=== PATIENT | female | born 1940 | race Caucasian/White ===

== ENCOUNTER 2020-04-10 10:01 | Outpatient (REF) | payer MEDICARE, SELFPAY ==
--- NOTE | 2020-04-10 | US_ITS ---
EXAMINATION: US EXTRACRANIAL CAROTID DUPLEX, BILATERAL CLINICAL INFORMATION: Bilateral carotid artery stenosis. COMPARISON: None TECHNIQUE: Real-time ultrasound and Doppler techniques (integrating B-mode 2-D vascular images, Doppler spectral analysis and color-flow Doppler imaging) were utilized to interrogate the extracranial carotid arteries, the vertebral arteries and proximal subclavian arteries bilaterally. The degree of stenosis is determined by criteria similar to NASCET. FINDINGS: Right Side: 1. There is hard atherosclerotic plaque seen in the bifurcation/proximal ICA region. 2. The common carotid artery PSV proximally is 66 cm/s and distally 69 cm/s. 3. The proximal internal carotid artery velocities are 130 cm/s systolic and 21 cm/s diastolic. 4. The proximal external carotid artery PSV is 161 cm/s. 5. The vertebral artery shows 73 flow. 6. The subclavian artery waveforms are normal. Left Side: 1. There is hard atherosclerotic plaque seen in the bifurcation/proximal ICA region. 2. The common carotid artery PSV proximally is 57 cm/s and distally 63 cm/s. 3. The proximal internal carotid artery velocities are 182 cm/s systolic and 25 cm/s diastolic. 4. The proximal external carotid artery PSV is 770 cm/s. 5. The vertebral artery shows reversed flow. 6. The subclavian artery waveforms are normal. US/US carotid duplex BI IMPRESSION: 1. RIGHT: Approximately 50-79% range stenosis, right carotid artery. There is hard plaque seen at the bulb. 2. LEFT: Approximately 50-79% range stenosis, left carotid artery. There is hard plaque seen in the left bulb 3. There is new hemodynamically significant stenosis in the right carotid artery. Hemodynamic significant left carotid artery measuring 50-79% diameter reduction is stable. 4. There is a high-grade stenosis involving the left axilla carotid artery. 5. There is reversed flow in the left vertebral artery. Previously patient had a biphasic flow on the left side.
== END 2020-04-10 10:02 | disposition home or self-care (01) ==
LOC: HO.US 10:01
PROVIDERS: Visit Provider Surgery Vascular Surgery
DX: I65.23 Occlusion and stenosis of bilateral carotid arteries (principal)
CPT/HCPCS: 93880

== ENCOUNTER 2020-04-16 09:24 | Outpatient (REF) | payer MEDICARE, SELFPAY ==
--- NOTE | 2020-04-16 09:48 | CT_ITS ---
EXAMINATION: CTA ABDOMEN AND PELVIS Andra Conte M.D./Ph.D. CLINICAL INFORMATION: History of abdominal aortic aneurysm rupture and repair. TECHNIQUE: Multiple axial images were obtained through the abdomen and pelvis before and after administration of 80 mL of Omnipaque 300 intravenously. Images were evaluated on independent dedicated 3-D workstation and 3-D images were reconstructed with concurrent radiologist supervision and subsequently interpreted. Specific vascular measurements are placed directly on the 3-D rendered images and are documented and stored in PACS. This CT examination was performed using dose optimization techniques as appropriate, variously including the following: *Automated exposure control *Adjustment of mA and/or kV according to patient size (this includes techniques or standardized protocols for targeted exams where dose is matched to indication/reason for exam; i.e. extremities or head) *Use of iterative reconstruction technique COMPARISON: 03/02/2019, 08/05/2018 DLP: 196.10 mGy-cm FINDINGS: VASCULAR: 1. 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 Atherosclerotic disease extends along its branches which maintain patency. The superior mesenteric artery is diffusely atherosclerotic with mild ostial stenosis that is not flow-limiting. 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 2. Renal Arteries: Renal artery stenoses bilaterally with diffuse atherosclerotic disease. Patency is maintained. 3. Abdominal Aorta: Diffuse atherosclerotic disease of the visualized descending thoracic aorta with ulcerations. Atherosclerotic disease is also seen involving the entirety of the abdominal aorta. There is an infrarenal abdominal aortic aneurysm seen that measures 4.7 x 4.8 cm, previously 4.7 x 4.7 cm when similarly measured on the axial images. The aneurysm is fusiform and begins immediately below the renal arteries and continues to the aortic bifurcation. The aneurysm sac contains mural thrombus, particularly at its inferior aspect. 4. Iliac Arteries: The iliofemoral systems are patent bilaterally as far as they are visualized. There are bilateral common iliac artery stenoses at the origins. Poststenotic dilatation of the right common iliac artery is again seen measuring 1.5 cm. Calcified atherosclerotic disease is seen diffusely throughout the iliofemoral systems. 5. Veins: The IVC is singular and right-sided. The left renal vein is stretched across the aneurysm and contrast does not appear to reach the renal vein as it attaches to the IVC. Instead, the outflow from the left kidney appears to be retrograde down the refluxing left-sided ovarian veins into pelvic varices with drainage across the midline to the right gonadal vein as well as ipsilaterally into the internal iliac vein. NONVASCULAR: Locker Room Manager: No additional findings. Lung Bases: Centrilobular emphysematous changes. Liver, Gallbladder, Biliary Tree: Scattered areas of arterial enhancement within the liver at segment 2 and segment 5 adjacent to the gallbladder, segment 6 as well as segment 7 at the dome. The lesions are all ill-defined and small. The largest at the dome measures approximately 1 cm. The liver is enlarged measuring 21 cm in craniocaudal extent. The gallbladder is unremarkable with no evidence of radiopaque gallstones, gallbladder wall thickening or pericholecystic inflammatory changes. Pancreas: Unremarkable. Spleen: Stable subcapsular hypoechoic focus measures 0.8 cm. Adrenal Glands: Unremarkable. Kidneys and Ureters: Renal cortical thinning and lobulation. Scattered areas of cortical hypoattenuation likely related to chronic scars or infarcts. No solid enhancing suspicious renal lesions are identified. No hydronephrosis or perinephric stranding. Bladder: Unremarkable. Gastrointestinal Tract: Diverticulosis without CT evidence of acute diverticulitis. No evidence of bowel obstruction. The appendix is unremarkable. Abdominal Wall: Similar-appearing fat and fluid containing epigastric midline hernia. Shallow periumbilical hernia contains nonobstructed small bowel, similar to the prior study. Lymph Nodes: No lymphadenopathy within the abdomen or pelvis by CT criteria. Pelvic Viscera: Unremarkable. Osseous Structures: No acute or suspicious osseous abnormality. CT/CT angio abdomen pelvis IMPRESSION: 1. No significant interval change to the size or appearance of the fusiform infrarenal abdominal aortic aneurysm demonstrating mural thrombus. 2. Bilateral common iliac artery stenoses, right greater than left, similar to the prior study. 3. Similar-appearing stenoses of the celiac axis, superior mesenteric artery and renal arteries. 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 The kidneys demonstrate evidence of renal artery stenosis with bilateral symmetric cortical thinning and cortical scars or infarcts. 4. Scattered arterially enhancing lesions within the liver may represent flash filling hemangiomas although the appearance is nonspecific. If appropriate based upon the patient's clinical assessment, followup with liver protocol MRI is recommended. The patient does have hepatomegaly and suggestion of underlying hepatic steatosis. 5. Stable ventral abdominal hernias containing fat and nonobstructed small bowel loops. 6. The left renal vein may be occluded as it stretches across the aneurysm. The majority of the left renal outflow appears to be down the refluxing left gonadal vein into pelvic varices. 7. Other chronic and nonacute findings, as above.
[2020-04-16 11:01] LABS: Blood Urea Nitrogen 19 mg/dL (9-16); Estimated Glomerular Filt Rate 50
[2020-04-16] MEDS: iohexoL 350 MG/ML 100 ML INFUS..BTL 80 ML IV (12:07)
== END 2020-04-16 09:25 | disposition home or self-care (01) ==
LOC: HO.CT 09:24
PROVIDERS: Visit Provider Surgery Vascular Surgery
DX: I71.3 Abdominal aortic aneurysm, ruptured (principal)
CPT/HCPCS: 74174; 82565; 84520; Q9967

== ENCOUNTER → 2020-04-17 10:02 | Outpatient (BNVA) | payer MEDICARE, SELFPAY | PROVIDERS: PCP Internal Medicine; Referring Provider Internal Medicine; Visit Provider Surgery Vascular Surgery | DX: I71.4 Abdominal aortic aneurysm, without rupture (principal); I65.23 Occlusion and stenosis of bilateral carotid arteries | CPT/HCPCS: 99212 ==

== ENCOUNTER 2022-12-31 15:09 | Emergency (ER) | payer MEDICARE, SELFPAY ==
--- NOTE | ~2022-12-31 | XR_ITS ---
EXAMINATION: XR FINGER, RIGHT CLINICAL INFORMATION: Finger swelling, pain and redness. COMPARISON: None available. TECHNIQUE: 4 of the right hand second digit. FINDINGS: Mild to moderate interphalangeal, first carpal metacarpal and triscaphe degenerative joint changes are seen. Degenerative joint changes are most pronounced in the second digit in the distal interphalangeal joint with joint space narrowing, periarticular sclerosis and hypertrophic marginal osteophyte formation. An oblique linear lucency is seen in the distal/radial aspect of the middle phalanx. Moderate soft tissue swelling is seen in the second digit. XR/XR finger RT min 2V IMPRESSION: Moderate soft tissue swelling in the second digit with degenerative joint changes most consistent with osteoporosis radius. There is an oblique linear lucency in the distal aspect of the middle phalanx that may be projectional. An acute nondisplaced fracture cannot be completely excluded. Correlate with physical exam and trauma history.
[2022-12-31 15:36] VITALS: BP 90/51; PULSE 69; RESP 16; TEMP 36.1; O2SAT 96; BMI 21.0
--- NOTE | 2022-12-31 15:39 | ED.EXTPRO ---
HPI - Extremity Problem General Chief complaint: Extremity Problem Stated complaint: Right index finger injury Time Seen by Provider: 12/31/22 17:53 Source: patient and RN notes reviewed Mode of arrival: ambulatory Limitations: no limitations History of Present Illness HPI Narrative: This is a 82-year-old female, with a past medical history of gout currently on allopurinol, hypertension, hyperlipidemia, and diet-controlled diabetes, presenting to the emergency department with complaints of right second finger pain, swelling, and warmth x4 days. Patient denies any trauma or injury to her right second finger. Denies history of similar symptoms in the past. She states that she has a history of gout but typically this affects her toes. She has never had any injuries or gouty flare ups in her hands or fingers. No fevers or chills. She was seen by her primary care physician this afternoon, and was placed on Augmentin reports that she took 1 dose of this today. She was told to come to the emergency department for further evaluation. No other complaints or concerns at this time. MD Complaint: extremity pain Onset (ago): day(s) Pain Consistency: constant Location: right and upper extremity Quality: aching Radiation: none Relieving factors: nothing Exacerbating factors: nothing Associated symptoms: denies other symptoms Related Data Home Medications Medication Instructions Recorded Confirmed allopurinol 100 mg tablet 100 mg PO DAILY 10/31/22 amlodipine 5 mg tablet 5 mg PO DAILY 10/31/22 aspirin 81 mg tablet,delayed 81 mg PO DAILY 10/31/22 release calcium citrate-vitamin D3 125 1 tab PO .QD 10/31/22 mg-62.5 unit tablet lisinopril 5 mg tablet 5 mg PO DAILY 10/31/22 metformin 500 mg tablet 500 mg PO BID 10/31/22 metoprolol tartrate 50 mg tablet 50 mg PO TID 10/31/22 niacin 500 mg tablet 500 mg PO DAILY 10/31/22 simvastatin 40 mg tablet 40 mg PO DAILY 10/31/22 Previous Rx's Medication Instructions Recorded meloxicam 15 mg tablet 15 mg PO DAILY #14 tabs 10/31/22 sulfamethoxazole 800 1 tab PO BID 7 days #14 tabs 10/31/22 mg-trimethoprim 160 mg tablet (Bactrim DS) Allergies Allergy/AdvReac Type Severity Reaction Status Date / Time No Known Allergies Allergy Unverified 12/31/22 15:36 Review of Systems Review of Systems: Yes all other systems are reviewed and are negative Constitutional: Constitutional: Reports as per [facility] Past Medical History Surgical History H/O section History of AAA (abdominal aortic aneurysm) repair Hx of cataract Social History Social History Alcohol intake: never Patient Tobacco Use Status: Former Tobacco user Smoked in Last 30 Days: No Use of substances other than those prescribed or required for medical reasons: No Advance Directives: No Advance Directives Information Provided: No Physical Exam Vital Signs: Vital Signs: Last Vital Signs Temp 98.2 F 12/31/22 19:04 Pulse 71 12/31/22 19:04 Resp 16 12/31/22 19:04 BP 91/65 12/31/22 19:04 Pulse Ox 98 12/31/22 19:04 O2 Del Method Room Air 12/31/22 19:04 BMI result Body Mass Index 21.0 Const: General: cooperative, comfortable and no acute distress Orientation/consciousness: patient oriented x3 Limitations: no limitations HEENT: Head: Yes normal to inspection, Yes normocephalic and Yes atraumatic Ears: hearing grossly normal bilaterally General nose exam: Normal external nose present Face and sinus: Yes normal facial exam Mouth: Normal oral and palatal mucosa present, oropharynx normal and moist mucous membranes Throat: Yes posterior oropharynx normal Eyes: General: appearance normal, both eyes and all related structures Eyelids: Yes eyelids normal Conjunctivae: conjunctivae normal Sclerae: sclerae normal Pupils: Equal, round and reactive pupils present EOM: EOMs intact bilaterally Neck: Neck: Yes normal visual inspection, Yes full ROM and Yes no lymphadenopathy Lymphatic: no lymphadenopathy noted Chest: Chest palpation & inspection: normal inspection of the chest Resp: Effort & Inspection: normal respiratory effort and able to speak in complete sentences Auscultation: clear to auscultation bilaterally, no crackles, no rales, no rhonchi and no wheezes Cardio: Rate: regular rate Rhythm: regular rhythm Heart sounds: S1 normal heart sound present and S2 normal heart sound present GI: Inspection: Yes normal to inspection Skin: General skin exam: no rashes or lesions noted Trauma: no lacerations or abrasions Wounds: no wounds Neuro: General: patient oriented x3 and moves all extremities Cranial nerves: Yes Equal, round and reactive pupils present Extrem: Other: Right 2nd digit with warmth, edema and ecchymosis noted throughout finger. TTP at the DIP and PIP. Along the DIP there is erythema, redness, and warmth. Patient able to flex and extend at the PIP limited range of motion at the the DIP. Capillary refill less than 2 seconds. General: Yes normal to inspection Left upper extremity: normal to inspection Right lower extremity: normal to inspection Left lower extremity: normal to inspection Course Course Course Narrative: RME - 82 yo female with history of gout, AAA, HTN, DM, HLD who presents to the ER for evaluation of nontraumatic right index finger pain, swelling, redness that has been worsening for the last 4 days. Plan: x-ray finger Reevaluation(s) Reevaluation #1: X-ray returned showing moderate soft tissue swelling the 2nd digit with degenerative changes most consistent with osteoporosis. There is in oblique linear lucency in the distal/radial aspect of the middle phalanx which may be projectional. Lab work pending. Time: 18:25 Reevaluation #2: consult out to orthopedic PAEleni, sign-out given to colleague Anitha Borja PA-C pending orthopedic recommendations. Time: 19:30 Reevaluation #3: Orthopedics recommended treating as gout, low suspicion for infection/cellulitis or tenosynovitis. Labs reviewed, patient given Lokelma prior to discharge. Results discussed with patient including worrisome signs and symptoms and strict return precautions, and when to return to the emergency department. They verbalized understanding and feel safe for discharge at this time. Time: 20:15 Medical Decision Making Medical Decision Making [facility] Narrative: This is a 82-year-old female, with a past medical history of hypertension, hyperlipidemia, gout on allopurinol, and diet-controlled diabetes, presenting to the emergency department for evaluation of atraumatic right 2nd finger swelling, pain, and warmth x4 days. On arrival, patient mildly hypotensive at 90/51, patient is asymptomatic, no headaches, no dizziness or lightheadedness. Clinical suspicion for gout versus cellulitis versus fracture versus osteoarthritis, septic arthritis. Given limited range of motion at the PIP as well as warmth overlying this area gout is suspected however will obtain basic labs to rule out infection. Plan: finger x-ray, basic labs, inflammatory markers, uric acid Differential Diagnosis Differential Diagnoses: The differential diagnosis associated with the presentation includes gout, pseudogout, tenosynovitis, septic arthritis, cellulitis Admission/Observation Consideration of admission/observation: Escalation of care including admission/observation considered Patient would have been admitted to the hospital had her work up had any findings where hospital admission was appropriate and her clinical presentation warranted hospital admission. Lab Data MDM Lab Attestation statement: I reviewed the patient's lab results. 12/31/22 18:20 12/31/22 18:20 Labs: Lab Results 12/31/22 12/31/22 12/31/22 Range/Units 18:20 18:20 18:20 WBC 10.8 (4.8-10.8) X10*3/uL RBC 4.11 L (4.20-5.50) X10*6/uL Hgb 11.5 L (12.0-16.0) g/dl Hct 36.3 L (37.0-47.0) % MCV 88.3 (80.0-98.0) fL MCH 28.0 (27.0-33.0) pg MCHC 31.7 (31.0-35.0) g/dl RDW 17.2 H (11.0-16.0) % Plt Count 303 (160-400) X10*3/uL MPV 8.9 L (9.4-12.3) fL Immature Gran % (Auto) 1.4 H (0.0-0.4) % Neut % (Auto) 76.7 H (45-73) % Lymph % (Auto) 15.8 L (20-40) % [place] % (Auto) 4.4 (2-11) % Eos % (Auto) 1.2 (0-4) % Baso % (Auto) 0.5 (0-2) % Lymph # (Auto) 1.7 (1.2-4.9) X10*3/uL [place] # (Auto) 0.5 (0.1-1.2) X10*3/uL Eos # (Auto) 0.1 (0.0-0.4) X10*3/uL Baso # (Auto) 0.1 (0.0-0.2) X10*3/uL Abs Immat Gran (auto) 0.15 H (0.00-0.03) X10*3/uL Absolute Neuts (auto) 8.3 (2.0-8.3) x10*3/uL Absolute Nucleated RBC 0.000 (0.0-0.012) X10*3/uL Nucleated RBC % (auto) 0.0 (0.0-0.2) /100WBC ESR 49 H (0-20) MM/HR Sodium 139 (135-145) mmol/L Potassium 5.4 H (3.3-5.1) mmol/L Chloride 111 H (96-108) mmol/L Carbon Dioxide 18 L (22-29) mmol/L Anion Gap 15 (12-20) BUN 17 H (9-16) mg/dL Creatinine 0.91 (0.5-1.4) mg/dL Estim Creat Clear Calc 36.6 Estimated GFR 59 Random Glucose 98 (60-115) mg/dL Uric Acid 5.6 (2.4-5.7) mg/dL Calcium 9.1 (8.4-10.2) mg/dL C-Reactive Protein 2.68 H (< or = 0.50) mg/dL Radiology Impression Discussion of test interpretation with radiology: I have reviewed the radiologist's reading. External Record Review External record reviewed: Inpatient record, Office record, Outpatient record, Prior outpatient labs, Prior outpatient radiology, Primary care record and Outside ED record Discharge Plan Discharge Clinical Impression: Gout Patient Disposition: Home, Self-Care Prescriptions: No Action metoprolol tartrate 50 mg tablet 50 mg PO TID lisinopril 5 mg tablet 5 mg PO DAILY amlodipine 5 mg tablet 5 mg PO DAILY simvastatin 40 mg tablet 40 mg PO DAILY metformin 500 mg tablet 500 mg PO BID allopurinol 100 mg tablet 100 mg PO DAILY aspirin 81 mg tablet,delayed release (DR/EC) 81 mg PO DAILY niacin 500 mg tablet 500 mg PO DAILY calcium citrate-vitamin D3 125-62.5 mg-unit tablet 1 tab PO .QD meloxicam 15 mg tablet 15 mg PO DAILY Qty: 14 0RF sulfamethoxazole-trimethoprim [Bactrim DS] 800-160 mg tablet 1 tab PO BID 7 Days Qty: 14 0RF
[2022-12-31 18:24] LABS: MANUAL DIFF FLAG NO
[2022-12-31 18:28] LABS: Basophils Absolute Auto 0.1 X10*3/uL (0.0-0.2); Basophils Percent Auto 0.5 % (0-2); Eosinophils Absolute Auto 0.1 X10*3/uL (0.0-0.4); Eosinophils Percent Auto 1.2 % (0-4); Hematocrit 36.3 % (37.0-47.0); Hemoglobin 11.5 g/dl (12.0-16.0); Imm Gran Abs Auto 0.15 X10*3/uL (0.00-0.03); Imm Gran Pct Auto 1.4 % (0.0-0.4); Lymphocytes Absolute Auto 1.7 X10*3/uL (1.2-4.9); Lymphocytes Percent Auto 15.8 % (20-40); Mean Corpuscular HGB Conc 31.7 g/dl (31.0-35.0); Mean Corpuscular Volume 88.3 fL (80.0-98.0); Mean Platelet Volume 8.9 fL (9.4-12.3); Monocytes Absolute Auto 0.5 X10*3/uL (0.1-1.2); Monocytes Percent Auto 4.4 % (2-11); Neutrophils Absolute Auto 8.3 x10*3/uL (2.0-8.3); Neutrophils Percent Auto 76.7 % (45-73); Platelet Count 303 X10*3/uL (160-400); Red Blood Count 4.11 X10*6/uL (4.20-5.50); Red Cell Distribution Width 17.2 % (11.0-16.0); White Blood Count 10.8 X10*3/uL (4.8-10.8)
[2022-12-31 18:43] LABS: Anion Gap 15 (12-20); Blood Urea Nitrogen 17 mg/dL (9-16); C Reactive Protein 2.68 mg/dL (< or = 0.50); Calcium 9.1 mg/dL (8.4-10.2); Carbon Dioxide 18 mmol/L (22-29); Chloride 111 mmol/L (96-108); Creatinine Clr Calc Pharmacy 36.6; Estimated Glomerular Filt Rate 59; Glucose Random 98 mg/dL (60-115); Potassium 5.4 mmol/L (3.3-5.1); Sodium 139 mmol/L (135-145); Uric Acid 5.6 mg/dL (2.4-5.7)
[2022-12-31 19:04] VITALS: BP 91/65; PULSE 71; RESP 16; TEMP 36.8; O2SAT 98
--- NOTE | 2022-12-31 19:09 | PC.NURSE ---
Pt A&Ox4, pt denies injury/trauma to right hand pointing finger, denies any pain. Redness and swelling noted to bottom joint. Pt reports hx of gout, on allopurinol.
[2022-12-31 19:20] LABS: Erythrocyte Sedimentation Rate 49 MM/HR (0-20)
[2022-12-31] MEDS: Sodium Zirconium Cyclosilicate 5 GM POWD.PACK PO (20:29)
[2022-12-31] MEDS: predniSONE 20 MG TABLET 40 MG PO (20:29)
[2022-12-31 20:34] VITALS: BP 92/60; PULSE 67; RESP 16; O2SAT 100
== END 2022-12-31 20:39 | disposition home or self-care (01) ==
PROVIDERS: Physician Assistant Medical; Emergency Provider Internal Medicine
DX: M10.041 Idiopathic gout, right hand (principal); M79.644 Pain in right finger(s); E11.9 Type 2 diabetes mellitus without complications; I10 Essential (primary) hypertension; E78.5 Hyperlipidemia, unspecified; Z79.82 Long term (current) use of aspirin; Z79.84 Long term (current) use of oral hypoglycemic drugs; Z79.899 Other long term (current) drug therapy; Z87.891 Personal history of nicotine dependence
CPT/HCPCS: 36415; 73140; 80048; 84550; 85025; 85652; 86140; 99283; 99284

== ENCOUNTER 2023-05-11 09:27 | Inpatient (IN) | payer MEDICARE, SELFPAY ==
[2023-05-11] VITALS (10 sets, daily range): BP systolic 82–180; BP diastolic 57–100; PULSE 93–112; RESP 18–24; TEMP 36.6–37; O2SAT 96–99; BMI 22.0
--- NOTE | ~2023-05-11 | XR_ITS ---
EXAMINATION: XR CHEST CLINICAL INFORMATION: SOB. COMPARISON: Chest x-ray 03/23/2010 TECHNIQUE: 2 views of the chest were obtained. FINDINGS: The lungs are well-expanded with right parahilar opacity question consolidation. Heart size is normal. There is increased bilateral parahilar markings, question mild congestion versus interstitial pneumonitis. There is no pleural effusion. No gross bony abnormality. XR/XR chest 2V IMPRESSION: 1. Right parahilar opacity question consolidation. 2. Increased bilateral parahilar markings, question mild vascular congestion versus interstitial pneumonitis.
--- NOTE | ~2023-05-11 | XR_ITS ---
EXAMINATION: XR CHEST CLINICAL INFORMATION: Celiac COMPARISON: Previous chest x-ray most recent May 12, 2023 and chest CTA May 11, 2023 TECHNIQUE: Frontal view of the chest was obtained. FINDINGS: The cardiac silhouette is enlarged. There is pulmonary venous redistribution. There are increased interstitial markings. There is blunting at the bilateral costophrenic angles questionable for small bilateral pleural effusions. Findings are most suggestive of CHF. This is increased from recent exam. No pneumothorax. No acute bone abnormality. XR/XR chest 1V IMPRESSION: CHF. This is increased from recent exam.
--- NOTE | ~2023-05-11 | XR_ITS ---
EXAMINATION: XR CHEST CLINICAL INFORMATION: Shortness of breath. COMPARISON: 05/11/2023. TECHNIQUE: Frontal view of the chest was obtained. FINDINGS: The cardiomediastinal silhouette is stable. There is pulmonary vascular congestion and diffuse increased markings and patchy faint lung opacities. The costophrenic angles appear blunted. The bony structures are osteopenic. The soft tissues are unremarkable. XR/XR chest 1V IMPRESSION: Vascular congestion with diffuse increased markings and patchy lung opacities. Suspect fluid overload and/or congestive heart failure with interstitial and early pulmonary edema. Blunted costophrenic angles possibly trace pleural fluid. Similar findings were seen previously.
--- NOTE | ~2023-05-11 | CT_ITS ---
EXAMINATION: CT ANGIOGRAM OF THE CHEST WITH AND WITHOUT CONTRAST (CT PULMONARY ANGIOGRAM FOR PE) CLINICAL INFORMATION: Hypoxia; elevated d-dimer and troponin. COMPARISON: Chest radiographs dated 05/11/2023. TECHNIQUE: Prior to contrast administration, noncontrast localization images were obtained. Subsequently, multidetector volumetric imaging was performed from the thoracic inlet to below the diaphragms following the administration of 80 mL Omnipaque 350 intravenous contrast. No contrast reaction reported Sagittal, coronal, and MIP oblique sagittal reformatted images were obtained on the CT workstation, uploaded to PACS, and reviewed. This CT examination was performed using dose optimization techniques as appropriate, variously including the following: *Automated exposure control *Adjustment of mA and/or kV according to patient size (this includes techniques or standardized protocols for targeted exams where dose is matched to indication/reason for exam; i.e. extremities or head) *Use of iterative reconstruction technique Total exam dose-length product 167 mGy-cm FINDINGS: QUALITY OF STUDY/CONTRAST BOLUS: Satisfactory. PULMONARY ARTERIES: No pulmonary emboli. THORACIC AORTA: No aneurysm. There is moderate atherosclerotic calcification. LUNG: There are centrilobular emphysematous change. There is biapical pleural scarring. Within the superior segment of the right lower lobe (6:29), a 3.6 x 2.6 cm infiltrate is noted, with air bronchograms. PLEURA: There are small bilateral pleural effusions. No pneumothorax is seen. MEDIASTINUM: Normal heart size. No pericardial effusion. No hilar or mediastinal lymphadenopathy. No evidence of septal bowing or right heart strain. CORONARY ARTERY CALCIFICATION: Mild to moderate. CHEST WALL/AXILLA: No axillary or internal mammary lymphadenopathy. OSSEOUS STRUCTURES: There is multi-level lower cervical and thoracic spondylosis and Schmorl's node formation. No acute or aggressive osseous abnormality is seen. UPPER ABDOMEN: Unremarkable. No reflux of contrast into the hepatic veins to suggest elevated right heart pressures. CT/CT angio chest PE protocol IMPRESSION: 1. No pulmonary embolus or thoracic aortic aneurysm is noted. 2. A 3.6 cm right base infiltrate is noted, likely infectious. Recommend follow-up imaging to ensure clearance and exclude the possibility of underlying obstructive process. 3. There are centrilobular emphysematous changes. 4. There are mild to moderate coronary artery atherosclerotic calcifications. 5. No thoracic lymphadenopathy or pleural effusion is seen. 6. No acute or aggressive osseous lesion is seen. VTE: negative
--- NOTE | 2023-05-11 07:00 | CA_ITS ---
Transthoracic Echocardiogram Patient (Last, First, Middle): Noemi Jose, Gender: Female Date of : 1940 Age: 82 Procedure Date: 05/11/2023 Procedure Type: Transthoracic Echocardiogram Location: ER Height: 152.4 cm Weight: 50.8 kg BSA: 1.46 m2 Heart Rate: bpm BP: 151 / 65 mmHg [address] Technologist: Referring MD: Lisa SAAVEDRA Symptoms: new onset chf, cardiac mumurs Study Quality: Fair ECG Rhythm: Sinus Conclusions: - The left ventricular systolic function is severely decreased. The calculated ejection fraction is 29% by biplane method. - The inferoseptal wall, the basal inferior, mid inferior, apical septum, mid anteroseptal, and basal inferolateral segments are akinetic. - There is mild to moderate aortic valve stenosis. Findings Procedure Information Contrast agent, definity, is being given per protocol without apparent complications. Left Ventricle Normal left ventricular cavity size. The left ventricular systolic function is severely decreased. The calculated ejection fraction is 29% by biplane method. There is no evidence of regional wall motion abnormalities. Evidence suggests grade I (mild) diastolic dysfunction. Moderate focal septal hypertrophy. Wall Motion Rest Echo Findings The inferoseptal wall, the basal inferior, mid inferior, apical septum, mid anteroseptal, and basal inferolateral segments are akinetic. Right Ventricle Normal right ventricular cavity size and systolic function. Atria The left atrium is mildly dilated. The right atrium is normal in size. Aortic Valve There is moderate calcification of the aortic valve. There is mild to moderate aortic valve stenosis. There is trace (trivial) aortic valve regurgitation. Dimensionless index 0.35. Stroke volume index 35 mL/m2. Mitral Valve There is mild mitral annular calcification. There is trace mitral valve regurgitation. There is no mitral valve stenosis. Pulmonic Valve The pulmonic valve is likely normal. Tricuspid Valve There is trace tricuspid valve regurgitation. There is no evidence of pulmonary hypertension. Great Vessels The asc aorta is normal in size. Venous The inferior vena cava is normal in size and collapses greater than 50% with inspiration. Pericardium/Pleural There is no evidence of pericardial effusion. Prior Study Comparison Changes noted compared to prior study dated: 04/19/2010. Diminished LVEF; new wall motion abnormalities. Measurements 2D Linear Measurements IVSd: 1.31 0.6-0.9/0.6-1.0 cm LVIDd: 4.06 3.9-5.3/4.2-5.9 cm LVIDd Index: 2.78 2.4-3.2/2.2-3.1 cm/m2 LVIDs: 3.06 2.0-3.6 cm LVPWd: 1.35 0.7-1.1 cm Ao Root: 3.00 2.1-3.5 cm LA Diam: 4.00 2.7-3.8/3.0-4.0 cm LAIDs Index: 2.74 1.5-2.3 cm/m2 LV Mass: 246.00 67-162/88-224 g LV Mass Index: 168.49 43-95/49-115 g/m2 LVOT Diam: 2.00 3.0+(-)1.3 cm 2D Systolic Function EF 4C: 23.60 >55% EF 2C: 28.90 >55% EF BiP: 29.00 >55% Mitral Valve MV Pk E: 0.72 MV PK A: 0.84 MV Decel Time: 108.00 E/A: 0.90 E'Lateral: 6.96 E'Medial: 4.24 E/E' Med: 17.10 E/E' Lat: 10.40 PHT: 32.00 MVA PHT: 6.88 Decel [place]: 6.69 Aortic Valve AoV Pk [place]: 2.33 AoV Mn [place]: 1.60 AoV VTI: 0.44 AoV Pk Grad: 22.00 Aov Mn Grad: 12.00 TAYO Cont.VTI: 1.16 LVOT LVOT Pk [place]: 0.81 LVOT Mn [place]: 0.51 LVOT VTI: 0.16 LVOT Pk Grad: 3.00 LVOT Mn Grad: 1.00 LVOT Diam: 2.00 LVOT Area: 3.14 Diastolic Function MV Pk E: 0.72 MV Pk A: 0.84 E/A: 0.90 E'Medial: 4.24 E/E' Med: 17.10 E' Laterial: 6.96 E/E' Lat: 10.40 Right Ventricle TAPSE (mm): 20.00 TVS' [place]: 14.00 Tricuspid Valve TR Pk [place]: 2.56 TR Pk Grad: 26.00 RA Press: 3.00 RVSP: 29.00 Great Vessels Aorta Ao Root-2D: 3.00 2.0-3.7 cm Ao Asc: 2.90 2.1-3.4 cm Pulmonary Valve PV Pk [place]: 1.27 Peak PV Grad: 6.00 Updated in Other Vendor System with Status of Final Tk Duran MD electronically signed on 05/12/2023 10:56:22 AM with status of Final
--- NOTE | 2023-05-11 09:38 | ED_ITS ---
HPI - SOB/Dyspnea General Chief Complaint: Dyspnea Stated Complaint: SOB X2 DAYS,WORSE W/EXER/AMB PER EMS Time Seen by Provider: 05/11/23 09:32 Source: patient, EMS, RN notes reviewed and old records reviewed Mode of arrival: EMS History of Present Illness HPI Narrative: 82-year-old female with a past medical history of carotid stenosis, AAA, HTN, diabetes presenting to the ED via EMS complaining of lightheadedness and exertional dyspnea x few days. Denies fever/chills, cough, chest pain, abdominal pain, nausea/vomiting, pedal edema MD elicited complaint: shortness of breath Related Data Home Medications Medication Instructions Recorded Confirmed allopurinol 100 mg tablet 100 mg PO DAILY 10/31/22 amlodipine 5 mg tablet 5 mg PO DAILY 10/31/22 aspirin 81 mg tablet,delayed 81 mg PO DAILY 10/31/22 release calcium citrate-vitamin D3 125 1 tab PO .QD 10/31/22 mg-62.5 unit tablet lisinopril 5 mg tablet 5 mg PO DAILY 10/31/22 metformin 500 mg tablet 500 mg PO BID 10/31/22 metoprolol tartrate 50 mg tablet 50 mg PO TID 10/31/22 niacin 500 mg tablet 500 mg PO DAILY 10/31/22 simvastatin 40 mg tablet 40 mg PO DAILY 10/31/22 Previous Rx's Medication Instructions Recorded meloxicam 15 mg tablet 15 mg PO DAILY #14 tabs 10/31/22 sulfamethoxazole 800 1 tab PO BID 7 days #14 tabs 10/31/22 mg-trimethoprim 160 mg tablet (Bactrim DS) naproxen 500 mg tablet 500 mg PO BID PRN pain 10 days #20 12/31/22 tabs prednisone 20 mg tablet 40 mg (2 x 20 mg) PO DAILY 5 days 12/31/22 #10 tabs Allergies Allergy/AdvReac Type Severity Reaction Status Date / Time No Known Allergies Allergy Unverified 12/31/22 15:36 Review of Systems 2 Review of Systems: Constitutional: No Fever, No Chills, No Fatigue, No Malaise ENT/Mouth: No Ear Pain, No Nasal Congestion, No sore throat, No Rhinorrhea, No Swallowing Difficulty Eyes: No Eye Pain, No Swelling, No Redness, No Vision Changes Cardiovascular: No Chest Pain, + SOB, + Dyspnea on Exertion, No Orthopnea, No Edema, No Palpitations Respiratory: No Cough, No Sputum, No Wheezing, No Smoke Exposure, No Dyspnea Gastrointestinal: No Nausea, No Vomiting, No Diarrhea, No Constipation, No Abdominal pain Genitourinary: No Dysuria, No Urinary Frequency, No Hematuria, No Flank Pain Musculoskeletal: No joint pain, No Myalgias, No Joint Swelling Skin: No Skin Lesions, No rash Neuro: No Weakness, No Numbness, No Loss of Consciousness, + lightheaded, No Headache Yes all other systems are reviewed and are negative Constitutional: Constitutional: Reports as per [facility] Past Medical History Attestation statement: The following information was validated with the patient. Source: old records reviewed Surgical History H/O section Hx of cataract History of AAA (abdominal aortic aneurysm) repair Social History Social History Alcohol intake: never Patient Tobacco Use Status: Former Tobacco user Advance Directives: No Advance Directives Information Provided: Yes Physical Exam 2 Vital Signs: Vital Signs: Last Vital Signs Temp 98.6 F 05/11/23 09:41 Pulse 100 05/11/23 09:56 Resp 18 05/11/23 09:41 BP 151/65 H 05/11/23 09:56 Pulse Ox 96 05/11/23 09:41 O2 Del Method Room Air 05/11/23 09:41 BMI result Body Mass Index 22.0 Const: General: cooperative, healthy appearing and no acute distress O rientation/consciousness: patient oriented x3 Limitations: no limitations HEENT: Head: Yes normal to inspection and Yes atraumatic Ears: hearing grossly normal bilaterally General nose exam: Normal external nose present Face and sinus: Yes normal facial exam Eyes: General: appearance normal, both eyes and all related structures EOM: EOMs intact bilaterally Neck: Neck: Yes normal visual inspection and Yes no meningeal signs Resp: Effort & Inspection: normal respiratory effort and no respiratory distress Auscultation: clear to auscultation bilaterally and crackles bilateral at the base Cardio: Rate: regular rate Heart sounds: S1 normal heart sound present and S2 normal heart sound present GI: Inspection: Yes normal to inspection Palpation (GI): Soft to palpation, nontender, no guarding and not rigid : General: Yes no CVA tenderness Back/Spine/Pelvis: Back: no CVA tenderness Skin: Rashes: no rashes Wounds: no wounds Neuro: General: patient oriented x3, tone normal, moves all extremities, no meningeal signs, no focal motor deficits and CN's II-XI intact bilaterally C ranial nerves: Yes CN's II-XII intact bilaterally Gait exam (Neuro): Normal gait present Extrem: General: Yes normal to inspection, Yes no pedal edema and Yes no calf tenderness Course Course Course Narrative: -1109--no leukocytosis. H&H low at 8.0/28.8 >> denies brbpr/melena > will obtain occult stool -troponin 26.4 > will obtain 3 hour repeat. BNP elevated to 2348 XR chest 2V IMPRESSION: 1. Right parahilar opacity question consolidation. 2. Increased bilateral parahilar markings, question mild vascular congestion versus interstitial pneumonitis. > will obtain lactic/blood cultures and give empiric IV Rocephin. Plan will be for admission -1217- occult stool negative Medications Administered Discontinued Medications Generic Name Dose Route Start Last Admin Trade Name Freq PRN Reason Stop Dose Admin Furosemide 40 mg 05/11/23 11:08 05/11/23 11:43 Furosemide 40 Mg/4 Ml Vial IVPUSH 05/11/23 11:09 40 mg STAT STA Administration Protocol Ceftriaxone Sodium 1 gm/ 50 mls @ 100 mls/hr 05/11/23 11:08 05/11/23 11:43 Sodium Chloride IV 05/11/23 11:37 100 mls/hr ONCE ONE Administration Medical Decision Making Medical Decision Making [facility] Narrative: 82-year-old female with a past medical history of carotid stenosis, AAA, HTN, diabetes presenting to the ED via EMS complaining of lightheadedness and exertional dyspnea x few days. On exam initially tachycardic, NAD, nontoxic appearing, lungs with mild bibasilar crackles, no pedal edema or calf tenderness. Abdomen soft/nontender. Concern for viral illness vs pneumonia vs ? CHF. Rule out metabolic/infectious etiology. Lower suspicion for DVT/PE or dissection Plan: EKG, labs, CXR, viral testing, re-evaluate Please refer to course for remaining clinical decision making, interpretation of labs/imaging results, and discussions with consultants and/or family members. Differential Diagnosis Differential Diagnoses: The differential diagnosis associated with the presentation includes As above Admission/Observation Consideration of admission/observation: Escalation of care including admission/observation considered Lab Data MDM Lab Attestation statement: I reviewed the patient's lab results. 05/11/23 09:48 05/11/23 09:48 Labs: Lab Results 05/11/23 05/11/23 05/11/23 Range/Units 09:48 11:27 11:47 WBC 7.9 (4.8-10.8) X10*3/uL RBC 4.00 L (4.20-5.50) X10*6/uL Hgb 8.0 L D (12.0-16.0) g/dl Hct 28.8 L D (37.0-47.0) % MCV 72.0 L (80.0-98.0) fL MCH 20.0 L (27.0-33.0) pg MCHC 27.8 L (31.0-35.0) g/dl RDW 17.5 H (11.0-16.0) % Plt Count 272 (160-400) X10*3/uL MPV 8.9 L (9.4-12.3) fL Immature Gran % (Auto) 0.3 (0.0-0.4) % Neut % (Auto) 81.5 H (45-73) % Lymph % (Auto) 10.7 L (20-40) % [place] % (Auto) 6.1 (2-11) % Eos % (Auto) 0.5 (0-4) % Baso % (Auto) 0.9 (0-2) % Lymph # (Auto) 0.8 L (1.2-4.9) X10*3/uL [place] # (Auto) 0.5 (0.1-1.2) X10*3/uL Eos # (Auto) 0.0 (0.0-0.4) X10*3/uL Baso # (Auto) 0.1 (0.0-0.2) X10*3/uL Abs Immat Gran (auto) 0.02 (0.00-0.03) X10*3/uL Absolute Neuts (auto) 6.4 (2.0-8.3) x10*3/uL Absolute Nucleated RBC 0.000 (0.0-0.012) X10*3/uL Nucleated RBC % (auto) 0.0 (0.0-0.2) /100WBC PT 12.2 (11.1-13.3) SEC INR 1.0 (0.9-1.1) Sodium 143 (135-145) mmol/L Potassium 3.9 D (3.3-5.1) mmol/L Chloride 111 H (96-108) mmol/L Carbon Dioxide 19 L (22-29) mmol/L Anion Gap 17 (12-20) BUN 19 H (9-16) mg/dL Creatinine 1.01 (0.5-1.4) mg/dL Estim Creat Clear Calc 31.4 Estimated GFR 53 Random Glucose 126 H (60-115) mg/dL Lactic Acid 1.9 (0.5-2.0) mmol/L Calcium 9.2 (8.4-10.2) mg/dL Magnesium 2.2 (1.6-2.6) mg/dL Total Bilirubin 0.8 (0.0-1.0) mg/dL Direct Bilirubin 0.3 (0.0-0.5) mg/dL AST 23 (5-31) U/L ALT 7 (0-31) U/L Alkaline Phosphatase 99 (39-117) U/L Troponin I High Sens 26.4 H (<3.5-17.0) ng/L B-Natriuretic Peptide 2348 H (<100) pg/mL Total Protein 7.6 (6.5-8.0) g/dL Albumin 4.1 (3.5-5.0) g/dL Stool Occult Blood NEGATIVE (NEGATIVE) Influenza Type A (PCR) NEGATIVE (Negative) Influenza Type B (PCR) NEGATIVE (Negative) RSV RNA Qual (PCR) NEGATIVE (Negative) SARS-CoV-2 RNA (RT-PCR) NEGATIVE (Negative) Independent Interpretation I performed an independent interpretation of an: EKG (My interpretation EKG normal sinus rhythm with occasional PVC rate of 96. Inverted T-wave in lateral leads. no available priors to compare ) Radiology Impression Discussion of test interpretation with radiology: I have reviewed the radiologist's reading. Independent Historian Clinical information obtained from an independent historian. History obtained from or confirmed by: EMS External Record Review External record reviewed: Inpatient record, Office record, Outpatient record, Prior outpatient labs, Prior outpatient radiology, Primary care record and Outside ED record Tests considered The following testing was considered but not selected: As above Chronic Conditions Patient?s care impacted by: Diabetes and Hypertension Critical Care Time Critical Care Time Critical Care Time: Yes Total Critical Care Time: 40 Attestation: I have personally provided critical care time exclusive of time spent on separately billable procedures. Time includes review of lab data, radiology results, discussion with consultants, and monitoring for potential decompensation. Intervention performed as documented. Discharge Plan Discharge Clinical Impression: Congestive heart failure, Pneumonia, Anemia Patient Disposition: Admitted As Inpatient
--- NOTE | 2023-05-11 09:43 | ECG_ITS ---
Test Reason : SOB Blood Pressure : / mmHG Vent. Rate : 096 BPM Atrial Rate : 096 BPM P-R Int : 156 ms QRS Dur : 110 ms QT Int : 340 ms P-R-T Axes : 077 065 263 degrees QTc Int : 429 ms Sinus rhythm with occasional Premature ventricular complexes Left ventricular hypertrophy with repolarization abnormality ( Luis Alfredo product ) Abnormal ECG When compared with ECG of 25-NOV-2010 10:48, Premature ventricular complexes are now Present Vent. rate has increased BY [address] now depressed in Lateral leads T wave inversion now evident in Anterolateral leads Referred By: Anitha Borja Electronically Signed By:MALLIKA CADENA
[2023-05-11 10:24] LABS: MANUAL DIFF FLAG NO
[2023-05-11 10:30] LABS: Basophils Absolute Auto 0.1 X10*3/uL (0.0-0.2); Basophils Percent Auto 0.9 % (0-2); Eosinophils Percent Auto 0.5 % (0-4); Hematocrit 28.8 % (37.0-47.0); Imm Gran Abs Auto 0.02 X10*3/uL (0.00-0.03); Imm Gran Pct Auto 0.3 % (0.0-0.4); Lymphocytes Absolute Auto 0.8 X10*3/uL (1.2-4.9); Lymphocytes Percent Auto 10.7 % (20-40); Mean Corpuscular HGB Conc 27.8 g/dl (31.0-35.0); Mean Platelet Volume 8.9 fL (9.4-12.3); Monocytes Absolute Auto 0.5 X10*3/uL (0.1-1.2); Monocytes Percent Auto 6.1 % (2-11); Neutrophils Absolute Auto 6.4 x10*3/uL (2.0-8.3); Neutrophils Percent Auto 81.5 % (45-73); Platelet Count 272 X10*3/uL (160-400); Red Cell Distribution Width 17.5 % (11.0-16.0); White Blood Count 7.9 X10*3/uL (4.8-10.8)
[2023-05-11 10:33] LABS: Prothrombin Time 12.2 SEC (11.1-13.3)
--- NOTE | 2023-05-11 10:37 | PC.NURSE ---
alert and oriented, respirations even and unlabored. patient resting quietly in room at this time, offering no complaints. patient states she does not feel short of breath at rest however when she is up and walking she begins to. states this has been ongoing for the past few days. patient does not appear to be in any distress at this time. labs obtained, orthostatics done. awaiting xray at this time, call kim within reach.
[2023-05-11 10:50] LABS: Alanine Aminotransferase 7 U/L (0-31); Albumin Level 4.1 g/dL (3.5-5.0); Alkaline Phosphatase 99 U/L (39-117); Anion Gap 17 (12-20); Aspartate Amino Transferase 23 U/L (5-31); Bilirubin Direct 0.3 mg/dL (0.0-0.5); Bilirubin Total 0.8 mg/dL (0.0-1.0); Blood Urea Nitrogen 19 mg/dL (9-16); Calcium 9.2 mg/dL (8.4-10.2); Carbon Dioxide 19 mmol/L (22-29); Chloride 111 mmol/L (96-108); Creatinine Clr Calc Pharmacy 31.4; Estimated Glomerular Filt Rate 53; Glucose Random 126 mg/dL (60-115); Magnesium 2.2 mg/dL (1.6-2.6); Potassium 3.9 mmol/L (3.3-5.1); Sodium 143 mmol/L (135-145); Total Protein 7.6 g/dL (6.5-8.0)
[2023-05-11 10:56] LABS: B Type Natriuretic Peptide 2348 pg/mL (<100)
[2023-05-11 10:58] LABS: Troponin-I High Sensitivity 26.4 ng/L (<3.5-17.0)
[2023-05-11 11:29] LABS: Influenza A PCR NEGATIVE (Negative); Influenza B PCR NEGATIVE (Negative); Resp Syncy Virus RNA Qual PCR NEGATIVE (Negative); SARS COV2 PCR INHOUSE NEGATIVE (Negative)
[2023-05-11] MEDS: cefTRIAXone sodium 1 GM in 0.9 % Sodium Chloride 50 ML IV (11:43)
[2023-05-11] MEDS: Furosemide 40 MG/4 ML VIAL IVPUSH (11:43)
[2023-05-11 11:51] LABS: Lactic Acid 1.9 mmol/L (0.5-2.0)
[2023-05-11 11:55] LABS: OBS Int Ctl Valid YES; OBS1 NEGATIVE (NEGATIVE)
--- NOTE | 2023-05-11 12:00 | PC.NURSE ---
antibiotics infusing at this time, call kim within reach. patient states that she does not utilize walker or cane at home and ambulates independently.
--- NOTE | 2023-05-11 13:28 | PM.IMHP ---
History of Present Illness Date of Service: 05/11/23 Attending physician on admission: Alejo Vidal Chief Complaint: Lightheadedness, dyspnea on exertion 82-year-old female with history of well-controlled type 2 diabetes, hypertension, h/o AAA, history TIA in 2010, CKD stage 3 (follows with Dr. Reyes), hyperlipidemia, gout was a former smoker with a 20 pack year history (quit around 2002) presented to the ED earlier today for evaluation of exertional lightheadedness and dyspnea on exertion ongoing for several days. Denies any fevers, chills, weight gain, edema, abd pain, nausea, vomiting, diarrhea, melena, hematochezia, orthopnea, PND, shortness of breath at rest, cough, palpitations, chest pain. She says she has had a nonproductive cough but this has been chronic ongoing for several months without any acute change. She has no known history of congestive heart failure. Denies any alcohol use or illicit drug use. On arrival, patient hypertensive to 171/86 151/65 on admission. There is no leukocytosis. She has microcytic anemia with H/H 8.0/28.8%, MCV 72.0. ([facility] / H/H 8.6/30.1%, MCV 75.4 with heme positive stool x2). IN the ED, stool heme negative. Renal function baseline, electrolyte levels normal except for chloride 111, CO2 19. Initial troponin 26.4, repeat pending BNP 2348. Negative for influenza, COVID-19, RSV. CXR shows right perihilar opacity question consolidation as well as increased bilateral perihilar markings with question of mild vascular congestion versus interstitial pneumonitis. EKG shows NSR with occasional PVCs and LVH, rate 96. There is an ST depression in V4-V5 and t wave inversions in anterolateral leads. In the ED, was given 1 g IV ceftriaxone and 40 mg IV Lasix. Review of Systems Review of Systems: General: No fevers, malaise, unintentional weight loss HEENT: No blurred vision, diplopia. No sore throat, nasal congestion, rhinorrhea, sinus pain, ear pain Cardiovascular: No chest pain, palpitations, or leg edema Respiratory: No shortness of breath, wheezing, cough GI: No abdominal pain, nausea, vomiting, diarrhea, constipation, melena, hematochezia : No dysuria, hematuria, increased urinary frequency, decreased urinary output MSK: No myalgia, back pain Neuro: No headaches, weakness, paresthesias Skin: No rashes or lesions [facility] Medical History Former smoker Chronic gout AAA (abdominal aortic aneurysm) Hypertension Type 2 diabetes mellitus Surgical History H/O section Hx of cataract History of AAA (abdominal aortic aneurysm) repair Social History Alcohol intake: never Patient Tobacco Use Status: Former Tobacco user Advance Directives: No Advance Directives Information Provided: Yes Meds Allergies Allergy/AdvReac Type Severity Reaction Status Date / Time No Known Allergies Allergy Unverified 12/31/22 15:36 Active Medications: Current Medications Acetaminophen (Acetaminophen 325 Mg Tablet) 650 mg PO Q6H PRN PRN Reason: Pain, Mild (Pain Scale 1-3) Dextrose (Dextrose 50 % 25 Gm/50 Ml Syringe) 25 gm IVPUSH Q15M PRN; Protocol PRN Reason: per Hypoglycemia Standing Ord. Enoxaparin Sodium (Enoxaparin Sodium 40 Mg/0.4 Ml Syringe) 40 mg SUBCUT Q24H NAYA Furosemide (Furosemide 20 Mg/2 Ml Vial) 20 mg IVPUSH DAILY [facility]; Protocol Glucose (Glucose Gel 15 Gm Gel..Gram.) 15 gm PO Q15M PRN; Protocol PRN Reason: per Hypoglycemia Standing Ord. Insulin Human Lispro (Insulin Lispro 100 Unit/Ml 3 Ml Vial) 0 unit SUBCUT QIDACHS [facility]; Protocol Melatonin (Melatonin 3 Mg Tablet) 3 mg PO BEDTIME PRN PRN Reason: Insomnia Ondansetron HCl (Ondansetron Hcl 4 Mg/2 Ml Vial) 4 mg IVPUSH Q8H PRN PRN Reason: Nausea and Vomiting Senna (Sennosides 8.6 Mg Tablet) 17.2 mg PO BEDTIME PRN PRN Reason: Constipation Sodium Chloride (0.9 % Sodium Chloride Flush 3 Ml Syringe) 3 ml IVFLUSH [facility] Home Medications Medication Instructions Recorded Confirmed Last Taken Type allopurinol 100 mg tablet 100 mg PO DAILY 10/31/22 Unknown History amlodipine 5 mg tablet 5 mg PO DAILY 10/31/22 Unknown History aspirin 81 mg tablet,delayed 81 mg PO DAILY 10/31/22 Unknown History release calcium citrate-vitamin D3 125 1 tab PO .QD 10/31/22 Unknown History mg-62.5 unit tablet lisinopril 5 mg tablet 5 mg PO DAILY 10/31/22 Unknown History metformin 500 mg tablet 500 mg PO BID 10/31/22 Unknown History metoprolol tartrate 50 mg tablet 50 mg PO TID 10/31/22 Unknown History niacin 500 mg tablet 500 mg PO DAILY 10/31/22 Unknown History simvastatin 40 mg tablet 40 mg PO DAILY 10/31/22 Unknown History dapagliflozin propanediol 10 mg 10 mg PO DAILY 05/11/23 Unknown History tablet (ga) quetiapine 25 mg tablet 25 mg PO BEDTIME 05/11/23 Unknown History Physical Exam Vital Signs and Narrative: Vital Signs: Last Vital Signs Temp 98.6 F 05/11/23 09:41 Pulse 100 05/11/23 09:56 Resp 18 05/11/23 09:41 BP 151/65 H 05/11/23 09:56 Pulse Ox 96 05/11/23 09:41 O2 Del Method Room Air 05/11/23 09:41 BMI result Body Mass Index 22.0 Constitutional - Awake and Alert, No apparent distress Eyes - PERRLA, EOMI Cardiovascular - S1S2, IV systolic murmur best auscultated in pulmonic and tricuspid area, No edema Respiratory - Normal lung expansion, Normal respiratory effort, No respiratory distress, faint bibasilar crackles Gastrointestinal - NT / ND; +BS; No rebound or guarding Extremities - no calf tenderness bilaterally, no swelling Skin - Warm/Dry Neurological - Alert & oriented x3 Psychological - Appropriate affect Results Labs 05/11/23 09:48 05/11/23 09:48 Labs: Laboratory Results - last 24 hr 05/11/23 05/11/23 05/11/23 09:48 11:27 11:47 MCV 72.0 L MCH 20.0 L MCHC 27.8 L RDW 17.5 H Plt Count 272 MPV 8.9 L Immature Gran % (Auto) 0.3 Neut % (Auto) 81.5 H Lymph % (Auto) 10.7 L [place] % (Auto) 6.1 Eos % (Auto) 0.5 Baso % (Auto) 0.9 Lymph # (Auto) 0.8 L [place] # (Auto) 0.5 Eos # (Auto) 0.0 Baso # (Auto) 0.1 Abs Immat Gran (auto) 0.02 Absolute Neuts (auto) 6.4 Absolute Nucleated RBC 0.000 Nucleated RBC % (auto) 0.0 PT 12.2 INR 1.0 Anion Gap 17 Estim Creat Clear Calc 31.4 Estimated GFR 53 Random Glucose 126 H Lactic Acid 1.9 Calcium 9.2 Magnesium 2.2 Total Bilirubin 0.8 Direct Bilirubin 0.3 AST 23 ALT 7 Alkaline Phosphatase 99 B-Natriuretic Peptide 2348 H Total Protein 7.6 Albumin 4.1 Stool Occult Blood NEGATIVE Influenza Type A (PCR) NEGATIVE Influenza Type B (PCR) NEGATIVE RSV RNA Qual (PCR) NEGATIVE SARS-CoV-2 RNA (RT-PCR) NEGATIVE Imaging Radiologist's Impressions: Impressions Chest X-Ray 05/11/23 10:47 IMPRESSION: 1. Right parahilar opacity question consolidation. 2. Increased bilateral parahilar markings, question mild vascular congestion versus interstitial pneumonitis. Assessment and Plan (1) Acute blood loss anemia: Status: Acute (2) Congestive heart failure: Status: Acute (3) Elevated troponin: Status: Acute Plan 82-year-old female with history of well-controlled type 2 diabetes, hypertension, h/o AAA, history TIA in 2010, CKD stage 3 (follows with Dr. Reyes), hyperlipidemia, gout was a former smoker with a 20 pack year history (quit around 2002) admitted for acute blood loss anemia with new onset CHF. #Acute blood loss anemia- suspect GI bleed -Has anemia of chronic disease at baseline -H/H 8.0/28.8% (H/H 8.6/30.1% at [facility] /; H/H 11.2/37.0% at [facility] 11/19) -Stool occult positive x 2 at [facility] 04/23. Stool occult blood negative in ED. Repeat test -Symptomatic with MESSER, lightheadedness. CHF likely due to demand from anemia -T&S. Transfuse 1 unit packed RBC -Iron 22, TIBC 351, 6% saturation, ferritin 31. Add ferrous sulfate -IV PPI -Clear liquids -GI consult -Monitor on telemetry -Follow CBC #New onset CHF- suspect demand from above -echocardiogram 02/04/2023 at [facility] showed normal LV size with mildly increased wall thickness. LV systolic function noted to be normal with EF 65-70%, LV filling pressures indeterminate. Basilar inferior wall is aneurysm wall. Left atrium is severely dilated. Possible bicuspid aortic valve which is noted to be moderately to severely calcified. The aortic valve leaflet opening is moderately decreased with mild aortic stenosis and trace aortic regurg. -BNP >2300. CXR with possible mild pulmonary edema. No BLE edema -Given 40mg IV lasix in ED. Continue 20mg IV lasix daily -Echo ordered -Strict I&O -Transition to cardiac diet -Cardiology consult -Follow BMP, BNP #Elevated trops- likely demand 2/2 above -No chest pain. No JARET. Slight depression noted in V4-V5. T wave inversions anterolateral leads -Initial trop 26.4 --> 45.9. Repeat in 3 hours -Cardiology consult -Echo ordered -Monitor on telemetry #Systolic murmur -?r/t anemia -echo ordered #?R perihilar consolidation on CXR -no symptoms consistent with pneumonia -Defer further abx tx # [id number] type 2 diabetes-controlled -last hemoglobin A1c 5.9% -POC glucose -advance to diabetic/cardiac diet -Humalog on sliding scale. Hold metformin and Farxiga # hypertension -continue lisinopril, metoprolol # chronic gout -continue allopurinol # unspecified mood disorder -continue home meds # CKD stage 3 -renal function baseline DVT prophylaxis- heparin Full code Patient requires inpatient stay at least 2 midnights for management of acute symptomatic blood loss anemia resulting in exacerbation of congestive heart failure requiring blood transfusion, IV diuresis, an expert consultation Quality Stroke Does the patient have a stroke diagnosis?: No VTE Prior VTE?: No VTE Risk Level:: Medical - moderate - high VTE Device Contraindication: Treatment Not Indicated VTE Drug Contraindication: N/A - Med Ordered
[2023-05-11 14:03] LABS: Iron 22 mcg/dL (30-160); Percent Iron Saturation 6 % (15-50); Total Iron Binding Capacity 351 mcg/dL (228-428); Unsaturated Iron Binding 329 ug/dL
[2023-05-11 14:10] LABS: Troponin-I High Sensitivity 45.9 ng/L (<3.5-17.0)
[2023-05-11 14:17] LABS: Ferritin 31 ng/mL (10-250)
--- NOTE | 2023-05-11 14:38 | PC.NURSE ---
second IV established, type and screen obtained
--- NOTE | 2023-05-11 15:46 | PHA.MEDREC ---
Pharmacy Consult ? Medication Reconciliation Pharmacy has completed the medication reconciliation with patient and son at bedside. She states she is no longer on amlodipine but has claims hx for a 90 ds a little over 90 days ago.
[2023-05-11] MEDS: Ferrous Sulfate 324 MG TABLET.DR 325 MG PO (16:30)
[2023-05-11] MEDS: 0.9 % Sodium Chloride Flush 3 ML SYRINGE IVFLUSH ×2 (16:30→21:28)
[2023-05-11] MEDS: Pantoprazole Sodium 40 MG/10 ML VIAL IVPUSH (16:30)
[2023-05-11] MEDS: ondansetron HCL 4 MG/2 ML VIAL IVPUSH (16:58)
--- NOTE | 2023-05-11 18:05 | PC.NURSE ---
Addendum entered by Steven Fitzpatrick RN 05/11/23 18:23: informed DINING ROOM COORDINATOR of low BP and pt's O2 sat. starting pt on 2L n/c and giving bolus of fluids. md and outpatient physical therapist at bedside assessing pt. Original Note: DINING ROOM COORDINATOR informed of critical lab
[2023-05-11 18:06] LABS: Troponin-I High Sensitivity 63.7 ng/L (<3.5-17.0)
[2023-05-11 18:24] LABS: Glucose, Whole Blood 120 mg/dL (60-115)
[2023-05-11] MEDS: 0.9 % Sodium Chloride 1,000 ML 999 ML IV (18:28)
--- NOTE | 2023-05-11 18:44 | ECG_ITS ---
Test Reason : awadom Blood Pressure : / mmHG Vent. Rate : 101 BPM Atrial Rate : 101 BPM P-R Int : 144 ms QRS Dur : 096 ms QT Int : 322 ms P-R-T Axes : 087 051 061 degrees QTc Int : 417 ms Sinus tachycardia with Premature atrial complexes Nonspecific ST and T wave abnormality Abnormal ECG When compared with ECG of 11-MAY-2023 09:53, Premature ventricular complexes are no longer Present Premature atrial complexes are now Present Nonspecific T wave abnormality has replaced inverted T waves in Inferior leads T wave inversion no longer evident in Anterior leads Referred By: Lisa Huang Electronically Signed By:
--- NOTE | 2023-05-11 18:46 | PM.EVENT ---
Event Note Date of Service: 05/11/23 Event Note: Pt hypotensive to 82/57, manual recheck 84/60. Pt did received 40mg IV lasix in the ED. Pt sitting up comfortably in bed, a&o x 3, conversive. No complaints at this time. Does not seem to be significantly volume overloaded. Suspect pt has hypovolemia 2/2 to IV lasix although can not rule out acute GI bleed. Getting 1 unit packed RBC transfused now. Also noted to be hypoxic to 88-90% on RA, placed on 2L O2. Trops 26.4 --> 45.9 (delta) --> 63.7. No sob, palps, lightheadedness, chest pain. No abd pain, n/v. Continues to deny hematochezia or melena. On exam, lungs CTA b/l, systolic murmur noted in aortic, mitral, tricuspid areas. No edema. No respriratory distress. A&O x 3. Abd soft, ntt, nd, no guarding or rebound Ax: At this time, pt does not appear to be in volume overload/acute CHF exacerbation. Suspect there is a degree of hypovolemia secondary to the IV Lasix she received in the ED and limited p.o. intake. Patient is in no distress, is conversive, and is alert and oriented x3. Does not appear to warrant transfer to ICU at this time. There has been increase in troponin levels with new onset hypoxia. Must rule out PE versus NSTEMI as cause of patient's hypotension, hypoxia, tachycardia. Plan: -Continue transfusing with 1 unit packed red blood cells -add 1 L IV NS bolus -continue supplemental O2 to maintain oximetry >92%, continuous O2 monitoring -Repeat Trop now -Check d-dimer -Repeat EKG -Await echo results prior to administering any additional lasix -Hold antihypertensives at this time -Monitor BP closely Time Spent With Patient Time: Total time managing care of this patient today ____ minutes.
[2023-05-11 19:35] LABS: D Dimer High Sensitivity 3518 NG/ML
[2023-05-11 19:55] LABS: Troponin-I High Sensitivity 77.2 ng/L (<3.5-17.0)
[2023-05-11 20:03] LABS: Glucose, Whole Blood 115 mg/dL (60-115)
[2023-05-11] MEDS: iohexoL 350 MG/ML 100 ML INFUS..BTL IV (20:26)
[2023-05-11 21:20] LABS: Basophils Percent Auto 0.3 % (0-2); Eosinophils Percent Auto 0.1 % (0-4); Hematocrit 30.9 % (37.0-47.0); Hemoglobin 9.2 g/dl (12.0-16.0); Imm Gran Abs Auto 0.04 X10*3/uL (0.00-0.03); Imm Gran Pct Auto 0.3 % (0.0-0.4); Lymphocytes Absolute Auto 0.5 X10*3/uL (1.2-4.9); Lymphocytes Percent Auto 4.4 % (20-40); MANUAL DIFF FLAG SCAN; Mean Corpuscular HGB Conc 29.8 g/dl (31.0-35.0); Mean Corpuscular Hemoglobin 22.5 pg (27.0-33.0); Mean Corpuscular Volume 75.7 fL (80.0-98.0); Mean Platelet Volume 8.8 fL (9.4-12.3); Monocytes Absolute Auto 0.4 X10*3/uL (0.1-1.2); Monocytes Percent Auto 3.4 % (2-11); NRBC Pct Auto 0.2 /100WBC (0.0-0.2); Neutrophils Absolute Auto 10.9 x10*3/uL (2.0-8.3); Neutrophils Percent Auto 91.5 % (45-73); Platelet Count 195 X10*3/uL (160-400); Red Blood Count 4.08 X10*6/uL (4.20-5.50); Red Cell Distribution Width 21.6 % (11.0-16.0); SCAN SMEAR FLAG 1; White Blood Count 11.9 X10*3/uL (4.8-10.8)
[2023-05-11] MEDS: Atorvastatin Calcium 20 MG TABLET PO (21:28)
[2023-05-11] MEDS: Albumin Human 25 % 100 ML IV ×2 (21:28→22:15)
[2023-05-11 21:40] LABS: SLIDE REVIEW VERIFIED
--- NOTE | 2023-05-11 22:21 | PM.IMHP ---
[facility] Medical History Former smoker Chronic gout AAA (abdominal aortic aneurysm) Hypertension Type 2 diabetes mellitus Surgical History H/O section Hx of cataract History of AAA (abdominal aortic aneurysm) repair Social History Alcohol intake: never Patient Tobacco Use Status: Former Tobacco user Meds Allergies Allergy/AdvReac Type Severity Reaction Status Date / Time No Known Allergies Allergy Unverified 12/31/22 15:36 Active Medications: Current Medications Acetaminophen (Acetaminophen 325 Mg Tablet) 650 mg PO Q6H PRN PRN Reason: Pain, Mild (Pain Scale 1-3) Allopurinol (Allopurinol 100 Mg Tablet) 100 mg PO DAILY [facility] Atorvastatin Calcium (Atorvastatin Calcium 20 Mg Tablet) 20 mg PO BEDTIME NAYA Last Admin: 05/11/23 21:28 Dose: 20 mg Calcium Carbonate/Cholecalciferol (Calcium + Vitamin D 250 Mg Tablet) 250 mg PO DAILY [facility] Dextrose (Dextrose 50 % 25 Gm/50 Ml Syringe) 25 gm IVPUSH Q15M PRN; Protocol PRN Reason: per Hypoglycemia Standing Ord. Ferrous Sulfate (Ferrous Sulfate 324 Mg Tablet.Dr) 325 mg PO DAILY [facility] Last Admin: 05/11/23 16:30 Dose: 325 mg Glucose (Glucose Gel 15 Gm Gel..Gram.) 15 gm PO Q15M PRN; Protocol PRN Reason: per Hypoglycemia Standing Ord. Albumin Human (Kedbumin 25 %) 100 mls @ 100 mls/hr IV Q1H [facility] Stop: 05/11/23 22:59 Last Admin: 05/11/23 22:15 Dose: 100 mls/hr Ceftriaxone Sodium 1 gm/ (Sodium Chloride) 50 mls @ 100 mls/hr IV Q24H [facility] Azithromycin 500 mg/ Sodium (Chloride) 250 mls @ 125 mls/hr IV Q24H [facility] Insulin Human Lispro (Insulin Lispro 100 Unit/Ml 3 Ml Vial) 0 unit SUBCUT QIDACHS [facility]; Protocol Last Admin: 05/11/23 21:36 Dose: Not Given Melatonin (Melatonin 3 Mg Tablet) 3 mg PO BEDTIME PRN PRN Reason: Insomnia Niacin (Niacin Er 250 Mg Tablet.Er) 500 mg PO DAILY [facility] Ondansetron HCl (Ondansetron Hcl 4 Mg/2 Ml Vial) 4 mg IVPUSH Q8H PRN PRN Reason: Nausea and Vomiting Last Admin: 05/11/23 16:58 Dose: 4 mg Pantoprazole Sodium (Pantoprazole Sodium 40 Mg/10 Ml Vial) 40 mg IVPUSH BID@0630,1630 [facility] Last Admin: 05/11/23 16:30 Dose: 40 mg Senna (Sennosides 8.6 Mg Tablet) 17.2 mg PO BEDTIME PRN PRN Reason: Constipation Sodium Chloride (0.9 % Sodium Chloride Flush 3 Ml Syringe) 3 ml IVFLUSH QSHIFT [facility] Last Admin: 05/11/23 21:28 Dose: 3 ml Home Medications Medication Instructions Recorded Confirmed Last Taken Type allopurinol 100 mg tablet 100 mg PO DAILY 10/31/22 05/11/23 Unknown History aspirin 81 mg tablet,delayed 81 mg PO DAILY 10/31/22 05/11/23 Unknown History release calcium citrate-vitamin D3 125 1 tab PO DAILY 10/31/22 05/11/23 Unknown History mg-62.5 unit tablet lisinopril 5 mg tablet 5 mg PO DAILY 10/31/22 05/11/23 Unknown History metformin 500 mg tablet 500 mg PO BID 10/31/22 05/11/23 Unknown History metoprolol tartrate 50 mg tablet 100 mg PO QAM 10/31/22 05/11/23 Unknown History niacin 500 mg tablet 500 mg PO DAILY 10/31/22 05/11/23 Unknown History simvastatin 40 mg tablet 40 mg PO BEDTIME 10/31/22 05/11/23 Unknown History dapagliflozin propanediol 10 mg 10 mg PO DAILY 05/11/23 05/11/23 Unknown History tablet () metoprolol tartrate 50 mg tablet 50 mg PO QPM 05/11/23 05/11/23 Unknown History Physical Exam Vital Signs and Narrative: Vital Signs: Last Vital Signs Temp 97.8 F 05/11/23 20:11 Pulse 98 05/11/23 20:11 Resp 18 05/11/23 20:11 BP 95/76 05/11/23 20:11 Pulse Ox 99 05/11/23 19:19 O2 Del Method Room Air 05/11/23 19:19 BMI result Body Mass Index 22.0 Results Labs 05/11/23 21:13 05/11/23 09:48 Labs: Laboratory Results - last 24 hr 05/11/23 05/11/23 05/11/23 09:48 11:27 11:47 MCV 72.0 L MCH 20.0 L MCHC 27.8 L RDW 17.5 H Plt Count 272 MPV 8.9 L Immature Gran % (Auto) 0.3 Neut % (Auto) 81.5 H Lymph % (Auto) 10.7 L [place] % (Auto) 6.1 Eos % (Auto) 0.5 Baso % (Auto) 0.9 Lymph # (Auto) 0.8 L [place] # (Auto) 0.5 Eos # (Auto) 0.0 Baso # (Auto) 0.1 Abs Immat Gran (auto) 0.02 Absolute Neuts (auto) 6.4 Absolute Nucleated RBC 0.000 Nucleated RBC % (auto) 0.0 Smear Tech's Comments PT 12.2 INR 1.0 D-Dimer High Sensitivty Anion Gap 17 Estim Creat Clear Calc 31.4 Estimated GFR 53 POC Glucose Random Glucose 126 H Lactic Acid 1.9 Calcium 9.2 Magnesium 2.2 Iron 22 L TIBC 351 % Saturation 6 L Unsat Iron Binding 329 Ferritin 31 Total Bilirubin 0.8 Direct Bilirubin 0.3 AST 23 ALT 7 Alkaline Phosphatase 99 B-Natriuretic Peptide 2348 H Total Protein 7.6 Albumin 4.1 Stool Occult Blood NEGATIVE Influenza Type A (PCR) NEGATIVE Influenza Type B (PCR) NEGATIVE RSV RNA Qual (PCR) NEGATIVE SARS-CoV-2 RNA (RT-PCR) NEGATIVE Blood Type Antibody Screen Crossmatch 05/11/23 05/11/23 05/11/23 14:35 18:21 19:15 MCV MCH MCHC RDW Plt Count MPV Immature Gran % (Auto) Neut % (Auto) Lymph % (Auto) [place] % (Auto) Eos % (Auto) Baso % (Auto) Lymph # (Auto) [place] # (Auto) Eos # (Auto) Baso # (Auto) Abs Immat Gran (auto) Absolute Neuts (auto) Absolute Nucleated RBC Nucleated RBC % (auto) Smear Tech's Comments PT INR D-Dimer High Sensitivty 3518 Anion Gap Estim Creat Clear Calc Estimated GFR POC Glucose 120 H Random Glucose Lactic Acid Calcium Magnesium Iron TIBC % Saturation Unsat Iron Binding Ferritin Total Bilirubin Direct Bilirubin AST ALT Alkaline Phosphatase B-Natriuretic Peptide Total Protein Albumin Stool Occult Blood Influenza Type A (PCR) Influenza Type B (PCR) RSV RNA Qual (PCR) SARS-CoV-2 RNA (RT-PCR) Blood Type B Positive Antibody Screen NEGATIVE Crossmatch See Detail 05/11/23 05/11/23 19:55 21:13 MCV 75.7 L MCH 22.5 L MCHC 29.8 L RDW 21.6 H Plt Count 195 D MPV 8.8 L Immature Gran % (Auto) 0.3 Neut % (Auto) 91.5 H Lymph % (Auto) 4.4 L [place] % (Auto) 3.4 Eos % (Auto) 0.1 Baso % (Auto) 0.3 Lymph # (Auto) 0.5 L [place] # (Auto) 0.4 Eos # (Auto) 0.0 Baso # (Auto) 0.0 Abs Immat Gran (auto) 0.04 H Absolute Neuts (auto) 10.9 H Absolute Nucleated RBC 0.020 H Nucleated RBC % (auto) 0.2 Smear Tech's Comments VERIFIED PT INR D-Dimer High Sensitivty Anion Gap Estim Creat Clear Calc Estimated GFR POC Glucose 115 Random Glucose Lactic Acid Calcium Magnesium Iron TIBC % Saturation Unsat Iron Binding Ferritin Total Bilirubin Direct Bilirubin AST ALT Alkaline Phosphatase B-Natriuretic Peptide Total Protein Albumin Stool Occult Blood Influenza Type A (PCR) Influenza Type B (PCR) RSV RNA Qual (PCR) SARS-CoV-2 RNA (RT-PCR) Blood Type Antibody Screen Crossmatch Imaging Radiologist's Impressions: Impressions Chest X-Ray 05/11/23 10:47 IMPRESSION: 1. Right parahilar opacity question consolidation. 2. Increased bilateral parahilar markings, question mild vascular congestion versus interstitial pneumonitis. Chest CTA 05/11/23 20:31 IMPRESSION: 1. No pulmonary embolus or thoracic aortic aneurysm is noted. 2. A 3.6 cm right base infiltrate is noted, likely infectious. Recommend follow-up imaging to ensure clearance and exclude the possibility of underlying obstructive process. 3. There are centrilobular emphysematous changes. 4. There are mild to moderate coronary artery atherosclerotic calcifications. 5. No thoracic lymphadenopathy or pleural effusion is seen. 6. No acute or aggressive osseous lesion is seen. VTE: negative Quality Stroke Does the patient have a stroke diagnosis?: No VTE Prior VTE?: No VTE Risk Level:: Medical - moderate - high VTE Device Contraindication: Treatment Not Indicated VTE Drug Contraindication: N/A - Med Ordered
[2023-05-11] MEDS: Midodrine HCl 5 MG TABLET PO (23:36)
[2023-05-11] MEDS: Azithromycin 500 MG in 0.9 % Sodium Chloride 250 ML 125 MG IV (23:36)
[2023-05-11] MEDS: Enoxaparin Sodium 60 MG/0.6 ML SYRINGE 50 MG SUBCUT (23:36)
--- NOTE | 2023-05-12 | ECG_ITS ---
Test Reason : awadom Blood Pressure : / mmHG Vent. Rate : 100 BPM Atrial Rate : 100 BPM P-R Int : 148 ms QRS Dur : 098 ms QT Int : 340 ms P-R-T Axes : 075 049 039 degrees QTc Int : 438 ms Normal sinus rhythm Nonspecific ST and T wave abnormality Abnormal ECG No significant changes when compared with the previous EKG of same day Referred By: Alejo Vidal Electronically Signed By:MALLIKA CADENA
[2023-05-12] MEDS: Lactated Ringers 1,000 ML 999 ML IV (01:27)
[2023-05-12] MEDS: Midodrine HCl 5 MG TABLET PO (01:31)
--- NOTE | 2023-05-12 03:55 | ECG_ITS ---
Test Reason : SOB Blood Pressure : / mmHG Vent. Rate : 112 BPM Atrial Rate : 112 BPM P-R Int : 146 ms QRS Dur : 108 ms QT Int : 328 ms P-R-T Axes : 069 067 -34 degrees QTc Int : 447 ms Sinus tachycardia with occasional Premature ventricular complexes Nonspecific ST and T wave abnormality Abnormal ECG When compared with ECG of 11-MAY-2023 18:45, Premature ventricular complexes are now Present Referred By: Alejo Vidal Electronically Signed By:MALLIKA CADENA
[2023-05-12 04:00] VITALS: BP 164/83; PULSE 10; TEMP 36.4; O2SAT 98
[2023-05-12] MEDS: Furosemide 20 MG/2 ML VIAL IVPUSH (04:11)
[2023-05-12 06:57] LABS: MANUAL DIFF FLAG NO
--- NOTE | 2023-05-12 07:07 | PC.NURSE ---
When this RN obtained pt at 1900 pt had blood running. Pt was hypertensive despite having received blood and normal saline. Pt B/P was 95/76. Pts B/P then dropped to 82/68. ws notified and ordered midodrine and instructed to recheck in one hour. At this time pt B/P was 81/67. More midodrine and LR was ordered. B/P was checked and found to be 77/62. This RN decided to try other arm which was 130/70. Soon after patient became short of breath, tachypneic, and tachycardic in the 120s, pt was also hypertensive. MD was notified and came to check on pt. MD confirmed suspected fluid overload and order IV Lasix 20mg. Pt was put up to 5L NC. Pt returned to normal breathing with clear breath sounds and is resting comfortably.
[2023-05-12 07:09] LABS: Basophils Percent Auto 0.4 % (0-2); Eosinophils Absolute Auto 0.1 X10*3/uL (0.0-0.4); Eosinophils Percent Auto 0.7 % (0-4); Hematocrit 30.5 % (37.0-47.0); Hemoglobin 8.9 g/dl (12.0-16.0); Imm Gran Abs Auto 0.03 X10*3/uL (0.00-0.03); Imm Gran Pct Auto 0.3 % (0.0-0.4); Lymphocytes Absolute Auto 0.9 X10*3/uL (1.2-4.9); Lymphocytes Percent Auto 9.7 % (20-40); Mean Corpuscular HGB Conc 29.2 g/dl (31.0-35.0); Mean Corpuscular Hemoglobin 22.2 pg (27.0-33.0); Mean Corpuscular Volume 76.1 fL (80.0-98.0); Mean Platelet Volume 9.2 fL (9.4-12.3); Monocytes Absolute Auto 0.4 X10*3/uL (0.1-1.2); Monocytes Percent Auto 4.4 % (2-11); Neutrophils Absolute Auto 7.6 x10*3/uL (2.0-8.3); Neutrophils Percent Auto 84.5 % (45-73); Platelet Count 225 X10*3/uL (160-400); Red Blood Count 4.01 X10*6/uL (4.20-5.50); Red Cell Distribution Width 21.7 % (11.0-16.0)
[2023-05-12 07:21] LABS: Anion Gap 15 (12-20); Blood Urea Nitrogen 18 mg/dL (9-16); Calcium 8.4 mg/dL (8.4-10.2); Carbon Dioxide 21 mmol/L (22-29); Chloride 108 mmol/L (96-108); Creatinine Clr Calc Pharmacy 30.7; Estimated Glomerular Filt Rate 51; Glucose Random 125 mg/dL (60-115); Potassium 3.9 mmol/L (3.3-5.1); Sodium 140 mmol/L (135-145)
[2023-05-12 07:23] VITALS: BP 119/62; PULSE 104; RESP 20; TEMP 36.3; O2SAT 95
[2023-05-12 07:28] LABS: B Type Natriuretic Peptide 1901 pg/mL (<100)
[2023-05-12 07:51] LABS: Glucose, Whole Blood 120 mg/dL (60-115)
[2023-05-12 07:53] LABS: Troponin-I High Sensitivity 55.9 ng/L (<3.5-17.0)
[2023-05-12] MEDS: Pantoprazole Sodium 40 MG/10 ML VIAL IVPUSH ×2 (09:10→16:53)
[2023-05-12] MEDS: 0.9 % Sodium Chloride Flush 3 ML SYRINGE IVFLUSH ×3 (09:10→21:05)
[2023-05-12] MEDS: Ferrous Sulfate 324 MG TABLET.DR 325 MG PO (09:11)
[2023-05-12] MEDS: allopurinoL 100 MG TABLET PO (09:11)
[2023-05-12] MEDS: Calcium + Vitamin D 250 MG TABLET PO (09:12)
--- NOTE | 2023-05-12 09:50 | PM.CNCAR ---
History of Present Illness History of Present Illness Date of Service: 05/12/23 Chief complaint: New Onset CHF Narrative: The cardiology consultation regarding elevated troponins. Multiple comorbidities including diabetes, hypertension, history of AAA, TIA, CKD, remote smoking history presenting for lightheadedness and dyspnea. Apparently for the last few days, she noticed some shortness of breath. No clear-cut chest pains. She denies any history of coronary artery disease, myocardial infarction. There were concerns on the EKG as well as troponins and hence she was subsequently admitted. Currently, she states she feels fine and does not have any symptoms and no other issues. Review of Systems Review of Systems: Yes all other systems are reviewed and are negative Constitutional: Constitutional: Reports as per HPI and Reports no additional constitutional complaints Eyes: Eyes: Reports as per HPI and Denies no additional eye complaints ENT: Denies system reviewed and no additional complaints, except as documented and Reports as per HPI Cardiovascular: Cardiovascular: Reports as per HPI, Reports no additional cardiovascular complaints, Denies acrocyanosis, Denies cool extremities, Denies chest pain, Denies leg edema, Denies lightheadedness, Denies palpitations and Reports dyspnea Respiratory: Respiratory: Reports as per HPI, Denies no additional respiratory complaints and Reports dyspnea Gastrointestinal: Gastrointestinal: Reports as per HPI and Denies no additional gastrointestinal complaints Genitourinary: Genitourinary: Reports as per HPI Musculoskeletal: Musculoskeletal: Reports no additional musculoskeletal complaints and Reports as per HPI Integumentary/Breasts: Skin/Breast: Reports system reviewed and no additional complaints, except as docu Neurologic: Reports system reviewed and no additional complaints, except as documented and Reports as per HPI Psychiatric: Psychiatric: Reports no additional psychiatric complaints and Reports as per HPI Endocrine: Endocrine: Reports no additional endocrine complaints, Reports as per HPI and Denies palpitations Hematologic/Lymphatic: Hematologic/Lymphatic: Reports no additional hematologic/lymphatic complaints and Reports as per HPI Allergic/Immunologic: Allergic/Immunologic: Reports no additional allergic/immunologic complaints and Reports as per HPI [facility] Past Medical History Medical History Former smoker Chronic gout AAA (abdominal aortic aneurysm) Hypertension Type 2 diabetes mellitus Family History Family History (Updated 05/12/23 @ 09:53 by Tk Duran MD) Father Myocardial infarction Surgical History Surgical History H/O section Hx of cataract History of AAA (abdominal aortic aneurysm) repair Social History Social History Alcohol intake: never Patient Tobacco Use Status: Former Tobacco user Meds Allergies Allergy/AdvReac Type Severity Reaction Status Date / Time No Known Allergies Allergy Unverified 12/31/22 15:36 Active Medications: Current Medications Acetaminophen (Acetaminophen 325 Mg Tablet) 650 mg PO Q6H PRN PRN Reason: Pain, Mild (Pain Scale 1-3) Allopurinol (Allopurinol 100 Mg Tablet) 100 mg PO DAILY [facility] Last Admin: 05/12/23 09:11 Dose: 100 mg Atorvastatin Calcium (Atorvastatin Calcium 20 Mg Tablet) 20 mg PO BEDTIME [facility] Last Admin: 05/11/23 21:28 Dose: 20 mg Calcium Carbonate/Cholecalciferol (Calcium + Vitamin D 250 Mg Tablet) 250 mg PO DAILY [facility] Last Admin: 05/12/23 09:12 Dose: 250 mg Dextrose (Dextrose 50 % 25 Gm/50 Ml Syringe) 25 gm IVPUSH Q15M PRN; Protocol PRN Reason: per Hypoglycemia Standing Ord. Ferrous Sulfate (Ferrous Sulfate 324 Mg Tablet.Dr) 325 mg PO DAILY [facility] Last Admin: 05/12/23 09:11 Dose: 325 mg Glucose (Glucose Gel 15 Gm Gel..Gram.) 15 gm PO Q15M PRN; Protocol PRN Reason: per Hypoglycemia Standing Ord. Ceftriaxone Sodium 1 gm/ (Sodium Chloride) 50 mls @ 100 mls/hr IV Q24H [facility] Azithromycin 500 mg/ Sodium (Chloride) 250 mls @ 125 mls/hr IV Q24H [facility] Last Infusion: 05/12/23 02:19 Dose: Infused Insulin Human Lispro (Insulin Lispro 100 Unit/Ml 3 Ml Vial) 0 unit SUBCUT QIDACHS [facility]; Protocol Last Admin: 05/12/23 07:42 Dose: Not Given Melatonin (Melatonin 3 Mg Tablet) 3 mg PO BEDTIME PRN PRN Reason: Insomnia Niacin (Niacin Er 250 Mg Tablet.Er) 500 mg PO DAILY [facility] Last Admin: 05/12/23 09:11 Dose: 500 mg Ondansetron HCl (Ondansetron Hcl 4 Mg/2 Ml Vial) 4 mg IVPUSH Q8H PRN PRN Reason: Nausea and Vomiting Last Admin: 05/11/23 16:58 Dose: 4 mg Pantoprazole Sodium (Pantoprazole Sodium 40 Mg/10 Ml Vial) 40 mg IVPUSH BID@0630,1630 [facility] Last Admin: 05/12/23 09:10 Dose: 40 mg Senna (Sennosides 8.6 Mg Tablet) 17.2 mg PO BEDTIME PRN PRN Reason: Constipation Sodium Chloride (0.9 % Sodium Chloride Flush 3 Ml Syringe) 3 ml IVFLUSH QSHIFT [facility] Last Admin: 05/12/23 09:10 Dose: 3 ml Home Medications Medication Instructions Recorded Confirmed Last Taken Type allopurinol 100 mg tablet 100 mg PO DAILY 10/31/22 05/11/23 Unknown History aspirin 81 mg tablet,delayed 81 mg PO DAILY 10/31/22 05/11/23 Unknown History release calcium citrate-vitamin D3 125 1 tab PO DAILY 10/31/22 05/11/23 Unknown History mg-62.5 unit tablet lisinopril 5 mg tablet 5 mg PO DAILY 10/31/22 05/11/23 Unknown History metformin 500 mg tablet 500 mg PO BID 10/31/22 05/11/23 Unknown History metoprolol tartrate 50 mg tablet 100 mg PO QAM 10/31/22 05/11/23 Unknown History niacin 500 mg tablet 500 mg PO DAILY 10/31/22 05/11/23 Unknown History simvastatin 40 mg tablet 40 mg PO BEDTIME 10/31/22 05/11/23 Unknown History dapagliflozin propanediol 10 mg 10 mg PO DAILY 05/11/23 05/11/23 Unknown History tablet () metoprolol tartrate 50 mg tablet 50 mg PO QPM 05/11/23 05/11/23 Unknown History Physical Exam Vital Signs: Vital Signs: Last Vital Signs Temp 97.3 F 05/12/23 07:23 Pulse 104 H 05/12/23 07:23 Resp 20 05/12/23 07:23 BP 119/62 05/12/23 07:23 Pulse Ox 95 05/12/23 07:23 O2 Del Method Nasal Cannula 05/12/23 07:23 O2 Flow Rate 4.5 05/12/23 07:23 BMI result Body Mass Index 22.0 Const: General: comfortable and no acute distress Orientation/consciousness: patient oriented x3 HEENT: Other: Unremarkable Head: Yes normal to inspection Neck: Neck: Yes normal visual inspection Chest: Chest palpation & inspection: normal inspection of the chest Resp: Auscultation: crackles Cardio: Palpation: normal PMI Heart sounds: S1 normal heart sound present, S2 normal heart sound present, no gallops, Murmur heart sound present systolic II/, at the left sternal border and at the right sternal border and no rubs GI: Palpation (GI): Soft to palpation Back/Spine/Pelvis: Other: unremarkable Skin: General skin exam: no rashes or lesions noted Neuro: General: patient oriented x3 Extrem: General: Yes normal to inspection Psych: Mental Status: mental status grossly normal Objective Labs and Meds 05/12/23 05:47 05/12/23 05:47 Lab results: Laboratory Results - last 24 hr 05/11/23 05/11/23 05/11/23 09:48 11:27 11:47 WBC 7.9 RBC 4.00 L Hgb 8.0 L D Hct 28.8 L D MCV 72.0 L MCH 20.0 L MCHC 27.8 L RDW 17.5 H Plt Count 272 MPV 8.9 L Immature Gran % (Auto) 0.3 Neut % (Auto) 81.5 H Lymph % (Auto) 10.7 L [place] % (Auto) 6.1 Eos % (Auto) 0.5 Baso % (Auto) 0.9 Lymph # (Auto) 0.8 L [place] # (Auto) 0.5 Eos # (Auto) 0.0 Baso # (Auto) 0.1 Abs Immat Gran (auto) 0.02 Absolute Neuts (auto) 6.4 Absolute Nucleated RBC 0.000 Nucleated RBC % (auto) 0.0 Smear Tech's Comments PT 12.2 INR 1.0 D-Dimer High Sensitivty Sodium 143 Potassium 3.9 D Chloride 111 H Carbon Dioxide 19 L Anion Gap 17 BUN 19 H Creatinine 1.01 Estim Creat Clear Calc 31.4 Estimated GFR 53 POC Glucose Random Glucose 126 H Lactic Acid 1.9 Calcium 9.2 Magnesium 2.2 Iron 22 L TIBC 351 % Saturation 6 L Unsat Iron Binding 329 Ferritin 31 Total Bilirubin 0.8 Direct Bilirubin 0.3 AST 23 ALT 7 Alkaline Phosphatase 99 Troponin I High Sens 26.4 H B-Natriuretic Peptide 2348 H Total Protein 7.6 Albumin 4.1 Stool Occult Blood NEGATIVE Influenza Type A (PCR) NEGATIVE Influenza Type B (PCR) NEGATIVE RSV RNA Qual (PCR) NEGATIVE SARS-CoV-2 RNA (RT-PCR) NEGATIVE Blood Type Antibody Screen Crossmatch 05/11/23 05/11/23 05/11/23 13:29 14:35 17:10 WBC RBC Hgb Hct MCV MCH MCHC RDW Plt Count MPV Immature Gran % (Auto) Neut % (Auto) Lymph % (Auto) [place] % (Auto) Eos % (Auto) Baso % (Auto) Lymph # (Auto) [place] # (Auto) Eos # (Auto) Baso # (Auto) Abs Immat Gran (auto) Absolute Neuts (auto) Absolute Nucleated RBC Nucleated RBC % (auto) Smear Tech's Comments PT INR D-Dimer High Sensitivty Sodium Potassium Chloride Carbon Dioxide Anion Gap BUN Creatinine Estim Creat Clear Calc Estimated GFR POC Glucose Random Glucose Lactic Acid Calcium Magnesium Iron TIBC % Saturation Unsat Iron Binding Ferritin Total Bilirubin Direct Bilirubin AST ALT Alkaline Phosphatase Troponin I High Sens 45.9 H D 63.7 H* B-Natriuretic Peptide Total Protein Albumin Stool Occult Blood Influenza Type A (PCR) Influenza Type B (PCR) RSV RNA Qual (PCR) SARS-CoV-2 RNA (RT-PCR) Blood Type B Positive Antibody Screen NEGATIVE Crossmatch See Detail 05/11/23 05/11/23 05/11/23 18:21 19:15 19:55 WBC RBC Hgb Hct MCV MCH MCHC RDW Plt Count MPV Immature Gran % (Auto) Neut % (Auto) Lymph % (Auto) [place] % (Auto) Eos % (Auto) Baso % (Auto) Lymph # (Auto) [place] # (Auto) Eos # (Auto) Baso # (Auto) Abs Immat Gran (auto) Absolute Neuts (auto) Absolute Nucleated RBC Nucleated RBC % (auto) Smear Tech's Comments PT INR D-Dimer High Sensitivty 3518 Sodium Potassium Chloride Carbon Dioxide Anion Gap BUN Creatinine Estim Creat Clear Calc Estimated GFR POC Glucose 120 H 115 Random Glucose Lactic Acid Calcium Magnesium Iron TIBC % Saturation Unsat Iron Binding Ferritin Total Bilirubin Direct Bilirubin AST ALT Alkaline Phosphatase Troponin I High Sens 77.2 H* B-Natriuretic Peptide Total Protein Albumin Stool Occult Blood Influenza Type A (PCR) Influenza Type B (PCR) RSV RNA Qual (PCR) SARS-CoV-2 RNA (RT-PCR) Blood Type Antibody Screen Crossmatch 05/11/23 05/12/23 05/12/23 21:13 05:47 07:24 WBC 11.9 H 9.0 RBC 4.08 L 4.01 L Hgb 9.2 L 8.9 L Hct 30.9 L 30.5 L MCV 75.7 L 76.1 L MCH 22.5 L 22.2 L MCHC 29.8 L 29.2 L RDW 21.6 H 21.7 H Plt Count 195 D 225 MPV 8.8 L 9.2 L Immature Gran % (Auto) 0.3 0.3 Neut % (Auto) 91.5 H 84.5 H Lymph % (Auto) 4.4 L 9.7 L [place] % (Auto) 3.4 4.4 Eos % (Auto) 0.1 0.7 Baso % (Auto) 0.3 0.4 Lymph # (Auto) 0.5 L 0.9 L [place] # (Auto) 0.4 0.4 Eos # (Auto) 0.0 0.1 Baso # (Auto) 0.0 0.0 Abs Immat Gran (auto) 0.04 H 0.03 Absolute Neuts (auto) 10.9 H 7.6 Absolute Nucleated RBC 0.020 H 0.000 Nucleated RBC % (auto) 0.2 0.0 Smear Tech's Comments VERIFIED PT INR D-Dimer High Sensitivty Sodium 140 Potassium 3.9 Chloride 108 Carbon Dioxide 21 L Anion Gap 15 BUN 18 H Creatinine 1.03 Estim Creat Clear Calc 30.7 Estimated GFR 51 POC Glucose 120 H Random Glucose 125 H Lactic Acid Calcium 8.4 D Magnesium Iron TIBC % Saturation Unsat Iron Binding Ferritin Total Bilirubin Direct Bilirubin AST ALT Alkaline Phosphatase Troponin I High Sens 55.9 H* B-Natriuretic Peptide 1901 H Total Protein Albumin Stool Occult Blood Influenza Type A (PCR) Influenza Type B (PCR) RSV RNA Qual (PCR) SARS-CoV-2 RNA (RT-PCR) Blood Type Antibody Screen Crossmatch ECG Interpretation: Initial EKG with sinus rhythm at 96/Min; mild ST depression in the lateral leads. Left ventricle hypertrophy. This could be repolarization changes but could also be from ischemia. PVC noted. In the most recent EKG, the ST depression looks better. Imaging Radiologist's impression: Impressions Chest X-Ray 05/11/23 10:47 IMPRESSION: 1. Right parahilar opacity question consolidation. 2. Increased bilateral parahilar markings, question mild vascular congestion versus interstitial pneumonitis. Chest CTA 05/11/23 20:31 IMPRESSION: 1. No pulmonary embolus or thoracic aortic aneurysm is noted. 2. A 3.6 cm right base infiltrate is noted, likely infectious. Recommend follow-up imaging to ensure clearance and exclude the possibility of underlying obstructive process. 3. There are centrilobular emphysematous changes. 4. There are mild to moderate coronary artery atherosclerotic calcifications. 5. No thoracic lymphadenopathy or pleural effusion is seen. 6. No acute or aggressive osseous lesion is seen. VTE: negative Chest X-Ray 05/12/23 05:05 IMPRESSION: Vascular congestion with diffuse increased markings and patchy lung opacities. Suspect fluid overload and/or congestive heart failure with interstitial and early pulmonary edema. Blunted costophrenic angles possibly trace pleural fluid. Similar findings were seen previously. Assessment and Plan (1) Elevated troponin: Status: Acute (2) Anemia: Status: Acute (3) Congestive heart failure: Status: Acute Plan For history, new onset shortness of breath. Cardiac BNP is 2348. Repeat is 1901. Low-grade troponins, 26, 46, 63, 77, 55. Creatinine 1.03. Hemoglobin 8.9. In December it was 11.5. Echocardiogram with LVEF of 65-70%. Basal inferior aneurysm. Left atrium severely dilated. Mild aortic stenosis. Cannot exclude bicuspid valve. Moderate mitral annular calcification. Overall, anemia, likely coronary disease based on echocardiogram findings, elevated cardiac BNP but no overt clinical volume overload. Will repeat echocardiogram to ensure there is no new LV dysfunction. Otherwise, no need for any aggressive diuretics. Will follow with you. Procedures Date of Service Date of Service: 05/12/23
[2023-05-12 11:10] LABS: Glucose, Whole Blood 101 mg/dL (60-115)
[2023-05-12 11:18] VITALS: BP 133/72; PULSE 87; RESP 20; TEMP 36.3; O2SAT 94
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
[2023-05-12] MEDS: cefTRIAXone sodium 1 GM in 0.9 % Sodium Chloride 50 ML IV (12:08)
--- NOTE | 2023-05-12 14:28 | CONS_ITS ---
DATE OF SERVICE: 05/12/2023 REFERRING PHYSICIAN: QUENTIN Fortune REASON FOR CONSULTATION: Anemia. HISTORY OF PRESENT ILLNESS: The patient is a pleasant 82-year-old woman, who was admitted to the hospital yesterday after presenting to the emergency room with complaints of lightheadedness and dyspnea on exertion. Evaluation included lab work showing anemia with iron studies consistent with iron deficiency. Stool occult blood testing was negative. In the emergency room, she did receive 1 unit of packed red blood cells. She has been started on iron. The patient denies any rectal bleeding. She has no complaints of abdominal pain or upper GI symptoms. She states bowel movements at home have been normal. Stools in the hospital have been dark since she started taking iron. 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 Followup barium enema showed no stricture. The patient denies any rectal bleeding or change in her bowel habits. She has no complaints of abdominal pain and denies upper GI symptoms. PAST MEDICAL HISTORY: 1. Diabetes mellitus type 2. 2. Hypertension. 3. Abdominal aortic aneurysm, status post repair. 4. Gout. CURRENT MEDICATIONS: Her current medication list is reviewed in the chart. ALLERGIES: THERE ARE NONE REPORTED. FAMILY HISTORY: This is reviewed with the patient and is negative for GI malignancy. SOCIAL HISTORY: There is no current tobacco, alcohol, or substance abuse review. REVIEW OF SYSTEMS: SKIN: No pruritus. HEENT: Negative. CARDIOPULMONARY: No shortness of breath or chest pain. GASTROINTESTINAL: As above. GENITOURINARY: Negative. NEUROPSYCHIATRIC: Negative. PHYSICAL EXAMINATION: GENERAL: Shows a pleasant female, lying comfortably in bed. VITAL SIGNS: Reviewed in electronic medical record and are stable. SKIN: Anicteric. HEENT: Shows no scleral icterus. NECK: Without lymphadenopathy or thyromegaly. LUNGS: Clear. HEART: Shows regular rate and rhythm. S1, S2. No murmur. ABDOMEN: Soft without focal masses or tenderness. Bowel sounds are present. No organomegaly is noted. EXTREMITIES: Without edema. LABORATORY DATA: Reviewed. IMPRESSION: Iron deficiency anemia. I discussed colonoscopy and endoscopy with the patient. She declines further evaluation with invasive endoscopy at this time. I would recommend continuing iron supplementation. If she does elect to eventually undergo colonoscopy, this can be arranged as an outpatient. She does not show signs of active bleeding at this time. Stools have reportedly been Hemoccult positive in the past. Thanks for asking me to see her. I will follow her in the hospital with you. MD ZAY Balbuena/[email or web address] / [id number]
--- NOTE | 2023-05-12 14:52 | P.PNIM_ITS ---
Subjective Subjective Date of Service: 05/12/23 Interval History: Remains hemodynamically stable overnight. Respiratory status improved Review of Systems Denies chest pain Denies shortness of breath Denies nausea vomiting diarrhea Denies fever chills Physical Exam 2 Vital Signs: Vital Signs: Last Vital Signs Temp 97.4 F 05/12/23 11:18 Pulse 87 05/12/23 11:18 Resp 20 05/12/23 11:18 BP 133/72 05/12/23 11:18 Pulse Ox 94 05/12/23 11:18 O2 Del Method Nasal Cannula 05/12/23 11:18 O2 Flow Rate 1 05/12/23 11:18 BMI result Body Mass Index 22.0 Const: Other: Resting quietly no acute distress Resp: Other: Clear to auscultation bilaterally no rales rhonchi or wheezes. Diminished at bases Cardio: Other: No S4; positive S1-S2; no S3 2/6 systolic murmur best heard right sternal border 2nd intercostal space GI: Other: Soft positive bowel sounds Neuro: Other: Cranial nerves 2-12 grossly intact as tested. Motor 5/5 all extremities sensation is intact cognition appropriate Extrem: Other: No edema bilaterally Objective Data Active Medications Acetaminophen (Acetaminophen 325 Mg Tablet) 650 mg PO Q6H PRN PRN Reason: Pain, Mild (Pain Scale 1-3) Allopurinol (Allopurinol 100 Mg Tablet) 100 mg PO DAILY [facility] Last Admin: 05/12/23 09:11 Dose: 100 mg Documented By: KEYA Atorvastatin Calcium (Atorvastatin Calcium 20 Mg Tablet) 20 mg PO BEDTIME [facility] Last Admin: 05/11/23 21:28 Dose: 20 mg Documented By: JOURDAN Calcium Carbonate/Cholecalciferol (Calcium + Vitamin D 250 Mg Tablet) 250 mg PO DAILY [facility] Last Admin: 05/12/23 09:12 Dose: 250 mg Documented By: KEYA Dextrose (Dextrose 50 % 25 Gm/50 Ml Syringe) 25 gm IVPUSH Q15M PRN; Protocol PRN Reason: per Hypoglycemia Standing Ord. Ferrous Sulfate (Ferrous Sulfate 324 Mg Tablet.) 325 mg PO DAILY [facility] Last Admin: 05/12/23 09:11 Dose: 325 mg Documented By: KEYA Glucose (Glucose Gel 15 Gm Gel..Gram.) 15 gm PO Q15M PRN; Protocol PRN Reason: per Hypoglycemia Standing Ord. Ceftriaxone Sodium 1 gm/ (Sodium Chloride) 50 mls @ 100 mls/hr IV Q24H [facility] Last Infusion: 05/12/23 12:46 Dose: Infused Documented By: KEYA Azithromycin 500 mg/ Sodium (Chloride) 250 mls @ 125 mls/hr IV Q24H [facility] Last Infusion: 05/12/23 02:19 Dose: Infused Documented By: JOURDAN Insulin Human Lispro (Insulin Lispro 100 Unit/Ml 3 Ml Vial) 0 unit SUBCUT QIDACHS [facility]; Protocol Last Admin: 05/12/23 11:43 Dose: Not Given Documented By: KEYA Non-Admin Reason: No Insulin Coverage Melatonin (Melatonin 3 Mg Tablet) 3 mg PO BEDTIME PRN PRN Reason: Insomnia Niacin (Niacin Er 250 Mg Tablet.Er) 500 mg PO DAILY [facility] Last Admin: 05/12/23 09:11 Dose: 500 mg Documented By: KEYA Ondansetron HCl (Ondansetron Hcl 4 Mg/2 Ml Vial) 4 mg IVPUSH Q8H PRN PRN Reason: Nausea and Vomiting Last Admin: 05/11/23 16:58 Dose: 4 mg Documented By: CARLITO Pantoprazole Sodium (Pantoprazole Sodium 40 Mg/10 Ml Vial) 40 mg IVPUSH BID@0630,1630 [facility] Last Admin: 05/12/23 09:10 Dose: 40 mg Documented By: KEYA Senna (Sennosides 8.6 Mg Tablet) 17.2 mg PO BEDTIME PRN PRN Reason: Constipation Sodium Chloride (0.9 % Sodium Chloride Flush 3 Ml Syringe) 3 ml IVFLUSH QSHIFT [facility] Last Admin: 05/12/23 09:10 Dose: 3 ml Documented By: KEYA Labs 05/12/23 05:47 05/12/23 05:47 Labs: Laboratory Results - last 24 hr 05/11/23 05/11/23 05/11/23 14:35 18:21 19:15 MCV MCH MCHC RDW Plt Count MPV Immature Gran % (Auto) Neut % (Auto) Lymph % (Auto) [place] % (Auto) Eos % (Auto) Baso % (Auto) Lymph # (Auto) [place] # (Auto) Eos # (Auto) Baso # (Auto) Abs Immat Gran (auto) Absolute Neuts (auto) Absolute Nucleated RBC Nucleated RBC % (auto) Smear Tech's Comments D-Dimer High Sensitivty 3518 Anion Gap Estim Creat Clear Calc Estimated GFR POC Glucose 120 H Random Glucose Calcium B-Natriuretic Peptide Blood Type B Positive Antibody Screen NEGATIVE Crossmatch See Detail 05/11/23 05/11/23 05/12/23 19:55 21:13 05:47 MCV 75.7 L 76.1 L MCH 22.5 L 22.2 L MCHC 29.8 L 29.2 L RDW 21.6 H 21.7 H Plt Count 195 D 225 MPV 8.8 L 9.2 L Immature Gran % (Auto) 0.3 0.3 Neut % (Auto) 91.5 H 84.5 H Lymph % (Auto) 4.4 L 9.7 L [place] % (Auto) 3.4 4.4 Eos % (Auto) 0.1 0.7 Baso % (Auto) 0.3 0.4 Lymph # (Auto) 0.5 L 0.9 L [place] # (Auto) 0.4 0.4 Eos # (Auto) 0.0 0.1 Baso # (Auto) 0.0 0.0 Abs Immat Gran (auto) 0.04 H 0.03 Absolute Neuts (auto) 10.9 H 7.6 Absolute Nucleated RBC 0.020 H 0.000 Nucleated RBC % (auto) 0.2 0.0 Smear Tech's Comments VERIFIED D-Dimer High Sensitivty Anion Gap 15 Estim Creat Clear Calc 30.7 Estimated GFR 51 POC Glucose 115 Random Glucose 125 H Calcium 8.4 D B-Natriuretic Peptide 1901 H Blood Type Antibody Screen Crossmatch 05/12/23 05/12/23 07:24 11:02 MCV MCH MCHC RDW Plt Count MPV Immature Gran % (Auto) Neut % (Auto) Lymph % (Auto) [place] % (Auto) Eos % (Auto) Baso % (Auto) Lymph # (Auto) [place] # (Auto) Eos # (Auto) Baso # (Auto) Abs Immat Gran (auto) Absolute Neuts (auto) Absolute Nucleated RBC Nucleated RBC % (auto) Smear Tech's Comments D-Dimer High Sensitivty Anion Gap Estim Creat Clear Calc Estimated GFR POC Glucose 120 H 101 Random Glucose Calcium B-Natriuretic Peptide Blood Type Antibody Screen Crossmatch Microbiology Microbiology Results: Microbiology 05/11/23 11:29 Blood Culture - Preliminary Blood - Venous No growth after 24 hours. 05/11/23 11:27 Blood Culture - Preliminary Blood - Venous No growth after 24 hours. Assessment and Plan (1) Acute blood loss anemia: Status: Acute (2) Acute systolic (congestive) heart failure: Status: Acute Plan 82-year-old female with history of well-controlled type 2 diabetes, hypertension, h/o AAA, history TIA in 2010, CKD stage 3 (follows with Dr. Reyes), hyperlipidemia, gout was a former smoker with a 20 pack year history (quit around 2002) admitted for acute blood loss anemia with new onset CHF. 1.Acute blood loss anemia- suspect GI bleed -hemoglobin stable after 1 unit of blood -IV PPI -Clear liquids -GI consult -serial CBCs 3.New onset systolic CHF- -echo noted. Severe LV function as compared to past -appreciate cardiology input -Strict I&O -follow renals/divalents 4.?R perihilar consolidation on CXR -no symptoms consistent with pneumonia -Defer further abx tx 5.Ila-hcmhckz-cktkbeldk type 2 diabetes-controlled -acceptable control off oral agents -add back when appropriate -lispro correctional scale -adjust as indicated 6.Hypertension -acceptable control on current therapies -adjust as clinically indicated Heparin Full code Patient requires ongoing hospitalization for workup of new onset congestive heart failure and symptomatic anemia Quality Stroke Does the patient have a stroke diagnosis?: No VTE Prior VTE?: No VTE Risk Level:: Medical - moderate - high VTE Device Contraindication: Treatment Not Indicated VTE Drug Contraindication: N/A - Med Ordered
[2023-05-12 15:13] VITALS: BP 85/54; PULSE 90; RESP 16; TEMP 37; O2SAT 96
[2023-05-12 17:22] LABS: Glucose, Whole Blood 98 mg/dL (60-115)
[2023-05-12 19:30] VITALS: BP 143/72; PULSE 90; RESP 17; TEMP 36.2; O2SAT 96
[2023-05-12 20:35] LABS: Glucose, Whole Blood 90 mg/dL (60-115)
[2023-05-12] MEDS: Atorvastatin Calcium 20 MG TABLET PO (21:02)
[2023-05-12] MEDS: Azithromycin 500 MG in 0.9 % Sodium Chloride 250 ML 125 MG IV (21:02)
[2023-05-12 23:21] VITALS: BP 160/77; PULSE 95; RESP 18; TEMP 36.1; O2SAT 95
[2023-05-13 03:53] VITALS: BP 145/67; PULSE 93; RESP 19; TEMP 37.1; O2SAT 94
[2023-05-13] MEDS: Pantoprazole Sodium 40 MG/10 ML VIAL IVPUSH ×2 (05:58→16:48)
[2023-05-13 07:19] VITALS: BP 96/57; PULSE 93; RESP 20; TEMP 36.4; O2SAT 94
[2023-05-13 07:25] LABS: Glucose, Whole Blood 101 mg/dL (60-115)
[2023-05-13 07:39] LABS: MANUAL DIFF FLAG NO
[2023-05-13 07:44] LABS: Basophils Absolute Auto 0.1 X10*3/uL (0.0-0.2); Basophils Percent Auto 0.9 % (0-2); Eosinophils Absolute Auto 0.3 X10*3/uL (0.0-0.4); Hematocrit 30.1 % (37.0-47.0); Hemoglobin 8.7 g/dl (12.0-16.0); Imm Gran Abs Auto 0.01 X10*3/uL (0.00-0.03); Imm Gran Pct Auto 0.2 % (0.0-0.4); Lymphocytes Absolute Auto 1.1 X10*3/uL (1.2-4.9); Lymphocytes Percent Auto 20.9 % (20-40); Mean Corpuscular HGB Conc 28.9 g/dl (31.0-35.0); Mean Corpuscular Hemoglobin 21.9 pg (27.0-33.0); Mean Corpuscular Volume 75.6 fL (80.0-98.0); Mean Platelet Volume 8.6 fL (9.4-12.3); Monocytes Absolute Auto 0.4 X10*3/uL (0.1-1.2); Monocytes Percent Auto 7.1 % (2-11); Neutrophils Absolute Auto 3.5 x10*3/uL (2.0-8.3); Neutrophils Percent Auto 65.9 % (45-73); Platelet Count 185 X10*3/uL (160-400); Red Blood Count 3.98 X10*6/uL (4.20-5.50); Red Cell Distribution Width 21.5 % (11.0-16.0); White Blood Count 5.4 X10*3/uL (4.8-10.8)
[2023-05-13 08:03] LABS: Alanine Aminotransferase 5 U/L (0-31); Albumin Level 3.8 g/dL (3.5-5.0); Alkaline Phosphatase 75 U/L (39-117); Anion Gap 11 (12-20); Aspartate Amino Transferase 18 U/L (5-31); Bilirubin Total 0.7 mg/dL (0.0-1.0); Blood Urea Nitrogen 13 mg/dL (9-16); Calcium 8.4 mg/dL (8.4-10.2); Carbon Dioxide 25 mmol/L (22-29); Chloride 108 mmol/L (96-108); Creatinine Clr Calc Pharmacy 31.6; Estimated Glomerular Filt Rate 53; Glucose Fasting 101 mg/dL (60-99); Potassium 3.3 mmol/L (3.3-5.1); Sodium 141 mmol/L (135-145); Total Protein 6.6 g/dL (6.5-8.0)
[2023-05-13] MEDS: allopurinoL 100 MG TABLET PO (08:25)
[2023-05-13] MEDS: Calcium + Vitamin D 250 MG TABLET PO (08:25)
[2023-05-13] MEDS: Ferrous Sulfate 324 MG TABLET.DR 325 MG PO (08:25)
[2023-05-13] MEDS: 0.9 % Sodium Chloride Flush 3 ML SYRINGE IVFLUSH ×3 (08:26→21:21)
[2023-05-13 09:22] LABS: Procalcitonin 0.15 ng/mL
--- NOTE | 2023-05-13 10:18 | PM.PNCARD ---
Subjective Subjective Date of Service: 05/13/23 Interval history: Patient states she is feeling okay. Patient denies any symptoms like angina. She had some shortness of breath prior to arrival but that seems better now. However, she is not moving at all. Review of Systems Review of Systems Yes all other systems are reviewed and are negative Constitutional: Reports as per HPI and Reports no additional constitutional complaints Eyes: Reports as per HPI and Denies no additional eye complaints Denies system reviewed and no additional complaints, except as documented and Reports as per HPI Cardiovascular: Reports as per HPI, Reports no additional cardiovascular complaints, Denies acrocyanosis, Denies cool extremities, Denies chest pain, Denies leg edema, Denies lightheadedness, Denies palpitations and Denies dyspnea Respiratory: Reports as per HPI, Denies no additional respiratory complaints and Denies dyspnea Gastrointestinal: Reports as per HPI and Denies no additional gastrointestinal complaints Genitourinary: Reports as per HPI Musculoskeletal: Reports no additional musculoskeletal complaints and Reports as per HPI Skin/Breast: Reports system reviewed and no additional complaints, except as docu Reports system reviewed and no additional complaints, except as documented and Reports as per HPI Psychiatric: Reports no additional psychiatric complaints and Reports as per HPI Endocrine: Reports no additional endocrine complaints, Reports as per HPI and Denies palpitations Hematologic/Lymphatic: Reports no additional hematologic/lymphatic complaints and Reports as per HPI Allergic/Immunologic: Reports no additional allergic/immunologic complaints and Reports as per HPI Physical Exam Vital Signs: Last Vital Signs Temp 97.6 F 05/13/23 07:19 Pulse 93 05/13/23 07:19 Resp 20 05/13/23 07:19 BP 96/57 L 05/13/23 07:19 Pulse Ox 94 05/13/23 07:19 O2 Del Method Nasal Cannula 05/13/23 07:19 O2 Flow Rate 1 05/13/23 07:19 BMI result Body Mass Index 22.0 Const General: comfortable and no acute distress Orientation/consciousness: patient oriented x3 HEENT Other: Unremarkable Head: Yes normal to inspection Neck Neck: Yes normal visual inspection Chest Chest palpation & inspection: normal inspection of the chest Resp Auscultation: crackles Cardio Palpation: normal PMI Heart sounds: S1 normal heart sound present, S2 normal heart sound present, no gallops, Murmur heart sound present systolic II/, at the left sternal border and at the right sternal border and no rubs GI Palpation (GI): Soft to palpation Back/Spine/Pelvis Other: unremarkable Skin General skin exam: no rashes or lesions noted Neuro General: patient oriented x3 Extrem General: Yes normal to inspection Psych Mental Status: mental status grossly normal Objective Labs and Meds 05/13/23 07:19 05/13/23 07:19 Lab results: Laboratory Results - last 24 hr 05/12/23 05/12/23 05/12/23 11:02 15:17 20:19 WBC RBC Hgb Hct MCV MCH MCHC RDW Plt Count MPV Immature Gran % (Auto) Neut % (Auto) Lymph % (Auto) [place] % (Auto) Eos % (Auto) Baso % (Auto) Lymph # (Auto) [place] # (Auto) Eos # (Auto) Baso # (Auto) Abs Immat Gran (auto) Absolute Neuts (auto) Absolute Nucleated RBC Nucleated RBC % (auto) Sodium Potassium Chloride Carbon Dioxide Anion Gap BUN Creatinine Estim Creat Clear Calc Estimated GFR POC Glucose 101 98 90 Fasting Glucose Calcium Total Bilirubin AST ALT Alkaline Phosphatase Total Protein Albumin Procalcitonin 05/13/23 05/13/23 07:01 07:19 WBC 5.4 RBC 3.98 L Hgb 8.7 L Hct 30.1 L MCV 75.6 L MCH 21.9 L MCHC 28.9 L RDW 21.5 H Plt Count 185 MPV 8.6 L Immature Gran % (Auto) 0.2 Neut % (Auto) 65.9 Lymph % (Auto) 20.9 [place] % (Auto) 7.1 Eos % (Auto) 5.0 H Baso % (Auto) 0.9 Lymph # (Auto) 1.1 L [place] # (Auto) 0.4 Eos # (Auto) 0.3 Baso # (Auto) 0.1 Abs Immat Gran (auto) 0.01 Absolute Neuts (auto) 3.5 Absolute Nucleated RBC 0.000 Nucleated RBC % (auto) 0.0 Sodium 141 Potassium 3.3 Chloride 108 Carbon Dioxide 25 Anion Gap 11 L BUN 13 Creatinine 1.00 Estim Creat Clear Calc 31.6 Estimated GFR 53 POC Glucose 101 Fasting Glucose 101 H Calcium 8.4 Total Bilirubin 0.7 AST 18 ALT 5 Alkaline Phosphatase 75 Total Protein 6.6 Albumin 3.8 Procalcitonin 0.15 Progress Note: A&P Assessment and plan (1) Elevated troponin: Status: Acute (2) Anemia: Status: Acute (3) Congestive heart failure: Status: Acute Plan For history, new onset shortness of breath. Cardiac BNP is 2348. Repeat is 1901. Low-grade troponins, 26, 46, 63, 77, 55. Creatinine 1.03. Hemoglobin 8.9. In December it was 11.5. Recent echocardiogram be [facility] with LVEF of 65-70%. Basal inferior aneurysm. Left atrium severely dilated. Mild aortic stenosis. Cannot exclude bicuspid valve. Moderate mitral annular calcification. Repeat echocardiogram yesterday here shows LVEF of 29%. Extensive wall motion abnormalities. [id number] aortic stenosis. Overall, likely has underlying CAD; could be multivessel. Ideally cardiac catheterization but she also looks frail, low body weight and has anemia. Anyway discussed with her about further options including with her son-in-law who is at the bedside. They state that they want everything done. Discussed the concurrent issues of cardiac as well as GI/anemia and however to be difficult to treat in the context of each other. Will discuss with Interventional Cardiology about proceeding with catheterization. Otherwise, GI note reviewed and states patient did not want any endoscopy workup but patient now would like everything done. We could potentially planned that after catheterization. Time Spent With Patient Time: Total time managing care of this patient today ____ minutes. Progress Note: Quality Stroke Does the patient have a stroke diagnosis?: No Procedures Date of Service Date of Service: 05/13/23
[2023-05-13 11:01] LABS: Glucose, Whole Blood 111 mg/dL (60-115)
[2023-05-13 11:06] VITALS: BP 101/68; PULSE 93; RESP 18; TEMP 36.8; O2SAT 95
[2023-05-13] MEDS: cefTRIAXone sodium 1 GM in 0.9 % Sodium Chloride 50 ML IV (12:16)
--- NOTE | 2023-05-13 13:41 | MHC.CM.PN ---
EMR REVIEWED, PER CARDIO NOTE PT NOT A GOOD CANDIDATE FOR CARDIAC CATH AND PLAN FOR PT TO BE TREATED CONSERVATIVELY, CM WILL CONT TO FOLLOW DC NEEDS.
--- NOTE | 2023-05-13 14:17 | P.PNIM_ITS ---
Subjective Subjective Date of Service: 05/13/23 Interval History: denies chest pain or dyspnea minimal cough Review of Systems Review of Systems: Yes all other systems are reviewed and are negative Physical Exam 2 Vital Signs: Vital Signs: Last Vital Signs Temp 98.2 F 05/13/23 11:06 Pulse 93 05/13/23 11:06 Resp 18 05/13/23 11:06 BP 101/68 05/13/23 11:06 Pulse Ox 95 05/13/23 11:06 O2 Del Method Nasal Cannula 05/13/23 11:06 O2 Flow Rate 1 05/13/23 11:06 BMI result Body Mass Index 22.0 Gen: in no acute distress HEENT: sclera anicteric, moist but pale mucus membranes Neck: supple Lungs: clear to auscultation bilaterally Heart: regular rate and rhythm, 2/6 systolic murmur at base Abd: soft, non-tender, non-distended Ext: no edema Skin: warm/well-perfused Neuro: alert and oriented x3, no focal findings Psych: appropriate affect Objective Data Active Medications Acetaminophen (Acetaminophen 325 Mg Tablet) 650 mg PO Q6H PRN PRN Reason: Pain, Mild (Pain Scale 1-3) Allopurinol (Allopurinol 100 Mg Tablet) 100 mg PO DAILY [facility] Last Admin: 05/13/23 08:25 Dose: 100 mg Documented By: KELSY Atorvastatin Calcium (Atorvastatin Calcium 20 Mg Tablet) 20 mg PO BEDTIME [facility] Last Admin: 05/12/23 21:02 Dose: 20 mg Documented By: SILVA Calcium Carbonate/Cholecalciferol (Calcium + Vitamin D 250 Mg Tablet) 250 mg PO DAILY [facility] Last Admin: 05/13/23 08:25 Dose: 250 mg Documented By: KELSY Dextrose (Dextrose 50 % 25 Gm/50 Ml Syringe) 25 gm IVPUSH Q15M PRN; Protocol PRN Reason: per Hypoglycemia Standing Ord. Ferrous Sulfate (Ferrous Sulfate 324 Mg Tablet.) 325 mg PO DAILY [facility] Last Admin: 05/13/23 08:25 Dose: 325 mg Documented By: KELSY Comments: Glucose (Glucose Gel 15 Gm Gel..Gram.) 15 gm PO Q15M PRN; Protocol PRN Reason: per Hypoglycemia Standing Ord. Ceftriaxone Sodium 1 gm/ (Sodium Chloride) 50 mls @ 100 mls/hr IV Q24H [facility] Last Infusion: 05/13/23 12:56 Dose: Infused Documented By: KELSY Azithromycin 500 mg/ Sodium (Chloride) 250 mls @ 125 mls/hr IV Q24H [facility] Last Infusion: 05/12/23 23:03 Dose: Infused Documented By: SILVA Insulin Human Lispro (Insulin Lispro 100 Unit/Ml 3 Ml Vial) 0 unit SUBCUT QIDACHS [facility]; Protocol Last Admin: 05/13/23 11:03 Dose: Not Given Documented By: KELSY Non-Admin Reason: No Insulin Coverage Melatonin (Melatonin 3 Mg Tablet) 3 mg PO BEDTIME PRN PRN Reason: Insomnia Niacin (Niacin Er 250 Mg Tablet.Er) 500 mg PO DAILY [facility] Last Admin: 05/13/23 08:25 Dose: 500 mg Documented By: KELSY Ondansetron HCl (Ondansetron Hcl 4 Mg/2 Ml Vial) 4 mg IVPUSH Q8H PRN PRN Reason: Nausea and Vomiting Last Admin: 05/11/23 16:58 Dose: 4 mg Documented By: CARLITO Pantoprazole Sodium (Pantoprazole Sodium 40 Mg/10 Ml Vial) 40 mg IVPUSH BID@0630,1630 [facility] Last Admin: 05/13/23 05:58 Dose: 40 mg Documented By: SILVA Senna (Sennosides 8.6 Mg Tablet) 17.2 mg PO BEDTIME PRN PRN Reason: Constipation Sodium Chloride (0.9 % Sodium Chloride Flush 3 Ml Syringe) 3 ml IVFLUSH QSHIFT [facility] Last Admin: 05/13/23 08:26 Dose: 3 ml Documented By: KELSY Labs 05/13/23 07:19 05/13/23 07:19 Labs: Laboratory Results - last 24 hr 05/12/23 05/12/23 05/13/23 15:17 20:19 07:01 MCV MCH MCHC RDW Plt Count MPV Immature Gran % (Auto) Neut % (Auto) Lymph % (Auto) [place] % (Auto) Eos % (Auto) Baso % (Auto) Lymph # (Auto) [place] # (Auto) Eos # (Auto) Baso # (Auto) Abs Immat Gran (auto) Absolute Neuts (auto) Absolute Nucleated RBC Nucleated RBC % (auto) Anion Gap Estim Creat Clear Calc Estimated GFR POC Glucose 98 90 101 Fasting Glucose Calcium Total Bilirubin AST ALT Alkaline Phosphatase Total Protein Albumin Procalcitonin 05/13/23 05/13/23 07:19 10:51 MCV 75.6 L MCH 21.9 L MCHC 28.9 L RDW 21.5 H Plt Count 185 MPV 8.6 L Immature Gran % (Auto) 0.2 Neut % (Auto) 65.9 Lymph % (Auto) 20.9 [place] % (Auto) 7.1 Eos % (Auto) 5.0 H Baso % (Auto) 0.9 Lymph # (Auto) 1.1 L [place] # (Auto) 0.4 Eos # (Auto) 0.3 Baso # (Auto) 0.1 Abs Immat Gran (auto) 0.01 Absolute Neuts (auto) 3.5 Absolute Nucleated RBC 0.000 Nucleated RBC % (auto) 0.0 Anion Gap 11 L Estim Creat Clear Calc 31.6 Estimated GFR 53 POC Glucose 111 Fasting Glucose 101 H Calcium 8.4 Total Bilirubin 0.7 AST 18 ALT 5 Alkaline Phosphatase 75 Total Protein 6.6 Albumin 3.8 Procalcitonin 0.15 Microbiology Microbiology Results: Microbiology 05/11/23 11:29 Blood Culture - Preliminary Blood - Venous No growth after 48 hours. 05/11/23 11:27 Blood Culture - Preliminary Blood - Venous No growth after 48 hours. Assessment and Plan (1) Acute blood loss anemia: Status: Acute (2) Acute systolic (congestive) heart failure: Status: Acute Plan d3 82yo F with DM2, HTN, hx AAA s/p repair, hx TIA, CKD3, HLD, gout, ex-smoker admitted for anemia, new-onset CHF acute blood loss anemia - Hb stable after 1u pRBCs transfused 05/11/23 - FOBT negative though reportedly positive in past - seen by GI, pt declined inpt evaluation but now seems amenable; however, she would be high risk given cardiac issues - continue PPI, monitor H+H ischemic CM acute HFrEF - TTE showing LVEF 29% with extensive wall-motion abnormalities and mild-mod aortic stenosis - Cardiology consulted, 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 Resume B-nichole when BP room allows. Does not appear overloaded at this point. possible PNA - on d3 of ceftriaxone + azithromycin, follow BCx + trend PCT DM2 - corre-dose lispro gout - allopurinol CKD3 - SCr at baseline, stable VTE ppx - SCDs In my clinical judgment, the patient requires continued inpatient hospitalization for the following reasons: possible GIB, IV ABX Total time managing care of this patient today: 40 minutes. Quality Stroke Does the patient have a stroke diagnosis?: No VTE Prior VTE?: No VTE Risk Level:: Medical - moderate - high VTE Device Contraindication: Treatment Not Indicated VTE Drug Contraindication: N/A - Med Ordered
[2023-05-13 15:34] VITALS: BP 148/73; PULSE 105; RESP 20; TEMP 36.7; O2SAT 97
[2023-05-13 16:40] LABS: Glucose, Whole Blood 99 mg/dL (60-115)
[2023-05-13 18:37] LABS: Appearance Urine Clear; Color Urine Yellow; Glucose Urine UA 250 mg/dL (Negative); Leukocyte Esterase Urine Trace (Negative); Nitrite Urine Negative (Negative); PH 5.5 (5.0-9.0); Specific Gravity - Urine 1.015 (1.005-1.025); UMIC TRIGGER UACC YES; Urine Blood Negative (Negative); Urine Ketones Negative (Negative); Urine Protein Trace mg/dL (Neg-Trace)
[2023-05-13 18:47] LABS: Bacteria Urine None Seen (None Seen); Hyaline Casts Urine 0-2 /LPF (0-2); RBC Urine 0-2 /HPF (0-2); Squamous Epithelial Cell Urine 0-2 /HPF (0-2); WBC Urine 0-5 /HPF (0-5)
[2023-05-13 19:18] VITALS: BP 105/71; PULSE 77; RESP 14; TEMP 36.6; O2SAT 97
[2023-05-13 20:45] LABS: Glucose, Whole Blood 149 mg/dL (60-115)
[2023-05-13] MEDS: Azithromycin 500 MG in 0.9 % Sodium Chloride 250 ML 125 MG IV (21:20)
[2023-05-13] MEDS: Atorvastatin Calcium 40 MG TABLET PO (21:21)
[2023-05-13 23:34] VITALS: BP 108/82; PULSE 101; RESP 18; TEMP 36.3; O2SAT 95
[2023-05-14] VITALS (12 sets, daily range): BP systolic 109–168; BP diastolic 80–98; PULSE 89–130; RESP 18–33; TEMP 36.1–36.7; O2SAT 94–100
[2023-05-14] MEDS: Pantoprazole Sodium 40 MG/10 ML VIAL IVPUSH (06:20)
[2023-05-14 06:34] LABS: MANUAL DIFF FLAG NO
[2023-05-14 06:59] LABS: Alanine Aminotransferase 5 U/L (0-31); Albumin Level 3.8 g/dL (3.5-5.0); Alkaline Phosphatase 80 U/L (39-117); Anion Gap 15 (12-20); Aspartate Amino Transferase 16 U/L (5-31); B Type Natriuretic Peptide 2435 pg/mL (<100); Bilirubin Total 0.8 mg/dL (0.0-1.0); Blood Urea Nitrogen 12 mg/dL (9-16); Calcium 8.7 mg/dL (8.4-10.2); Carbon Dioxide 22 mmol/L (22-29); Chloride 105 mmol/L (96-108); Creatinine Clr Calc Pharmacy 39.6; Estimated Glomerular Filt Rate > 60; Glucose Fasting 137 mg/dL (60-99); Glucose Random 137 mg/dL (60-115); Sodium 139 mmol/L (135-145); Total Protein 6.7 g/dL (6.5-8.0)
[2023-05-14 07:01] LABS: Basophils Percent Auto 0.5 % (0-2); Eosinophils Absolute Auto 0.1 X10*3/uL (0.0-0.4); Eosinophils Percent Auto 1.1 % (0-4); Hemoglobin 9.1 g/dl (12.0-16.0); Imm Gran Abs Auto 0.06 X10*3/uL (0.00-0.03); Imm Gran Pct Auto 0.7 % (0.0-0.4); Lymphocytes Absolute Auto 0.6 X10*3/uL (1.2-4.9); Lymphocytes Percent Auto 7.2 % (20-40); Mean Corpuscular HGB Conc 29.4 g/dl (31.0-35.0); Mean Corpuscular Volume 75.1 fL (80.0-98.0); Mean Platelet Volume 8.6 fL (9.4-12.3); Monocytes Absolute Auto 0.4 X10*3/uL (0.1-1.2); Monocytes Percent Auto 4.9 % (2-11); Neutrophils Absolute Auto 7.1 x10*3/uL (2.0-8.3); Neutrophils Percent Auto 85.6 % (45-73); Platelet Count 185 X10*3/uL (160-400); Red Blood Count 4.13 X10*6/uL (4.20-5.50); Red Cell Distribution Width 21.9 % (11.0-16.0); White Blood Count 8.3 X10*3/uL (4.8-10.8)
[2023-05-14 07:28] LABS: Glucose, Whole Blood 128 mg/dL (60-115)
[2023-05-14 07:39] LABS: Magnesium 1.8 mg/dL (1.6-2.6)
[2023-05-14] MEDS: Ferrous Sulfate 324 MG TABLET.DR 325 MG PO (08:05)
[2023-05-14] MEDS: Potassium Chloride ER 20 MEQ TAB.ER.PRT 40 MEQ PO ×2 (08:07→17:42)
[2023-05-14] MEDS: Calcium + Vitamin D 250 MG TABLET PO (08:08)
[2023-05-14] MEDS: allopurinoL 100 MG TABLET PO (08:08)
[2023-05-14] MEDS: Metoprolol Succinate ER 25 MG TAB.ER.24H PO (08:08)
[2023-05-14] MEDS: 0.9 % Sodium Chloride Flush 3 ML SYRINGE IVFLUSH ×2 (08:08→11:23)
[2023-05-14] MEDS: Aspirin Enteric Coated 81 MG TABLET.DR PO (08:08)
--- NOTE | 2023-05-14 09:10 | MHC.CM.PN ---
P.T. RECOMMENDING HOME W/SERVICES, REFERRAL PLACED TO [facility] FOR SN FOR NEW [facility] CHF AND HOME PT, CM WILL CONT TO FOLLOW FOR DC NEEDS.
--- NOTE | 2023-05-14 10:13 | P.PNCA_ITS ---
Subjective Subjective Date of Service: 05/14/23 Interval history: Patient states she feels fine. No new complaints. Son-in-law is also at the bedside. Review of Systems Review of Systems Yes all other systems are reviewed and are negative Constitutional: Reports as per HPI and Reports no additional constitutional complaints Eyes: Reports as per HPI and Denies no additional eye complaints Denies system reviewed and no additional complaints, except as documented and Reports as per HPI Cardiovascular: Reports as per HPI, Reports no additional cardiovascular complaints, Denies acrocyanosis, Denies cool extremities, Denies chest pain, Denies leg edema, Denies lightheadedness, Denies palpitations and Denies dyspnea Respiratory: Reports as per HPI, Denies no additional respiratory complaints and Denies dyspnea Gastrointestinal: Reports as per HPI and Denies no additional gastrointestinal complaints Genitourinary: Reports as per HPI Musculoskeletal: Reports no additional musculoskeletal complaints and Reports as per HPI Skin/Breast: Reports system reviewed and no additional complaints, except as docu Reports system reviewed and no additional complaints, except as documented and Reports as per HPI Psychiatric: Reports no additional psychiatric complaints and Reports as per HPI Endocrine: Reports no additional endocrine complaints, Reports as per HPI and Denies palpitations Hematologic/Lymphatic: Reports no additional hematologic/lymphatic complaints and Reports as per HPI Allergic/Immunologic: Reports no additional allergic/immunologic complaints and Reports as per HPI Physical Exam Vital Signs: Last Vital Signs Temp 97.3 F 05/14/23 06:55 Pulse 101 H 05/14/23 08:55 Resp 18 05/14/23 06:55 BP 117/80 05/14/23 08:55 Pulse Ox 95 05/14/23 08:55 O2 Del Method Nasal Cannula 05/14/23 06:55 O2 Flow Rate 2 05/14/23 03:43 BMI result Body Mass Index 22.0 Const General: comfortable and no acute distress Orientation/consciousness: patient oriented x3 HEENT Other: Unremarkable Head: Yes normal to inspection Neck Neck: Yes normal visual inspection Chest Chest palpation & inspection: normal inspection of the chest Resp Auscultation: clear to auscultation bilaterally Cardio Palpation: normal PMI Heart sounds: S1 normal heart sound present, S2 normal heart sound present, no gallops, no murmurs and no rubs GI Palpation (GI): Soft to palpation Back/Spine/Pelvis Other: unremarkable Skin General skin exam: no rashes or lesions noted Neuro General: patient oriented x3 Extrem General: Yes normal to inspection Psych Mental Status: mental status grossly normal Objective Labs and Meds 05/14/23 06:30 05/14/23 06:30 Lab results: Laboratory Results - last 24 hr 05/13/23 05/13/23 05/13/23 10:51 16:20 16:40 WBC RBC Hgb Hct MCV MCH MCHC RDW Plt Count MPV Immature Gran % (Auto) Neut % (Auto) Lymph % (Auto) [place] % (Auto) Eos % (Auto) Baso % (Auto) Lymph # (Auto) [place] # (Auto) Eos # (Auto) Baso # (Auto) Abs Immat Gran (auto) Absolute Neuts (auto) Absolute Nucleated RBC Nucleated RBC % (auto) Sodium Potassium Chloride Carbon Dioxide Anion Gap BUN Creatinine Estim Creat Clear Calc Estimated GFR POC Glucose 111 99 Random Glucose Fasting Glucose Calcium Magnesium Total Bilirubin AST ALT Alkaline Phosphatase B-Natriuretic Peptide Total Protein Albumin Urine Color Yellow Urine Appearance Clear Urine pH 5.5 Ur Specific [place] 1.015 Urine Protein Trace Urine Glucose (UA) 250 H Urine Ketones Negative Urine Blood Negative Urine Nitrite Negative Ur Leukocyte Esterase Trace H Urine RBC 0-2 Urine WBC 0-5 Ur Squamous Epith Cells 0-2 Urine Bacteria None Seen Hyaline Casts 0-2 05/13/23 05/14/23 05/14/23 20:31 06:30 07:09 WBC 8.3 RBC 4.13 L Hgb 9.1 L Hct 31.0 L MCV 75.1 L MCH 22.0 L MCHC 29.4 L RDW 21.9 H Plt Count 185 MPV 8.6 L Immature Gran % (Auto) 0.7 H Neut % (Auto) 85.6 H Lymph % (Auto) 7.2 L [place] % (Auto) 4.9 Eos % (Auto) 1.1 Baso % (Auto) 0.5 Lymph # (Auto) 0.6 L [place] # (Auto) 0.4 Eos # (Auto) 0.1 Baso # (Auto) 0.0 Abs Immat Gran (auto) 0.06 H Absolute Neuts (auto) 7.1 Absolute Nucleated RBC 0.000 Nucleated RBC % (auto) 0.0 Sodium 139 Potassium 3.0 L Chloride 105 Carbon Dioxide 22 Anion Gap 15 BUN 12 Creatinine 0.80 Estim Creat Clear Calc 39.6 Estimated GFR > 60 POC Glucose 149 H 128 H Random Glucose 137 H Fasting Glucose 137 H Calcium 8.7 Magnesium 1.8 Total Bilirubin 0.8 AST 16 ALT 5 Alkaline Phosphatase 80 B-Natriuretic Peptide 2435 H Total Protein 6.7 Albumin 3.8 Urine Color Urine Appearance Urine pH Ur Specific [place] Urine Protein Urine Glucose (UA) Urine Ketones Urine Blood Urine Nitrite Ur Leukocyte Esterase Urine RBC Urine WBC Ur Squamous Epith Cells Urine Bacteria Hyaline Casts Progress Note: A&P Assessment and plan (1) Elevated troponin: Status: Acute (2) Anemia: Status: Acute (3) Congestive heart failure: Status: Acute Plan Echocardiogram with severe LV dysfunction as well as wall motion abnormalities. Could have underlying multivessel CAD. Has concurrent anemia as well. Discussed with son-in-law at the bedside and also discussed with from Interventional Cardiology. He does not feel that patient is suitable candidate for cardiac catheterization. He is recommending only conservative care. Explained this to patient as well as son-in-law and they are in agreement. Also discussed with Dr. Covarrubias. If able to take aspirin, continue. Otherwise, beta-blockers and statins. Can arrange follow-up if willing to come to clinic. Time Spent With Patient Time: Total time managing care of this patient today ____ minutes. Progress Note: Quality Stroke Does the patient have a stroke diagnosis?: No Procedures Date of Service Date of Service: 05/14/23
[2023-05-14] MEDS: Furosemide 20 MG/2 ML VIAL IVPUSH (11:23)
--- NOTE | 2023-05-14 11:31 | PC.NURSE ---
provider asks that pt be removed from o2 this am. pt tolerates this for a short time. before becoming profoundly short of breath, tachycardia, diaphoretic, tachypenia. coarse wet lung sounds worse on R with little air movement heard. provider and resp asked to be at bedside. resp places pt on bipap 12/6 30 % fio2. chest x ray. good improvement.
--- NOTE | 2023-05-14 11:50 | PC.RT ---
pt was placed on Bipap due to increased wob with rr mid 30's. 12/6-35% . Pt then was changed to Cpap by Dr. Leonard with 12 peep. RT not aware of changes.
--- NOTE | 2023-05-14 11:53 | PM.CCN ---
Critical Care Event Note Summary Date of Service: 05/14/23 Code activated: No Narrative: 82-year-old lady admitted with acute systolic heart failure, now with flash pulmonary edema on CPAP. Echo with LVEF of 30% and [id number] allergic stenosis. Rising BNP. On my exam, alert and oriented, systolic blood pressure 140s, respiratory rate 22 on CPAP 12 FiO2 30%, comfortable, bilateral crackles, trace lower extremity edema. Patient has been started on IV diuretic. Agree with further IV diuresis. Replace potassium. Consider placement of Cummings catheter. Consider titrating from CPAP to high-flow nasal cannula. At this time patient does not require intensive care unit level of monitoring. Please notify for re-evaluation, if patient's condition changes. Discussed with Dr. Covarrubias Critical Care Time (minutes): 0
[2023-05-14] MEDS: cefTRIAXone sodium 1 GM in 0.9 % Sodium Chloride 50 ML IV (12:03)
[2023-05-14 12:10] LABS: ABG Base Excess -4.2 mmol/L; ABG HCO3 19 mmol/L (22-26); ABG pCO2 30 mmHg (32-45); ABG pO2 92 mmHg (83-108)
[2023-05-14 12:36] LABS: Glucose, Whole Blood 179 mg/dL (60-115)
[2023-05-14] MEDS: Furosemide 40 MG/4 ML VIAL IVPUSH (12:38)
[2023-05-14] MEDS: Furosemide 20 MG/2 ML VIAL 40 MG IVPUSH (12:56)
--- NOTE | 2023-05-14 14:10 | P.PNIM_ITS ---
Subjective Subjective Date of Service: 05/14/23 Interval History: was doing well this AM but then quite suddenly became short of breath, tachypneic noted to have crackles no chest pain Review of Systems Review of Systems: Yes all other systems are reviewed and are negative Physical Exam 2 Vital Signs: Vital Signs: Last Vital Signs Temp 97.9 F 05/14/23 11:08 Pulse 125 H 05/14/23 11:40 Resp 25 H 05/14/23 11:45 BP 168/98 H 05/14/23 11:40 Pulse Ox 98 05/14/23 11:40 O2 Del Method CPAP 05/14/23 11:40 O2 Flow Rate 2 05/14/23 03:43 FiO2 30 05/14/23 11:40 BMI result Body Mass Index 22.0 Gen: in respiratory distress HEENT: sclera anicteric, moist mucus membranes Neck: supple Lungs: in respiratory distress, coarse/wet inspiratory crackles at bases bilaterally Heart: tachycardic, 2/6 murmur at base Abd: soft, non-tender, non-distended Ext: no edema Skin: warm/well-perfused Neuro: alert and oriented x3, no focal findings Psych: appropriate affect Objective Data Active Medications Acetaminophen (Acetaminophen 325 Mg Tablet) 650 mg PO Q6H PRN PRN Reason: Pain, Mild (Pain Scale 1-3) Allopurinol (Allopurinol 100 Mg Tablet) 100 mg PO DAILY [facility] Last Admin: 05/14/23 08:08 Dose: 100 mg Documented By: CHERI Aspirin (Aspirin Enteric Coated 81 Mg Tablet.) 81 mg PO DAILY [facility] Last Admin: 05/14/23 08:08 Dose: 81 mg Documented By: CHERI Atorvastatin Calcium (Atorvastatin Calcium 40 Mg Tablet) 40 mg PO BEDTIME [facility] Last Admin: 05/13/23 21:21 Dose: 40 mg Documented By: HEAVENLY Calcium Carbonate/Cholecalciferol (Calcium + Vitamin D 250 Mg Tablet) 250 mg PO DAILY [facility] Last Admin: 05/14/23 08:08 Dose: 250 mg Documented By: CHERI Dextrose (Dextrose 50 % 25 Gm/50 Ml Syringe) 25 gm IVPUSH Q15M PRN; Protocol PRN Reason: per Hypoglycemia Standing Ord. Ferrous Sulfate (Ferrous Sulfate 324 Mg Tablet.) 325 mg PO DAILY [facility] Last Admin: 05/14/23 08:05 Dose: 325 mg Documented By: CHERI Furosemide (Furosemide 20 Mg/2 Ml Vial) 40 mg IVPUSH BID@0900,1800 [facility]; Protocol Last Admin: 05/14/23 12:56 Dose: 40 mg Documented By: CHERI Glucose (Glucose Gel 15 Gm Gel..Gram.) 15 gm PO Q15M PRN; Protocol PRN Reason: per Hypoglycemia Standing Ord. Ceftriaxone Sodium 1 gm/ (Sodium Chloride) 50 mls @ 100 mls/hr IV Q24H [facility] Last Infusion: 05/14/23 12:35 Dose: Infused Documented By: CHERI Azithromycin 500 mg/ Sodium (Chloride) 250 mls @ 125 mls/hr IV Q24H [facility] Last Infusion: 05/13/23 23:36 Dose: Infused Documented By: HEAVENLY Insulin Human Lispro (Insulin Lispro 100 Unit/Ml 3 Ml Vial) 0 unit SUBCUT QIDACHS [facility]; Protocol Last Admin: 05/14/23 11:56 Dose: Not Given Documented By: CHERI Non-Admin Reason: No Insulin Coverage Melatonin (Melatonin 3 Mg Tablet) 3 mg PO BEDTIME PRN PRN Reason: Insomnia Metoprolol Succinate (Metoprolol Succinate Er 25 Mg Tab.Er.24h) 25 mg PO DAILY [facility]; Protocol Last Admin: 05/14/23 08:08 Dose: 25 mg Documented By: CHERI Niacin (Niacin Er 250 Mg Tablet.Er) 500 mg PO DAILY [facility] Last Admin: 05/14/23 08:06 Dose: 500 mg Documented By: CHERI Omeprazole (Omeprazole 20 Mg Capsule.Dr) 20 mg PO BID@0630,1630 [facility] Ondansetron HCl (Ondansetron Hcl 4 Mg/2 Ml Vial) 4 mg IVPUSH Q8H PRN PRN Reason: Nausea and Vomiting Last Admin: 05/11/23 16:58 Dose: 4 mg Documented By: CARLITO Senna (Sennosides 8.6 Mg Tablet) 17.2 mg PO BEDTIME PRN PRN Reason: Constipation Sodium Chloride (0.9 % Sodium Chloride Flush 3 Ml Syringe) 3 ml IVFLUSH QSHIFT [facility] Last Admin: 05/14/23 11:23 Dose: 3 ml Documented By: CHERI Labs 05/14/23 06:30 05/14/23 06:30 Labs: Laboratory Results - last 24 hr 05/13/23 05/13/23 05/13/23 16:20 16:40 20:31 MCV MCH MCHC RDW Plt Count MPV Immature Gran % (Auto) Neut % (Auto) Lymph % (Auto) [place] % (Auto) Eos % (Auto) Baso % (Auto) Lymph # (Auto) [place] # (Auto) Eos # (Auto) Baso # (Auto) Abs Immat Gran (auto) Absolute Neuts (auto) Absolute Nucleated RBC Nucleated RBC % (auto) O2 Saturation ABG pH at Pt Temp ABG pCO2 at Pt Temp ABG pO2 at Pt Temp ABG HCO3 ABG Base Excess (Actual) Anion Gap Estim Creat Clear Calc Estimated GFR POC Glucose 99 149 H Random Glucose Fasting Glucose Calcium Magnesium Total Bilirubin AST ALT Alkaline Phosphatase B-Natriuretic Peptide Total Protein Albumin Urine Color Yellow Urine Appearance Clear Urine pH 5.5 Ur Specific [place] 1.015 Urine Protein Trace Urine Glucose (UA) 250 H Urine Ketones Negative Urine Blood Negative Urine Nitrite Negative Ur Leukocyte Esterase Trace H Urine RBC 0-2 Urine WBC 0-5 Ur Squamous Epith Cells 0-2 Urine Bacteria None Seen Hyaline Casts 0-2 05/14/23 05/14/23 05/14/23 06:30 07:09 11:04 MCV 75.1 L MCH 22.0 L MCHC 29.4 L RDW 21.9 H Plt Count 185 MPV 8.6 L Immature Gran % (Auto) 0.7 H Neut % (Auto) 85.6 H Lymph % (Auto) 7.2 L [place] % (Auto) 4.9 Eos % (Auto) 1.1 Baso % (Auto) 0.5 Lymph # (Auto) 0.6 L [place] # (Auto) 0.4 Eos # (Auto) 0.1 Baso # (Auto) 0.0 Abs Immat Gran (auto) 0.06 H Absolute Neuts (auto) 7.1 Absolute Nucleated RBC 0.000 Nucleated RBC % (auto) 0.0 O2 Saturation ABG pH at Pt Temp ABG pCO2 at Pt Temp ABG pO2 at Pt Temp ABG HCO3 ABG Base Excess (Actual) Anion Gap 15 Estim Creat Clear Calc 39.6 Estimated GFR > 60 POC Glucose 128 H 179 H Random Glucose 137 H Fasting Glucose 137 H Calcium 8.7 Magnesium 1.8 Total Bilirubin 0.8 AST 16 ALT 5 Alkaline Phosphatase 80 B-Natriuretic Peptide 2435 H Total Protein 6.7 Albumin 3.8 Urine Color Urine Appearance Urine pH Ur Specific [place] Urine Protein Urine Glucose (UA) Urine Ketones Urine Blood Urine Nitrite Ur Leukocyte Esterase Urine RBC Urine WBC Ur Squamous Epith Cells Urine Bacteria Hyaline Casts 05/14/23 12:04 MCV MCH MCHC RDW Plt Count MPV Immature Gran % (Auto) Neut % (Auto) Lymph % (Auto) [place] % (Auto) Eos % (Auto) Baso % (Auto) Lymph # (Auto) [place] # (Auto) Eos # (Auto) Baso # (Auto) Abs Immat Gran (auto) Absolute Neuts (auto) Absolute Nucleated RBC Nucleated RBC % (auto) O2 Saturation 97.0 ABG pH at Pt Temp 7.40 ABG pCO2 at Pt Temp 30 L ABG pO2 at Pt Temp 92 ABG HCO3 19 L ABG Base Excess (Actual) -4.2 Anion Gap Estim Creat Clear Calc Estimated GFR POC Glucose Random Glucose Fasting Glucose Calcium Magnesium Total Bilirubin AST ALT Alkaline Phosphatase B-Natriuretic Peptide Total Protein Albumin Urine Color Urine Appearance Urine pH Ur Specific [place] Urine Protein Urine Glucose (UA) Urine Ketones Urine Blood Urine Nitrite Ur Leukocyte Esterase Urine RBC Urine WBC Ur Squamous Epith Cells Urine Bacteria Hyaline Casts Microbiology Microbiology Results: Microbiology 05/11/23 11:29 Blood Culture - Preliminary Blood - Venous No growth after 48 hours. 05/11/23 11:27 Blood Culture - Preliminary Blood - Venous No growth after 48 hours. 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 medical management: ASA, atorvastatin, metoprolol hypoK - replete, recheck level in AM acute blood loss anemia - Hb stable after 1u pRBCs transfused 05/11/23 - FOBT negative though reportedly positive in past [per [facility], positive in 2 of 3 samples 04/21/23; Hb 04/16/23 was 8.9] - seen by GI, pt declined inpt evaluation but now seems amenable; however, she would be high risk given cardiac issues, so for now a non-invasive approach will be pursued - continue PPI IV -> PO, monitor H+H PNA - on d4 of ceftriaxone + azithromycin, follow BCx + trend PCT DM2 - corre-dose lispro gout - allopurinol CKD3 - SCr at baseline, stable; monitor with diuresis VTE ppx - SCDs In my clinical judgment, the patient requires continued inpatient hospitalization for the following reasons: hypoxia, IV diuresis, IV ABX Total time managing care of this patient today: 60 minutes. Quality Stroke Does the patient have a stroke diagnosis?: No VTE Prior VTE?: No VTE Risk Level:: Medical - moderate - high VTE Device Contraindication: Treatment Not Indicated VTE Drug Contraindication: N/A - Med Ordered
[2023-05-14 15:12] LABS: ABG Refer to POC result
[2023-05-14 15:15] LABS: Glucose, Whole Blood 100 mg/dL (60-115)
[2023-05-14] MEDS: Potassium Chloride/H20 10 MEQ/100 ML PIGGYBACK 100 MEQ IV (15:16)
[2023-05-14] MEDS: Omeprazole 20 MG CAPSULE.DR PO (15:40)
--- NOTE | 2023-05-14 17:56 | PC.NURSE ---
several atemts to get pt to tolerate iv potassium, unable to dilute further due to sever chf, new ivs not helpful. pt states burning pain is unbearable and does not want iv potassium. pt also increasingly anxious and worried about having to sleep with high flow nc on. provider aware. po potassium ordered. pt takes with no difficutly.
[2023-05-14] MEDS: LORazepam 2 MG/ML VIAL 0.5 MG IVPUSH (18:47)
[2023-05-14 20:56] LABS: Glucose, Whole Blood 111 mg/dL (60-115)
[2023-05-15] VITALS (8 sets, daily range): BP systolic 94–141; BP diastolic 61–87; PULSE 80–98; RESP 16–20; TEMP 36.2–37.6; O2SAT 96–100
[2023-05-15] MEDS: 0.9 % Sodium Chloride Flush 3 ML SYRINGE IVFLUSH ×3 (00:14→17:54)
[2023-05-15] MEDS: Azithromycin 500 MG in 0.9 % Sodium Chloride 250 ML 125 MG IV ×2 (00:14→23:00)
[2023-05-15 07:00] LABS: MANUAL DIFF FLAG NO
[2023-05-15 07:07] LABS: Basophils Percent Auto 0.5 % (0-2); Eosinophils Absolute Auto 0.2 X10*3/uL (0.0-0.4); Eosinophils Percent Auto 1.9 % (0-4); Hematocrit 31.7 % (37.0-47.0); Hemoglobin 9.4 g/dl (12.0-16.0); Imm Gran Abs Auto 0.02 X10*3/uL (0.00-0.03); Imm Gran Pct Auto 0.2 % (0.0-0.4); Lymphocytes Absolute Auto 1.3 X10*3/uL (1.2-4.9); Lymphocytes Percent Auto 15.2 % (20-40); Mean Corpuscular HGB Conc 29.7 g/dl (31.0-35.0); Mean Corpuscular Hemoglobin 22.2 pg (27.0-33.0); Mean Corpuscular Volume 74.9 fL (80.0-98.0); Monocytes Absolute Auto 0.5 X10*3/uL (0.1-1.2); Monocytes Percent Auto 6.4 % (2-11); Neutrophils Absolute Auto 6.3 x10*3/uL (2.0-8.3); Neutrophils Percent Auto 75.8 % (45-73); Platelet Count 219 X10*3/uL (160-400); Red Blood Count 4.23 X10*6/uL (4.20-5.50); Red Cell Distribution Width 22.7 % (11.0-16.0); White Blood Count 8.3 X10*3/uL (4.8-10.8)
[2023-05-15 07:11] LABS: Glucose, Whole Blood 116 mg/dL (60-115)
[2023-05-15 07:27] LABS: B Type Natriuretic Peptide 2981 pg/mL (<100)
[2023-05-15 07:30] LABS: Alanine Aminotransferase 7 U/L (0-31); Albumin Level 3.9 g/dL (3.5-5.0); Alkaline Phosphatase 81 U/L (39-117); Anion Gap 13 (12-20); Aspartate Amino Transferase 17 U/L (5-31); Bilirubin Total 0.7 mg/dL (0.0-1.0); Blood Urea Nitrogen 13 mg/dL (9-16); Carbon Dioxide 25 mmol/L (22-29); Chloride 106 mmol/L (96-108); Creatinine Clr Calc Pharmacy 33.7; Estimated Glomerular Filt Rate 57; Glucose Fasting 111 mg/dL (60-99); Glucose Random 111 mg/dL (60-115); Magnesium 1.8 mg/dL (1.6-2.6); Sodium 140 mmol/L (135-145); Total Protein 6.9 g/dL (6.5-8.0)
[2023-05-15] MEDS: Aspirin Enteric Coated 81 MG TABLET.DR PO (09:40)
[2023-05-15] MEDS: allopurinoL 100 MG TABLET PO (09:40)
[2023-05-15] MEDS: Metoprolol Succinate ER 25 MG TAB.ER.24H PO (09:40)
[2023-05-15] MEDS: Calcium + Vitamin D 250 MG TABLET PO (09:40)
[2023-05-15] MEDS: Ferrous Sulfate 324 MG TABLET.DR PO (09:40)
[2023-05-15] MEDS: Furosemide 20 MG/2 ML VIAL 40 MG IVPUSH (09:41)
[2023-05-15 11:17] LABS: Glucose, Whole Blood 101 mg/dL (60-115)
--- NOTE | 2023-05-15 11:21 | MHC.CM.PN ---
EMR REVIEWED, PT WEANING OFF HIGH FLOW O2, PER HOSPITALIST ANTIC DC ON THURSDAY W/NEW [facility] FOR SN/PT AND PLAN FOR SOC THU/, PT WILL HAVE FAMILY FOR TRANSPORT, CM WILL CONT TO FOLLOW DC NEEDS.
--- NOTE | 2023-05-15 13:02 | P.PNIM_ITS ---
Subjective Subjective Date of Service: 05/15/23 Interval History: breathing much better, on minimal HFNC 35% fiO2 35 Lpm, no chest pain Review of Systems Review of Systems: Yes all other systems are reviewed and are negative Physical Exam 2 Vital Signs: Vital Signs: Last Vital Signs Temp 97.8 F 05/15/23 11:15 Pulse 93 05/15/23 11:15 Resp 20 05/15/23 11:15 BP 97/66 05/15/23 11:15 Pulse Ox 100 05/15/23 11:15 O2 Del Method Nasal Cannula 05/15/23 11:15 O2 Flow Rate 2 05/15/23 11:15 FiO2 40 05/15/23 07:22 BMI result Body Mass Index 22.0 Gen: in no acute distress HEENT: sclera anicteric, moist mucus membranes Neck: supple Lungs: diminished Heart: regular rate and rhythm, no murmurs Abd: soft, non-tender, non-distended Ext: no edema Skin: warm/well-perfused Neuro: alert and oriented x3, no focal findings Psych: appropriate affect Objective Data Active Medications Acetaminophen (Acetaminophen 325 Mg Tablet) 650 mg PO Q6H PRN PRN Reason: Pain, Mild (Pain Scale 1-3) Allopurinol (Allopurinol 100 Mg Tablet) 100 mg PO DAILY [facility] Last Admin: 05/15/23 09:40 Dose: 100 mg Documented By: MARIBEL Aspirin (Aspirin Enteric Coated 81 Mg Tablet.) 81 mg PO DAILY [facility] Last Admin: 05/15/23 09:40 Dose: 81 mg Documented By: MARIBEL Atorvastatin Calcium (Atorvastatin Calcium 40 Mg Tablet) 40 mg PO BEDTIME [facility] Last Admin: 05/14/23 21:51 Dose: Not Given Documented By: NAREN Non-Admin Reason: Patient Condition Contraindication Calcium Carbonate/Cholecalciferol (Calcium + Vitamin D 250 Mg Tablet) 250 mg PO DAILY [facility] Last Admin: 05/15/23 09:40 Dose: 250 mg Documented By: MARIBEL Dextrose (Dextrose 50 % 25 Gm/50 Ml Syringe) 25 gm IVPUSH Q15M PRN; Protocol PRN Reason: per Hypoglycemia Standing Ord. Ferrous Sulfate (Ferrous Sulfate 324 Mg Tablet.) 324 mg PO DAILY [facility] Last Admin: 05/15/23 09:40 Dose: 324 mg Documented By: MARIBEL Furosemide (Furosemide 20 Mg/2 Ml Vial) 40 mg IVPUSH BID@0900,1800 [facility]; Protocol Last Admin: 05/15/23 09:41 Dose: 40 mg Documented By: MARIBEL Glucose (Glucose Gel 15 Gm Gel..Gram.) 15 gm PO Q15M PRN; Protocol PRN Reason: per Hypoglycemia Standing Ord. Ceftriaxone Sodium 1 gm/ (Sodium Chloride) 50 mls @ 100 mls/hr IV Q24H [facility] Last Infusion: 05/14/23 12:35 Dose: Infused Documented By: CHERI Azithromycin 500 mg/ Sodium (Chloride) 250 mls @ 125 mls/hr IV Q24H [facility] Last Infusion: 05/15/23 02:46 Dose: Infused Documented By: NAREN Insulin Human Lispro (Insulin Lispro 100 Unit/Ml 3 Ml Vial) 0 unit SUBCUT QIDACHS [facility]; Protocol Last Admin: 05/15/23 12:35 Dose: Not Given Documented By: MARIBEL Non-Admin Reason: No Insulin Coverage Melatonin (Melatonin 3 Mg Tablet) 3 mg PO BEDTIME PRN PRN Reason: Insomnia Metoprolol Succinate (Metoprolol Succinate Er 25 Mg Tab.Er.24h) 25 mg PO DAILY [facility]; Protocol Last Admin: 05/15/23 09:40 Dose: 25 mg Documented By: MARIBEL Niacin (Niacin Er 250 Mg Tablet.Er) 500 mg PO DAILY [facility] Last Admin: 05/15/23 09:40 Dose: 500 mg Documented By: MARIBEL Omeprazole (Omeprazole 20 Mg Capsule.Dr) 20 mg PO BID@0630,1630 [facility] Last Admin: 05/15/23 06:11 Dose: Not Given Documented By: NAREN Non-Admin Reason: Patient Condition Contraindication Ondansetron HCl (Ondansetron Hcl 4 Mg/2 Ml Vial) 4 mg IVPUSH Q8H PRN PRN Reason: Nausea and Vomiting Last Admin: 05/11/23 16:58 Dose: 4 mg Documented By: CARLITO Senna (Sennosides 8.6 Mg Tablet) 17.2 mg PO BEDTIME PRN PRN Reason: Constipation Sodium Chloride (0.9 % Sodium Chloride Flush 3 Ml Syringe) 3 ml IVFLUSH QSHIFT [facility] Last Admin: 05/15/23 09:42 Dose: 3 ml Documented By: MARIBEL Labs 05/15/23 06:44 05/15/23 06:44 Labs: Laboratory Results - last 24 hr 05/14/23 05/14/23 05/15/23 14:59 20:32 06:44 MCV 74.9 L MCH 22.2 L MCHC 29.7 L RDW 22.7 H Plt Count 219 MPV 9.0 L Immature Gran % (Auto) 0.2 Neut % (Auto) 75.8 H Lymph % (Auto) 15.2 L [place] % (Auto) 6.4 Eos % (Auto) 1.9 Baso % (Auto) 0.5 Lymph # (Auto) 1.3 [place] # (Auto) 0.5 Eos # (Auto) 0.2 Baso # (Auto) 0.0 Abs Immat Gran (auto) 0.02 Absolute Neuts (auto) 6.3 Absolute Nucleated RBC 0.000 Nucleated RBC % (auto) 0.0 Anion Gap 13 Estim Creat Clear Calc 33.7 Estimated GFR 57 POC Glucose 100 111 Random Glucose 111 Fasting Glucose 111 H Calcium 9.0 Magnesium 1.8 Total Bilirubin 0.7 AST 17 ALT 7 Alkaline Phosphatase 81 B-Natriuretic Peptide 2981 H Total Protein 6.9 Albumin 3.9 Procalcitonin 0.30 05/15/23 05/15/23 06:59 11:13 MCV MCH MCHC RDW Plt Count MPV Immature Gran % (Auto) Neut % (Auto) Lymph % (Auto) [place] % (Auto) Eos % (Auto) Baso % (Auto) Lymph # (Auto) [place] # (Auto) Eos # (Auto) Baso # (Auto) Abs Immat Gran (auto) Absolute Neuts (auto) Absolute Nucleated RBC Nucleated RBC % (auto) Anion Gap Estim Creat Clear Calc Estimated GFR POC Glucose 116 H 101 Random Glucose Fasting Glucose Calcium Magnesium Total Bilirubin AST ALT Alkaline Phosphatase B-Natriuretic Peptide Total Protein Albumin Procalcitonin Impressions Chest X-Ray 05/14/23 11:29 IMPRESSION: CHF. This is increased from recent exam. Assessment and Plan (1) Acute blood loss anemia: Status: Acute (2) Acute systolic (congestive) heart failure: Status: Acute Plan d5 82yo F with DM2, HTN, hx AAA s/p repair, hx TIA, CKD3, HLD, gout, ex-smoker admitted for anemia, new-onset CHF went back into pulmonary edema 05/14/23 acute hypoxemic respiratory failure due to acute HFrEF - weaned from CPAP -> HFNC yesterday and can wean to NC today, continue to diurese with IV furosemide and will need maintenance diuretics ischemic CM - TTE showing LVEF 29% with extensive wall-motion abnormalities and mild-mod aortic stenosis - Cardiology consulted, cardiac catheterization 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 medical management: ASA, atorvastatin, metoprolol hypoK - repleted acute blood loss anemia with iron deficiency - Hb stable after 1u pRBCs transfused 05/11/23 - FOBT negative though reportedly positive in past [per [facility], positive in 2 of 3 samples 04/21/23; Hb 04/16/23 was 8.9] - seen by GI, pt declined inpt evaluation but now seems amenable; however, she would be high risk given cardiac issues, so for now a non-invasive approach will be pursued - continue PPI IV -> PO, continue to monitor H+H - replete Fe PO after bacterial infection resolves PNA - on d5 of ceftriaxone + azithromycin, follow BCx + trend PCT DM2 - correction-dose lispro gout - allopurinol CKD3 - SCr at baseline, stable; monitor with diuresis VTE ppx - SCDs dispo - anticipate eventual home with [facility] In my clinical judgment, the patient requires continued inpatient hospitalization for the following reasons: hypoxia, IV diuresis, IV ABX Total time managing care of this patient today: 45 minutes. Quality Stroke Does the patient have a stroke diagnosis?: No VTE Prior VTE?: No VTE Risk Level:: Medical - moderate - high VTE Device Contraindication: Treatment Not Indicated VTE Drug Contraindication: N/A - Med Ordered
[2023-05-15] MEDS: cefTRIAXone sodium 1 GM in 0.9 % Sodium Chloride 50 ML IV (13:16)
[2023-05-15 17:10] LABS: Glucose, Whole Blood 113 mg/dL (60-115)
[2023-05-15] MEDS: Omeprazole 20 MG CAPSULE.DR PO (17:51)
[2023-05-15 21:18] LABS: Glucose, Whole Blood 112 mg/dL (60-115)
[2023-05-15] MEDS: Atorvastatin Calcium 40 MG TABLET PO (23:14)
[2023-05-15 23:23] LABS: Strep Pneumo Ag urine Not Detected (Not Detected)
[2023-05-16] VITALS (8 sets, daily range): BP systolic 91–145; BP diastolic 59–78; PULSE 75–98; RESP 16–20; TEMP 36.2–37; O2SAT 94–98
[2023-05-16] MEDS: Omeprazole 20 MG CAPSULE.DR PO ×2 (06:44→17:44)
[2023-05-16 07:14] LABS: Glucose, Whole Blood 121 mg/dL (60-115)
[2023-05-16 07:43] LABS: Anion Gap 14 (12-20); B Type Natriuretic Peptide 2269 pg/mL (<100); Blood Urea Nitrogen 14 mg/dL (9-16); Calcium 9.3 mg/dL (8.4-10.2); Carbon Dioxide 25 mmol/L (22-29); Chloride 104 mmol/L (96-108); Creatinine Clr Calc Pharmacy 37.2; Estimated Glomerular Filt Rate > 60; Glucose Random 114 mg/dL (60-115); Magnesium 1.7 mg/dL (1.6-2.6); Potassium 3.4 mmol/L (3.3-5.1); Sodium 140 mmol/L (135-145)
[2023-05-16] MEDS: allopurinoL 100 MG TABLET PO (08:40)
[2023-05-16] MEDS: 0.9 % Sodium Chloride Flush 3 ML SYRINGE IVFLUSH (08:40)
[2023-05-16] MEDS: Metoprolol Succinate ER 25 MG TAB.ER.24H PO (08:40)
[2023-05-16] MEDS: Calcium + Vitamin D 250 MG TABLET PO (08:41)
[2023-05-16] MEDS: Ferrous Sulfate 324 MG TABLET.DR PO (08:41)
[2023-05-16] MEDS: Aspirin Enteric Coated 81 MG TABLET.DR PO (08:41)
[2023-05-16] MEDS: Furosemide 40 MG TABLET PO ×2 (08:46→17:44)
--- NOTE | 2023-05-16 09:41 | ECG_ITS ---
Test Reason : CHF Blood Pressure : / mmHG Vent. Rate : 086 BPM Atrial Rate : 086 BPM P-R Int : 150 ms QRS Dur : 108 ms QT Int : 448 ms P-R-T Axes : 085 026 121 degrees QTc Int : 536 ms Normal sinus rhythm ST elevation in anterior leads with T inversion Prolonged QT Abnormal ECG When compared with ECG of 12-MAY-2023 03:55, significant changes Referred By: Mallika Cadena Electronically Signed By:MALLIKA CADENA
[2023-05-16 11:05] LABS: Troponin-I High Sensitivity 59.7 ng/L (<3.5-17.0)
[2023-05-16 11:18] LABS: Glucose, Whole Blood 112 mg/dL (60-115)
--- NOTE | 2023-05-16 11:24 | PM.PNCARD ---
Subjective Subjective Date of Service: 05/16/23 Interval history: Patient states that she is okay. Events of the last day reviewed when she went into pulmonary edema. Seems to have gotten better from that. Review of Systems Review of Systems Yes all other systems are reviewed and are negative Constitutional: Reports as per HPI and Reports no additional constitutional complaints Eyes: Reports as per HPI and Denies no additional eye complaints Denies system reviewed and no additional complaints, except as documented and Reports as per HPI Cardiovascular: Reports as per HPI, Reports no additional cardiovascular complaints, Denies acrocyanosis, Denies cool extremities, Denies chest pain, Denies leg edema, Denies lightheadedness, Denies palpitations and Reports dyspnea Respiratory: Reports as per HPI, Denies no additional respiratory complaints and Reports dyspnea Gastrointestinal: Reports as per HPI and Denies no additional gastrointestinal complaints Genitourinary: Reports as per HPI Musculoskeletal: Reports no additional musculoskeletal complaints and Reports as per HPI Skin/Breast: Reports system reviewed and no additional complaints, except as docu Reports system reviewed and no additional complaints, except as documented and Reports as per HPI Psychiatric: Reports no additional psychiatric complaints and Reports as per HPI Endocrine: Reports no additional endocrine complaints, Reports as per HPI and Denies palpitations Hematologic/Lymphatic: Reports no additional hematologic/lymphatic complaints and Reports as per HPI Allergic/Immunologic: Reports no additional allergic/immunologic complaints and Reports as per HPI Physical Exam Vital Signs: Last Vital Signs Temp 97.3 F 05/16/23 07:28 Pulse 75 05/16/23 07:28 Resp 17 05/16/23 07:28 BP 136/74 05/16/23 07:28 Pulse Ox 96 05/16/23 07:28 O2 Del Method Nasal Cannula 05/16/23 07:28 O2 Flow Rate 2 05/16/23 07:28 FiO2 40 05/15/23 07:22 BMI result Body Mass Index 22.0 Const General: comfortable and no acute distress Orientation/consciousness: patient oriented x3 HEENT Other: Unremarkable Head: Yes normal to inspection Neck Neck: Yes normal visual inspection Chest Chest palpation & inspection: normal inspection of the chest Resp Auscultation: clear to auscultation bilaterally Cardio Palpation: normal PMI Heart sounds: S1 normal heart sound present, S2 normal heart sound present, no gallops, no murmurs and no rubs GI Palpation (GI): Soft to palpation Back/Spine/Pelvis Other: unremarkable Skin General skin exam: no rashes or lesions noted Neuro General: patient oriented x3 Extrem General: Yes normal to inspection Psych Mental Status: mental status grossly normal Objective Labs and Meds 05/15/23 06:44 05/16/23 06:24 Lab results: Laboratory Results - last 24 hr 05/11/23 05/15/23 05/15/23 21:29 15:40 20:48 Hold Purple Top Sodium Potassium Chloride Carbon Dioxide Anion Gap BUN Creatinine Estim Creat Clear Calc Estimated GFR POC Glucose 113 112 Random Glucose Calcium Magnesium Troponin I High Sens B-Natriuretic Peptide Ur Strep pneumoniae Ag Not Detected 05/16/23 05/16/23 05/16/23 06:24 07:06 10:19 Hold Purple Top SEE NOTE Sodium 140 Potassium 3.4 Chloride 104 Carbon Dioxide 25 Anion Gap 14 BUN 14 Creatinine 0.85 Estim Creat Clear Calc 37.2 Estimated GFR > 60 POC Glucose 121 H Random Glucose 114 Calcium 9.3 Magnesium 1.7 Troponin I High Sens 59.7 H* B-Natriuretic Peptide 2269 H Ur Strep pneumoniae Ag 05/16/23 11:12 Hold Purple Top Sodium Potassium Chloride Carbon Dioxide Anion Gap BUN Creatinine Estim Creat Clear Calc Estimated GFR POC Glucose 112 Random Glucose Calcium Magnesium Troponin I High Sens B-Natriuretic Peptide Ur Strep pneumoniae Ag Progress Note: A&P Assessment and plan (1) NSTEMI (non-ST elevated myocardial infarction): Status: Acute (2) Acute systolic (congestive) heart failure: Status: Acute (3) Anemia: Status: Acute Plan Echocardiogram with severe LV dysfunction as well as wall motion abnormalities. EKG with new changes in anterior leads and could reflect significant LAD disease or left main or multivessel disease. Her hemoglobin seems to have been generally stable over the last 3 or 4 days. But lower than December. Hemoccult was -ve. May keep her on heparin drip over the weekend and see how she does. Continue aspirin. Continue high-dose statins beta-blockers and diuretics. Will revisit planned with Interventional Cardiology you to these new developments. Previously, she was thought to be high risk for any invasive procedures. Discussed with Dr. Covarrubias. Time Spent With Patient Time: Total time managing care of this patient today ____ minutes. Progress Note: Quality Stroke Does the patient have a stroke diagnosis?: No Procedures Date of Service Date of Service: 05/16/23
--- NOTE | 2023-05-16 11:56 | HO.PM.IMPN ---
Subjective Subjective Date of Service: 05/16/23 Interval History: no chest pain dyspnea resolved on 2L via PA Review of Systems Review of Systems: Yes all other systems are reviewed and are negative Physical Exam Vital Signs: Vital Signs: Last Vital Signs Temp 97.2 F 05/16/23 11:34 Pulse 88 05/16/23 11:34 Resp 18 05/16/23 11:34 BP 145/73 H 05/16/23 11:34 Pulse Ox 98 05/16/23 11:34 O2 Del Method Nasal Cannula 05/16/23 11:34 O2 Flow Rate 2 05/16/23 11:34 FiO2 40 05/15/23 07:22 BMI result Body Mass Index 22.0 Gen: in no acute distress HEENT: sclera anicteric, moist mucus membranes Neck: supple Lungs: clear to auscultation bilaterally Heart: regular rate and rhythm, no murmurs Abd: soft, non-tender, non-distended Ext: no edema Skin: warm/well-perfused Neuro: alert and oriented x3, no focal findings Psych: appropriate affect Objective Data Active Medications Acetaminophen (Acetaminophen 325 Mg Tablet) 650 mg PO Q6H PRN PRN Reason: Pain, Mild (Pain Scale 1-3) Allopurinol (Allopurinol 100 Mg Tablet) 100 mg PO DAILY ON LICENSE OF [facility] Last Admin: 05/16/23 08:40 Dose: 100 mg Documented By: MARIBEL Aspirin (Aspirin Enteric Coated 81 Mg Tablet.) 81 mg PO DAILY ON LICENSE OF [facility] Last Admin: 05/16/23 08:41 Dose: 81 mg Documented By: MARIBEL Atorvastatin Calcium (Atorvastatin Calcium 40 Mg Tablet) 40 mg PO BEDTIME ON LICENSE OF [facility] Last Admin: 05/15/23 23:14 Dose: 40 mg Documented By: EUGENE Calcium Carbonate/Cholecalciferol (Calcium + Vitamin D 250 Mg Tablet) 250 mg PO DAILY ON LICENSE OF [facility] Last Admin: 05/16/23 08:41 Dose: 250 mg Documented By: MARIBEL Dextrose (Dextrose 50 % 25 Gm/50 Ml Syringe) 25 gm IVPUSH Q15M PRN; Protocol PRN Reason: per Hypoglycemia Standing Ord. Ferrous Sulfate (Ferrous Sulfate 324 Mg Tablet.) 324 mg PO DAILY ON LICENSE OF [facility] Last Admin: 05/16/23 08:41 Dose: 324 mg Documented By: MARIBEL Furosemide (Furosemide 40 Mg Tablet) 40 mg PO BID@0900,1800 ON LICENSE OF [facility]; Protocol Last Admin: 05/16/23 08:46 Dose: 40 mg Documented By: MARIBEL Glucose (Glucose Gel 15 Gm Gel..Gram.) 15 gm PO Q15M PRN; Protocol PRN Reason: per Hypoglycemia Standing Ord. Heparin Sodium (Porcine) (Heparin Sodium,Porcine 5,000 Unit/Ml Vial) 2,000 unit 40 unit/kg (2000 unit) IVPUSH PROTOCOL BOLUS PRN; Protocol PRN Reason: 40 unit/kg - Heparin Protocol Heparin Sodium (Porcine) (Heparin Sodium,Porcine 5,000 Unit/Ml Vial) 4,100 unit 80 unit/kg (4100 unit) IVPUSH PROTOCOL BOLUS PRN; Protocol PRN Reason: 80 unit/kg - Heparin Protocol Ceftriaxone Sodium 1 gm/ (Sodium Chloride) 50 mls @ 100 mls/hr IV Q24H ON LICENSE OF [facility] Last Infusion: 05/15/23 15:01 Dose: Infused Documented By: MARIBEL Azithromycin 500 mg/ Sodium (Chloride) 250 mls @ 125 mls/hr IV Q24H ON LICENSE OF [facility] Last Infusion: 05/16/23 01:50 Dose: Infused Documented By: EUGENE Heparin Sodium/Sodium Chloride (Heparin Sodium,Porcine/1/2ns) 25,000 unit in 250 mls @ 0 mls/hr IVCONT .Q0M ON LICENSE OF [facility]; Protocol Insulin Human Lispro (Insulin Lispro 100 Unit/Ml 3 Ml Vial) 0 unit SUBCUT QIDACHS ON LICENSE OF [facility]; Protocol Last Admin: 05/16/23 11:16 Dose: Not Given Documented By: MARIBEL Non-Admin Reason: No Insulin Coverage Melatonin (Melatonin 3 Mg Tablet) 3 mg PO BEDTIME PRN PRN Reason: Insomnia Metoprolol Succinate (Metoprolol Succinate Er 25 Mg Tab.Er.24h) 25 mg PO DAILY ON LICENSE OF [facility]; Protocol Last Admin: 05/16/23 08:40 Dose: 25 mg Documented By: MARIBEL Niacin (Niacin Er 250 Mg Tablet.Er) 500 mg PO DAILY ON LICENSE OF [facility] Last Admin: 05/16/23 08:41 Dose: 500 mg Documented By: MARIBEL Omeprazole (Omeprazole 20 Mg Capsule.Dr) 20 mg PO BID@0630,1630 ON LICENSE OF [facility] Last Admin: 05/16/23 06:44 Dose: 20 mg Documented By: HO.ARMSTRH Ondansetron HCl (Ondansetron Hcl 4 Mg/2 Ml Vial) 4 mg IVPUSH Q8H PRN PRN Reason: Nausea and Vomiting Last Admin: 05/11/23 16:58 Dose: 4 mg Documented By: CARLITO Senna (Sennosides 8.6 Mg Tablet) 17.2 mg PO BEDTIME PRN PRN Reason: Constipation Sodium Chloride (0.9 % Sodium Chloride Flush 3 Ml Syringe) 3 ml IVFLUSH QSHIFT NAYA Last Admin: 05/16/23 08:40 Dose: 3 ml Documented By: DOBROB Labs 05/15/23 06:44 05/16/23 06:24 Labs: Laboratory Results - last 24 hr 05/11/23 05/15/23 05/15/23 21:29 15:40 20:48 Hold Purple Top Anion Gap Estim Creat Clear Calc Estimated GFR POC Glucose 113 112 Random Glucose Calcium Magnesium B-Natriuretic Peptide Ur Strep pneumoniae Ag Not Detected 05/16/23 05/16/23 05/16/23 06:24 07:06 11:12 Hold Purple Top SEE NOTE Anion Gap 14 Estim Creat Clear Calc 37.2 Estimated GFR > 60 POC Glucose 121 H 112 Random Glucose 114 Calcium 9.3 Magnesium 1.7 B-Natriuretic Peptide 2269 H Ur Strep pneumoniae Ag Assessment and Plan (1) Acute blood loss anemia: Status: Acute (2) Acute systolic (congestive) heart failure: Status: Acute Plan d6 82yo F with DM2, HTN, hx AAA s/p repair, hx TIA, CKD3, HLD, gout, ex-smoker admitted for anemia, new-onset CHF went back into pulmonary edema 05/14/23 acute hypoxemic respiratory failure due to acute HFrEF - weaned from CPAP -> HFNC 05/14/23 then to NC 05/15/23 - change to PO furosemide and monitor volume status ischemic CM - TTE showing LVEF 29% with extensive wall-motion abnormalities and mild-mod aortic stenosis - Cardiology consulted, cardiac catheterization declined by time lock expert manager retention but will revisit. in the meanwhile, start heparin drip with close monitoring of H+H + FOBT. continue ASA, atorvastatin, metoprolol hypoK - repleted acute blood loss anemia with iron deficiency - Hb stable after 1u pRBCs transfused 05/11/23 - FOBT negative though reportedly positive in past [per [facility], positive in 2 of 3 samples 04/21/23; Hb 04/16/23 was 8.9] - seen by GI, pt declined inpt evaluation but now amenable; however, she would be high risk given cardiac issues, so for now a non-invasive approach will be pursued - continue PPI IV -> PO, continue to monitor H+H - replete Fe PO after bacterial infection resolves PNA - on d6/7 of ceftriaxone + azithromycin, follow BCx + trend PCT DM2 - correction-dose lispro gout - allopurinol CKD3 - SCr at baseline, stable; monitor with diuresis VTE ppx - SCDs dispo - anticipate eventual home with VNA In my clinical judgment, the patient requires continued inpatient hospitalization for the following reasons: hypoxia, IV IV ABX, possible ischemic workup Total time managing care of this patient today: 50 minutes. Quality Stroke Does the patient have a stroke diagnosis?: No VTE Prior VTE?: No VTE Risk Level:: Medical - moderate - high VTE Device Contraindication: Treatment Not Indicated VTE Drug Contraindication: N/A - Med Ordered
[2023-05-16 12:01] LABS: INTERNATIONAL NORM RATIO 1.1 (0.9-1.1); Prothrombin Time 13.3 SEC (11.1-13.3)
[2023-05-16 12:03] LABS: PTT Heparin Drip 27.1 SEC (53-77.9)
[2023-05-16] MEDS: Heparin Sodium,Porcine/1/2NS 25,000 UNIT/250 ML IV.SOLN 6.14 UNIT IVCONT (12:28)
[2023-05-16] MEDS: cefTRIAXone sodium 1 GM in 0.9 % Sodium Chloride 50 ML IV (13:18)
[2023-05-16 16:13] LABS: Glucose, Whole Blood 123 mg/dL (60-115)
[2023-05-16 19:39] LABS: PTT Heparin Drip 42.8 SEC (53-77.9)
[2023-05-16] MEDS: Heparin Sodium,Porcine 5,000 UNIT/ML VIAL 2000 UNIT IVPUSH (20:20)
[2023-05-16] MEDS: Atorvastatin Calcium 40 MG TABLET PO (20:23)
[2023-05-16 21:12] LABS: Glucose, Whole Blood 139 mg/dL (60-115)
[2023-05-16] MEDS: Azithromycin 500 MG in 0.9 % Sodium Chloride 250 ML 125 MG IV (23:00)
[2023-05-16] MEDS: Melatonin 3 MG TABLET PO (23:01)
[2023-05-17] VITALS (7 sets, daily range): BP systolic 95–129; BP diastolic 56–71; PULSE 72–95; RESP 18; TEMP 36.2–37.1; O2SAT 96–98
[2023-05-17 02:47] LABS: PTT Heparin Drip 55.7 SEC (53-77.9)
[2023-05-17] MEDS: Omeprazole 20 MG CAPSULE.DR PO ×2 (06:26→18:01)
[2023-05-17 07:29] LABS: Legionella Ag Urine Not Detected (Not Detected)
[2023-05-17 07:40] LABS: Glucose, Whole Blood 134 mg/dL (60-115)
[2023-05-17 09:27] LABS: Hematocrit 32.7 % (37.0-47.0); Hemoglobin 9.7 g/dl (12.0-16.0); Mean Corpuscular HGB Conc 29.7 g/dl (31.0-35.0); Mean Corpuscular Hemoglobin 22.1 pg (27.0-33.0); Mean Corpuscular Volume 74.7 fL (80.0-98.0); Mean Platelet Volume 9.4 fL (9.4-12.3); Platelet Count 258 X10*3/uL (160-400); Red Blood Count 4.38 X10*6/uL (4.20-5.50); Red Cell Distribution Width 23.9 % (11.0-16.0); White Blood Count 12.1 X10*3/uL (4.8-10.8)
[2023-05-17] MEDS: Ferrous Sulfate 324 MG TABLET.DR PO (09:29)
[2023-05-17] MEDS: Furosemide 40 MG TABLET PO ×2 (09:29→17:59)
[2023-05-17] MEDS: Aspirin Enteric Coated 81 MG TABLET.DR PO (09:29)
[2023-05-17] MEDS: Metoprolol Succinate ER 25 MG TAB.ER.24H PO (09:29)
[2023-05-17] MEDS: Calcium + Vitamin D 250 MG TABLET PO (09:29)
[2023-05-17] MEDS: allopurinoL 100 MG TABLET PO (09:30)
[2023-05-17] MEDS: 0.9 % Sodium Chloride Flush 3 ML SYRINGE IVFLUSH ×2 (09:30→21:32)
[2023-05-17 09:39] LABS: INTERNATIONAL NORM RATIO 1.2 (0.9-1.1); Prothrombin Time 14.9 SEC (11.1-13.3)
[2023-05-17 09:41] LABS: PTT Heparin Drip 46.3 SEC (53-77.9)
[2023-05-17 09:44] LABS: Anion Gap 17 (12-20); Blood Urea Nitrogen 18 mg/dL (9-16); Calcium 9.1 mg/dL (8.4-10.2); Carbon Dioxide 23 mmol/L (22-29); Chloride 99 mmol/L (96-108); Creatinine Clr Calc Pharmacy 34.4; Estimated Glomerular Filt Rate 59; Glucose Random 147 mg/dL (60-115); Magnesium 1.6 mg/dL (1.6-2.6); Potassium 3.2 mmol/L (3.3-5.1); Sodium 136 mmol/L (135-145)
[2023-05-17 09:49] LABS: B Type Natriuretic Peptide 1557 pg/mL (<100)
[2023-05-17 09:59] LABS: Procalcitonin 0.48 ng/mL
[2023-05-17] MEDS: Heparin Sodium,Porcine 5,000 UNIT/ML VIAL 2000 UNIT IVPUSH ×2 (10:02→18:00)
--- NOTE | 2023-05-17 10:42 | P.PNIM_ITS ---
Subjective Subjective Date of Service: 05/17/23 Interval History: no chest pain no dyspnea no edema No hematemesis, hematochezia, or melena. Review of Systems Review of Systems: Yes all other systems are reviewed and are negative Physical Exam 2 Vital Signs: Vital Signs: Last Vital Signs Temp 97.2 F 05/17/23 07:29 Pulse 95 05/17/23 07:29 Resp 18 05/17/23 07:29 BP 129/71 05/17/23 07:29 Pulse Ox 96 05/17/23 07:29 O2 Del Method Nasal Cannula 05/17/23 07:29 O2 Flow Rate 2 05/17/23 07:29 FiO2 40 05/15/23 07:22 BMI result Body Mass Index 22.0 Gen: in no acute distress HEENT: sclera anicteric, moist mucus membranes Neck: supple Lungs: clear to auscultation bilaterally Heart: regular rate and rhythm, no murmurs Abd: soft, non-tender, non-distended Ext: no edema Skin: warm/well-perfused Neuro: alert and oriented x3, no focal findings Psych: appropriate affect Objective Data Active Medications Acetaminophen (Acetaminophen 325 Mg Tablet) 650 mg PO Q6H PRN PRN Reason: Pain, Mild (Pain Scale 1-3) Allopurinol (Allopurinol 100 Mg Tablet) 100 mg PO DAILY [facility] Last Admin: 05/17/23 09:30 Dose: 100 mg Documented By: ZOIE Aspirin (Aspirin Enteric Coated 81 Mg Tablet.) 81 mg PO DAILY [facility] Last Admin: 05/17/23 09:29 Dose: 81 mg Documented By: ZOIE Atorvastatin Calcium (Atorvastatin Calcium 40 Mg Tablet) 40 mg PO BEDTIME [facility] Last Admin: 05/16/23 20:23 Dose: 40 mg Documented By: EUGENE Calcium Carbonate/Cholecalciferol (Calcium + Vitamin D 250 Mg Tablet) 250 mg PO DAILY [facility] Last Admin: 05/17/23 09:29 Dose: 250 mg Documented By: ZOIE Dextrose (Dextrose 50 % 25 Gm/50 Ml Syringe) 25 gm IVPUSH Q15M PRN; Protocol PRN Reason: per Hypoglycemia Standing Ord. Ferrous Sulfate (Ferrous Sulfate 324 Mg Tablet.) 324 mg PO DAILY [facility] Last Admin: 05/17/23 09:29 Dose: 324 mg Documented By: ZOIE Furosemide (Furosemide 40 Mg Tablet) 40 mg PO BID@0900,1800 [facility]; Protocol Last Admin: 05/17/23 09:29 Dose: 40 mg Documented By: ZOIE Glucose (Glucose Gel 15 Gm Gel..Gram.) 15 gm PO Q15M PRN; Protocol PRN Reason: per Hypoglycemia Standing Ord. Heparin Sodium (Porcine) (Heparin Sodium,Porcine 5,000 Unit/Ml Vial) 2,000 unit 40 unit/kg (2000 unit) IVPUSH PROTOCOL BOLUS PRN; Protocol PRN Reason: 40 unit/kg - Heparin Protocol Last Admin: 05/17/23 10:02 Dose: 2,000 unit Documented By: ZOIE Heparin Sodium (Porcine) (Heparin Sodium,Porcine 5,000 Unit/Ml Vial) 4,100 unit 80 unit/kg (4100 unit) IVPUSH PROTOCOL BOLUS PRN; Protocol PRN Reason: 80 unit/kg - Heparin Protocol Ceftriaxone Sodium 1 gm/ (Sodium Chloride) 50 mls @ 100 mls/hr IV Q24H [facility] Last Infusion: 05/16/23 14:19 Dose: Infused Documented By: MARIBEL Azithromycin 500 mg/ Sodium (Chloride) 250 mls @ 125 mls/hr IV Q24H [facility] Last Infusion: 05/17/23 01:00 Dose: Infused Documented By: EUGENE Heparin Sodium/Sodium Chloride (Heparin Sodium,Porcine/1/2ns) 25,000 unit in 250 mls @ 0 mls/hr IVCONT .Q0M [facility]; Protocol Last Titration: 05/17/23 09:58 Dose: 16 units/kg/hr, 8.19 mls/hr Documented By: ZOIE Co-signed By: AZRA Insulin Human Lispro (Insulin Lispro 100 Unit/Ml 3 Ml Vial) 0 unit SUBCUT QIDACHS [facility]; Protocol Last Admin: 05/17/23 07:42 Dose: Not Given Documented By: ZOIE Non-Admin Reason: No Insulin Coverage Melatonin (Melatonin 3 Mg Tablet) 3 mg PO BEDTIME PRN PRN Reason: Insomnia Last Admin: 05/16/23 23:01 Dose: 3 mg Documented By: EUGENE Metoprolol Succinate (Metoprolol Succinate Er 25 Mg Tab.Er.24h) 25 mg PO DAILY [facility]; Protocol Last Admin: 05/17/23 09:29 Dose: 25 mg Documented By: ZOIE Niacin (Niacin Er 250 Mg Tablet.Er) 500 mg PO DAILY [facility] Last Admin: 05/17/23 09:29 Dose: 500 mg Documented By: ZOIE Omeprazole (Omeprazole 20 Mg Capsule.Dr) 20 mg PO BID@0630,1630 [facility] Last Admin: 05/17/23 06:26 Dose: 20 mg Documented By: EUGENE Ondansetron HCl (Ondansetron Hcl 4 Mg/2 Ml Vial) 4 mg IVPUSH Q8H PRN PRN Reason: Nausea and Vomiting Last Admin: 05/11/23 16:58 Dose: 4 mg Documented By: CARLITO Senna (Sennosides 8.6 Mg Tablet) 17.2 mg PO BEDTIME PRN PRN Reason: Constipation Sodium Chloride (0.9 % Sodium Chloride Flush 3 Ml Syringe) 3 ml IVFLUSH QSHIFT [facility] Last Admin: 05/17/23 09:30 Dose: 3 ml Documented By: ZOIE Labs 05/17/23 09:09 05/17/23 09:09 Labs: Laboratory Results - last 24 hr 05/11/23 05/16/23 05/16/23 21:44 11:12 11:44 MCV MCH MCHC RDW Plt Count MPV Absolute Nucleated RBC Nucleated RBC % (auto) PT 13.3 INR 1.1 aPTT Heparin Protocol 27.1 L Anion Gap Estim Creat Clear Calc Estimated GFR POC Glucose 112 Random Glucose Calcium Magnesium B-Natriuretic Peptide Procalcitonin Ur L.pneumophila Ag Not Detected 05/16/23 05/16/23 05/16/23 15:58 18:47 20:58 MCV MCH MCHC RDW Plt Count MPV Absolute Nucleated RBC Nucleated RBC % (auto) PT INR aPTT Heparin Protocol 42.8 L D Anion Gap Estim Creat Clear Calc Estimated GFR POC Glucose 123 H 139 H Random Glucose Calcium Magnesium B-Natriuretic Peptide Procalcitonin Ur L.pneumophila Ag 05/17/23 05/17/23 05/17/23 02:28 07:36 09:09 MCV 74.7 L MCH 22.1 L MCHC 29.7 L RDW 23.9 H Plt Count 258 MPV 9.4 Absolute Nucleated RBC 0.000 Nucleated RBC % (auto) 0.0 PT 14.9 H INR 1.2 H aPTT Heparin Protocol 55.7 D 46.3 L Anion Gap 17 Estim Creat Clear Calc 34.4 Estimated GFR 59 POC Glucose 134 H Random Glucose 147 H Calcium 9.1 Magnesium 1.6 B-Natriuretic Peptide 1557 H Procalcitonin 0.48 Ur L.pneumophila Ag Microbiology Microbiology Results: Microbiology 05/11/23 11:29 Blood Culture - Final Blood - Venous No growth after 5 days. 05/11/23 11:27 Blood Culture - Final Blood - Venous No growth after 5 days. Assessment and Plan (1) Acute blood loss anemia: Status: Acute (2) Acute systolic (congestive) heart failure: Status: Acute Plan d7 82yo F with DM2, HTN, hx AAA s/p repair, hx TIA, CKD3, HLD, gout, ex-smoker admitted for anemia, new-onset CHF went back into pulmonary edema 05/14/23 acute hypoxemic respiratory failure due to acute HFrEF - weaned from CPAP -> HFNC 05/14/23 then to NC 05/15/23 - change to PO furosemide and monitor volume status- appears euvolemic/compensated now ischemic CM - TTE showing LVEF 29% with extensive wall-motion abnormalities and mild-mod aortic stenosis - Cardiology consulted, cardiac catheterization declined by die holder irrigation flume layer but will revisit tomorrow. in the meanwhile, started heparin drip with close monitoring of H+H + FOBT. continue ASA, atorvastatin, metoprolol hypoK - start PO maintenance now that on furosemide maintenance acute blood loss anemia with iron deficiency - Hb stable after 1u pRBCs transfused 05/11/23 - FOBT negative though reportedly positive in past [per [facility], positive in 2 of 3 samples 04/21/23; Hb 04/16/23 was 8.9]; recheck FOBT - seen by GI, pt declined inpt evaluation but now amenable; however, she would be high risk given cardiac issues, so for now a non-invasive approach will be pursued - continue PPI IV -> PO, continue to monitor H+H - replete Fe PO after bacterial infection resolves PNA - on d7 of ceftriaxone + azithromycin, BCx negative, Legionella/pneumococcal UAgs negative, trend PCT DM2 - correction-dose lispro gout - allopurinol CKD3 - SCr at baseline, stable; monitor with diuresis VTE ppx - SCDs dispo - anticipate eventual home with VNA In my clinical judgment, the patient requires continued inpatient hospitalization for the following reasons: hypoxia, IV IV ABX, possible ischemic workup Total time managing care of this patient today: 35 minutes. Quality Stroke Does the patient have a stroke diagnosis?: No VTE Prior VTE?: No VTE Risk Level:: Medical - moderate - high VTE Device Contraindication: Treatment Not Indicated VTE Drug Contraindication: N/A - Med Ordered
[2023-05-17 11:17] LABS: Glucose, Whole Blood 147 mg/dL (60-115)
[2023-05-17] MEDS: cefTRIAXone sodium 1 GM in 0.9 % Sodium Chloride 50 ML IV (11:55)
[2023-05-17] MEDS: Potassium Chloride ER 20 MEQ TAB.ER.PRT PO (11:55)
[2023-05-17] MEDS: Heparin Sodium,Porcine/1/2NS 25,000 UNIT/250 ML IV.SOLN 8.19 UNIT IVCONT (12:05)
[2023-05-17 16:30] LABS: Glucose, Whole Blood 108 mg/dL (60-115)
[2023-05-17 16:35] LABS: PTT Heparin Drip 133.5 SEC (53-77.9)
[2023-05-17 17:21] LABS: PTT Heparin Drip 40.6 SEC (53-77.9)
[2023-05-17 20:31] LABS: Glucose, Whole Blood 112 mg/dL (60-115)
[2023-05-17] MEDS: Atorvastatin Calcium 40 MG TABLET PO (21:32)
[2023-05-17] MEDS: Azithromycin 500 MG in 0.9 % Sodium Chloride 250 ML 125 MG IV (21:32)
[2023-05-18] VITALS (7 sets, daily range): BP systolic 83–143; BP diastolic 57–71; PULSE 81–87; RESP 17–20; TEMP 36.1–36.7; O2SAT 97–98
[2023-05-18 00:22] LABS: PTT Heparin Drip 59.3 SEC (53-77.9)
--- NOTE | 2023-05-18 01:10 | PC.NURSE ---
pt aware of needed stool sample, she did bm earlier but not enough to collected it. pt lab aptt result 59.3 therapeutic limit so, stay 18 units/kg same as before, pt refused to put sequential boots. O2 2L via NC 97% shows, HR 90s SR. will continue to monitor.
[2023-05-18] MEDS: Omeprazole 20 MG CAPSULE.DR PO ×2 (06:15→16:19)
[2023-05-18 07:38] LABS: Glucose, Whole Blood 126 mg/dL (60-115)
[2023-05-18] MEDS: Aspirin Enteric Coated 81 MG TABLET.DR PO (08:22)
[2023-05-18] MEDS: Furosemide 40 MG TABLET PO ×2 (08:22→16:19)
[2023-05-18] MEDS: Ferrous Sulfate 324 MG TABLET.DR PO (08:22)
[2023-05-18] MEDS: Metoprolol Succinate ER 25 MG TAB.ER.24H PO (08:22)
[2023-05-18] MEDS: allopurinoL 100 MG TABLET PO (08:22)
[2023-05-18] MEDS: Calcium + Vitamin D 250 MG TABLET PO (08:22)
[2023-05-18] MEDS: 0.9 % Sodium Chloride Flush 3 ML SYRINGE IVFLUSH ×3 (08:22→23:12)
[2023-05-18] MEDS: Potassium Chloride ER 20 MEQ TAB.ER.PRT PO (08:22)
[2023-05-18 10:05] LABS: Hematocrit 31.1 % (37.0-47.0); Hemoglobin 9.2 g/dl (12.0-16.0); Mean Corpuscular HGB Conc 29.6 g/dl (31.0-35.0); Mean Corpuscular Hemoglobin 21.9 pg (27.0-33.0); Mean Platelet Volume 9.2 fL (9.4-12.3); Platelet Count 282 X10*3/uL (160-400); Red Cell Distribution Width 24.3 % (11.0-16.0); White Blood Count 12.1 X10*3/uL (4.8-10.8)
--- NOTE | 2023-05-18 10:14 | MHC.CM.PN ---
EMR REVIEWED, PER HOSPITALIST PLAN TO CONT HEPARIN, PLAVIX CHALLANGE AND POSSIBLE CARDIAC CATH, [facility] FOLLOWING AND CM WILL CONT TO FOLLOW DC NEEDS.
[2023-05-18 10:23] LABS: Anion Gap 16 (12-20); Blood Urea Nitrogen 21 mg/dL (9-16); Carbon Dioxide 25 mmol/L (22-29); Chloride 99 mmol/L (96-108); Creatinine Clr Calc Pharmacy 29.6; Estimated Glomerular Filt Rate 49; Glucose Random 130 mg/dL (60-115); Magnesium 1.9 mg/dL (1.6-2.6); Potassium 3.5 mmol/L (3.3-5.1); Sodium 136 mmol/L (135-145)
[2023-05-18 10:25] LABS: B Type Natriuretic Peptide 1047 pg/mL (<100)
[2023-05-18 10:44] LABS: PTT Heparin Drip > 200.0 SEC (53-77.9)
--- NOTE | 2023-05-18 11:01 | HO.PM.IMPN ---
Subjective Subjective Date of Service: 05/18/23 Interval History: no chest pain no dyspnea no edema Review of Systems Review of Systems: Yes all other systems are reviewed and are negative Physical Exam Vital Signs: Vital Signs: Last Vital Signs Temp 97.2 F 05/18/23 07:26 Pulse 86 05/18/23 07:26 Resp 17 05/18/23 07:26 BP 138/67 05/18/23 08:16 Pulse Ox 98 05/18/23 07:26 O2 Del Method Room Air 05/18/23 07:26 O2 Flow Rate 2 05/18/23 03:09 FiO2 40 05/15/23 07:22 BMI result Body Mass Index 22.0 Gen: in no acute distress HEENT: sclera anicteric, moist mucus membranes Neck: supple Lungs: clear to auscultation bilaterally Heart: regular rate and rhythm, no murmurs Abd: soft, non-tender, non-distended Ext: no edema Skin: warm/well-perfused Neuro: alert and oriented x3, no focal findings Psych: appropriate affect Objective Data Active Medications Acetaminophen (Acetaminophen 325 Mg Tablet) 650 mg PO Q6H PRN PRN Reason: Pain, Mild (Pain Scale 1-3) Allopurinol (Allopurinol 100 Mg Tablet) 100 mg PO DAILY [facility] Last Admin: 05/18/23 08:22 Dose: 100 mg Documented By: TIO Aspirin (Aspirin Enteric Coated 81 Mg Tablet.) 81 mg PO DAILY [facility] Last Admin: 05/18/23 08:22 Dose: 81 mg Documented By: TIO Atorvastatin Calcium (Atorvastatin Calcium 40 Mg Tablet) 40 mg PO BEDTIME [facility] Last Admin: 05/17/23 21:32 Dose: 40 mg Documented By: ADRIENNE Calcium Carbonate/Cholecalciferol (Calcium + Vitamin D 250 Mg Tablet) 250 mg PO DAILY [facility] Last Admin: 05/18/23 08:22 Dose: 250 mg Documented By: TIO Dextrose (Dextrose 50 % 25 Gm/50 Ml Syringe) 25 gm IVPUSH Q15M PRN; Protocol PRN Reason: per Hypoglycemia Standing Ord. Ferrous Sulfate (Ferrous Sulfate 324 Mg Tablet.) 324 mg PO DAILY [facility] Last Admin: 05/18/23 08:22 Dose: 324 mg Documented By: TIO Furosemide (Furosemide 40 Mg Tablet) 40 mg PO BID@0900,1800 [facility]; Protocol Last Admin: 05/18/23 08:22 Dose: 40 mg Documented By: TIO Glucose (Glucose Gel 15 Gm Gel..Gram.) 15 gm PO Q15M PRN; Protocol PRN Reason: per Hypoglycemia Standing Ord. Heparin Sodium (Porcine) (Heparin Sodium,Porcine 5,000 Unit/Ml Vial) 2,000 unit 40 unit/kg (2000 unit) IVPUSH PROTOCOL BOLUS PRN; Protocol PRN Reason: 40 unit/kg - Heparin Protocol Last Admin: 05/17/23 18:00 Dose: 2,000 unit Documented By: ZOIE Heparin Sodium (Porcine) (Heparin Sodium,Porcine 5,000 Unit/Ml Vial) 4,100 unit 80 unit/kg (4100 unit) IVPUSH PROTOCOL BOLUS PRN; Protocol PRN Reason: 80 unit/kg - Heparin Protocol Ceftriaxone Sodium 1 gm/ (Sodium Chloride) 50 mls @ 100 mls/hr IV Q24H [facility] Last Infusion: 05/17/23 13:32 Dose: Infused Documented By: ZOIE Azithromycin 500 mg/ Sodium (Chloride) 250 mls @ 125 mls/hr IV Q24H [facility] Last Infusion: 05/17/23 23:37 Dose: Infused Documented By: MORA Heparin Sodium/Sodium Chloride (Heparin Sodium,Porcine/1/2ns) 25,000 unit in 250 mls @ 0 mls/hr IVCONT .Q0M [facility]; Protocol Last Titration: 05/18/23 10:43 Dose: 0 units/kg/hr, 0 mls/hr Documented By: TIO Co-signed By: ZULEMA Insulin Human Lispro (Insulin Lispro 100 Unit/Ml 3 Ml Vial) 0 unit SUBCUT QIDACHS [facility]; Protocol Last Admin: 05/18/23 08:22 Dose: Not Given Documented By: TIO Non-Admin Reason: No Insulin Coverage Melatonin (Melatonin 3 Mg Tablet) 3 mg PO BEDTIME PRN PRN Reason: Insomnia Last Admin: 05/16/23 23:01 Dose: 3 mg Documented By: EUGENE Metoprolol Succinate (Metoprolol Succinate Er 25 Mg Tab.Er.24h) 25 mg PO DAILY [facility]; Protocol Last Admin: 05/18/23 08:22 Dose: 25 mg Documented By: TIO Niacin (Niacin Er 250 Mg Tablet.Er) 500 mg PO DAILY [facility] Last Admin: 05/18/23 08:22 Dose: 500 mg Documented By: TIO Omeprazole (Omeprazole 20 Mg Capsule.Dr) 20 mg PO BID@0630,1630 [facility] Last Admin: 05/18/23 06:15 Dose: 20 mg Documented By: MORA Ondansetron HCl (Ondansetron Hcl 4 Mg/2 Ml Vial) 4 mg IVPUSH Q8H PRN PRN Reason: Nausea and Vomiting Last Admin: 05/11/23 16:58 Dose: 4 mg Documented By: CARLITO Potassium Chloride (Potassium Chloride Er 20 Meq Tab.Er.Prt) 20 meq PO DAILY [facility] Last Admin: 05/18/23 08:22 Dose: 20 meq Documented By: TIO Senna (Sennosides 8.6 Mg Tablet) 17.2 mg PO BEDTIME PRN PRN Reason: Constipation Sodium Chloride (0.9 % Sodium Chloride Flush 3 Ml Syringe) 3 ml IVFLUSH QSHIFT [facility] Last Admin: 05/18/23 08:22 Dose: 3 ml Documented By: TIO Labs 05/18/23 09:37 05/18/23 09:37 Labs: Laboratory Results - last 24 hr 05/17/23 05/17/23 05/17/23 11:13 16:05 16:19 MCV MCH MCHC RDW Plt Count MPV Absolute Nucleated RBC Nucleated RBC % (auto) aPTT Heparin Protocol 133.5 H* D Anion Gap Estim Creat Clear Calc Estimated GFR POC Glucose 147 H 108 Random Glucose Calcium Magnesium B-Natriuretic Peptide 05/17/23 05/17/23 05/18/23 17:01 20:25 00:09 MCV MCH MCHC RDW Plt Count MPV Absolute Nucleated RBC Nucleated RBC % (auto) aPTT Heparin Protocol 40.6 L D 59.3 D Anion Gap Estim Creat Clear Calc Estimated GFR POC Glucose 112 Random Glucose Calcium Magnesium B-Natriuretic Peptide 05/18/23 05/18/23 07:30 09:37 MCV 74.0 L MCH 21.9 L MCHC 29.6 L RDW 24.3 H Plt Count 282 MPV 9.2 L Absolute Nucleated RBC 0.000 Nucleated RBC % (auto) 0.0 aPTT Heparin Protocol > 200.0 H* D Anion Gap 16 Estim Creat Clear Calc 29.6 Estimated GFR 49 POC Glucose 126 H Random Glucose 130 H Calcium 9.0 Magnesium 1.9 B-Natriuretic Peptide 1047 H Assessment and Plan (1) Acute blood loss anemia: Status: Acute (2) Acute systolic (congestive) heart failure: Status: Acute Plan d8 82yo F with DM2, HTN, hx AAA s/p repair, hx TIA, CKD3, HLD, gout, ex-smoker admitted for anemia developed new-onset CHF, ischemic cardiomyopathy went back into pulmonary edema 05/14/23 requiring brief CPAP/HFNC support acute hypoxemic respiratory failure due to acute HFrEF - weaned from CPAP -> HFNC 05/14/23 then to NC 05/15/23 - now on PO furosemide; continue to monitor volume status carefully ischemic CM ACS - TTE showing LVEF 29% with extensive wall-motion abnormalities and mild-mod aortic stenosis; EKG 05/16/23 concerning for LAD occlusion - Cardiology consulted, cardiac catheterization initially declined but now re-considering. Started heparin gtt 05/16/23 with close monitoring of H+H and FOBT. If no GI bleeding, give 300 mg clopidogrel 05/19 then 75 mg daily. If then no GI bleeding, transfer to [facility] for cardiac cath. hypoK - repleted, started PO maintenance acute blood loss anemia with iron deficiency - Hb stable after 1u pRBCs transfused 05/11/23 - FOBT negative here though reportedly positive in past [per [facility], positive in 2 of 3 samples 04/21/23; Hb 04/16/23 was 8.9]; recheck FOBT pending - seen by GI, pt declined inpt evaluation but now amenable; however, she would be high risk given cardiac issues, so for now a non-invasive approach will be pursued - continue PPI IV -> PO, continue to monitor H+H - replete Fe PO after bacterial infection resolves PNA - ceftriaxone + azithromycin 05/11-, BCx negative, Legionella/pneumococcal UAgs negative, trend PCT DM2 - correction-dose lispro gout - allopurinol CKD3 - SCr at baseline, stable; monitor with diuresis VTE ppx - SCDs dispo - possible transfer to [facility] for cardiac cath In my clinical judgment, the patient requires continued inpatient hospitalization for the following reasons: ACS, ischemic workup Total time managing care of this patient today: 50 minutes. Quality Stroke Does the patient have a stroke diagnosis?: No VTE Prior VTE?: No VTE Risk Level:: Medical - moderate - high VTE Device Contraindication: Treatment Not Indicated VTE Drug Contraindication: N/A - Med Ordered
[2023-05-18 11:48] LABS: Glucose, Whole Blood 124 mg/dL (60-115)
[2023-05-18 11:52] LABS: PTT Heparin Drip 44.6 SEC (53-77.9)
--- NOTE | 2023-05-18 11:56 | PM.PNCARD ---
Subjective Subjective Date of Service: 05/18/23 Interval history: Seen examined at bedside. On supplemental oxygen. Saying that she is feeling much better. No chest discomfort. On heparin drip with stable hemoglobin so far. EKG and supplemental data reviewed and detailed discussion done with the patient and her son and son-in-law. Physical Exam Vital Signs: Last Vital Signs Temp 97.0 F 05/18/23 11:52 Pulse 85 05/18/23 11:52 Resp 17 05/18/23 11:52 BP 100/63 05/18/23 11:52 Pulse Ox 97 05/18/23 11:52 O2 Del Method Room Air 05/18/23 11:52 O2 Flow Rate 2 05/18/23 03:09 FiO2 40 05/15/23 07:22 BMI result Body Mass Index 22.0 GENERAL APPEARANCE: in no acute distress, pleasant. On supplemental oxygen. NECK: no carotid bruit, + jugular venous distention. SKIN: no suspicious lesions, warm and dry. HEART: no murmurs, regular rate and rhythm. LUNGS: Crackles at bases. ABDOMEN: soft, nontender. EXTREMITIES: no edema. PERIPHERAL PULSES: equal. NEUROLOGIC: No gross deficits, AAO X 3 Objective Labs and Meds 05/18/23 09:37 05/18/23 09:37 Lab results: Laboratory Results - last 24 hr 05/17/23 05/17/23 05/17/23 16:05 16:19 17:01 WBC RBC Hgb Hct MCV MCH MCHC RDW Plt Count MPV Absolute Nucleated RBC Nucleated RBC % (auto) aPTT Heparin Protocol 133.5 H* D 40.6 L D Sodium Potassium Chloride Carbon Dioxide Anion Gap BUN Creatinine Estim Creat Clear Calc Estimated GFR POC Glucose 108 Random Glucose Calcium Magnesium B-Natriuretic Peptide 05/17/23 05/18/23 05/18/23 20:25 00:09 07:30 WBC RBC Hgb Hct MCV MCH MCHC RDW Plt Count MPV Absolute Nucleated RBC Nucleated RBC % (auto) aPTT Heparin Protocol 59.3 D Sodium Potassium Chloride Carbon Dioxide Anion Gap BUN Creatinine Estim Creat Clear Calc Estimated GFR POC Glucose 112 126 H Random Glucose Calcium Magnesium B-Natriuretic Peptide 05/18/23 05/18/23 05/18/23 09:37 11:31 11:44 WBC 12.1 H RBC 4.20 Hgb 9.2 L Hct 31.1 L MCV 74.0 L MCH 21.9 L MCHC 29.6 L RDW 24.3 H Plt Count 282 MPV 9.2 L Absolute Nucleated RBC 0.000 Nucleated RBC % (auto) 0.0 aPTT Heparin Protocol > 200.0 H* D 44.6 L D Sodium 136 Potassium 3.5 Chloride 99 Carbon Dioxide 25 Anion Gap 16 BUN 21 H Creatinine 1.07 Estim Creat Clear Calc 29.6 Estimated GFR 49 POC Glucose 124 H Random Glucose 130 H Calcium 9.0 Magnesium 1.9 B-Natriuretic Peptide 1047 H Progress Note: A&P Assessment and plan (1) NSTEMI (non-ST elevated myocardial infarction): Status: Acute (2) Acute systolic (congestive) heart failure: Status: Acute (3) Acute blood loss anemia: Status: Acute Plan Very pleasant 82-year-old female who presented with anemia due to GI blood loss. She initially refused EGD and subsequently also had episode of acute pulmonary edema with dynamic EKG changes with precordial T-wave inversion concerning for LAD territory ischemia. She was stabilized with heparin and was also diuresed. She still appears to be slightly volume overloaded. Continue with oral Lasix but if she has any change in respiratory status she should be given IV diuretics. Echocardiography has shown ejection fraction of 29% with regional wall motion abnormalities in the inferior, septal and inferolateral segments. EKG showing precordial T-wave inversions. The wall motion abnormalities are more concerning for left main disease. The challenge is that she came with anemia which is felt to be GI blood loss. She has a low MCV and is currently getting iron supplements. I had a detailed discussion with the patient and her son and son-in-law. I explained to them that this is a challenging situation because management of acute coronary syndrome and GI bleed together can be quite problematic. For the acute coronary syndrome she needs anticoagulation antiplatelet therapy which may aggravate the bleeding. We do not know which she has lost blood from. Due to these events she has been deemed high risk for any procedures and currently EGD/colonoscopy will be challenging to do. She is currently on heparin drip which should be continued till discharge. If tomorrow hemoglobin is stable then will have a discussion with the family about a diagnostic angiogram. Alternatively if conservative therapy is planned then would consider loading her with Plavix and watching for a day or 2 to make sure that she stays stable. Given the fact that she has wall motion abnormalities which could be due to left main disease I would be careful loading her with Plavix right away because it may become a discussion for CABG once angiography was done. Currently plan is not concrete and will depend on her clinical stability. We will have further discussion tomorrow. Thank you for allowing me to participate in the care of your patient. Please feel free to contact me if you have any questions. Time Spent With Patient Time: Total time managing care of this patient today ____ minutes. Progress Note: Quality Stroke Does the patient have a stroke diagnosis?: No Procedures Date of Service Date of Service: 05/18/23
[2023-05-18] MEDS: Heparin Sodium,Porcine/1/2NS 25,000 UNIT/250 ML IV.SOLN 7.17 UNIT IVCONT (12:41)
[2023-05-18] MEDS: cefTRIAXone sodium 1 GM in 0.9 % Sodium Chloride 50 ML IV (12:44)
[2023-05-18 13:47] LABS: PTT Heparin Drip 27.9 SEC (53-77.9)
[2023-05-18 16:08] LABS: Glucose, Whole Blood 127 mg/dL (60-115)
[2023-05-18] MEDS: Acetaminophen 325 MG TABLET 650 MG PO (16:19)
[2023-05-18 18:46] LABS: PTT Heparin Drip 45.2 SEC (53-77.9)
[2023-05-18] MEDS: Heparin Sodium,Porcine 5,000 UNIT/ML VIAL 2000 UNIT IVPUSH (19:06)
[2023-05-18 20:28] LABS: Glucose, Whole Blood 142 mg/dL (60-115)
[2023-05-18] MEDS: Atorvastatin Calcium 40 MG TABLET PO (20:35)
[2023-05-18] MEDS: Azithromycin 500 MG in 0.9 % Sodium Chloride 250 ML 125 MG IV (23:11)
[2023-05-18] MEDS: ondansetron HCL 4 MG/2 ML VIAL IVPUSH (23:11)
[2023-05-18] MEDS: Melatonin 3 MG TABLET PO (23:11)
[2023-05-19 04:00] VITALS: BP 148/72; PULSE 87; RESP 18; TEMP 36.1; O2SAT 96
[2023-05-19 05:03] LABS: PTT Heparin Drip 81.7 SEC (53-77.9)
[2023-05-19] MEDS: Omeprazole 20 MG CAPSULE.DR PO ×2 (06:02→15:30)
[2023-05-19 07:15] LABS: Glucose, Whole Blood 147 mg/dL (60-115)
[2023-05-19 07:23] VITALS: BP 126/70; PULSE 91; RESP 20; TEMP 36.2; O2SAT 96
[2023-05-19] MEDS: Ferrous Sulfate 324 MG TABLET.DR PO (09:01)
[2023-05-19] MEDS: Potassium Chloride ER 20 MEQ TAB.ER.PRT PO (09:01)
[2023-05-19] MEDS: Calcium + Vitamin D 250 MG TABLET PO (09:01)
[2023-05-19] MEDS: Furosemide 40 MG TABLET PO (09:01)
[2023-05-19] MEDS: 0.9 % Sodium Chloride Flush 3 ML SYRINGE IVFLUSH ×2 (09:01→15:30)
[2023-05-19] MEDS: Aspirin Enteric Coated 81 MG TABLET.DR PO (09:01)
[2023-05-19] MEDS: allopurinoL 100 MG TABLET PO (09:01)
[2023-05-19] MEDS: Metoprolol Succinate ER 25 MG TAB.ER.24H PO (09:01)
[2023-05-19 09:03] LABS: Hematocrit 31.6 % (37.0-47.0); Hemoglobin 9.3 g/dl (12.0-16.0); Mean Corpuscular HGB Conc 29.4 g/dl (31.0-35.0); Mean Corpuscular Volume 74.9 fL (80.0-98.0); Mean Platelet Volume 9.7 fL (9.4-12.3); Platelet Count 387 X10*3/uL (160-400); Red Blood Count 4.22 X10*6/uL (4.20-5.50); Red Cell Distribution Width 24.3 % (11.0-16.0)
[2023-05-19 09:13] LABS: PTT Heparin Drip 36.7 SEC (53-77.9)
[2023-05-19 09:25] LABS: B Type Natriuretic Peptide 1453 pg/mL (<100)
[2023-05-19 09:29] LABS: Anion Gap 20 (12-20); Blood Urea Nitrogen 23 mg/dL (9-16); Calcium 9.6 mg/dL (8.4-10.2); Carbon Dioxide 22 mmol/L (22-29); Chloride 101 mmol/L (96-108); Creatinine Clr Calc Pharmacy 29.6; Estimated Glomerular Filt Rate 49; Glucose Random 144 mg/dL (60-115); Magnesium 1.9 mg/dL (1.6-2.6); Potassium 3.4 mmol/L (3.3-5.1); Sodium 140 mmol/L (135-145)
[2023-05-19 09:44] LABS: Procalcitonin 0.39 ng/mL
[2023-05-19] MEDS: Heparin Sodium,Porcine 5,000 UNIT/ML VIAL 4100 UNIT IVPUSH (09:47)
[2023-05-19 10:59] VITALS: BP 126/70; PULSE 91; O2SAT 96
--- NOTE | 2023-05-19 11:01 | P.PNCA_ITS ---
Subjective Subjective Date of Service: 05/19/23 Interval history: Seen and examined at bedside. She has been on heparin drip. Repeat EKG today does not show the precordial T- wave inversions of the changes were dynamic. She had very mild troponin elevation with significant BNP elevation which sometime is a feature of takotsubo but obviously with her age and risk factors underlying coronary disease cannot be ruled out. I had a detailed discussion with the patient and her son about diagnostic angiography. Physical Exam Vital Signs: Last Vital Signs Temp 97.1 F 05/19/23 07:23 Pulse 91 05/19/23 10:59 Resp 20 05/19/23 07:23 BP 126/70 05/19/23 10:59 Pulse Ox 96 05/19/23 10:59 O2 Del Method Nasal Cannula 05/19/23 07:23 O2 Flow Rate 2 05/19/23 07:23 FiO2 40 05/15/23 07:22 BMI result Body Mass Index 22.0 GENERAL APPEARANCE: in no acute distress, pleasant. On supplemental oxygen. NECK: no carotid bruit, no significant JVD. SKIN: no suspicious lesions, warm and dry. HEART: no murmurs, regular rate and rhythm. LUNGS: Clear to auscultation. ABDOMEN: soft, nontender. EXTREMITIES: no edema. PERIPHERAL PULSES: equal. NEUROLOGIC: No gross deficits, AAO X 3 Objective Labs and Meds 05/19/23 08:02 05/19/23 08:02 Lab results: Laboratory Results - last 24 hr 05/18/23 05/18/23 05/18/23 11:31 11:44 12:31 WBC RBC Hgb Hct MCV MCH MCHC RDW Plt Count MPV Absolute Nucleated RBC Nucleated RBC % (auto) aPTT Heparin Protocol 44.6 L D 27.9 L D Sodium Potassium Chloride Carbon Dioxide Anion Gap BUN Creatinine Estim Creat Clear Calc Estimated GFR POC Glucose 124 H Random Glucose Calcium Magnesium B-Natriuretic Peptide Procalcitonin 05/18/23 05/18/23 05/18/23 16:04 18:28 20:24 WBC RBC Hgb Hct MCV MCH MCHC RDW Plt Count MPV Absolute Nucleated RBC Nucleated RBC % (auto) aPTT Heparin Protocol 45.2 L D Sodium Potassium Chloride Carbon Dioxide Anion Gap BUN Creatinine Estim Creat Clear Calc Estimated GFR POC Glucose 127 H 142 H Random Glucose Calcium Magnesium B-Natriuretic Peptide Procalcitonin 05/19/23 05/19/23 05/19/23 01:32 07:12 08:02 WBC 13.0 H RBC 4.22 Hgb 9.3 L Hct 31.6 L MCV 74.9 L MCH 22.0 L MCHC 29.4 L RDW 24.3 H Plt Count 387 D MPV 9.7 Absolute Nucleated RBC 0.000 Nucleated RBC % (auto) 0.0 aPTT Heparin Protocol 81.7 H D Sodium 140 Potassium 3.4 Chloride 101 Carbon Dioxide 22 Anion Gap 20 BUN 23 H Creatinine 1.07 Estim Creat Clear Calc 29.6 Estimated GFR 49 POC Glucose 147 H Random Glucose 144 H Calcium 9.6 D Magnesium 1.9 B-Natriuretic Peptide 1453 H Procalcitonin 0.39 05/19/23 08:06 WBC RBC Hgb Hct MCV MCH MCHC RDW Plt Count MPV Absolute Nucleated RBC Nucleated RBC % (auto) aPTT Heparin Protocol 36.7 L D Sodium Potassium Chloride Carbon Dioxide Anion Gap BUN Creatinine Estim Creat Clear Calc Estimated GFR POC Glucose Random Glucose Calcium Magnesium B-Natriuretic Peptide Procalcitonin Progress Note: A&P Assessment and plan (1) Acute blood loss anemia: Status: Acute (2) Acute systolic (congestive) heart failure: Status: Acute (3) NSTEMI (non-ST elevated myocardial infarction): Status: Acute Plan 82-year-old female who is presenting with congestive heart failure and new onset anemia. Echocardiography has shown ejection fraction of 29% with wall motion abnormalities. She had precordial T-wave inversions which on repeat EKG today have improved. She has been in the hospital for approximately 8 days now. She has been on heparin drip and has not have drop in hemoglobin. She is currently taking baby aspirin. Due to high risk situation she is not a good candidate to do endoscopy currently. She is on iron supplements. I have reviewed her echocardiogram and I do see LAD territory wall motion abnormality. With very mild troponin elevation and significant BNP elevation sometimes these changes are due to takotsubo cardiomyopathy but it is hard to make that determination without a diagnostic angiogram. My previous inclination was to give her Plavix but I will hold off on that currently. Continue heparin drip and aspirin. Decrease Lasix to 40 mg p.o. once a day. She has been accepted at [facility]. We will add her for cardiac catheterization for tomorrow. If she has significant LAD stenosis then we will consider loading her with Brilinta and later change her to Plavix. Thank you for allowing me to participate in the care of your patient. Please feel free to contact me if you have any questions. Time Spent With Patient Time: Total time managing care of this patient today ____ minutes. Progress Note: Quality Stroke Does the patient have a stroke diagnosis?: No Procedures Date of Service Date of Service: 05/19/23
[2023-05-19 11:37] LABS: Glucose, Whole Blood 136 mg/dL (60-115)
[2023-05-19] MEDS: cefTRIAXone sodium 1 GM in 0.9 % Sodium Chloride 50 ML IV (11:39)
[2023-05-19] MEDS: Heparin Sodium,Porcine/1/2NS 25,000 UNIT/250 ML IV.SOLN 9.22 UNIT IVCONT (11:39)
[2023-05-19 12:00] VITALS: BP 125/60; PULSE 87; RESP 20; TEMP 36.2; O2SAT 99
--- NOTE | 2023-05-19 12:37 | PM.DS ---
DS: Providers Provider Date of Service: 05/19/23 Date of admission: 05/11/23 13:22 Date of discharge: 05/19/23 Primary care physician: Jewell Ng NP Consults: 05/11/23 13:22 Consult to Cardiology Routine Consulting Provider: [facility] Reason for consultation: new onset chf 05/11/23 14:09 Consult to Gastroenterology Routine Consulting Provider: Ramy Geiger Reason for consultation: acute blood loss anemia 05/12/23 08:01 Consult to Cardiology Routine Consulting Provider: [facility] Reason for consultation: CHF/Elevated troponin Has provider been notified: Yes Attending physician on discharge: Julieta Beltrán Discharging clinician: Julieta Beltrán DS: Diagnosis Discharge Diagnosis (1) Acute blood loss anemia: Status: Acute (2) Acute systolic (congestive) heart failure: Status: Acute (3) NSTEMI (non-ST elevated myocardial infarction): Status: Acute DS: Summary Hospital Course Hospital Course: 82-year-old female with history of well-controlled type 2 diabetes, hypertension, h/o AAA, history TIA in 2010, CKD stage 3 (follows with Dr. Reyes), hyperlipidemia, gout was a former smoker with a 20 pack year history (quit around 2002) presented to the ED earlier today for evaluation of exertional lightheadedness and dyspnea on exertion ongoing for several days. Denies any fevers, chills, weight gain, edema, abd pain, nausea, vomiting, diarrhea, melena, hematochezia, orthopnea, PND, shortness of breath at rest, cough, palpitations, chest pain. She says she has had a nonproductive cough but this has been chronic ongoing for several months without any acute change. She has no known history of congestive heart failure. Denies any alcohol use or illicit drug use. On arrival, patient hypertensive to 171/86 151/65 on admission. There is no leukocytosis. She has microcytic anemia with H/H 8.0/28.8%, MCV 72.0. ([place] 11/ H/H 8.6/30.1%, MCV 75.4 with heme positive stool x2). IN the ED, stool heme negative. Renal function baseline, electrolyte levels normal except for chloride 111, CO2 19. Initial troponin 26.4, repeat pending BNP 2348. Negative for influenza, COVID-19, RSV. CXR shows right perihilar opacity question consolidation as well as increased bilateral perihilar markings with question of mild vascular congestion versus interstitial pneumonitis. EKG shows NSR with occasional PVCs and LVH, rate 96. There is an ST depression in V4-V5 and t wave inversions in anterolateral leads. In the ED, was given 1 g IV ceftriaxone and 40 mg IV Lasix.CTA chest negative for PE but does show well-defined infiltrate in the right lung base.started on empirically with IV ceftriaxone and azithromycin (initiated 05/11). Hospital course: Patient was admitted for for anemia, also patient was found to have pneumonia on chest CT and started on IV antibiotics, further hospitalization course complicated with CHF(HFpEF) -treated with IV Lasix and NSTEMI:TTE showing LVEF 29% with extensive wall-motion abnormalities and mild-mod aortic stenosis; EKG 05/16/23 concerning for LAD occlusion: Patient was started on aspirin, heparin drip(05/16/23), H&H is so far stable, plan is to transfer to [facility] for cardiac catheterization. (HFpEF) : seems to be improving ,lasix switched to 40 mg po daily. pneumonia : Seems to be improved significantly, already received antibiotics for 8-9 days, continue continue antibiotic for 1 more day. Repeat chest imaging 3-4 week outpatient.Blood culture negative, strep and Legionella antigen negative, procalcitonin also trending down, still has mild leukocytosis but no fever or cough. moniter cbc . Acute hypoxemic respiratory failure multifactorial-CHF, pneumonia : Seems to be improved significantly, already received antibiotics for 8-9 days, continue continue antibiotic for 1 more day. Repeat chest imaging 3-4 week outpatient. Also switched to p.o. Lasix as above. Taper oxygen. acute blood loss anemia with iron deficiency:Hb stable after 1u pRBCs transfused 05/11/23 FOBT negative here though reportedly positive in past [per [facility], positive in 2 of 3 samples 04/21/23; Hb 04/16/23 was 8.9]; recheck FOBT pending- seen by GI, pt declined inpt evaluation but now amenable; however, she would be high risk given cardiac issues -intailly was continue PPI IV and switched to PO, continue to monitor cbc ,consider Gi eval . h/h today 9.3/31.6 . any romie blood in stool currently. Consider GI evaluation. hypoKalemia - repleted and resloved, started PO maintenance. Above management discussed the patient in detail length she understand and in agreement with above plan, time spent 50 minute. Time Attestation Discharge coordination time: Greater than 30 minutes Quality: Safe Use of Opioids Does Pt have an Active Cancer Diagnosis on the Problem List?: No Quality: Stroke Does the patient have a stroke diagnosis?: No Physical Exam Vital Signs: Vital Signs: Last Vital Signs Temp 97.1 F 05/19/23 12:00 Pulse 87 05/19/23 12:00 Resp 20 05/19/23 12:00 BP 125/60 05/19/23 12:00 Pulse Ox 99 05/19/23 12:00 O2 Del Method Nasal Cannula 05/19/23 12:00 O2 Flow Rate 2 05/19/23 12:00 FiO2 40 05/15/23 07:22 BMI result Body Mass Index 22.0 Gen: in no acute distress HEENT: sclera anicteric, moist mucus membranes Neck: supple Lungs: clear to auscultation bilaterally Heart: regular rate and rhythm, no murmurs Abd: soft, non-tender, non-distended Ext: no edema Skin: warm/well-perfused Neuro: alert and oriented x3, no focal findings Psych: appropriate affect DS: Data Data Completed and Pending Labs on day of discharge: Laboratory Results - last 24 hr 05/18/23 05/18/23 05/18/23 12:31 16:04 18:28 WBC RBC Hgb Hct MCV MCH MCHC RDW Plt Count MPV Absolute Nucleated RBC Nucleated RBC % (auto) aPTT Heparin Protocol 27.9 L D 45.2 L D Sodium Potassium Chloride Carbon Dioxide Anion Gap BUN Creatinine Estim Creat Clear Calc Estimated GFR POC Glucose 127 H Random Glucose Calcium Magnesium B-Natriuretic Peptide Procalcitonin 05/18/23 05/19/23 05/19/23 20:24 01:32 07:12 WBC RBC Hgb Hct MCV MCH MCHC RDW Plt Count MPV Absolute Nucleated RBC Nucleated RBC % (auto) aPTT Heparin Protocol 81.7 H D Sodium Potassium Chloride Carbon Dioxide Anion Gap BUN Creatinine Estim Creat Clear Calc Estimated GFR POC Glucose 142 H 147 H Random Glucose Calcium Magnesium B-Natriuretic Peptide Procalcitonin 1205/19/23 05/19/23 08:02 08:06 11:12 WBC 13.0 H RBC 4.22 Hgb 9.3 L Hct 31.6 L MCV 74.9 L MCH 22.0 L MCHC 29.4 L RDW 24.3 H Plt Count 387 D MPV 9.7 Absolute Nucleated RBC 0.000 Nucleated RBC % (auto) 0.0 aPTT Heparin Protocol 36.7 L D Sodium 140 Potassium 3.4 Chloride 101 Carbon Dioxide 22 Anion Gap 20 BUN 23 H Creatinine 1.07 Estim Creat Clear Calc 29.6 Estimated GFR 49 POC Glucose 136 H Random Glucose 144 H Calcium 9.6 D Magnesium 1.9 B-Natriuretic Peptide 1453 H Procalcitonin 0.39 Imaging Chest x-ray: Radiologist's impression: ITS Impressions Chest X-Ray 05/11/23 10:47 IMPRESSION: 1. Right parahilar opacity question consolidation. 2. Increased bilateral parahilar markings, question mild vascular congestion versus interstitial pneumonitis. Chest CTA 05/11/23 20:31 IMPRESSION: 1. No pulmonary embolus or thoracic aortic aneurysm is noted. 2. A 3.6 cm right base infiltrate is noted, likely infectious. Recommend follow-up imaging to ensure clearance and exclude the possibility of underlying obstructive process. 3. There are centrilobular emphysematous changes. 4. There are mild to moderate coronary artery atherosclerotic calcifications. 5. No thoracic lymphadenopathy or pleural effusion is seen. 6. No acute or aggressive osseous lesion is seen. VTE: negative Chest X-Ray 05/12/23 05:05 IMPRESSION: Vascular congestion with diffuse increased markings and patchy lung opacities. Suspect fluid overload and/or congestive heart failure with interstitial and early pulmonary edema. Blunted costophrenic angles possibly trace pleural fluid. Similar findings were seen previously. Chest X-Ray 05/14/23 11:29 IMPRESSION: CHF. This is increased from recent exam. Discharge Plan Discharge Anticipated Discharge Date/Time: 05/19/23 12:10 Patient Disposition: Xfer Acute Care Hospital Discharge Diagnosis: nsetmi(ischemic cardiomyopathy), acute hypoxemic respiratory failure secondary toHFPef,acute blood loss anemia with iron deficiency Referrals: [facility] [Outside] - 1 Day ([facility] Jewell Ng [facility] [Primary Care Provider] - 1 Week Discharge Medications: New cefuroxime axetil 500 mg tablet 500 mg PO BID Qty: 2 0RF azithromycin 500 mg tablet 500 mg PO DAILY 2 Days Qty: 1 0RF Rx Instructions: start on day 2 of therapy atorvastatin 40 mg Tablet 40 mg PO BEDTIME Qty: 30 0RF heparin(porcine) in 0.45% NaCl 25,000 unit/250 mL Parenteral Solution 25,000 unit continuous IV infusion .Q0M Qty: 1 0RF ferrous sulfate 324 mg (65 mg iron) Tablet,Delayed Release (Dr/Ec) 324 mg PO DAILY Qty: 30 0RF furosemide 40 mg Tablet 40 mg PO DAILY Qty: 1 0RF Protocol: Hold for SBP< HOLD for SBP < : 90 potassium chloride 20 mEq Tablet,Er Particles/Crystals 20 meq PO DAILY Qty: 1 0RF omeprazole 20 mg Capsule,Delayed Release(Dr/Ec) 20 mg PO BID@0630,1630 Qty: 1 0RF insulin lispro [Humalog U-100 Insulin] 100 unit/mL Solution See Protocol subcut QIDACHS Qty: 1 0RF Protocol: Insulin Correction Scale Less than or equal to 110 ---- Give (units): 0 111 to 150 Give (units): 0 151 to 200 Give (units): 2 201 to 250 Give (units): 4 251 to 300 Give (units): 6 301 to 350 Give (units): 8 Greater than 350 Give (units): 10 Call MD if Blood Glucose > : 350 metoprolol succinate 25 mg Tablet Extended Release 24 Hr 25 mg PO DAILY Qty: 1 0RF Protocol: Hold for SBP/HR < HOLD for SBP < : 90 HOLD for HR < : 60 Continued lisinopril 5 mg tablet 5 mg PO DAILY allopurinol 100 mg tablet 100 mg PO DAILY aspirin 81 mg tablet,delayed release (DR/EC) 81 mg PO DAILY niacin 500 mg tablet 500 mg PO DAILY calcium citrate-vitamin D3 125-62.5 mg-unit tablet 1 tab PO DAILY Held Farxiga 10 mg tablet 10 mg PO DAILY Hold Instructions: Resume on 06/07/23. metoprolol tartrate 50 mg Tablet 50 mg PO QPM Hold Instructions: Resume on 06/07/23. metoprolol tartrate 50 mg tablet 100 mg PO QAM Hold Instructions: Resume on 06/07/23. metformin 500 mg tablet 500 mg PO BID Hold Instructions: Resume on 06/08/23. Discontinued simvastatin 40 mg tablet 40 mg PO BEDTIME Discharge Orders: Discharge Order (Routine); Ordered 05/19/23 Ordered By: Julieta Beltrán Diet: Advance to usual diet Activity on Discharge: As tolerated Stand Alone Forms: Patient Portal Discharge page Care Plan Goals: Patient was admitted for for anemia-received PRBC 1 unit: H&H is stable in 9.3/31.6 range , also patient was found to have pneumonia on chest CT and started on IV antibiotics, further hospitalization course complicated with CHF(HFpEF) -treated with IV Lasix and NSTEMI:TTE showing LVEF 29% with extensive wall-motion abnormalities and mild-mod aortic stenosis; EKG 05/16/23 concerning for LAD occlusion: Patient was started on aspirin, heparin drip, H&H is so far stable, plan is to transfer to [facility] for cardiac catheterization. (HFpEF) : seems to be improving ,lasix switched to 40 mg po daily. Acute hypoxemic respiratory failure multifactorial-CHF, pneumonia : Seems to be improved significantly, already received antibiotics for 8-9 days, continue continue antibiotic for 1 more day. Repeat chest imaging 3-4 week outpatient. Also switched to p.o. Lasix as above. Taper oxygen. acute blood loss anemia with iron deficiency:Hb stable after 1u pRBCs transfused 05/11/23 FOBT negative here though reportedly positive in past [per [facility], positive in 2 of 3 samples 04/21/23; Hb 04/16/23 was 8.9]; recheck FOBT pending- seen by GI, pt declined inpt evaluation but now amenable; however, she would be high risk given cardiac issues -intailly was continue PPI IV and switched to PO, continue to monitor H+H,consider Gi eval . Health Concerns: as above. Plan of Treatment: as above. Assessment: as above.
--- NOTE | 2023-05-19 12:59 | MHC.CM.PN ---
PER HOSPITALIST PT TRANSFERRING TO [facility] FOR CARDIAC CATH.
[2023-05-19 13:47] LABS: OBS Int Ctl Valid YES; OBS1 NEGATIVE (NEGATIVE)
[2023-05-19 15:21] VITALS: BP 110/62; PULSE 87; RESP 16; TEMP 36; O2SAT 99
[2023-05-19 16:10] LABS: Glucose, Whole Blood 140 mg/dL (60-115)
== END 2023-05-19 18:21 | disposition short-term general hospital (02) | DRG 280 ==
LOC: HO.ED 12:19 → HO.EDOVER 13:33 → HO.IMC 16:30
PROVIDERS: Family Medicine; Hospitalist; Internal Medicine; Physician Assistant; Admitting Provider Physician Assistant; Emergency Provider Emergency Medicine; PCP Nurse Practitioner Family; Visit Provider Internal Medicine
DX: I13.0 Hypertensive heart and chronic kidney disease with heart failure and stage 1 through stage 4 chronic kidney disease, or unspecified chronic kidney disease (principal); I50.21 Acute systolic (congestive) heart failure; I21.4 Non-ST elevation (NSTEMI) myocardial infarction; J18.9 Pneumonia, unspecified organism; J96.01 Acute respiratory failure with hypoxia; D62 Acute posthemorrhagic anemia; K92.2 Gastrointestinal hemorrhage, unspecified; N18.30 Chronic kidney disease, stage 3 unspecified; E78.5 Hyperlipidemia, unspecified; E11.22 Type 2 diabetes mellitus with diabetic chronic kidney disease; I95.9 Hypotension, unspecified; E86.1 Hypovolemia; I35.0 Nonrheumatic aortic (valve) stenosis; I25.5 Ischemic cardiomyopathy; F39 Unspecified mood [affective] disorder; I25.10 Atherosclerotic heart disease of native coronary artery without angina pectoris; M10.9 Gout, unspecified; D63.1 Anemia in chronic kidney disease; Z20.822 Contact with and (suspected) exposure to COVID-19; Z87.891 Personal history of nicotine dependence; Z79.4 Long term (current) use of insulin; Z79.82 Long term (current) use of aspirin; Z79.84 Long term (current) use of oral hypoglycemic drugs; Z79.899 Other long term (current) drug therapy
CPT/HCPCS: 0241U; 36415; 36600; 71045; 71046; 71275; 80048; 80053; 80076; 81001; 82272; 82728; 82803; 82947; 83540; 83605; 83735; 83880; 84145; 84484; 85025; 85027; 85379; 85610; 85730; 86850; 86900; 86901; 86923; 87040; 87449; 87899; 93005; 93306; 94660; 97116; 97162; 99285; C9113; J0456; J0696; J1644; J1650; J1940; J2060; J2405; J3480; J7120; P9016; P9047; Q9957; Q9967

== ENCOUNTER → 2023-05-11 09:43 | Outpatient (BNV) | payer MEDICARE, SELFPAY | PROVIDERS: Admitting Provider Physician Assistant; Emergency Provider Emergency Medicine; PCP Nurse Practitioner Family; Visit Provider Internal Medicine | DX: I35.0 Nonrheumatic aortic (valve) stenosis (principal) | CPT/HCPCS: 93010; 93306 ==

== ENCOUNTER 2023-05-11 13:22 | Outpatient (BNV) | payer MEDICARE, SELFPAY | END 2023-05-16 09:41 | PROVIDERS: Admitting Provider Physician Assistant; Emergency Provider Emergency Medicine; PCP Nurse Practitioner Family; Visit Provider Internal Medicine | DX: I45.81 Long QT syndrome (principal) | CPT/HCPCS: 93010 ==

== ENCOUNTER 2023-05-11 13:22 | Outpatient (BNV) | payer MEDICARE, SELFPAY | END 2023-05-12 | PROVIDERS: Admitting Provider Physician Assistant; Emergency Provider Emergency Medicine; PCP Nurse Practitioner Family; Visit Provider Internal Medicine | DX: R94.31 Abnormal electrocardiogram [ECG] [EKG] (principal); R00.0 Tachycardia, unspecified | CPT/HCPCS: 93010 ==

== ENCOUNTER → 2023-05-11 13:22 | Outpatient (BNV) | payer MEDICARE, SELFPAY | PROVIDERS: Admitting Provider Physician Assistant; Emergency Provider Emergency Medicine; PCP Nurse Practitioner Family; Visit Provider Physician Assistant | DX: D62 Acute posthemorrhagic anemia (principal); I50.21 Acute systolic (congestive) heart failure; I21.4 Non-ST elevation (NSTEMI) myocardial infarction | CPT/HCPCS: 99223; 99232; 99233; 99239; 99499 ==

== ENCOUNTER → 2023-05-11 13:22 | Outpatient (BNV) | payer MEDICARE, SELFPAY | PROVIDERS: Admitting Provider Physician Assistant; Emergency Provider Emergency Medicine; PCP Nurse Practitioner Family; Visit Provider Internal Medicine | DX: D62 Acute posthemorrhagic anemia (principal); I50.21 Acute systolic (congestive) heart failure; I21.4 Non-ST elevation (NSTEMI) myocardial infarction | CPT/HCPCS: 99223; 99233 ==

== ENCOUNTER → 2023-05-11 13:22 | Outpatient (BNV) | payer MEDICARE, SELFPAY | PROVIDERS: Admitting Provider Physician Assistant; Emergency Provider Emergency Medicine; PCP Nurse Practitioner Family; Visit Provider Internal Medicine Pulmonary Disease | DX: I50.21 Acute systolic (congestive) heart failure (principal); D62 Acute posthemorrhagic anemia | CPT/HCPCS: 99232 ==

== ENCOUNTER 2023-06-19 19:19 | Emergency (ER) | payer MEDICARE, SELFPAY ==
--- NOTE | ~2023-06-19 | CT_ITS ---
EXAMINATION: CT head/brain wo IV con CLINICAL INFORMATION: Reason for Exam Inability to move left leg COMPARISON: None available. TECHNIQUE: Contiguous axial imaging was performed from the skull base to vertex without intravenous contrast. Sagittal and coronal reformatted images were obtained. This CT examination was performed using dose optimization techniques as appropriate, variously including the following: * Automated exposure control * Adjustment of mA and/or kV according to patient size (this includes techniques or standardized protocols for targeted exams where dose is matched to indication/reason for exam; i.e. extremities or head) Use of iterative reconstruction technique DLP: 566 mGy-cm FINDINGS: There is no evidence of acute intracranial hemorrhage. No mass-effect or ventricular shift is noted. No acute, territorial loss of sifuentes-white differentiation. Extra-axial calcification along the parasagittal right cerebral convexity is indeterminate and may represent a calcified meningioma. Generalized cerebral volume loss with associated ventricular and sulcal prominence.Periventricular and subcortical white matter hypodensity is nonspecific but likely represents chronic microvascular ischemic change. Intracranial atherosclerotic calcification is noted. No depressed calvarial fracture. Degenerative changes of the temporomandibular joints.Scattered polypoid mucosal thickening in the paranasal sinuses. Bilateral intraocular lens replacements. The mastoid air cells are clear. CT/CT head/brain wo IV con IMPRESSION: No acute intracranial hemorrhage or territorial loss of sifuentes-white differentiation.
--- NOTE | ~2023-06-19 | US_ITS ---
EXAMINATION: US VENOUS ULTRASOUND WITH DOPPLER LOWER EXTREMITY, LEFT CLINICAL INFORMATION: Leg swelling and pain. Elevated d-dimer. COMPARISON: None available. TECHNIQUE: Ultrasound of the deep veins is performed from the hip to the calf with compression sonography and color and pulse Doppler assessment. Spectral analysis with color-flow imaging is performed. FINDINGS: Respiratory variation, normal compression and augmented flow are noted throughout the left lower extremity. The visualized common femoral vein, superficial femoral vein, profunda femoral vein, popliteal vein and midcalf peroneal and posterior tibial venous segments show no evidence of deep venous thrombosis. There is no Charles's cyst. US/US venous duplex LE LT IMPRESSION: No evidence of deep venous thrombosis involving the left lower extremity.
--- NOTE | ~2023-06-19 | CT_ITS ---
EXAMINATION: CT ABDOMEN AND PELVIS WITH CONTRAST CLINICAL INFORMATION: Left lower quadrant mass. COMPARISON: 04/16/2020 TECHNIQUE: Multidetector volumetric images were obtained from the superior aspect of the liver through the pubic symphysis following administration 85 mL of Omnipaque 350 intravenous contrast. Sagittal and coronal reformatted images were obtained on the technologist's workstation. Oral contrast: No This CT examination was performed using dose optimization techniques as appropriate, variously including the following: *Automated exposure control *Adjustment of mA and/or kV according to patient size (this includes techniques or standardized protocols for targeted exams where dose is matched to indication/reason for exam; i.e. extremities or head) *Use of iterative reconstruction technique DLP: 459 mGy-cm FINDINGS: LUNG BASES: Calcifications are present at the mitral valve. Lung bases appear clear. LIVER, GALLBLADDER, AND BILIARY TREE: There is a nodular contour to the liver with slight parenchymal heterogeneity, consistent with cirrhosis. No ductal dilatation. No focal lesions are identified on these images. The gallbladder is unremarkable with no evidence of radiopaque gallstones, gallbladder wall thickening, or obvious pericholecystic inflammatory changes. PANCREAS: Normal in appearance. No ductal dilatation. Multiple surgical clips are present in the pancreatic head at the yulissa hepatis. SPLEEN: Normal in size. Small foci of splenic hypoattenuation are unchanged as compared to prior and of doubtful clinical significance. ADRENAL GLANDS: Unremarkable. KIDNEYS AND URETERS: Mild bilateral renal cortical thinning and lobulation. Small subcentimeter foci of cortical hypoattenuation kidneys are too small to characterize, though statistically favored to correspond to simple cysts. No recommended imaging follow-up. No hydronephrosis or nephrolithiasis. Ureters are unremarkable. BLADDER: Unremarkable. GASTROINTESTINAL TRACT: Stomach, small bowel, and colon are normal in caliber. Although thickening of the sigmoid colon is likely related to the diverticulosis with resultant muscular hypertrophy. No acute diverticulitis identified in this region. Appendix is normal. No intraperitoneal free fluid or free air. ABDOMINAL WALL: Multiple small fat-containing incisional hernias are present in the ventral abdominal wall. There is a left periumbilical hernia containing a knuckle of small bowel without evidence of strangulation or obstruction, unchanged as compared to prior. There is a extraperitoneal, intermediate density fluid collection in the left hemipelvis measuring 11.2 x 6 x 7 cm which is of uncertain origin. This produces mild mass effect upon the adjacent bladder. Anteriorly, this collection is contiguous with the deep margin of the left rectus abdominis muscle inferiorly with a smaller tail component extending cephalad along the rectus abdominous by 7 cm. LYMPH NODES: Normal. VASCULAR: There is marked calcific and fibrofatty atherosclerotic disease within the abdominal aorta and its visceral branches. The infrarenal abdominal aorta, there is a prominent aneurysm measuring 5.5 x 5.2 cm in area, increased in size from the prior study (4.7 x 4.8 cm) from 2020. The celiac axis is patent. There is marked calcific atherosclerosis at the ostium of the SMA. Significant calcific atherosclerosis is also present at the ostia of the bilateral renal arteries. High-grade stenoses are also suspected at the aortic bifurcation near the proximal segments of the bilateral common iliac arteries. Significant atherosclerosis extends into the iliac and femoral arteries. PELVIC VISCERA: Prominent periuterine veins, left side greater than right. No adnexal lesions are identified. OSSEOUS STRUCTURES: Mild osteoarthritis in the hips. There is mild degenerative disc disease in the lumbar spine with more pronounced facet arthropathy. No acute fractures. CT/CT abdomen pelvis w IV con IMPRESSION: 1. A 11.2 x 6 x 7 cm intermediate density extraperitoneal fluid collection in the left hemipelvis. This is of uncertain origin, potentially a subacute hematoma extending from the left rectus sheath. 2. A 5.5 cm infrarenal abdominal aortic aneurysm, increased in size from prior (4.7 x 4.8 cm). Vascular surgery consultation recommended due to increased risk of rupture for AAA >5.5 cm. 3. Hepatic cirrhosis. 4. Colonic diverticulosis without evidence of acute diverticulitis. 5. Multiple small fat-containing incisional hernias in the ventral abdominal wall. A left periumbilical hernia contains a knuckle of small bowel without evidence of strangulation or obstruction. Fleischner guidelines were followed.
--- NOTE | ~2023-06-19 | XR_ITS ---
EXAMINATION: X-RAY LEFT ANKLE AND LEFT FOOT CLINICAL INFORMATION: Swelling/pain. COMPARISON: No similar priors. TECHNIQUE: 2 views of the left ankle and 3 views of the left foot. FINDINGS: Left ankle: Soft tissue swelling predominantly adjacent to the lateral malleolus. No acute fracture or malalignment. No unexpected radiopaque foreign bodies. Left foot: Diffuse nonspecific soft tissue swelling. No acute fracture or malalignment. Hallux valgus deformity with moderate degenerative changes of the first MTP. Scattered vascular calcifications. Nonspecific calcific/ossific densities overlying the soft tissues of the distal third toe. XR/XR foot LT min 3V IMPRESSION: 1. No acute fracture or malalignment. 2. 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 3. Nonspecific calcific/ossific densities overlying the soft tissues of the distal third toe. 4. Diffuse nonspecific soft tissue swelling.
--- NOTE | ~2023-06-19 | XR_ITS ---
EXAMINATION: XR HIP, LEFT CLINICAL INFORMATION: inability to move left leg COMPARISON: None available. TECHNIQUE: AP pelvis, AP left hip, and frog-leg lateral views of the left hip. FINDINGS: Mild osteoarthritis in the hips and SI joints. No acute fractures. Bones are osteopenic. Degenerative spondylosis in the lower lumbar spine. Calcific atherosclerosis in the abdominal aorta and iliac arteries. XR/XR hip LT w PEL1V IMPRESSION: Mild osteoarthritis in the hips and SI joints. No acute osseous findings.
--- NOTE | ~2023-06-19 | XR_ITS ---
EXAMINATION: X-RAY LEFT ANKLE AND LEFT FOOT CLINICAL INFORMATION: Swelling/pain. COMPARISON: No similar priors. TECHNIQUE: 2 views of the left ankle and 3 views of the left foot. FINDINGS: Left ankle: Soft tissue swelling predominantly adjacent to the lateral malleolus. No acute fracture or malalignment. No unexpected radiopaque foreign bodies. Left foot: Diffuse nonspecific soft tissue swelling. No acute fracture or malalignment. Hallux valgus deformity with moderate degenerative changes of the first MTP. Scattered vascular calcifications. Nonspecific calcific/ossific densities overlying the soft tissues of the distal third toe. XR/XR ankle LT min 3V IMPRESSION: 1. No acute fracture or malalignment. 2. 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 3. Nonspecific calcific/ossific densities overlying the soft tissues of the distal third toe. 4. Diffuse nonspecific soft tissue swelling.
[2023-06-19 19:38] VITALS: BP 133/64; PULSE 89; RESP 16; TEMP 36.5; O2SAT 96
[2023-06-19 19:41] VITALS: BP 110/60; PULSE 88; O2SAT 98
[2023-06-19 19:44] VITALS: BP 133/64; PULSE 88; RESP 16; TEMP 36.5; O2SAT 96; BMI 20.2
--- NOTE | 2023-06-19 19:52 | PC.NURSE ---
Pt ca&ox4, no signs of distress. Pt denies pain, sob, and chest pain. Pt reports she came in today d/t neighbor who is a nurse stating she believes she may have a blood clot. Vitals stable. Pt placed on bedside monitor. Pt changed into hospital attire and positioned in bed for comfort. Plan of care ongoing.
--- NOTE | 2023-06-19 20:28 | PC.NURSE ---
Provider with pt. Plan of care ongoing.
[2023-06-19 21:42] LABS: MANUAL DIFF FLAG NO
[2023-06-19 21:44] LABS: Basophils Percent Auto 0.3 % (0-2); Eosinophils Absolute Auto 0.1 X10*3/uL (0.0-0.4); Eosinophils Percent Auto 0.7 % (0-4); Hematocrit 30.6 % (37.0-47.0); Hemoglobin 9.5 g/dl (12.0-16.0); Imm Gran Abs Auto 0.05 X10*3/uL (0.00-0.03); Imm Gran Pct Auto 0.5 % (0.0-0.4); Lymphocytes Absolute Auto 0.9 X10*3/uL (1.2-4.9); Lymphocytes Percent Auto 8.7 % (20-40); Mean Corpuscular Hemoglobin 25.5 pg (27.0-33.0); Mean Corpuscular Volume 82.3 fL (80.0-98.0); Mean Platelet Volume 8.8 fL (9.4-12.3); Monocytes Absolute Auto 0.4 X10*3/uL (0.1-1.2); Neutrophils Percent Auto 85.8 % (45-73); Platelet Count 414 X10*3/uL (160-400); Red Blood Count 3.72 X10*6/uL (4.20-5.50); White Blood Count 10.5 X10*3/uL (4.8-10.8)
[2023-06-19 21:54] LABS: INTERNATIONAL NORM RATIO 1.2 (0.9-1.1)
[2023-06-19 21:55] LABS: D Dimer High Sensitivity 2184 NG/ML
[2023-06-19 22:00] LABS: Alanine Aminotransferase < 5 U/L (0-31); Albumin Level 2.8 g/dL (3.5-5.0); Alkaline Phosphatase 154 U/L (39-117); Anion Gap 14 (12-20); Aspartate Amino Transferase 18 U/L (5-31); Bilirubin Total 0.6 mg/dL (0.0-1.0); Blood Urea Nitrogen 37 mg/dL (9-16); Carbon Dioxide 29 mmol/L (22-29); Chloride 100 mmol/L (96-108); Creatinine Clr Calc Pharmacy 37.2; Estimated Glomerular Filt Rate > 60; Glucose Random 99 mg/dL (60-115); Sodium 140 mmol/L (135-145); Total Protein 6.9 g/dL (6.5-8.0)
[2023-06-19 22:22] VITALS: BP 127/70; PULSE 82; RESP 18; TEMP 36.6; O2SAT 96
--- NOTE | 2023-06-19 23:01 | ED_ITS ---
HPI - Extremity Problem General Chief complaint: Extremity Problem Stated complaint: L LEG SWELLING SINCE Jun,PAIN TO LEG Time Seen by Provider: 06/19/23 19:50 Source: patient Mode of arrival: ambulatory History of Present Illness HPI Narrative: 82-year-old female who states that she just got home from a rehab facility on Thursday where she was undergoing physical therapy and states that since coming home she has been unable to walk using her left lower extremity. Patient states that today both her son and the visiting nurse said that she may have a clot in her left lower leg. She denies any palpitations or shortness of breath. Patient is not the best historian. Related Data Home Medications Medication Instructions Recorded Confirmed allopurinol 100 mg tablet 100 mg PO DAILY 10/31/22 05/11/23 aspirin 81 mg tablet,delayed 81 mg PO DAILY 10/31/22 05/11/23 release calcium citrate-vitamin D3 125 1 tab PO DAILY 10/31/22 05/11/23 mg-62.5 unit tablet lisinopril 5 mg tablet 5 mg PO DAILY 10/31/22 05/11/23 metformin 500 mg tablet 500 mg PO BID 10/31/22 05/11/23 niacin 500 mg tablet 500 mg PO DAILY 10/31/22 05/11/23 dapagliflozin propanediol 10 mg 10 mg PO DAILY 05/11/23 05/11/23 tablet (Farxiga) Previous Rx's Medication Instructions Recorded atorvastatin 40 mg tablet 40 mg PO BEDTIME #30 tabs 05/19/23 azithromycin 500 mg tablet 500 mg PO DAILY 2 days #1 tab 05/19/23 cefuroxime axetil 500 mg tablet 500 mg PO BID #2 tabs 05/19/23 ferrous sulfate 324 mg (65 mg 324 mg PO DAILY #30 tabs 05/19/23 iron) tablet,delayed release furosemide 40 mg tablet 40 mg PO DAILY #1 tab 05/19/23 heparin (porcine) 25,000 unit/250 25,000 unit (250 mL) continuous IV 05/19/23 mL in 0.45 % sodium chloride IV infusion .Q0M #1 mL soln insulin lispro 100 unit/mL See Protocol subcut QIDACHS #1 mL 05/19/23 subcutaneous solution (Humalog U-100 Insulin) metoprolol succinate 25 mg 25 mg PO DAILY #1 tab 05/19/23 tablet,extended release 24 hr omeprazole 20 mg capsule,delayed 20 mg PO BID@0630,8790 #1 cap 05/19/23 release potassium chloride 20 mEq 20 meq PO DAILY #1 tab 05/19/23 tablet,extended release(part/cryst) Allergies Allergy/AdvReac Type Severity Reaction Status Date / Time No Known Allergies Allergy Unverified 12/31/22 15:36 Review of Systems 2 Review of Systems: Positives and negatives as stated in [facility] Past Medical History Source: nursing notes reviewed Onset Date is defined in the Problem List Problems that require an onset date and time if occurred within 24 hrs of arrival to the ED Aortic Dissection and Rupture; Neurologic impairment; Cardiopulmonary Arrest; Endotracheal Intubation; Insertion or Replacement of Mechanical Circulatory Assist Device Medical History Former smoker Chronic gout AAA (abdominal aortic aneurysm) Hypertension Type 2 diabetes mellitus Surgical History H/O section Hx of cataract History of AAA (abdominal aortic aneurysm) repair Family History Family History Father Myocardial infarction Social History Social History Alcohol intake: never Comment: 1:1 sitter Patient Tobacco Use Status: Former Tobacco user Smoked in Last 30 Days: No Use of substances other than those prescribed or required for medical reasons: No Advance Directives: No Advance Directives Information Provided: No service: No Physical Exam 2 Vital Signs: Vital Signs: Last Vital Signs Temp 97.7 F 06/20/23 00:25 Pulse 82 06/20/23 00:25 Resp 12 06/20/23 00:25 BP 118/62 06/20/23 00:25 Pulse Ox 96 06/20/23 00:25 O2 Del Method Room Air 06/20/23 00:25 BMI result Body Mass Index 20.2 VITAL SIGNS: Reviewed. GENERAL: Elderly, fragile, in no acute distress. HEAD: Normocephalic/atraumatic EYES: PERRLA, EOMI EARS: Ext canals without abnormality NOSE: Nares patent bilateral OROPHARYNX: no oral lesions noted, posterior pharynx clear NECK: Supple, no adenopathy LUNGS: Normal breath sounds. No adventitious sounds or accessory muscle use. SpO2<96> CARDIOVASCULAR: Regular rate and rhythm without noted murmurs ABDOMEN: Soft, non-tender, non-distended with bowel sounds. PELVIS: Stable, nontender MUSCULOSKELETAL: No tenderness, deformities, or effusions noted on gross inspection. EXTREMITIES: No cyanosis, clubbing or edema. LLE: No obvious erythema/induration/deformity, there are no palpable cords but there is noted swelling over the ankle area and proximal dorsum of the foot and patient describes pain SKIN: Inspection of the skin reveals no rashes NEUROLOGIC: Alert and oriented x 3. Strength and sensation to light touch were grossly intact x 3, patient is unable to lift left lower extremity. Medications Administered Discontinued Medications Generic Name Dose Route Start Last Admin Trade Name Freq PRN Reason Stop Dose Admin Magnesium Sulfate 2 gm in 50 mls @ 150 mls/hr 06/19/23 23:30 06/20/23 00:20 Magnesium Sulfate/H2o IV 06/19/23 23:49 150 mls/hr ONCE ONE Administration Medical Decision Making Medical Decision Making [facility] Narrative: 82-year-old female with history and clinical presentation, DDX: Fracture, dislocation, no clinical suspicion for thrombophlebitis, will evaluate for possible DVT, concerning finding of inability to lift left lower leg, will attempt to obtain collateral information. I reviewed all investigations and there is no leukocytosis, but there is a noted stable normocytic anemia and a slight bump in platelets. Coagulation studies are somewhat elevated which may be reflective of patient's use of anticoagulation, D-dimer was noted to be significantly elevated and so proceeded with venous duplex to rule out DVT. On review of venous duplex there is no evidence to suggest acute DVT. Chemistry indices do not demonstrate an ROSELINE there is a low potassium noted and on obtaining subsequent magnesium it was noted to be low as well and was repleted with 2 g of magnesium sulfate. Patient will receive 60 mEq potassium chloride orally. Upon speaking to the son he states that his mother was transferred from [facility] over to [facility] rehab and he endorses that she had to leave the facility in a wheelchair because she was unable to walk. The son states that she did not go into [facility] without difficulty but does confirm that she has a history of gout. Although patient has a history of gout this does not explain her inability to lift her left lower extremity, there are no other focal deficits appreciated and although no pain was elicited on assessment of the pelvis will proceed with left hip and pelvis x-ray as well as CT of the head. I received the documentation from [facility] and on review of discharge it appears that patient was pretty ill at [facility] and required 5 units of PRBCs and in the discharge summary they speculate that this may have been secondary to a fall that she had sustained in [facility] prior to presenting to [facility]. CT of the abdomen and pelvis as well as subsequent MRI readily identify a large hematoma within the left lower quadrant that communicated with a smaller hematoma within the left anterior abdominal wall. They also describes the fact that patient has known AAA (5.2 cm) within identified small hemorrhagic tract through a mural thrombus raising concerns for instability. During patient's stay she was evaluated by both General surgery as well as vascular and she was deemed to not require any acute/emergent intervention. My interpretation is patient may be experiencing left lower extremity weakness secondary to external compression of neurovascular structures. Although, the foot was warm there is no evidence of acute ischemia. Will proceed with abdomen pelvis CT scan with IV contrast. Signed out to Dr Arroyo - f/u Hip/Pelvis, CT head, and Ad/pelvis CT Differential Diagnosis Differential Diagnoses: The differential diagnosis associated with the presentation includes Please see the discussion above Admission/Observation Consideration of admission/observation: Escalation of care including admission/observation considered Please see the discussion above Lab Data MDM Lab Attestation statement: I reviewed the patient's lab results. Please see the discussion above 06/19/23 21:38 06/19/23 21:38 Labs: Lab Results 06/19/23 Range/Units 21:38 WBC 10.5 (4.8-10.8) X10*3/uL RBC 3.72 L (4.20-5.50) X10*6/uL Hgb 9.5 L (12.0-16.0) g/dl Hct 30.6 L (37.0-47.0) % MCV 82.3 (80.0-98.0) fL MCH 25.5 L (27.0-33.0) pg MCHC 31.0 (31.0-35.0) g/dl RDW 25.0 H (11.0-16.0) % Plt Count 414 H (160-400) X10*3/uL MPV 8.8 L (9.4-12.3) fL Immature Gran % (Auto) 0.5 H (0.0-0.4) % Neut % (Auto) 85.8 H (45-73) % Lymph % (Auto) 8.7 L (20-40) % Edgar % (Auto) 4.0 (2-11) % Eos % (Auto) 0.7 (0-4) % Baso % (Auto) 0.3 (0-2) % Lymph # (Auto) 0.9 L (1.2-4.9) X10*3/uL Edgar # (Auto) 0.4 (0.1-1.2) X10*3/uL Eos # (Auto) 0.1 (0.0-0.4) X10*3/uL Baso # (Auto) 0.0 (0.0-0.2) X10*3/uL Abs Immat Gran (auto) 0.05 H (0.00-0.03) X10*3/uL Absolute Neuts (auto) 9.0 H (2.0-8.3) x10*3/uL Absolute Nucleated RBC 0.000 (0.0-0.012) X10*3/uL Nucleated RBC % (auto) 0.0 (0.0-0.2) /100WBC PT 15.0 H (11.1-13.3) SEC INR 1.2 H (0.9-1.1) D-Dimer High Sensitivty 2184 NG/ML Sodium 140 (135-145) mmol/L Potassium 3.0 L (3.3-5.1) mmol/L Chloride 100 (96-108) mmol/L Carbon Dioxide 29 (22-29) mmol/L Anion Gap 14 (12-20) BUN 37 H (9-16) mg/dL Creatinine 0.85 (0.5-1.4) mg/dL Estim Creat Clear Calc 37.2 Estimated GFR > 60 Random Glucose 99 (60-115) mg/dL Calcium 9.0 D (8.4-10.2) mg/dL Magnesium 1.3 L* (1.6-2.6) mg/dL Total Bilirubin 0.6 (0.0-1.0) mg/dL AST 18 (5-31) U/L ALT < 5 (0-31) U/L Alkaline Phosphatase 154 H (39-117) U/L Total Protein 6.9 (6.5-8.0) g/dL Albumin 2.8 L (3.5-5.0) g/dL Radiology Impression Discussion of test interpretation with radiology: I have reviewed the radiologist's reading. Radiologist Impression: Please see discussion above Discharge Plan Discharge Clinical Impression: Gout attack, Left leg weakness Patient Disposition: Still a Patient Prescriptions: No Action Farxiga 10 mg tablet 10 mg PO DAILY Hold Instructions: Resume on 06/07/23. cefuroxime axetil 500 mg tablet 500 mg PO BID Qty: 2 0RF azithromycin 500 mg tablet 500 mg PO DAILY 2 Days Qty: 1 0RF Rx Instructions: start on day 2 of therapy atorvastatin 40 mg Tablet 40 mg PO BEDTIME Qty: 30 0RF heparin(porcine) in 0.45% NaCl 25,000 unit/250 mL Parenteral Solution 25,000 unit continuous IV infusion .Q0M Qty: 1 0RF ferrous sulfate 324 mg (65 mg iron) Tablet,Delayed Release (Dr/Ec) 324 mg PO DAILY Qty: 30 0RF furosemide 40 mg Tablet 40 mg PO DAILY Qty: 1 0RF Protocol: Hold for SBP< HOLD for SBP < : 90 potassium chloride 20 mEq Tablet,Er Particles/Crystals 20 meq PO DAILY Qty: 1 0RF omeprazole 20 mg Capsule,Delayed Release(Dr/Ec) 20 mg PO BID@0630,1630 Qty: 1 0RF insulin lispro [Humalog U-100 Insulin] 100 unit/mL Solution See Protocol subcut QIDACHS Qty: 1 0RF Protocol: Insulin Correction Scale Less than or equal to 110 ---- Give (units): 0 111 to 150 Give (units): 0 151 to 200 Give (units): 2 201 to 250 Give (units): 4 251 to 300 Give (units): 6 301 to 350 Give (units): 8 Greater than 350 Give (units): 10 Call MD if Blood Glucose > : 350 metoprolol succinate 25 mg Tablet Extended Release 24 Hr 25 mg PO DAILY Qty: 1 0RF Protocol: Hold for SBP/HR < HOLD for SBP < : 90 HOLD for HR < : 60 lisinopril 5 mg tablet 5 mg PO DAILY metformin 500 mg tablet 500 mg PO BID Hold Instructions: Resume on 06/08/23. allopurinol 100 mg tablet 100 mg PO DAILY aspirin 81 mg tablet,delayed release (DR/EC) 81 mg PO DAILY niacin 500 mg tablet 500 mg PO DAILY calcium citrate-vitamin D3 125-62.5 mg-unit tablet 1 tab PO DAILY
[2023-06-19 23:13] LABS: Magnesium 1.3 mg/dL (1.6-2.6)
--- NOTE | 2023-06-19 23:13 | PC.NURSE ---
Lab reported a mag of 1.3 provider Kris notified. Plan of care ongoing.
--- NOTE | 2023-06-19 23:47 | PC.NURSE ---
This RN spoke with Morgan plasencia son @ [phone]. Per Morgan pt left rehab ctr [facility] on [facility] in [place] on 06/03/23. Son reports when they left rehab he had to wheel her out in a wheelchair because her ankle was swollen. Son reports pt has hx of CHF which is what brought her to rehab and gout but is unsure as to what is causing the swelling. Provider Kirs cope. Plan of care ongoing.
[2023-06-20] VITALS (11 sets, daily range): BP systolic 83–146; BP diastolic 51–72; PULSE 76–99; RESP 12–20; TEMP 36.1–36.6; O2SAT 92–98
[2023-06-20] MEDS: Magnesium Sulfate/H2O 2 GM/50 ML PIGGYBACK IV (00:20)
--- NOTE | 2023-06-20 00:23 | PC.NURSE ---
IV placed and pt medicated per mar. Plan of care ongoing.
[2023-06-20] MEDS: iohexoL 350 MG/ML 100 ML INFUS..BTL 85 ML IV (02:07)
[2023-06-20] MEDS: Potassium Chloride ER 20 MEQ TAB.ER.PRT 60 MEQ PO (03:11)
--- NOTE | 2023-06-20 03:13 | PC.NURSE ---
Pt medicated per aug. Plan of care ongoing.
--- NOTE | 2023-06-20 03:23 | PC.NURSE ---
This RN spoke and gave report to Mary Beth REMY @ [facility] on @ [phone].
--- NOTE | 2023-06-20 03:50 | PC.NURSE ---
Pt able to raise legs off the bed bilaterally but unable to bend legs at the knees. Pt reports pain when attempting to bend leg at the knee. Provider marcia cope. Plan of care ongoing.
--- NOTE | 2023-06-20 07:38 | PC.NURSE ---
assumed care of pt at 0700. pt a&o x4, calm, and cooperative. pt denies pain or any other complaint aniya. pt resting quietly on stretcher in no apparent distress, tv on. rr even/unlabored. call kim within pt reach. plan of care ongoing.
--- NOTE | 2023-06-20 08:24 | PC.NURSE ---
pt son called for update and to talk to pt. pt provided with portable phone.
--- NOTE | 2023-06-20 09:41 | MHC.CM.PN ---
Female 82 lives w son. recently dc from [facility] for STR. PT eval recommends STR. A referral has been sent to [facility] requesting a bed for STR. CM will follow for placement.
--- NOTE | 2023-06-20 10:51 | MHC.EDTECH ---
POC 91 RN anatoliy Matias
[2023-06-20 10:53] LABS: Glucose, Whole Blood 91 mg/dL (60-115)
--- NOTE | 2023-06-20 11:04 | PC.NURSE ---
diet ordered at 0930, no tray ever came for pt. pt provided with 2 slices of buttered toast and hot cup of tea.
--- NOTE | 2023-06-20 16:45 | MHC.EDTECH ---
Patient bed pad changed and repositioned
[2023-06-20] MEDS: metFORMIN HCl 500 MG TABLET PO (18:05)
--- NOTE | 2023-06-20 18:07 | PC.NURSE ---
pt BP trending soft. 88/63. pt placed in trendelenberg and BP up to 99/63. provider notified. pt medicated per aug.
--- NOTE | 2023-06-20 18:18 | PC.NURSE ---
pt son called and spoke with t/w about pt medications. very rude and agitated about pt being medicated with medications she didn't get to take today. pt son condescending stating do you understand my mothers health issues and that it's important for her to get her medications?? t/w attempted to explain to son about why certain medications would not be given aniay and wait until tomorrow. pt son threatening to come into ED with home medications to medicate pt himself. t/w called and spoke with pharmacy regarding pt scheduled medications. pharmacist given OK about giving unscheduled doses of prilosec, jardiance, and lipitor. pharmacist agreed to hold lasix and metoprolol due to being close to bedtime and soft BPs.
[2023-06-20] MEDS: Atorvastatin Calcium 20 MG TABLET PO (18:32)
[2023-06-20] MEDS: Omeprazole 20 MG CAPSULE.DR PO (18:32)
--- NOTE | 2023-06-20 18:57 | PC.NURSE ---
called pharmacy to bring over jardiance.
[2023-06-20] MEDS: Empagliflozin 10 MG TABLET PO (19:39)
[2023-06-20] MEDS: QUEtiapine Fumarate 25 MG TABLET PO (21:09)
[2023-06-20] MEDS: allopurinoL 100 MG TABLET PO (21:09)
[2023-06-21 02:14] VITALS: BP 99/62; PULSE 88; RESP 14
[2023-06-21 06:11] VITALS: BP 98/64; PULSE 88; RESP 18; O2SAT 97
[2023-06-21] MEDS: Omeprazole 20 MG CAPSULE.DR PO ×2 (06:25→16:40)
[2023-06-21] MEDS: Furosemide 40 MG TABLET PO (09:08)
[2023-06-21] MEDS: Atorvastatin Calcium 20 MG TABLET PO (09:09)
[2023-06-21] MEDS: metFORMIN HCl 500 MG TABLET PO ×2 (09:09→16:40)
[2023-06-21] MEDS: Metoprolol Succinate ER 100 MG TAB.ER.24H PO (09:09)
[2023-06-21 12:47] VITALS: BP 128/64; PULSE 78; RESP 14; TEMP 36.4; O2SAT 98
[2023-06-21 15:34] VITALS: BP 134/61; PULSE 79; RESP 16; TEMP 37; O2SAT 98
[2023-06-21 19:20] VITALS: BP 137/64; PULSE 82; RESP 15; TEMP 36.8; O2SAT 95
[2023-06-21 22:00] VITALS: RESP 16
[2023-06-21] MEDS: allopurinoL 100 MG TABLET PO (22:25)
[2023-06-21] MEDS: QUEtiapine Fumarate 25 MG TABLET PO (22:25)
[2023-06-22 06:58] VITALS: BP 104/70; RESP 16; TEMP 36.6; O2SAT 97
[2023-06-22 07:39] LABS: Glucose, Whole Blood 103 mg/dL (60-115)
[2023-06-22 07:49] VITALS: BP 128/63; PULSE 87; RESP 20; O2SAT 97
[2023-06-22] MEDS: metFORMIN HCl 500 MG TABLET PO (07:51)
[2023-06-22] MEDS: Metoprolol Succinate ER 100 MG TAB.ER.24H PO (07:51)
[2023-06-22] MEDS: Omeprazole 20 MG CAPSULE.DR PO (07:51)
[2023-06-22] MEDS: Furosemide 40 MG TABLET PO (07:51)
[2023-06-22] MEDS: Atorvastatin Calcium 20 MG TABLET PO (07:52)
[2023-06-22 08:55] LABS: COVID-19 Test Negative (Negative); IDNOW Serial# 152EDE1D
[2023-06-22] MEDS: Empagliflozin 10 MG TABLET PO (09:14)
--- NOTE | 2023-06-22 09:37 | MHC.CM.ED ---
Patient remains in ER. Physical therapy is recommending STR. Patient was recently d/c'd from [facility] on [address]. Met with patient in regards to discharge planning. Patient is agreeable to returning to [facility]. [facility] has a bed and has been asked to obtain insurance auth. Continue to monitor for d/c needs.
--- NOTE | 2023-06-22 13:47 | MHC.CM.ED ---
Insurance auth has been obtained by [facility] on [address]. Patient will leave at 4pm via [facility]. [facility] with chart. Patient, son Jillian Mora RN and Shilo SAAVEDRA aware. Continue to monitor for d/c needs.
[2023-06-22 14:03] VITALS: BP 131/60; PULSE 75; RESP 20; TEMP 36.7; O2SAT 95
== END 2023-06-22 16:14 | disposition home or self-care (01) ==
PROVIDERS: Physician Assistant; Emergency Provider Student in an Organized Health Care Education/Training Program; PCP Nurse Practitioner Family
DX: M10.00 Idiopathic gout, unspecified site (principal); R60.0 Localized edema; R53.1 Weakness; M25.572 Pain in left ankle and joints of left foot; R51.9 Headache, unspecified; M25.552 Pain in left hip; R26.81 Unsteadiness on feet; Z79.899 Other long term (current) drug therapy; Z11.52 Encounter for screening for COVID-19; Z20.828 Contact with and (suspected) exposure to other viral communicable diseases
CPT/HCPCS: 36415; 51702; 70450; 73502; 73610; 73630; 74177; 80053; 82947; 83735; 85025; 85379; 85610; 87635; 93971; 96365; 97162; 99285; J3475; Q9967

== ENCOUNTER 2023-07-22 13:48 | Outpatient (AMB) | payer MEDICARE, SELFPAY ==
--- NOTE | 2023-07-22 13:49 | MHC.OFFVIS ---
Intake Vital Signs 07/22/23 13:52 07/22/23 14:26 Height 5 ft Weight 99 lb 2 oz BMI 19.4 BP 100/42 L 120/62 Blood Pressure Location Lt brachial Lt brachial Position Sitting Sitting Pulse 89 Pulse Source Pulse Oximeter Pulse Oximetry (%) 96 Intake Visit Reasons: 4 week follow up/ [facility] [place] Intake Note: pt its in office visit for a 4 week f/up [facility] f/up pt states that she its doing fine with and having no symtoms. [employer] Required: No Accompanied by: Son Allergies No Known Allergies Allergy (Unverified 12/31/22 15:36) Medication List - Last Reconciled 07/22/23 by Madai Muniz NP allopurinol 100 mg PO BEDTIME atorvastatin 20 mg PO DAILY dapagliflozin propanediol (Farxiga) 10 mg PO DAILY ferrous sulfate 325 mg PO Q OTHER DAY furosemide 40 mg See Protocol PO DAILY lisinopril 5 mg PO DAILY metformin 500 mg PO BID metoprolol succinate ER 100 mg PO DAILY pantoprazole 40 mg PO BID quetiapine 25 mg PO BEDTIME HPI HPI Comments History of Present Illness Details 82-year-old female presents today with her son after being discharged home from rehab and [facility]. She had come to [facility] for exertional dyspnea. She has a history of AAA, diabetes and carotid stenosis. She had inverted T waves in lateral leads. Echocardiogram showed a LVEF of 29% with wall motion abnromailities. Kpzt-ju-Jzhovzws aortic stenosis. Hgh at the time 8.7 and hct was 30.1. She had elevated troponins and a significant BNP. She was transferred to [facility] [place] cardiac cath but hospital course was complicated by ROSELINE and anemia. Repeat echo on 05/21/23 EF could not be assessed. Today she reports she is doing well. Recently got home from rehab and has been working with physical therapy to regain her stregthn. She weighs herself daily and tries to eat a heart healthy diet. She denies any shortness of breath or chest pain. [facility] Medical History (Updated 07/23/23 @ 12:57 by Madai Muniz NP) ROSELINE (acute kidney injury) New onset atrial fibrillation Cardiomyopathy Former smoker Chronic gout AAA (abdominal aortic aneurysm) Hypertension Type 2 diabetes mellitus Surgical History H/O section Hx of cataract History of AAA (abdominal aortic aneurysm) repair Family History Father Myocardial infarction Social History Alcohol intake: never Comment: 1:1 sitter Patient Tobacco Use Status: Former Tobacco user service: No Review of Systems Const Denies chills, Denies fatigue, Denies fever(s), Denies frequent falls, Denies weakness, Denies weight gain and Denies weight loss ENT Denies dizziness Card Denies chest pain, Denies chest pain with activity, Denies syncope, Denies rapid heart rate, Denies pedal edema, Denies irregular heart rhythm, Denies leg edema, Denies lightheadedness, Denies palpitations, Denies dyspnea, Denies dyspnea on exertion, Denies orthopnea and Denies other (LOC) Resp Denies cough, Denies dyspnea and Denies dyspnea on exertion GI Denies hematochezia and Denies change in bowel habits Musc Denies abnormal gait, Denies arthralgias, Denies muscle weakness, Denies numbness, Denies radiating pain into limb and Denies tingling Neuro Denies abnormal gait, Denies dizziness, Denies syncope, Denies frequent falls, Denies numbness, Denies tingling and Denies weakness Endo Denies fatigue and Denies palpitations Physical Exam Vital Signs: Last Vital Signs Pulse 89 07/22/23 13:52 BP 120/62 07/22/23 14:26 Pulse Ox 96 07/22/23 13:52 BMI result Body Mass Index 19.4 Const General: healthy appearing and no acute distress Orientation/consciousness: patient oriented x3 HEENT Head: Yes normal to inspection Eyes General: appearance normal, both eyes and all related structures Neck Neck: Yes normal visual inspection Chest Chest palpation & inspection: normal inspection of the chest Resp Effort & Inspection: normal respiratory effort Auscultation: clear to auscultation bilaterally Cardio Jugular venous distension: no JVD Palpation: normal PMI Rate: regular rate Rhythm: regular rhythm Heart sounds: S1 normal heart sound present, S2 normal heart sound present, no click, no gallops, no murmurs and no rubs GI Inspection: Yes normal to inspection Palpation (GI): Soft to palpation Skin General skin exam: no rashes or lesions noted Neuro General: patient oriented x3 Extrem General: Yes normal to inspection Psych Appearance: grossly normal Assessment & Plan Assessment & Plan (1) Cardiomyopathy: Comment: Echo 05/2023 suggestive of stress induced cardiomyopathy Code(s): I42.9 - Cardiomyopathy, unspecified Plan: Will get a repeat limited echocardiogram to reassess EF. Echocardiogram on 05/11/23 showed EF of 29%. On metoprolol succinate 100mg QD, furosemide 40mg QD and lisinopril 5mg QD. Cardiac catheterization not done due to compicated hosptial course. Ischemic work-up with pharmacological stress test. (2) New onset atrial fibrillation: Comment: Found during [facility] hospital stay afib with rvr Code(s): I48.91 - Unspecified atrial fibrillation Plan: Cannot start eliquis due to signfiiant blood loss. Reached out to PCP for recent lab work and will call [facility] GI to discuss further as pt has a ChadsVasc score of 8. Very high risk for stroke. (3) Acute systolic (congestive) heart failure: Code(s): I50.21 - Acute systolic (congestive) heart failure Plan: Does not apear to be fluid overloaded today. On lasix 40mg QD. Is doing daily weights and avoiding salt. Report weight gain of 3 lbs overnight or 5 lbs in a week. (4) Acute blood loss anemia: Code(s): D62 - Acute posthemorrhagic anemia Plan: Reqesting most recent blood work. She is seeing GI. On ferrous sulfate. (5) AAA (abdominal aortic aneurysm) without rupture: Code(s): I71.4 - Abdominal aortic aneurysm, without rupture Plan: 05/22/23 CT angio Unchanged bilobed 5.2 cm abdominal aortic aneurysm without evidence of dissection. Seeing vascular on 08/04/23 (6) ROSELINE (acute kidney injury): Code(s): N17.9 - Acute kidney failure, unspecified Plan: last Cr was 1.2 on 07/10/23. Requesting most recent lab work from PCP done last week. Seeing nephrology on 07/23/23. Orders: Orders CA echo limited Today I42.9 - Cardiomyopathy, unspecified CA lexiscan stress w renetta Today I42.9 - Cardiomyopathy, unspecified NM cardiolite stress test Today I42.9 - Cardiomyopathy, unspecified Coding Level of Care Code Est Pt Level 4 (93295) Diagnoses Cardiomyopathy I42.9 New onset atrial fibrillation I48.91 Acute systolic (congestive) heart failure I50.21 Acute blood loss anemia D62 AAA (abdominal aortic aneurysm) without rupture I71.4 ROSELINE (acute kidney injury) N17.9
[2023-07-22 13:52] VITALS: BP 100/42; PULSE 89; O2SAT 96; BMI 19.4
[2023-07-22 14:26] VITALS: BP 120/62
== END 2023-07-22 14:42 | disposition home or self-care (01) ==
PROVIDERS: PCP Nurse Practitioner Family; Visit Provider Nurse Practitioner
DX: I42.9 Cardiomyopathy, unspecified (principal); I48.91 Unspecified atrial fibrillation; I50.21 Acute systolic (congestive) heart failure; D62 Acute posthemorrhagic anemia; I71.40 Abdominal aortic aneurysm, without rupture, unspecified; N17.9 Acute kidney failure, unspecified
CPT/HCPCS: 99214

== ENCOUNTER → 2023-07-22 13:48 | Outpatient (BNVA) | payer MEDICARE, SELFPAY | PROVIDERS: PCP Nurse Practitioner Family; Visit Provider Nurse Practitioner | DX: I42.9 Cardiomyopathy, unspecified (principal); I48.91 Unspecified atrial fibrillation; I50.21 Acute systolic (congestive) heart failure; I71.40 Abdominal aortic aneurysm, without rupture, unspecified; D62 Acute posthemorrhagic anemia; N17.9 Acute kidney failure, unspecified | CPT/HCPCS: 99212 ==

== ENCOUNTER 2023-08-11 11:40 | Outpatient (REF) | payer MEDICARE, SELFPAY ==
[2023-08-11 12:14] LABS: MANUAL DIFF FLAG NO
[2023-08-11 13:52] LABS: Basophils Percent Auto 0.7 % (0-2); Eosinophils Absolute Auto 0.2 X10*3/uL (0.0-0.4); Eosinophils Percent Auto 3.4 % (0-4); Hematocrit 34.2 % (37.0-47.0); Hemoglobin 10.6 g/dl (12.0-16.0); Imm Gran Abs Auto 0.02 X10*3/uL (0.00-0.03); Imm Gran Pct Auto 0.3 % (0.0-0.4); Lymphocytes Absolute Auto 0.9 X10*3/uL (1.2-4.9); Lymphocytes Percent Auto 14.8 % (20-40); Mean Corpuscular Volume 90.5 fL (80.0-98.0); Mean Platelet Volume 9.4 fL (9.4-12.3); Monocytes Absolute Auto 0.3 X10*3/uL (0.1-1.2); Monocytes Percent Auto 4.8 % (2-11); Neutrophils Absolute Auto 4.4 x10*3/uL (2.0-8.3); Platelet Count 313 X10*3/uL (160-400); Red Blood Count 3.78 X10*6/uL (4.20-5.50); White Blood Count 5.8 X10*3/uL (4.8-10.8)
[2023-08-11 14:50] LABS: Anion Gap 15 (12-20); Blood Urea Nitrogen 45 mg/dL (9-16); Carbon Dioxide 26 mmol/L (22-29); Chloride 107 mmol/L (96-108); Estimated Glomerular Filt Rate 43; Glucose Random 75 mg/dL (60-115); Potassium 4.8 mmol/L (3.3-5.1); Sodium 143 mmol/L (135-145)
== END 2023-08-11 11:41 | disposition home or self-care (01) ==
LOC: HO.LAB 11:40
PROVIDERS: Visit Provider Nurse Practitioner
DX: I48.91 Unspecified atrial fibrillation (principal)
CPT/HCPCS: 36415; 80048; 85025

== ENCOUNTER → 2023-08-28 09:07 | Outpatient (REF) | payer MEDICARE, SELFPAY ==
--- NOTE | 2023-08-28 09:13 | CA_ITS ---
Transthoracic Echocardiogram Patient (Last, First, Middle): Noemi Jose, Gender: Female Date of : 1940 Age: 83 Procedure Date: 08/28/2023 Procedure Type: Transthoracic Echocardiogram Location: OP Height: 152. cm Weight: 45.36 kg BSA: 1.39 m2 Heart Rate: 74 bpm BP: 145 / 65 mmHg [employer]: JAKE Referring MD: Madai Muniz NP Symptoms: I42.9 - Cardiomyopathy, unspecified Study Quality: Fair, Limited by order Conclusions: - The left ventricular systolic function is mildly decreased. The calculated ejection fraction is 50% by biplane method. - The basal inferoseptal and basal inferolateral segments are akinetic. - The basal inferior segment is aneurysmal. Findings Left Ventricle Normal left ventricular cavity size. The left ventricular systolic function is mildly decreased. The calculated ejection fraction is 50% by biplane method. There is evidence of regional wall motion abnormalities. There is moderate septal asymmetric hypertrophy. Wall Motion Rest Echo Findings The basal inferoseptal and basal inferolateral segments are akinetic. The basal inferior segment is aneurysmal. Aortic Valve There is moderate calcification of the aortic valve. There is mild to moderate aortic valve stenosis. There is mild aortic valve regurgitation. Venous The inferior vena cava is normal in size and collapses greater than 50% with inspiration. Prior Study Comparison Changes noted compared to prior study dated: 05/11/2023. LVEF improved. Measurements 2D Linear Measurements IVSd: 1.37 0.6-0.9/0.6-1.0 cm LVIDd: 4.13 3.9-5.3/4.2-5.9 cm LVIDd Index: 2.97 2.4-3.2/2.2-3.1 cm/m2 LVIDs: 2.76 2.0-3.6 cm LVPWd: 0.91 0.7-1.1 cm LV Mass: 200.78 67-162/88-224 g LV Mass Index: 144.44 43-95/49-115 g/m2 LVOT Diam: 1.90 3.0+(-)1.3 cm 2D Systolic Function EF 4C: 51.20 >55% EF 2C: 52.00 >55% EF BiP: 50.40 >55% Aortic Valve AoV Pk Sylvain: 2.16 AoV Mn Sylvain: 1.63 AoV VTI: 0.49 AoV Pk Grad: 19.00 Aov Mn Grad: 12.00 TAYO Cont.VTI: 1.20 AI Pk [place]: 3.[address] [place]: 3.34 LVOT LVOT Pk Sylvain: 1.05 LVOT Mn [place]: 0.65 LVOT VTI: 0.21 LVOT Pk Grad: 4.00 LVOT Mn Grad: 2.00 LVOT Diam: 1.90 LVOT Area: 2.84 Updated in Other Vendor System with Status of Final Tk Duran MD electronically signed on 08/30/2023 12:12:19 PM with status of Final
== END ==
LOC: HO.CARD 09:07
PROVIDERS: PCP Nurse Practitioner Family; Visit Provider Nurse Practitioner
DX: I42.9 Cardiomyopathy, unspecified (principal)
CPT/HCPCS: 93308

== ENCOUNTER → 2023-08-28 09:13 | Outpatient (BNV) | payer MEDICARE, SELFPAY | PROVIDERS: PCP Nurse Practitioner Family; Visit Provider Internal Medicine | DX: I35.2 Nonrheumatic aortic (valve) stenosis with insufficiency (principal); I25.3 Aneurysm of heart | CPT/HCPCS: 93308 ==

== ENCOUNTER 2023-09-02 12:38 | Outpatient (AMB) | payer MEDICARE, SELFPAY ==
--- NOTE | 2023-09-02 12:41 | MHC.OFFVIS ---
Intake Vital Signs 09/02/23 12:44 Height 5 ft Weight 100 lb 15.547 oz BMI 19.7 BP 126/58 L Blood Pressure Location Lt brachial Position Sitting Pulse 107 H Intake Visit Reasons: Follow up post echo and nuclear stress Intake Note: follow up Director Security Risk Management Required: No Accompanied by: Family/Other Allergies No Known Allergies Allergy (Verified 09/02/23 12:44) Medication List - Last Reconciled 09/02/23 by Tk Duran MD allopurinol 100 mg PO BEDTIME apixaban (Eliquis) 2.5 mg PO BID atorvastatin 20 mg PO DAILY dapagliflozin propanediol (Farxiga) 10 mg PO DAILY ferrous sulfate 325 mg PO Q OTHER DAY furosemide 40 mg See Protocol PO DAILY lisinopril 5 mg PO DAILY metformin 500 mg PO BID metoprolol succinate ER 100 mg PO DAILY pantoprazole 40 mg PO BID quetiapine 25 mg PO BEDTIME HPI HPI Comments History of Present Illness Details Noemi returns for follow-up. Few months back, she was in the hospital with congestive heart failure and she also had some anemia. Subsequently, sent to [facility] for cardiac catheterization but there were other bleeding concerns and eventually she was discharged home without getting the catheterization. Overall, she states she feels okay. No complaints like angina or shortness of breath or anything along those lines. Seems to be getting along. [facility] Medical History (Updated 09/02/23 @ 13:43 by Tk Duran MD) PAF (paroxysmal atrial fibrillation) ROSELINE (acute kidney injury) New onset atrial fibrillation Cardiomyopathy Former smoker Chronic gout AAA (abdominal aortic aneurysm) Hypertension Type 2 diabetes mellitus Surgical History H/O section Hx of cataract History of AAA (abdominal aortic aneurysm) repair Family History Father Myocardial infarction Social History Alcohol intake: never Comment: 1:1 sitter Patient Tobacco Use Status: Former Tobacco user service: No Review of Systems Const All systems reviewed & are unremarkable except as noted in HPI and below Reports as per HPI and Reports no additional complaints Eyes Reports as per HPI and Denies no additional complaints ENT Denies no additional complaints and Reports as per HPI Card Reports as per HPI, Reports no additional complaints, Denies acrocyanosis, Denies chest pain, Denies leg edema, Denies lightheadedness, Denies palpitations and Denies dyspnea Resp Reports as per HPI, Denies no additional complaints and Denies dyspnea GI Reports as per HPI and Denies no additional complaints Reports as per HPI Musc Reports no additional complaints and Reports as per HPI Skin/Breast Reports system reviewed and no additional complaints, except as documented Neuro Reports no additional complaints and Reports as per HPI Psych Reports no additional complaints and Reports as per HPI Endo Reports no additional complaints, Reports as per HPI and Denies palpitations Rafael/Lymph Reports no additional complaints and Reports as per HPI Aller/Immun Reports no additional complaints and Reports as per HPI Physical Exam Vital Signs: Last Vital Signs Pulse 107 H 09/02/23 12:44 BP 126/58 L 09/02/23 12:44 BMI result Body Mass Index 19.7 Const General: comfortable and no acute distress Orientation/consciousness: patient oriented x3 HEENT Other: Unremarkable Head: Yes normal to inspection Neck Neck: Yes normal visual inspection Chest Chest palpation & inspection: normal inspection of the chest Resp Auscultation: clear to auscultation bilaterally Cardio Palpation: normal PMI Heart sounds: S1 normal heart sound present, S2 normal heart sound present, no gallops, no murmurs and no rubs GI Palpation (GI): Soft to palpation Back/Spine/Pelvis Other: unremarkable Skin General skin exam: no rashes or lesions noted Neuro General: patient oriented x3 Extrem General: Yes normal to inspection Psych Mental Status: mental status grossly normal Assessment & Plan Assessment & Plan (1) Atherosclerotic cardiovascular disease: Code(s): I25.10 - Atherosclerotic heart disease of [place] coronary artery without angina pectoris Plan: Suspected coronary disease based on echo findings. Plan for diagnostic catheterization. Discussed with . (2) Cardiomyopathy: Code(s): I42.9 - Cardiomyopathy, unspecified Plan: Most recent echocardiogram from last week shows LVEF of 50% with basal inferoseptal/inferolateral akinesis and basal inferior aneurysm. In the prior echocardiogram from May, LVEF was much lower at 29%. There was gybi-cq-dnuijspk aortic stenosis and mild mitral annular calcification. He has on a combination of beta-blockers and lisinopril. Also on diuretics. Stable overall. (3) PAF (paroxysmal atrial fibrillation): Code(s): I48.0 - Paroxysmal atrial fibrillation Plan: She remains on beta-blockers and Eliquis. No new issues. (4) AAA (abdominal aortic aneurysm): Code(s): I71.40 - Abdominal aortic aneurysm, without rupture, unspecified Plan: [facility] vascular consultation noted. Possibly percutaneous repair. Plan Discussed with son in great detail. He agrees with current plan. Total time spent including review of all the [facility] records, counseling, documentation, coordination of care-50 minutes. Orders: Orders Cardiac Cath LT Diagnostic Today I25.10 - Atherosclerotic heart disease of [place] coronary artery without angina pectoris Basic Metabolic Panel Today I42.9 - Cardiomyopathy, unspecified Complete Blood Count no Diff Today I42.9 - Cardiomyopathy, unspecified Coding Level of Care Code Est Pt Level 5 (33923) Diagnoses Atherosclerotic cardiovascular disease I25.10 Cardiomyopathy I42.9 PAF (paroxysmal atrial fibrillation) I48.0 AAA (abdominal aortic aneurysm) I71.40
[2023-09-02 12:44] VITALS: BP 126/58; PULSE 107; BMI 19.7
== END 2023-09-02 13:37 | disposition home or self-care (01) ==
PROVIDERS: PCP Nurse Practitioner Family; Visit Provider Internal Medicine
DX: I25.10 Atherosclerotic heart disease of native coronary artery without angina pectoris (principal); I42.9 Cardiomyopathy, unspecified; I48.0 Paroxysmal atrial fibrillation; I71.40 Abdominal aortic aneurysm, without rupture, unspecified
CPT/HCPCS: 99215

== ENCOUNTER → 2023-09-02 12:38 | Outpatient (BNVA) | payer MEDICARE, SELFPAY | PROVIDERS: PCP Nurse Practitioner Family; Visit Provider Internal Medicine | DX: I50.9 Heart failure, unspecified (principal); I25.10 Atherosclerotic heart disease of native coronary artery without angina pectoris; I42.9 Cardiomyopathy, unspecified; I48.0 Paroxysmal atrial fibrillation; I71.40 Abdominal aortic aneurysm, without rupture, unspecified | CPT/HCPCS: 99212 ==

== ENCOUNTER 2023-09-28 10:48 | Outpatient (REF) | payer MEDICARE, SELFPAY ==
[2023-09-28 11:13] LABS: Hematocrit 34.5 % (37.0-47.0); Hemoglobin 10.8 g/dl (12.0-16.0); Mean Corpuscular HGB Conc 31.3 g/dl (31.0-35.0); Mean Corpuscular Hemoglobin 28.1 pg (27.0-33.0); Mean Corpuscular Volume 89.6 fL (80.0-98.0); Mean Platelet Volume 9.7 fL (9.4-12.3); Platelet Count 296 X10*3/uL (160-400); Red Blood Count 3.85 X10*6/uL (4.20-5.50); Red Cell Distribution Width 18.4 % (11.0-16.0)
[2023-09-28 11:27] LABS: INTERNATIONAL NORM RATIO 1.3 (0.9-1.1); Prothrombin Time 15.2 SEC (11.1-13.3)
[2023-09-28 11:48] LABS: Anion Gap 14 (12-20); Blood Urea Nitrogen 32 mg/dL (9-16); Calcium 10.1 mg/dL (8.4-10.2); Carbon Dioxide 28 mmol/L (22-29); Chloride 103 mmol/L (96-108); Estimated Glomerular Filt Rate 47; Glucose Random 126 mg/dL (60-115); Sodium 141 mmol/L (135-145)
== END 2023-09-28 10:49 | disposition home or self-care (01) ==
LOC: HO.LAB 10:48
PROVIDERS: Visit Provider Internal Medicine
DX: I42.9 Cardiomyopathy, unspecified (principal); I48.0 Paroxysmal atrial fibrillation; I50.21 Acute systolic (congestive) heart failure
CPT/HCPCS: 36415; 80048; 85027; 85610

== ENCOUNTER 2023-10-29 11:36 | Outpatient (REF) | payer MEDICARE, SELFPAY ==
[2023-10-29 12:26] LABS: Hematocrit 32.2 % (37.0-47.0); Hemoglobin 10.1 g/dl (12.0-16.0); Mean Corpuscular HGB Conc 31.4 g/dl (31.0-35.0); Mean Corpuscular Hemoglobin 28.8 pg (27.0-33.0); Mean Corpuscular Volume 91.7 fL (80.0-98.0); Mean Platelet Volume 9.9 fL (9.4-12.3); Platelet Count 242 X10*3/uL (160-400); Red Blood Count 3.51 X10*6/uL (4.20-5.50); Red Cell Distribution Width 17.5 % (11.0-16.0); White Blood Count 6.9 X10*3/uL (4.8-10.8)
[2023-10-29 12:32] LABS: INTERNATIONAL NORM RATIO 1.4 (0.9-1.1); Prothrombin Time 17.4 SEC (11.1-13.3)
[2023-10-29 13:00] LABS: Anion Gap 19 (12-20); Blood Urea Nitrogen 22 mg/dL (9-16); Calcium 9.6 mg/dL (8.4-10.2); Carbon Dioxide 27 mmol/L (22-29); Chloride 102 mmol/L (96-108); Estimated Glomerular Filt Rate 52; Glucose Random 81 mg/dL (60-115); Potassium 3.9 mmol/L (3.3-5.1); Sodium 144 mmol/L (135-145)
== END 2023-10-29 11:37 | disposition home or self-care (01) ==
LOC: HO.LAB 11:36
PROVIDERS: Visit Provider Internal Medicine
DX: I48.0 Paroxysmal atrial fibrillation (principal); I48.91 Unspecified atrial fibrillation; I25.10 Atherosclerotic heart disease of native coronary artery without angina pectoris
CPT/HCPCS: 36415; 80048; 85027; 85610

== ENCOUNTER → 2023-11-03 23:59 | Outpatient (BNV) | payer MEDICARE, SELFPAY | PROVIDERS: PCP Nurse Practitioner Family; Visit Provider Internal Medicine Cardiovascular Disease | DX: I21.4 Non-ST elevation (NSTEMI) myocardial infarction (principal); I50.20 Unspecified systolic (congestive) heart failure | CPT/HCPCS: 92928; 92978; 93454; 99152 ==

== ENCOUNTER 2023-11-17 13:20 | Outpatient (AMB) | payer MEDICARE, SELFPAY ==
[2023-11-17 13:36] VITALS: BP 118/60; PULSE 76; BMI 20.7
--- NOTE | 2023-11-17 13:36 | MHC.OFFVIS ---
Vital Signs 11/17/23 13:36 Height 5 ft Weight 105 lb 13.15 oz BMI 20.7 BP 118/60 Blood Pressure Location Lt brachial Position Sitting Pulse 76 Pulse Source Pulse Oximeter Intake Visit Reasons: Follow up post cardiac cath Allergies No Known Allergies Allergy (Verified 09/02/23 12:44) HPI Comments Details: 83-year-old female presents today for a follow-up post cardiac catheterization. She reports she has been doing very well. She no longer is using a wheelchair. She states she is decently active every day. She denies any chest pains, shortness of breath, swelling, or any pain, odor, redness at the access site. They tried to access in the right radial but had to go through the right groin. [facility] Medical History PAF (paroxysmal atrial fibrillation) ROSELINE (acute kidney injury) New onset atrial fibrillation Cardiomyopathy Former smoker Chronic gout AAA (abdominal aortic aneurysm) Hypertension Type 2 diabetes mellitus Surgical History S/P cardiac catheterization H/O section Hx of cataract History of AAA (abdominal aortic aneurysm) repair Family History Father Myocardial infarction Social History Alcohol intake: never Comment: 1:1 sitter Patient Tobacco Use Status: Former Tobacco user service: No Review of Systems Const Denies weakness ENT Denies dizziness Card Denies chest pain, Denies chest pain with activity, Denies syncope, Denies rapid heart rate, Denies pedal edema, Denies edema, Denies leg edema, Denies lightheadedness, Denies palpitations, Denies dyspnea, Denies dyspnea on exertion and Denies orthopnea Resp Denies cough, Denies dyspnea and Denies dyspnea on exertion GI Denies hematochezia and Denies change in stool character Musc Denies abnormal gait, Denies muscle cramps, Denies muscle weakness, Denies numbness, Denies radiating pain into limb and Denies tingling Neuro Denies abnormal gait, Denies dizziness, Denies syncope, Denies numbness, Denies tingling and Denies weakness Endo Denies palpitations Physical Exam Vital Signs: Last Vital Signs Pulse 76 11/17/23 13:36 BP 118/60 11/17/23 13:36 BMI result Body Mass Index 20.7 Const General: healthy appearing and no acute distress Orientation/consciousness: patient oriented x3 HEENT Head: Yes normal to inspection Eyes General: appearance normal, both eyes and all related structures Neck Neck: Yes normal visual inspection Chest Chest palpation & inspection: normal inspection of the chest Resp Effort & Inspection: normal respiratory effort Auscultation: clear to auscultation bilaterally Cardio Jugular venous distension: no JVD Palpation: normal PMI Rate: regular rate Rhythm: regular rhythm Heart sounds: S1 normal heart sound present, S2 normal heart sound present, no click, no gallops, no murmurs and no rubs GI Inspection: Yes normal to inspection Palpation (GI): Soft to palpation Skin General skin exam: no rashes or lesions noted Neuro General: patient oriented x3 Extrem General: Yes normal to inspection Psych Appearance: grossly normal Assessment & Plan Assessment & Plan (1) S/P cardiac catheterization: Comment: On 11/03/[address] Len rai Arteries and Lesion Findings LMCA: Normal. LAD: Lesion in Mid LAD: 95% stenosis . LCx: Mild luminal irregularities (<30%). RCA: Mid to distal RCA PROFESSOR OF CHEMISTRY with severe diffuse disease in the proximal to mid segment. Lesion in Prox RCA: 100% stenosis . PCI to mid LAD. Code(s): Z98.890 - Other specified postprocedural states Category: Surgical Plan Cardiac catherization with ANTONIA to mid LAD. On eliquis, plavix, atorvastatin, and metoprolol. Continue. No ASA at this time due to being on eliquis. Will repeat lipid panel. On 05/20/23 LDL was 28. Right radial and right groin are both healing appropriately. Mild bruising noted by groin access. Non-tender. Healing well. Signs and symptoms of bleeding reviewed with patient and son. Discussed heart healthy lifestyle. Patient declined cardiac rehab at this time. Discussed the importance of cardiac rehab. Informed if she changes her mind to call us. Orders: Orders Basic Metabolic Panel 11/17/23 Z98.890 - Other specified postprocedural states Lipid Panel 11/17/23 Z98.890 - Other specified postprocedural states Coding Level of Care Code Est Pt Level 3 (37049) Diagnoses S/P cardiac catheterization Z98.890
== END 2023-11-17 14:04 | disposition home or self-care (01) ==
PROVIDERS: PCP Nurse Practitioner Family; Visit Provider Nurse Practitioner
DX: Z98.890 Other specified postprocedural states (principal)
CPT/HCPCS: 99213

== ENCOUNTER → 2023-11-17 13:20 | Outpatient (BNVA) | payer MEDICARE, SELFPAY | PROVIDERS: PCP Nurse Practitioner Family; Visit Provider Nurse Practitioner | DX: Z98.890 Other specified postprocedural states (principal) | CPT/HCPCS: 99212 ==

== ENCOUNTER 2024-02-23 09:15 | Outpatient (AMB) | payer MEDICARE, SELFPAY ==
[2024-02-23 09:17] VITALS: BP 110/56; PULSE 69; BMI 21.2
--- NOTE | 2024-02-23 09:17 | A.OFFVIS_ITS ---
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 Fairly complicated with numerous cardiac issues. From cardiac, has coronary disease as well as cardiomyopathy and has previously been admitted for congestive heart failure. She also has vascular disease and has an abdominal aortic aneurysm that is pending intervention. Additionally, diagnosed with lung cancer but she does not want anything done for that. Overall, she states she is feeling fine. Specifically no cardiac symptoms. [facility]LY [facility] Medical History PAF (paroxysmal atrial fibrillation) ROSELINE (acute kidney injury) New onset atrial fibrillation Cardiomyopathy Former smoker Chronic gout AAA (abdominal aortic aneurysm) Hypertension Type 2 diabetes mellitus Surgical History S/P cardiac catheterization H/O section Hx of cataract History of AAA (abdominal aortic aneurysm) repair Family History (Updated 02/23/24 @ 09:24 by Kim Grover CMA) Father Myocardial infarction Mother DM2 (diabetes mellitus, type 2) Social History Alcohol intake: never Comment: 1:1 sitter Patient Tobacco Use Status: Former Tobacco user service: No Review of Systems Const Denies chills, Denies fatigue, Denies fever(s), Denies weight gain and Denies weight loss ENT Denies dizziness Card Denies chest pain, Denies leg edema, Denies lightheadedness, Denies palpitations, Denies dyspnea on exertion, Denies orthopnea and Denies other Resp Denies cough and Denies dyspnea on exertion GI Denies hematochezia and Denies change in stool character Musc Denies abnormal gait, Denies muscle weakness, Denies numbness, Denies radiating pain into limb and Denies tingling Neuro Denies abnormal gait, Denies dizziness, Denies numbness and Denies tingling Endo Denies fatigue and Denies palpitations Physical Exam Vital Signs: Last Vital Signs Pulse 69 02/23/24 09:17 BP 110/56 L 02/23/24 09:17 BMI result Body Mass Index 21.2 Const General: comfortable and no acute distress Orientation/consciousness: patient oriented x3 HEENT Other: Unremarkable Head: Yes normal to inspection Neck Neck: Yes normal visual inspection Chest Chest palpation & inspection: normal inspection of the chest Resp Auscultation: clear to auscultation bilaterally Cardio Palpation: normal PMI Heart sounds: S1 normal heart sound present, S2 normal heart sound present, no gallops, no murmurs and no rubs GI Palpation (GI): Soft to palpation Back/Spine/Pelvis Other: unremarkable Skin General skin exam: no rashes or lesions noted Neuro General: patient oriented x3 Extrem General: Yes normal to inspection Psych Mental Status: mental status grossly normal Assessment & Plan Assessment & Plan (1) Atherosclerotic cardiovascular disease: Code(s): I25.10 - Atherosclerotic heart disease of [place] coronary artery without angina pectoris Category: Medical Plan: Cardiac catheterization-10/2023- 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 Diffuse disease in the proximal to mid RCA. Lad with 95% stenosis. Status post PCI to LAD. Clinically, she has got no angina. He is on Plavix and Eliquis. (2) Cardiomyopathy: Code(s): I42.9 - Cardiomyopathy, unspecified Category: Medical Plan: Most recent echocardiogram from last week shows LVEF of 50% with basal inferoseptal/inferolateral akinesis and basal inferior aneurysm. In the prior echocardiogram from May, LVEF was much lower at 29%. There was [id number]-[id number] aortic stenosis and mild mitral annular calcification. He has on a combination of beta-blockers and lisinopril. Also on diuretics. Stable overall. (3) PAF (paroxysmal atrial fibrillation): Code(s): I48.0 - Paroxysmal atrial fibrillation Category: Medical Plan: Beta-blockers and Eliquis. No new issues. (4) AAA (abdominal aortic aneurysm): Code(s): I71.40 - Abdominal aortic aneurysm, without rupture, unspecified Category: Medical Plan: Pending repair. She states she is going to [place] for that. (5) Lung cancer: Code(s): C34.90 - Malignant neoplasm of unspecified part of unspecified bronchus or lung Category: Medical Plan: PET scan reports right lower lobe mass highly suspicious for malignancy. Patient and son state that they do not want any diagnostic tests or treatment for this. Coding Level of Care Code Est Pt Level 4 (67169) Diagnoses Atherosclerotic cardiovascular disease I25.10 Cardiomyopathy I42.9 PAF (paroxysmal atrial fibrillation) I48.0 AAA (abdominal aortic aneurysm) I71.40 Lung cancer C34.90
== END 2024-02-23 09:55 | disposition home or self-care (01) ==
PROVIDERS: PCP Nurse Practitioner Family; Visit Provider Internal Medicine
DX: I25.10 Atherosclerotic heart disease of native coronary artery without angina pectoris (principal); I42.9 Cardiomyopathy, unspecified; I48.0 Paroxysmal atrial fibrillation; I71.40 Abdominal aortic aneurysm, without rupture, unspecified; C34.90 Malignant neoplasm of unspecified part of unspecified bronchus or lung
CPT/HCPCS: 99214

== ENCOUNTER → 2024-02-23 09:15 | Outpatient (BNVA) | payer MEDICARE, SELFPAY | PROVIDERS: PCP Nurse Practitioner Family; Visit Provider Internal Medicine | DX: I50.9 Heart failure, unspecified (principal); I25.10 Atherosclerotic heart disease of native coronary artery without angina pectoris; I42.9 Cardiomyopathy, unspecified; I48.0 Paroxysmal atrial fibrillation; I71.40 Abdominal aortic aneurysm, without rupture, unspecified; C34.90 Malignant neoplasm of unspecified part of unspecified bronchus or lung | CPT/HCPCS: 99212 ==

== ENCOUNTER → 2024-04-18 12:41 | Outpatient (BNV) | payer MEDICARE, SELFPAY | PROVIDERS: Emergency Provider Emergency Medicine; Visit Provider Internal Medicine Cardiovascular Disease | DX: D64.9 Anemia, unspecified (principal); R94.31 Abnormal electrocardiogram [ECG] [EKG] | CPT/HCPCS: 93010; 99223 ==

== ENCOUNTER 2024-04-18 12:53 | Inpatient (IN) | payer MEDICARE, SELFPAY ==
[2024-04-18] VITALS (16 sets, daily range): BP systolic 61–140; BP diastolic 38–80; PULSE 75–89; RESP 15–19; TEMP 36–36.8; O2SAT 91–100; BMI 21.4
--- NOTE | ~2024-04-18 | XR_ITS ---
EXAMINATION: XR CHEST CLINICAL INFORMATION: ET tube COMPARISON: Chest radiograph 04/19/2024 7:49 PM TECHNIQUE: Frontal view of the chest was obtained. FINDINGS: Endotracheal tube terminates 6 cm. The jennifer. A right internal jugular catheter terminates in the region of the cavoatrial junction. Enteric tube courses in projection with the stomach beyond the inferior margin of the field of view. The heart size is normal. Dense aortic calcific atherosclerosis. Mild multilevel left and right costophrenic sulci. Diffuse interstitial opacities in the lungs are present central peribronchial wall thickening is noted. XR/XR chest 1V IMPRESSION: *Endotracheal tube terminating 6 cm above the jennifer. *Right internal jugular catheter terminating at the cavoatrial junction. *Enteric tube coursing within the stomach. *Findings suspicious for moderate interstitial pulmonary edema increased in prominence compared with 04/19/2012 and 09/13/1939 9:00 PM. *Trace bilateral pleural effusions. Electronically signed by: Addi Coppola MD 04/20/2024 06:05 AM [facility]
--- NOTE | ~2024-04-18 | XR_ITS ---
EXAMINATION: XR CHEST CLINICAL INFORMATION: Dyspnea COMPARISON: 05/14/2023, 05/12/2023, 05/11/2023. TECHNIQUE: AP view of the chest was obtained. FINDINGS: Once again, there is redemonstration of a right perihilar oval mass lesion, likely within the superior segment right lower lobe. Cannot exclude malignancy given the appearance. Lungs are hyperlucent and mildly hyperaerated. There is mildly prominent vascularity of both lungs without gross interstitial edema. Mild biapical scarring. There are no effusions on this single view radiograph. There is no pneumothorax. Lungs otherwise demonstrate bilateral calcified granulomata. Lungs otherwise clear. The cardiac size is normal. The aorta is tortuous and calcified. Left hilar contour is normal. No acute bony abnormalities. Arthritic changes both shoulder joints, and AC joints. XR/XR chest 1V IMPRESSION: 1. Right perihilar masslike opacity, cannot exclude neoplasm. This had a similar appearance in May 2023. CT would be recommended. 2. Vascular congestion without overt interstitial edema. 3. COPD. Electronically signed by: Iván Muniz MD 04/18/2024 01:33 PM [facility]
--- NOTE | ~2024-04-18 | CT_ITS ---
EXAMINATION: CT ABDOMEN AND PELVIS WITHOUT CONTRAST CLINICAL INFORMATION: AAA with question of leak COMPARISON: CT abdomen pelvis 06/20/2023 TECHNIQUE: Multidetector volumetric imaging was performed from the superior aspect of the liver through the pubic symphysis. Sagittal and coronal reformatted images were obtained on the technologist's workstation. This CT examination was performed using dose optimization techniques as appropriate, variously including the following: *Automated exposure control *Adjustment of mA and/or kV according to patient size (this includes techniques or standardized protocols for targeted exams where dose is matched to indication/reason for exam; i.e. extremities or head) *Use of iterative reconstruction technique DLP: 471 mGy-cm FINDINGS: LUNG BASES: Emphysematous changes are seen at the lung bases. There is mild bronchial thickening without bronchiectasis. No suspicious masses or pleural effusions. LIVER, GALLBLADDER, AND BILIARY TREE: The liver is normal in size, shape, and attenuation. No focal hepatic lesion or biliary ductal dilatation is present. Again seen is cholelithiasis without cholecystitis. PANCREAS: Unremarkable. SPLEEN: Unremarkable. ADRENAL GLANDS: Unremarkable. KIDNEYS AND URETERS: The kidneys are normal in size, shape, and attenuation. Some tiny cortical hypodensities are again seen consistent with Bosniak class I cysts which need no additional imaging or follow-up. No hydronephrosis, hydroureter, or calculi seen. No perinephric stranding. BLADDER: Unremarkable. GASTROINTESTINAL TRACT: A small hiatal hernia is present. Moderately extensive diverticulosis present in the left colon without diverticulitis. The small and large bowel are otherwise unremarkable. The appendix is unremarkable. ABDOMINAL WALL: There is a small right inguinal hernia seen containing only fat. Injection granulomas are seen in both buttocks. Two adjacent epigastric hernias are seen containing only fat . LYMPH NODES: No retroperitoneal lymphadenopathy. VASCULAR: Calcific atherosclerotic changes are present in the aorta and iliofemoral vessels. There is an infrarenal abdominal aortic aneurysm seen with maximal transverse dimension of 5.6 x 5.4 cm compared with 5.5 x 5.2 cm on 06/20/2023. There is no retroperitoneal blood present. PELVIC VISCERA: The large right-sided pelvic cyst seen at the time of the prior 06/20/2023 study is no longer present. OSSEOUS STRUCTURES: Unremarkable. CT/CT abdomen pelvis wo IV con IMPRESSION: 1. Infrarenal abdominal aortic aneurysm minimally increased in size with maximal transverse dimension of 5.6 x 5.4 cm compared with 5.5 x 5.2 cm on 06/20/2023. There is no retroperitoneal hematoma present to suggest a leak. 2. Incidental note made of emphysema, cholelithiasis, colonic diverticulosis, small hiatal hernia and small right inguinal hernia. Fleischner guidelines were followed. Electronically signed by: Carlos Fitzpatrick MD 04/18/2024 05:03 PM [facility]
--- NOTE | ~2024-04-18 | XR_ITS ---
EXAMINATION: XR CHEST CLINICAL INFORMATION: Dyspnea. COMPARISON: Chest radiograph 04/18/2024. TECHNIQUE: Frontal view of the chest was obtained. FINDINGS: Worsening pulmonary aeration with significantly increased diffuse interstitial coarsening as well as increased more focal consolidative opacities in the right perihilar region. No significant pleural effusion, possibly trace amount of right-sided pleural fluid. No pneumothorax. Unchanged appearance of the cardiomediastinal silhouette. No acute osseous findings. XR/XR chest 1V IMPRESSION: Findings are worrisome for worsening atypical infectious/inflammatory process and pulmonary edema. Focal airspace densities in the right perihilar region could represent infectious/inflammatory infiltrates, although underlying malignancy cannot be excluded. Clinical correlation and short-term follow-up CT chest is recommended. Electronically signed by: Kylie Wood MD 04/19/2024 09:44 PM [facility]
--- NOTE | 2024-04-18 12:58 | ECG_ITS ---
Test Reason : CHEST PAIN Blood Pressure : / mmHG Vent. Rate : 075 BPM Atrial Rate : 075 BPM P-R Int : 168 ms QRS Dur : 112 ms QT Int : 402 ms P-R-T Axes : 089 068 251 degrees QTc Int : 448 ms Poor data quality, interpretation may be adversely affected Normal sinus rhythm with sinus arrhythmia ST & T wave abnormality, consider inferior ischemia ST & T wave abnormality, consider anterolateral ischemia Abnormal ECG When compared with ECG of 19-MAY-2023 09:30, Significant changes have occurred Referred By: Calos Miller Electronically Signed By:Clement Harrington
--- NOTE | 2024-04-18 13:04 | ED_ITS ---
HPI - General Adult General Chief complaint: Dizziness Stated complaint: SOB Source: patient and EMS Mode of arrival: EMS History of Present Illness HPI narrative: This is 83 years old patient with a history of CAD, paroxysmal atrial fibrillation, anemia presented to the emergency department with a chief complaint shortness of breath weakness since yesterday. She denies any chest pain she denies any fever any abdominal pain. Symptom started yesterday. Patient had an LAD stent in October 2023 Onset (ago): day(s) (1) Radiation: non-radiation Severity: moderate Relieving factors: none Exacerbating factors: none Associated symptoms: denies other symptoms Related Data Home Medications ?Medication ?Instructions ?Recorded ?Confirmed metformin 500 mg tablet 500 mg PO BID 10/31/22 02/23/24 dapagliflozin propanediol 10 mg 10 mg PO DAILY 05/11/23 02/23/24 tablet (Farxiga) allopurinol 100 mg tablet 100 mg PO BEDTIME 06/20/23 02/23/24 atorvastatin 20 mg tablet 20 mg PO DAILY 06/20/23 02/23/24 metoprolol succinate 100 mg 100 mg PO DAILY 06/20/23 02/23/24 tablet,extended release 24 hr quetiapine 25 mg tablet 25 mg PO BEDTIME 06/20/23 02/23/24 ferrous sulfate 325 mg (65 mg 325 mg PO Q OTHER DAY 07/22/23 02/23/24 iron) tablet lisinopril 5 mg tablet 5 mg PO DAILY 07/22/23 02/23/24 clopidogrel 75 mg tablet (Plavix) 75 mg PO DAILY 02/23/24 02/23/24 Previous Rx's ?Medication ?Instructions ?Recorded furosemide 40 mg tablet 40 mg PO DAILY #1 tab 05/19/23 apixaban 2.5 mg tablet (Eliquis) 2.5 mg PO BID 90 days #180 tabs 12/17/23 Allergies Allergy/AdvReac Type Severity Reaction Status Date / Time No Known Allergies Allergy Verified 04/18/24 13:06 Review of Systems 2 Constitutional: Constitutional: Reports no additional constitutional complaints Cardiovascular: Cardiovascular: Reports no additional cardiovascular complaints Gastrointestinal: Gastrointestinal: Reports no additional gastrointestinal complaints PMFSH Past Medical History Medical History (Updated 04/18/24 @ 15:24 by Calos Miller MD) Anemia PAF (paroxysmal atrial fibrillation) ROSELINE (acute kidney injury) New onset atrial fibrillation Cardiomyopathy Former smoker Chronic gout AAA (abdominal aortic aneurysm) Hypertension Type 2 diabetes mellitus Surgical History S/P cardiac catheterization H/O section Hx of cataract History of AAA (abdominal aortic aneurysm) repair Family History Family History Father Myocardial infarction Mother DM2 (diabetes mellitus, type 2) Social History Social History Alcohol intake: never Comment: 1:1 sitter Patient Tobacco Use Status: Former Tobacco user Smoked in Last 30 Days: No Use of substances other than those prescribed or required for medical reasons: No Advance Directives: No Advance Directives Information Provided: Yes service: No Physical Exam ED Vital Signs: Vital Signs - 24 hr 04/18/24 13:04 04/18/24 13:25 04/18/24 13:32 Temperature 97.5 F Pulse Rate 75 81 Respiratory Rate 16 15 Blood Pressure 63/39 L 63/43 L 73/49 L Pulse Oximetry 100 100 Oxygen Delivery Method Room Air Room Air 04/18/24 13:55 04/18/24 14:01 04/18/24 14:12 Temperature 97.9 F Pulse Rate 86 86 88 Respiratory Rate 16 19 Blood Pressure 61/38 L 61/40 L 67/41 L Pulse Oximetry 100 Oxygen Delivery Method Room Air 04/18/24 14:20 04/18/24 14:41 04/18/24 14:41 Temperature 97.8 F 97.5 F 97.6 F Pulse Rate 89 86 86 Respiratory Rate 19 18 15 Blood Pressure 66/45 L 117/66 126/57 L Pulse Oximetry Oxygen Delivery Method 04/18/24 14:46 04/18/24 15:00 04/18/24 15:18 Temperature 96.8 F Pulse Rate 88 88 88 Respiratory Rate 18 18 18 Blood Pressure 128/60 126/47 L 128/58 L Pulse Oximetry 99 98 Oxygen Delivery Method Nasal Cannula BMI result Body Mass Index 21.4 Const Other: Patient appear in not acute distress General: cooperative, comfortable and no acute distress Nutritional Appearance: average body habitus Orientation/consciousness: patient oriented x3 Limitations: no limitations HENMT Head: Yes normal to inspection General nose exam: Normal external nose present Face and sinus: Yes normal facial exam Mouth: Normal oral and palatal mucosa present Throat: Yes posterior oropharynx normal Neck Neck: Yes normal visual inspection and Yes full ROM Chest Chest palpation & inspection: normal inspection of the chest Resp Effort & Inspection: normal respiratory effort Auscultation: clear to auscultation bilaterally Cardio Jugular venous distension: no JVD Rate: regular rate Rhythm: regular rhythm GI Inspection: Yes normal to inspection Palpation (GI): Soft to palpation, not firm and nontender Skin General skin exam: no rashes or lesions noted Neuro General: patient oriented x3 Course Course Course Narrative: 2 PM HB noted blood transfusion started,spoke with ICU Dr Leonard no bed in ICU. Reevaluation(s) Reevaluation #1: son at bed side receiving blood ,call to [facility] waiting call back Reevaluation #2: At this time she is doing much better normotensive seen by electronics tech,spoke with GI and vascular ,she can be admitted to [facility] will hold eliquis. Son and daughter at bed side Reevaluation #3: REMAIN STABLE AT THIS TIME BP 133/59 SPOKE WITH HOSPITALIST dR MUÑIZ Time: 16:03 Medications Administered Discontinued Medications Generic Name Dose Route Start Last Admin Trade Name Freq PRN Reason Stop Dose Admin Sodium Chloride 1,000 mls @ 999 mls/hr 04/18/24 13:00 04/18/24 14:07 Ns IVCONT 04/18/24 14:00 Infused .Q1H1M NAYA Infusion Sodium Chloride 1,000 mls @ 999 mls/hr 04/18/24 13:30 04/18/24 14:36 Ns IV 04/18/24 14:30 Infused .Q1H1M NAYA Infusion Pantoprazole Sodium 80 mg 04/18/24 13:38 04/18/24 14:07 Pantoprazole Sodium 40 Mg/10 Ml Vial IVPUSH 04/18/24 13:39 80 mg ONCE ONE Administration Medical Decision Making Medical Decision Making [facility] Narrative: Patient presented with weakness broad differential diagnoses include anemia the ABS Differential Diagnosis Differential Diagnoses: The differential diagnosis associated with the presentation includes Anemia/dehydration/electrolytes abnormalities/kidney failure Admission/Observation Consideration of admission/observation: Escalation of care including admission/observation considered Consult Healthcare Provider Management of the patient was discussed with: Hospitalist and Brush Holder Inspector Lab Data [facility] Lab Attestation statement: I reviewed the patient's lab results. 04/18/24 13:15 04/18/24 13:15 Labs: Lab Results 04/18/24 04/18/24 04/18/24 Range/Units 13:15 13:22 13:39 WBC 6.3 (4.8-10.8) X10*3/uL RBC 1.77 L D (4.20-5.50) X10*6/uL Hgb 4.8 L* D (12.0-16.0) g/dl Hct 16.6 L* D (37.0-47.0) % MCV 93.8 (80.0-98.0) fL MCH 27.1 (27.0-33.0) pg MCHC 28.9 L (31.0-35.0) g/dl RDW 17.9 H (11.0-16.0) % Plt Count 273 (160-400) X10*3/uL MPV 8.9 L (9.4-12.3) fL Immature Gran % (Auto) 0.5 H (0.0-0.4) % Neut % (Auto) 75.6 H (45-73) % Lymph % (Auto) 14.4 L (20-40) % [place] % (Auto) 6.5 (2-11) % Eos % (Auto) 2.4 (0-4) % Baso % (Auto) 0.6 (0-2) % Lymph # (Auto) 0.9 L (1.2-4.9) X10*3/uL [place] # (Auto) 0.4 (0.1-1.2) X10*3/uL Eos # (Auto) 0.2 (0.0-0.4) X10*3/uL Baso # (Auto) 0.0 (0.0-0.2) X10*3/uL Abs Immat Gran (auto) 0.03 (0.00-0.03) X10*3/uL Absolute Neuts (auto) 4.8 (2.0-8.3) x10*3/uL Absolute Nucleated RBC 0.000 (0.0-0.012) X10*3/uL Nucleated RBC % (auto) 0.0 (0.0-0.2) /100WBC PT 17.6 H (10.9-12.4) SEC INR 1.5 H (0.9-1.1) Sodium 141 (135-145) mmol/L Potassium 3.8 (3.3-5.1) mmol/L Chloride 105 (96-108) mmol/L Carbon Dioxide 20 L (22-29) mmol/L Anion Gap 20 (12-20) BUN 75 H (9-16) mg/dL Creatinine 1.68 H (0.5-1.4) mg/dL Estim Creat Clear Calc 19.5 Estimated GFR 29 Random Glucose 88 (60-115) mg/dL Calcium 10.2 D (8.4-10.2) mg/dL Total Bilirubin 0.4 (0.0-1.0) mg/dL AST 24 (5-31) U/L ALT 7 (0-31) U/L Alkaline Phosphatase 62 (39-117) U/L Troponin I High Sens 18.3 H D (<3.5-17.0) ng/L B-Natriuretic Peptide 323 H (<100) pg/mL Total Protein 6.2 L (6.5-8.0) g/dL Albumin 3.7 (3.5-5.0) g/dL Stool Occult Blood POSITIVE (NEGATIVE) Blood Type Antibody Screen Crossmatch 04/18/24 Range/Units 13:43 WBC (4.8-10.8) X10*3/uL RBC (4.20-5.50) X10*6/uL Hgb (12.0-16.0) g/dl Hct (37.0-47.0) % MCV (80.0-98.0) fL MCH (27.0-33.0) pg MCHC (31.0-35.0) g/dl RDW (11.0-16.0) % Plt Count (160-400) X10*3/uL MPV (9.4-12.3) fL Immature Gran % (Auto) (0.0-0.4) % Neut % (Auto) (45-73) % Lymph % (Auto) (20-40) % [place] % (Auto) (2-11) % Eos % (Auto) (0-4) % Baso % (Auto) (0-2) % Lymph # (Auto) (1.2-4.9) X10*3/uL [place] # (Auto) (0.1-1.2) X10*3/uL Eos # (Auto) (0.0-0.4) X10*3/uL Baso # (Auto) (0.0-0.2) X10*3/uL Abs Immat Gran (auto) (0.00-0.03) X10*3/uL Absolute Neuts (auto) (2.0-8.3) x10*3/uL Absolute Nucleated RBC (0.0-0.012) X10*3/uL Nucleated RBC % (auto) (0.0-0.2) /100WBC PT (10.9-12.4) SEC INR (0.9-1.1) Sodium (135-145) mmol/L Potassium (3.3-5.1) mmol/L Chloride (96-108) mmol/L Carbon Dioxide (22-29) mmol/L Anion Gap (12-20) BUN (9-16) mg/dL Creatinine (0.5-1.4) mg/dL Estim Creat Clear Calc Estimated GFR Random Glucose (60-115) mg/dL Calcium (8.4-10.2) mg/dL Total Bilirubin (0.0-1.0) mg/dL AST (5-31) U/L ALT (0-31) U/L Alkaline Phosphatase (39-117) U/L Troponin I High Sens (<3.5-17.0) ng/L B-Natriuretic Peptide (<100) pg/mL Total Protein (6.5-8.0) g/dL Albumin (3.5-5.0) g/dL Stool Occult Blood (NEGATIVE) Blood Type B Positive Antibody Screen NEGATIVE Crossmatch See Detail Independent Interpretation I performed an independent interpretation of an: EKG Interpretation: EKG reviewed interpreted by me like sinus rhythm with lateral ischemia Radiology Impression Discussion of test interpretation with radiology: I have reviewed the radiologist's reading. Independent Historian Clinical information obtained from an independent historian. History obtained from or confirmed by: EMS SON AND DAUGHTER Chronic Conditions Patient?s care impacted by: Other (cad /AAA) Critical Care Time Critical Care Time Critical Care Time: Yes Total Critical Care Time: 90 Attestation: blood transfusion,speaking with sap plant maintenance consultant GI/[employer] Judicial Law Clerk Discharge Plan Discharge Clinical Impression: Acute hypotension Anemia Qualifiers: Anemia type: unspecified type Qualified Code(s): D64.9 - Anemia, unspecified Patient Disposition: Admitted As Inpatient
[2024-04-18] MEDS: 0.9 % Sodium Chloride 1,000 ML 999 ML IVCONT (13:09)
[2024-04-18 13:19] LABS: MANUAL DIFF FLAG NO
[2024-04-18 13:28] LABS: Basophils Percent Auto 0.6 % (0-2); Eosinophils Absolute Auto 0.2 X10*3/uL (0.0-0.4); Eosinophils Percent Auto 2.4 % (0-4); Imm Gran Abs Auto 0.03 X10*3/uL (0.00-0.03); Imm Gran Pct Auto 0.5 % (0.0-0.4); Lymphocytes Absolute Auto 0.9 X10*3/uL (1.2-4.9); Lymphocytes Percent Auto 14.4 % (20-40); Mean Corpuscular HGB Conc 28.9 g/dl (31.0-35.0); Mean Corpuscular Hemoglobin 27.1 pg (27.0-33.0); Mean Corpuscular Volume 93.8 fL (80.0-98.0); Mean Platelet Volume 8.9 fL (9.4-12.3); Monocytes Absolute Auto 0.4 X10*3/uL (0.1-1.2); Monocytes Percent Auto 6.5 % (2-11); Neutrophils Absolute Auto 4.8 x10*3/uL (2.0-8.3); Neutrophils Percent Auto 75.6 % (45-73); Platelet Count 273 X10*3/uL (160-400); Red Blood Count 1.77 X10*6/uL (4.20-5.50); Red Cell Distribution Width 17.9 % (11.0-16.0); White Blood Count 6.3 X10*3/uL (4.8-10.8)
[2024-04-18] MEDS: 0.9 % Sodium Chloride 1,000 ML 999 ML IV (13:29)
[2024-04-18 13:34] LABS: Hematocrit 16.6 % (37.0-47.0); Hemoglobin 4.8 g/dl (12.0-16.0)
[2024-04-18 13:34] LABS: INTERNATIONAL NORM RATIO 1.5 (0.9-1.1); Prothrombin Time 17.6 SEC (10.9-12.4)
[2024-04-18 13:38] LABS: Alanine Aminotransferase 7 U/L (0-31); Albumin Level 3.7 g/dL (3.5-5.0); Alkaline Phosphatase 62 U/L (39-117); Anion Gap 20 (12-20); Aspartate Amino Transferase 24 U/L (5-31); Bilirubin Total 0.4 mg/dL (0.0-1.0); Blood Urea Nitrogen 75 mg/dL (9-16); Calcium 10.2 mg/dL (8.4-10.2); Carbon Dioxide 20 mmol/L (22-29); Chloride 105 mmol/L (96-108); Creatinine Clr Calc Pharmacy 19.5; Estimated Glomerular Filt Rate 29; Glucose Random 88 mg/dL (60-115); Potassium 3.8 mmol/L (3.3-5.1); Sodium 141 mmol/L (135-145); Total Protein 6.2 g/dL (6.5-8.0)
[2024-04-18 13:41] LABS: Troponin-I High Sensitivity 18.3 ng/L (<3.5-17.0)
[2024-04-18 13:47] LABS: OBS Int Ctl Valid YES; OBS1 POSITIVE (NEGATIVE)
--- NOTE | 2024-04-18 13:52 | PM.CNCAR ---
History of Present Illness History of Present Illness Date of Service: 04/18/24 Requesting physician: Calos Miller Chief complaint: SOB, anemia Narrative: [age] year female presenting with shortness of breath. She also has precordial T-wave inversions on the EKG. Denying any chest discomfort. She has known history of coronary disease with previous mid LAD PCI performed in 10/26/2023. She was on Eliquis 2.5 mg twice a day and Plavix at home. She also has abdominal aortic aneurysm and underwent endovascular repair with stent graft at [facility]. She is presenting with shortness of breath and significant hypotension. She is getting fluid resuscitated. Her blood workup has shown a hemoglobin of 4.8. She is denying any blood in his stool or urine. Blood is been cross-matched for her so she can get transfused. [facility] Past Medical History Medical History (Updated 04/18/24 @ 14:14 by Clement Harrington MD) Anemia PAF (paroxysmal atrial fibrillation) ROSELINE (acute kidney injury) New onset atrial fibrillation Cardiomyopathy Former smoker Chronic gout AAA (abdominal aortic aneurysm) Hypertension Type 2 diabetes mellitus Family History Family History Father Myocardial infarction Mother DM2 (diabetes mellitus, type 2) Surgical History Surgical History S/P cardiac catheterization H/O section Hx of cataract History of AAA (abdominal aortic aneurysm) repair Social History Social History Alcohol intake: never Comment: 1:1 sitter Patient Tobacco Use Status: Former Tobacco user Smoked in Last 30 Days: No Use of substances other than those prescribed or required for medical reasons: No service: No Meds Allergies Allergy/AdvReac Type Severity Reaction Status Date / Time No Known Allergies Allergy Verified 04/18/24 13:06 Active Medications: Current Medications Sodium Chloride (Ns) 1,000 mls @ 999 mls/hr IVCONT .Q1H1M NAYA Stop: 04/18/24 14:00 Last Admin: 04/18/24 13:09 Dose: 999 mls/hr Sodium Chloride (Ns) 1,000 mls @ 999 mls/hr IV .Q1H1M NAYA Stop: 04/18/24 14:30 Last Admin: 04/18/24 13:29 Dose: 999 mls/hr Home Medications ?Medication ?Instructions ?Recorded ?Confirmed ?Last Taken ?Type metformin 500 mg tablet 500 mg PO BID 10/31/22 02/23/24 Unknown History dapagliflozin propanediol 10 mg 10 mg PO DAILY 05/11/23 02/23/24 Unknown History tablet (Farxiga) allopurinol 100 mg tablet 100 mg PO BEDTIME 06/20/23 02/23/24 Unknown History atorvastatin 20 mg tablet 20 mg PO DAILY 06/20/23 02/23/24 Unknown History metoprolol succinate 100 mg 100 mg PO DAILY 06/20/23 02/23/24 Unknown History tablet,extended release 24 hr quetiapine 25 mg tablet 25 mg PO BEDTIME 06/20/23 02/23/24 Unknown History ferrous sulfate 325 mg (65 mg 325 mg PO Q OTHER DAY 07/22/23 02/23/24 Unknown History iron) tablet lisinopril 5 mg tablet 5 mg PO DAILY 07/22/23 02/23/24 Unknown History clopidogrel 75 mg tablet (Plavix) 75 mg PO DAILY 02/23/24 02/23/24 Unknown History Physical Exam Vital Signs: Vital Signs: Last Vital Signs Temp 97.5 F 04/18/24 13:04 Pulse 81 04/18/24 13:25 Resp 15 04/18/24 13:25 BP 73/49 L 04/18/24 13:32 Pulse Ox 100 04/18/24 13:25 O2 Del Method Room Air 04/18/24 13:25 BMI result Body Mass Index 21.4 GENERAL APPEARANCE: in no acute distress. NECK: no carotid bruit, no jugular venous distention. SKIN: no suspicious lesions, warm and dry. HEART: Systolic murmur aortic area and left parasternal border, regular rate and rhythm. LUNGS: clear to auscultation bilaterally. ABDOMEN: soft, nontender. EXTREMITIES: no edema. PERIPHERAL PULSES: equal. NEUROLOGIC: No gross deficits, AAO X 3 Objective Labs and Meds 04/18/24 13:15 04/18/24 13:15 Lab results: Laboratory Results - last 24 hr 04/18/24 04/18/24 04/18/24 13:15 13:22 13:39 WBC 6.3 RBC 1.77 L D Hgb 4.8 L* D Hct 16.6 L* D MCV 93.8 MCH 27.1 MCHC 28.9 L RDW 17.9 H Plt Count 273 MPV 8.9 L Immature Gran % (Auto) 0.5 H Neut % (Auto) 75.6 H Lymph % (Auto) 14.4 L [place] % (Auto) 6.5 Eos % (Auto) 2.4 Baso % (Auto) 0.6 Lymph # (Auto) 0.9 L [place] # (Auto) 0.4 Eos # (Auto) 0.2 Baso # (Auto) 0.0 Abs Immat Gran (auto) 0.03 Absolute Neuts (auto) 4.8 Absolute Nucleated RBC 0.000 Nucleated RBC % (auto) 0.0 PT 17.6 H INR 1.5 H Sodium 141 Potassium 3.8 Chloride 105 Carbon Dioxide 20 L Anion Gap 20 BUN 75 H Creatinine 1.68 H Estim Creat Clear Calc 19.5 Estimated GFR 29 Random Glucose 88 Calcium 10.2 D Total Bilirubin 0.4 AST 24 ALT 7 Alkaline Phosphatase 62 Troponin I High Sens 18.3 H D Total Protein 6.2 L Albumin 3.7 Stool Occult Blood POSITIVE Crossmatch 04/18/24 13:43 WBC RBC Hgb Hct MCV MCH MCHC RDW Plt Count MPV Immature Gran % (Auto) Neut % (Auto) Lymph % (Auto) [place] % (Auto) Eos % (Auto) Baso % (Auto) Lymph # (Auto) [place] # (Auto) Eos # (Auto) Baso # (Auto) Abs Immat Gran (auto) Absolute Neuts (auto) Absolute Nucleated RBC Nucleated RBC % (auto) PT INR Sodium Potassium Chloride Carbon Dioxide Anion Gap BUN Creatinine Estim Creat Clear Calc Estimated GFR Random Glucose Calcium Total Bilirubin AST ALT Alkaline Phosphatase Troponin I High Sens Total Protein Albumin Stool Occult Blood Crossmatch See Detail Imaging Radiologist's impression: Impressions Chest X-Ray 04/18/24 12:58 IMPRESSION: 1. Right perihilar masslike opacity, cannot exclude neoplasm. This had a similar appearance in May 2023. CT would be recommended. 2. Vascular congestion without overt interstitial edema. 3. COPD. Electronically signed by: Iván Muniz MD 04/18/2024 01:33 PM [facility] Assessment and Plan (1) Anemia: Status: Acute (2) Acute electrocardiogram changes: Status: Acute Plan Pleasant 83 year female with known history of coronary artery disease with previous LAD PCI as well as abdominal aortic aneurysm status post endovascular repair who is presenting with hypotension and anemia. Hemoglobin is 4.8. She has diffuse EKG changes which are likely due to anemia. Blood pressure is quite low and she is getting volume resuscitated and will be getting some blood. We should hold Eliquis and Plavix going forward. As she stabilizes then we may need to discuss whether she should get endoscopy. Abdomen is soft and nontender and I really doubt that there is an abdominal pathology right now. Transfusion and supportive care. We will follow along with you. Thank you for allowing me to participate in the care of your patient. Please feel free to contact me if you have any questions. Procedures Date of Service Date of Service: 04/18/24
[2024-04-18] MEDS: Pantoprazole Sodium 40 MG/10 ML VIAL 80 MG IVPUSH (14:07)
--- NOTE | 2024-04-18 14:13 | PC.NURSE ---
Pt SYDNEE from home, called her son due to feeling SOB and dizziness, was home alone. Son called for ambulance. EMS said when they arrived and got pt up she went pale and had near syncopal episode. Pt alert and oriented, breathing even and unlabored, skin pale and jaundiced. Denied pain, SOB, or CP. Reports she feels better. BP noted to severe hypotensive on arrival, MD aware. Pt has two IV lines, NS infusing. NSR on bedside monitor.
--- NOTE | 2024-04-18 14:20 | PC.NURSE ---
2 RNs started blood transfusion. This RN remained in the room, no transfusion-related reactions noted. This was an emergent release per MD HOWARD. Angela is aware of low BPs
--- NOTE | 2024-04-18 14:48 | PC.NURSE ---
First unit of blood transfused with no issues, pt feeling better and vital signs more stable. Second unit started by 2 RNs, this RN remaining in the room
[2024-04-18 14:58] LABS: B Type Natriuretic Peptide 323 pg/mL (<100)
--- NOTE | 2024-04-18 15:31 | PC.NURSE ---
Continuing to not have any signs of transfusion related reactions. Reports feeling better. Vital signs are stable at this time.
--- NOTE | 2024-04-18 15:46 | P.HPHOSP_ITS ---
History of Present Illness Date of Service: 04/18/24 Chief Complaint: lightheaded 83F PMH chf with recovered EF, CAD, pafib, AAA, DM, Lung ca (not being worked up), presented with light headedness. Patient has been feeling off for about 2 days, shortness of breath on exertion, wooziness. On day of presentation felt extremely lightheaded so came to the ED. In the ED lab significant for hemoglobin of 4.8 down from a baseline of about 10. And severe hypotension with systolic blood pressures in the 60s. This responded fairly quickly to 2 L of normal saline and 2 units of packed RBCs. Patient denies any gross bleed or black stools, denies NSAID use, she was on Eliquis for AFib. Review of Systems 2 Review of Systems: Yes all other systems are reviewed and are negative [facility] Medical History (Updated 04/18/24 @ 15:24 by Calos Miller MD) Anemia PAF (paroxysmal atrial fibrillation) ROSELINE (acute kidney injury) New onset atrial fibrillation Cardiomyopathy Former smoker Chronic gout AAA (abdominal aortic aneurysm) Hypertension Type 2 diabetes mellitus Family History Father Myocardial infarction Mother DM2 (diabetes mellitus, type 2) Surgical History S/P cardiac catheterization H/O section Hx of cataract History of AAA (abdominal aortic aneurysm) repair Social History Alcohol intake: never Comment: 1:1 sitter Patient Tobacco Use Status: Former Tobacco user Smoked in Last 30 Days: No Use of substances other than those prescribed or required for medical reasons: No Advance Directives: No Advance Directives Information Provided: Yes service: No Meds Allergies Allergy/AdvReac Type Severity Reaction Status Date / Time No Known Allergies Allergy Verified 04/18/24 13:06 Active Medications: Current Medications Glucose (Glucose Gel 15 Gm Gel..Gram.) 15 gm PO Q15M PRN; Protocol PRN Reason: per Hypoglycemia Standing Ord. Dextrose (D10) 250 mls @ 750 mls/hr IV Q15M PRN; Protocol PRN Reason: per Hypoglycemia Standing Ord. Insulin Human Lispro (Insulin Lispro 100 Unit/Ml 3 Ml Vial) 0 unit SUBCUT QIDACHS [facility]; Protocol Pantoprazole Sodium (Pantoprazole Sodium 40 Mg/10 Ml Vial) 40 mg IVPUSH BID@0630,1630 [facility] Home Medications ?Medication ?Instructions ?Recorded ?Confirmed ?Last Taken ?Type metformin 500 mg tablet 500 mg PO BID 10/31/22 02/23/24 Unknown History dapagliflozin propanediol 10 mg 10 mg PO DAILY 05/11/23 02/23/24 Unknown History tablet (Farxiga) allopurinol 100 mg tablet 100 mg PO BEDTIME 06/20/23 02/23/24 Unknown History atorvastatin 20 mg tablet 20 mg PO DAILY 06/20/23 02/23/24 Unknown History metoprolol succinate 100 mg 100 mg PO DAILY 06/20/23 02/23/24 Unknown History tablet,extended release 24 hr quetiapine 25 mg tablet 25 mg PO BEDTIME 06/20/23 02/23/24 Unknown History ferrous sulfate 325 mg (65 mg 325 mg PO Q OTHER DAY 07/22/23 02/23/24 Unknown History iron) tablet lisinopril 5 mg tablet 5 mg PO DAILY 07/22/23 02/23/24 Unknown History clopidogrel 75 mg tablet (Plavix) 75 mg PO DAILY 02/23/24 02/23/24 Unknown History Physical Exam 2 Vital Signs and Narrative: Vital Signs: Last Vital Signs Temp 96.8 F 04/18/24 15:00 Pulse 88 04/18/24 15:18 Resp 18 04/18/24 15:18 BP 128/58 L 04/18/24 15:18 Pulse Ox 98 04/18/24 15:18 O2 Del Method Nasal Cannula 04/18/24 14:46 BMI result Body Mass Index 21.4 General: AO X 3, no acute distress Resp: CTA bilateral, no accessory muscles used CVS: S1,S2,RRR GI: soft, non tender, non distended Neuro: motor grossly intact, alert Psych: appropriate affect, appropriate insight Results Labs 04/18/24 13:15 04/18/24 13:15 Labs: Laboratory Results - last 24 hr 04/18/24 04/18/24 04/18/24 13:15 13:22 13:39 MCV 93.8 MCH 27.1 MCHC 28.9 L RDW 17.9 H Plt Count 273 MPV 8.9 L Immature Gran % (Auto) 0.5 H Neut % (Auto) 75.6 H Lymph % (Auto) 14.4 L [place] % (Auto) 6.5 Eos % (Auto) 2.4 Baso % (Auto) 0.6 Lymph # (Auto) 0.9 L [place] # (Auto) 0.4 Eos # (Auto) 0.2 Baso # (Auto) 0.0 Abs Immat Gran (auto) 0.03 Absolute Neuts (auto) 4.8 Absolute Nucleated RBC 0.000 Nucleated RBC % (auto) 0.0 PT 17.6 H INR 1.5 H Anion Gap 20 Estim Creat Clear Calc 19.5 Estimated GFR 29 Random Glucose 88 Calcium 10.2 D Total Bilirubin 0.4 AST 24 ALT 7 Alkaline Phosphatase 62 Troponin I High Sens 18.3 H D B-Natriuretic Peptide 323 H Total Protein 6.2 L Albumin 3.7 Stool Occult Blood POSITIVE Blood Type Antibody Screen Crossmatch 04/18/24 13:43 MCV MCH MCHC RDW Plt Count MPV Immature Gran % (Auto) Neut % (Auto) Lymph % (Auto) [place] % (Auto) Eos % (Auto) Baso % (Auto) Lymph # (Auto) [place] # (Auto) Eos # (Auto) Baso # (Auto) Abs Immat Gran (auto) Absolute Neuts (auto) Absolute Nucleated RBC Nucleated RBC % (auto) PT INR Anion Gap Estim Creat Clear Calc Estimated GFR Random Glucose Calcium Total Bilirubin AST ALT Alkaline Phosphatase Troponin I High Sens B-Natriuretic Peptide Total Protein Albumin Stool Occult Blood Blood Type B Positive Antibody Screen NEGATIVE Crossmatch See Detail Imaging Radiologist's Impressions: Impressions Chest X-Ray 04/18/24 12:58 IMPRESSION: 1. Right perihilar masslike opacity, cannot exclude neoplasm. This had a similar appearance in May 2023. CT would be recommended. 2. Vascular congestion without overt interstitial edema. 3. COPD. Electronically signed by: Iván Muniz MD 04/18/2024 01:33 PM [facility] Assessment and Plan (1) Anemia: Status: Acute Plan 83F PMH chf with recovered EF, CAD, pafib, AAA, DM, Lung ca (not being worked up), presented with light headedness found to have anemia, hypotension Acute on chronic blood-loss anemia complicated by hypotension Hypotension not due to sepsis Blood pressure better, continue PPI, GI eval, hold Eliquis, hold Plavix, monitor CBC CHF with recovered EF Holding meds for hypotension Diabetes Insulin sliding scale Paroxysmal atrial fibrillation Hold Eliquis CAD Hold Plavix Lung CA Suspected Patient not interested in workup DVT prophylaxis-mechanical due to GI bleed Full code Patient with severe anemia therefore expected require at least 2 midnights inpatient Quality Stroke Does the patient have a stroke diagnosis?: No VTE Prior VTE?: No VTE Risk Level:: Medical - moderate - high VTE Device Contraindication: N/A - Device Ordered VTE Drug Contraindication: Treatment Not Tolerated
[2024-04-18 16:24] LABS: Iron 12 mcg/dL (30-160); Percent Iron Saturation 4 % (15-50); Total Iron Binding Capacity 311 mcg/dL (228-428); Unsaturated Iron Binding 299 ug/dL
[2024-04-18 16:39] LABS: Glucose, Whole Blood 79 mg/dL (60-115)
[2024-04-18 16:45] LABS: Ferritin 35 ng/mL (10-250)
--- NOTE | 2024-04-18 16:45 | PHA.MEDREC ---
Addendum entered by Deepti Jerome RPh 04/18/24 16:59: reviewed by [facility]. Original Note: Pharmacy Consult ? Medication Reconciliation Pharmacy has completed the medication reconciliation. Confirmed medications with patient and patient son Merrill over the phone. Patient son was able to confirm his moms medications and the patient was able to confirm how she was taking some medications. Patient son thought patient was taking Jardiance 10mg tabs and state his mom was switched from Farxiga 10mg too the Jardiance 10mg tabs. I spoke to the patient about that medications and she confirmed she is taking the Farxiga 10mg and not the Jardiance anymore and states her Dr switched those months ago . She confirmed her Ferrous Sulfate 325mg tab and she states she takes it Thursday, Wednesdays and Fridays. She confirmed she took her morning medications this morning but was not sure if she took her Ferrous Sulfate tablets today.
--- NOTE | 2024-04-18 16:46 | MHC.SHP ---
Pre-Procedural Eval Section A - 24 Hr Update-Section A only Date of Service: 04/18/24 The patient is an INPATIENT: Yes Changes since office visit: No Cold of Flu in the past 2 weeks, No New Medical Problems, No Changes in Medication and No Patient answered all questions The patient has been examined within 24 hours of the surgical procedure. The History & Physical has been completed within 30 days and I have reviewed it.: Yes Section B - Complete if H&P > 30 days Chief Complaint: Anemia Allergies: Allergies Allergy/AdvReac Type Severity Reaction Status Date / Time No Known Allergies Allergy Verified 04/18/24 13:06 Plan I have reviewed the history and physical and performed a pertinent physical examination on my patient. No changes have occurred unless specified. Time Spent With Patient Time: Total time managing care of this patient today ____ minutes.
[2024-04-18 20:49] LABS: Glucose, Whole Blood 98 mg/dL (60-115)
[2024-04-18] MEDS: Atorvastatin Calcium 20 MG TABLET PO (20:52)
[2024-04-18] MEDS: QUEtiapine Fumarate 25 MG TABLET PO (20:52)
[2024-04-18] MEDS: allopurinoL 100 MG TABLET PO (20:52)
--- NOTE | 2024-04-18 20:57 | PC.NURSE ---
poc was 98, no coverage need at this time.
--- NOTE | 2024-04-18 23:15 | PC.NURSE ---
per provider okay to draw blood in am.
[2024-04-19] VITALS (19 sets, daily range): BP systolic 66–152; BP diastolic 40–83; PULSE 80–156; RESP 14–28; TEMP 36.3–36.9; O2SAT 86–98; BMI 21.1
--- NOTE | 2024-04-19 | ECG_ITS ---
Test Reason : ROSC Blood Pressure : / mmHG Vent. Rate : 144 BPM Atrial Rate : 000 BPM P-R Int : 000 ms QRS Dur : 114 ms QT Int : 302 ms P-R-T Axes : 000 088 -79 degrees QTc Int : 467 ms Atrial fibrillation with rapid ventricular response with premature ventricular or aberrantly conducted complexes Low voltage QRS Incomplete right bundle branch block Septal infarct , age undetermined Marked ST abnormality, possible anterolateral subendocardial injury Abnormal ECG When compared with ECG of 18-APR-2024 13:11, Atrial fibrillation has replaced Sinus rhythm Vent. rate has increased BY 69 BPM Incomplete right bundle branch block is now Present Septal infarct is now Present Referred By: Yadiel Santo Electronically Signed By:Clement Harrington
--- NOTE | 2024-04-19 00:53 | PC.NURSE ---
reminded pt about need UA still needed, pt reports she been to that bathroom several time but miss ua collected before my shift.
[2024-04-19 02:48] LABS: Appearance Urine Clear; Color Urine Yellow; Glucose Urine UA 100 mg/dL (Negative); Leukocyte Esterase Urine Large (3+) (Negative); Nitrite Urine Positive (Negative); PH 5.5 (5.0-9.0); Specific Gravity - Urine 1.015 (1.005-1.025); UMIC TRIGGER UACC YES; Urine Blood Negative (Negative); Urine Ketones Negative (Negative); Urine Protein Negative (Neg-Trace)
[2024-04-19 02:57] LABS: Bacteria Urine 4+ (None Seen); Hyaline Casts Urine 0-2 /LPF (0-2); RBC Urine 0-2 /HPF (0-2); Squamous Epithelial Cell Urine 0-2 /HPF (0-2); UACC Culture Trigger YES; WBC Urine >50 /HPF (0-5)
[2024-04-19] MEDS: Pantoprazole Sodium 40 MG/10 ML VIAL IVPUSH ×2 (05:52→16:19)
[2024-04-19 07:43] LABS: Hematocrit 23.8 % (37.0-47.0); Hemoglobin 7.6 g/dl (12.0-16.0); Mean Corpuscular HGB Conc 31.9 g/dl (31.0-35.0); Mean Corpuscular Hemoglobin 28.7 pg (27.0-33.0); Mean Corpuscular Volume 89.8 fL (80.0-98.0); Mean Platelet Volume 9.3 fL (9.4-12.3); NRBC Pct Auto 0.3 /100WBC (0.0-0.2); Platelet Count 238 X10*3/uL (160-400); Red Blood Count 2.65 X10*6/uL (4.20-5.50); Red Cell Distribution Width 16.3 % (11.0-16.0); White Blood Count 6.2 X10*3/uL (4.8-10.8)
[2024-04-19 08:00] LABS: Alanine Aminotransferase 6 U/L (0-31); Albumin Level 3.6 g/dL (3.5-5.0); Alkaline Phosphatase 61 U/L (39-117); Anion Gap 14 (12-20); Aspartate Amino Transferase 28 U/L (5-31); Bilirubin Direct 0.4 mg/dL (0.0-0.5); Bilirubin Total 1.4 mg/dL (0.0-1.0); Blood Urea Nitrogen 56 mg/dL (9-16); Carbon Dioxide 19 mmol/L (22-29); Chloride 113 mmol/L (96-108); Creatinine Clr Calc Pharmacy 25.2; Estimated Glomerular Filt Rate 39; Glucose Fasting 108 mg/dL (60-99); Potassium 3.7 mmol/L (3.3-5.1); Sodium 142 mmol/L (135-145)
[2024-04-19 08:01] LABS: Glucose, Whole Blood 105 mg/dL (60-115)
[2024-04-19 08:21] LABS: Calcium 8.5 mg/dL (8.4-10.2)
--- NOTE | 2024-04-19 08:46 | CONS_ITS ---
DATE OF SERVICE: 04/18/2024 REFERRING PHYSICIAN: Dr. Miller REASON FOR CONSULTATION: Anemia and Hemoccult-positive stools. HISTORY OF PRESENT ILLNESS: The patient is a pleasant 83-year-old woman admitted to the hospital after presenting to the emergency room today with complaints of shortness of breath, lightheadedness, and near syncope. She was evaluated in the emergency department where laboratory studies showed a hemoglobin of 4.8, which was lower than hemoglobin of 10.1 in October of this year. Stools were noted to be occult blood positive. The patient denies any prior history of GI bleeding. She said her stools have been dark and formed. She does take iron. She denies use of NSAIDs and has no complaints of epigastric pain or chronic reflux. She has been given 2 units of packed red blood cells and currently feels comfortable. Blood pressure initially was low, which subsequently has improved. PAST MEDICAL HISTORY: 1. Atrial fibrillation. 2. Congestive heart failure with cardiomyopathy. 3. Abdominal aortic aneurysm, status post repair. 4. Hypertension. 5. Diabetes mellitus type 2. CURRENT MEDICATIONS: Her current medication list is reviewed in the chart. ALLERGIES: THERE ARE NONE REPORTED. FAMILY HISTORY: This is reviewed with the patient and is negative for GI malignancy. SOCIAL HISTORY: There is no current tobacco, alcohol, or substance abuse. REVIEW OF SYSTEMS: SKIN: No pruritus. HEENT: Negative. CARDIOPULMONARY: She denies shortness of breath or chest pain. GASTROINTESTINAL: As above. GENITOURINARY: Negative. NEUROPSYCHIATRIC: Negative. PHYSICAL EXAMINATION: GENERAL: Shows a pleasant female, in no acute distress. VITAL SIGNS: Stable. SKIN: Anicteric. HEENT: Shows no scleral icterus. NECK: Without lymphadenopathy or thyromegaly. LUNGS: Clear. HEART: Shows a regular rate and rhythm. S1, S2. No murmur. ABDOMEN: Soft without focal masses or tenderness. Bowel sounds are present. No organomegaly is noted. EXTREMITIES: Without edema. DIAGNOSTIC DATA: Laboratory data and CT imaging are reviewed. IMPRESSION: Anemia with Hemoccult-positive stools. This is an acute anemia, which has developed since earlier in the year. She has no signs of active gastrointestinal bleeding. We recommended further evaluation with upper endoscopy. The patient reports colonoscopy done within the past year at [facility] was negative and this will be reviewed. In the interim, I agree with transfusing her, monitoring her vital signs and hematocrit, and administration of a proton pump inhibitor. Thanks for asking me to see her. I will follow her in the hospital with you. MD ZAY Balbuena/[email or web address] / [id number]
[2024-04-19] MEDS: 0.9 % Sodium Chloride Flush 3 ML SYRINGE IVFLUSH ×2 (09:14→16:19)
--- NOTE | 2024-04-19 09:21 | HO.PM.IMPN ---
Subjective Subjective Date of Service: 04/19/24 Interval History: no bleeding, asymptomatic low bp Physical Exam Vital Signs: Vital Signs: Last Vital Signs Temp 97.6 F 04/19/24 07:32 Pulse 80 04/19/24 07:32 Resp 14 04/19/24 07:32 BP 82/60 L 04/19/24 07:32 Pulse Ox 95 04/19/24 07:32 O2 Del Method Room Air 04/19/24 07:32 BMI result Body Mass Index 21.1 General: AO X 3, no acute distress Resp: CTA bilateral, no accessory muscles used CVS: S1,S2,RRR GI: soft, non tender, non distended Neuro: motor grossly intact, alert Psych: appropriate affect, appropriate insight Objective Data Active Medications Acetaminophen (Acetaminophen 325 Mg Tablet) 650 mg PO Q6H PRN PRN Reason: Pain, Mild (Pain Scale 1-3), fever or headache Allopurinol (Allopurinol 100 Mg Tablet) 100 mg PO BEDTIME [facility] Last Admin: 04/18/24 20:52 Dose: 100 mg Documented By: MANNY Atorvastatin Calcium (Atorvastatin Calcium 20 Mg Tablet) 20 mg PO BEDTIME [facility] Last Admin: 04/18/24 20:52 Dose: 20 mg Documented By: MANNY Calcium Carbonate (Calcium Carbonate 750 Mg Tab.Chew) 750 mg PO Q4H PRN PRN Reason: Heartburn Glucose (Glucose Gel 15 Gm Gel..Gram.) 15 gm PO Q15M PRN; Protocol PRN Reason: per Hypoglycemia Standing Ord. Dextrose (D10) 250 mls @ 750 mls/hr IV Q15M PRN; Protocol PRN Reason: per Hypoglycemia Standing Ord. Insulin Human Lispro (Insulin Lispro 100 Unit/Ml 3 Ml Vial) 0 unit SUBCUT QIDACHS [facility]; Protocol Last Admin: 04/19/24 09:16 Dose: Not Given Documented By: ANASTACIO Non-Admin Reason: No Access Magnesium Hydroxide (Milk Of Magnesia 30 Ml Oral.Susp) 30 ml PO DAILY PRN PRN Reason: Constipation Melatonin (Melatonin 3 Mg Tablet) 6 mg PO BEDTIME PRN PRN Reason: Insomnia Pantoprazole Sodium (Pantoprazole Sodium 40 Mg/10 Ml Vial) 40 mg IVPUSH BID@0630,1630 [facility] Last Admin: 04/19/24 05:52 Dose: 40 mg Documented By: ARY Quetiapine Fumarate (Quetiapine Fumarate 25 Mg Tablet) 25 mg PO BEDTIME [facility] Last Admin: 04/18/24 20:52 Dose: 25 mg Documented By: MANNY Sodium Chloride (0.9 % Sodium Chloride Flush 3 Ml Syringe) 3 ml IVFLUSH QSHIFT [facility] Last Admin: 04/19/24 09:14 Dose: 3 ml Documented By: TERESAMAT Labs 04/19/24 06:42 04/19/24 06:42 Labs: Laboratory Results - last 24 hr 04/18/24 04/18/24 04/18/24 13:15 13:22 13:39 MCV 93.8 MCH 27.1 MCHC 28.9 L RDW 17.9 H Plt Count 273 MPV 8.9 L Immature Gran % (Auto) 0.5 H Neut % (Auto) 75.6 H Lymph % (Auto) 14.4 L [place] % (Auto) 6.5 Eos % (Auto) 2.4 Baso % (Auto) 0.6 Lymph # (Auto) 0.9 L [place] # (Auto) 0.4 Eos # (Auto) 0.2 Baso # (Auto) 0.0 Abs Immat Gran (auto) 0.03 Absolute Neuts (auto) 4.8 Absolute Nucleated RBC 0.000 Nucleated RBC % (auto) 0.0 Smear Path Review SEE NOTE PT 17.6 H INR 1.5 H Anion Gap 20 Estim Creat Clear Calc 19.5 Estimated GFR 29 POC Glucose Random Glucose 88 Fasting Glucose Calcium 10.2 D Magnesium Iron 12 L TIBC 311 % Saturation 4 L Unsat Iron Binding 299 Ferritin 35 Total Bilirubin 0.4 Direct Bilirubin AST 24 ALT 7 Alkaline Phosphatase 62 Troponin I High Sens 18.3 H D B-Natriuretic Peptide 323 H Total Protein 6.2 L Albumin 3.7 Urine Color Urine Appearance Urine pH Ur Specific [place] Urine Protein Urine Glucose (UA) Urine Ketones Urine Blood Urine Nitrite Ur Leukocyte Esterase Urine RBC Urine WBC Ur Squamous Epith Cells Urine Bacteria Hyaline Casts Stool Occult Blood POSITIVE Blood Type Antibody Screen Crossmatch 04/18/24 04/18/24 04/18/24 13:43 16:36 20:45 MCV MCH MCHC RDW Plt Count MPV Immature Gran % (Auto) Neut % (Auto) Lymph % (Auto) [place] % (Auto) Eos % (Auto) Baso % (Auto) Lymph # (Auto) [place] # (Auto) Eos # (Auto) Baso # (Auto) Abs Immat Gran (auto) Absolute Neuts (auto) Absolute Nucleated RBC Nucleated RBC % (auto) Smear Path Review PT INR Anion Gap Estim Creat Clear Calc Estimated GFR POC Glucose 79 98 Random Glucose Fasting Glucose Calcium Magnesium Iron TIBC % Saturation Unsat Iron Binding Ferritin Total Bilirubin Direct Bilirubin AST ALT Alkaline Phosphatase Troponin I High Sens B-Natriuretic Peptide Total Protein Albumin Urine Color Urine Appearance Urine pH Ur Specific [place] Urine Protein Urine Glucose (UA) Urine Ketones Urine Blood Urine Nitrite Ur Leukocyte Esterase Urine RBC Urine WBC Ur Squamous Epith Cells Urine Bacteria Hyaline Casts Stool Occult Blood Blood Type B Positive Antibody Screen NEGATIVE Crossmatch See Detail 04/19/24 04/19/24 04/19/24 02:23 06:42 07:33 MCV 89.8 MCH 28.7 MCHC 31.9 RDW 16.3 H Plt Count 238 MPV 9.3 L Immature Gran % (Auto) Neut % (Auto) Lymph % (Auto) [place] % (Auto) Eos % (Auto) Baso % (Auto) Lymph # (Auto) [place] # (Auto) Eos # (Auto) Baso # (Auto) Abs Immat Gran (auto) Absolute Neuts (auto) Absolute Nucleated RBC 0.020 H Nucleated RBC % (auto) 0.3 H Smear Path Review PT INR Anion Gap 14 Estim Creat Clear Calc 25.2 Estimated GFR 39 POC Glucose 105 Random Glucose Fasting Glucose 108 H Calcium 8.5 D Magnesium 2.0 Iron TIBC % Saturation Unsat Iron Binding Ferritin Total Bilirubin 1.4 H Direct Bilirubin 0.4 AST 28 ALT 6 Alkaline Phosphatase 61 Troponin I High Sens B-Natriuretic Peptide Total Protein 6.0 L Albumin 3.6 Urine Color Yellow Urine Appearance Clear Urine pH 5.5 Ur Specific [place] 1.015 Urine Protein Negative Urine Glucose (UA) 100 H Urine Ketones Negative Urine Blood Negative Urine Nitrite Positive H Ur Leukocyte Esterase Large (3+) H Urine RBC 0-2 Urine WBC >50 H Ur Squamous Epith Cells 0-2 Urine Bacteria 4+ Hyaline Casts 0-2 Stool Occult Blood Blood Type Antibody Screen Crossmatch Assessment and Plan (1) Cardiomyopathy: Status: Acute Plan 83F PMH chf with recovered EF, CAD, pafib, AAA, DM, Lung ca (not being worked up), presented with light headedness found to have anemia, hypotension Acute on chronic blood-loss anemia complicated by hypotension Hypotension not due to sepsis Blood pressure initially better - will give another 500ccNS s/p 2 units prbc, hgb improved appropriately 4.8 to 7.6, labs c/w iron deficiency continue PPI, GI appreciated plan for EGD today hold Eliquis, hold Plavix, monitor CBC CHF with recovered EF Holding lisinopril and toprol for hypotension Diabetes Insulin sliding scale Paroxysmal atrial fibrillation Holding Eliquis for bleed holding toprol for hypotension CAD Hold Plavix Lung CA Suspected Patient not interested in workup DVT prophylaxis-mechanical due to GI bleed Full code reason for continued hospitalization:egd today, monitoring for recurrent bleed, iv ppi Quality Stroke Does the patient have a stroke diagnosis?: No VTE Prior VTE?: No VTE Risk Level:: Medical - moderate - high VTE Device Contraindication: N/A - Device Ordered VTE Drug Contraindication: Treatment Not Tolerated
--- NOTE | 2024-04-19 09:31 | MHC.CM.PN ---
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 GOAL IS HOME SELF CARE. PCP VERIFIED KYLIE BISHOP, HCP ON FILE VERIFIED.
[2024-04-19] MEDS: 0.9 % Sodium Chloride 500 ML 999 ML IV (10:57)
[2024-04-19 11:32] LABS: Glucose, Whole Blood 106 mg/dL (60-115)
[2024-04-19] MEDS: Lactated Ringers 1,000 ML 50 ML IVCONT (13:22)
--- NOTE | 2024-04-19 13:28 | P.CONAN_ITS ---
[facility] Active Problems Active Problems: All Active Problems Acute hypotension (Acute) Acute electrocardiogram changes (Acute) Anemia (Acute) Lung cancer (Acute) S/P cardiac catheterization (Acute) AAA (abdominal aortic aneurysm) (Acute) PAF (paroxysmal atrial fibrillation) (Acute) Atherosclerotic cardiovascular disease (Acute) ROSELINE (acute kidney injury) (Acute) New onset atrial fibrillation (Acute) Cardiomyopathy (Acute) NSTEMI (non-ST elevated myocardial infarction) (Acute) Acute systolic (congestive) heart failure (Acute) Acute blood loss anemia (Acute) Congestive heart failure (Acute) Elevated troponin (Acute) Anemia (Acute) Pneumonia (Acute) Cellulitis of right leg (Acute) Carotid stenosis, asymptomatic (Acute) AAA (abdominal aortic aneurysm) without rupture (Acute) Past Medical History Medical History Anemia PAF (paroxysmal atrial fibrillation) ROSELINE (acute kidney injury) New onset atrial fibrillation Cardiomyopathy Former smoker Chronic gout AAA (abdominal aortic aneurysm) Hypertension Type 2 diabetes mellitus Functional capacity: independent ambulation Patient : No Family History Family History Father Myocardial infarction Mother DM2 (diabetes mellitus, type 2) Family history of problems with anesthesia: No Surgical History Surgical History S/P cardiac catheterization H/O section Hx of cataract History of AAA (abdominal aortic aneurysm) repair History of Problems with Anesthesia: No Social History Social History Household Members: Children Housing: House Do you presently have visiting nurse or other home services: No (none reently) Alcohol intake: never Comment: 1:1 sitter Patient Tobacco Use Status: Former Tobacco user Tobacco use type: Cigarette service: No Meds Allergies Allergy/AdvReac Type Severity Reaction Status Date / Time No Known Allergies Allergy Verified 04/18/24 13:06 Active Medications: Current Medications Acetaminophen (Acetaminophen 325 Mg Tablet) 650 mg PO Q6H PRN PRN Reason: Pain, Mild (Pain Scale 1-3), fever or headache Allopurinol (Allopurinol 100 Mg Tablet) 100 mg PO BEDTIME [facility] Last Admin: 04/18/24 20:52 Dose: 100 mg Atorvastatin Calcium (Atorvastatin Calcium 20 Mg Tablet) 20 mg PO BEDTIME [facility] Last Admin: 04/18/24 20:52 Dose: 20 mg Calcium Carbonate (Calcium Carbonate 750 Mg Tab.Chew) 750 mg PO Q4H PRN PRN Reason: Heartburn Glucose (Glucose Gel 15 Gm Gel..Gram.) 15 gm PO Q15M PRN; Protocol PRN Reason: per Hypoglycemia Standing Ord. Dextrose (D10) 250 mls @ 750 mls/hr IV Q15M PRN; Protocol PRN Reason: per Hypoglycemia Standing Ord. Lactated Ringer's (Lr) 1,000 mls @ 50 mls/hr IVCONT .Q20H [facility] Last Admin: 04/19/24 13:22 Dose: 50 mls/hr Insulin Human Lispro (Insulin Lispro 100 Unit/Ml 3 Ml Vial) 0 unit SUBCUT QIDACHS [facility]; Protocol Last Admin: 04/19/24 09:16 Dose: Not Given Magnesium Hydroxide (Milk Of Magnesia 30 Ml Oral.Susp) 30 ml PO DAILY PRN PRN Reason: Constipation Melatonin (Melatonin 3 Mg Tablet) 6 mg PO BEDTIME PRN PRN Reason: Insomnia Pantoprazole Sodium (Pantoprazole Sodium 40 Mg/10 Ml Vial) 40 mg IVPUSH BID@0630,1630 [facility] Last Admin: 04/19/24 05:52 Dose: 40 mg Quetiapine Fumarate (Quetiapine Fumarate 25 Mg Tablet) 25 mg PO BEDTIME [facility] Last Admin: 04/18/24 20:52 Dose: 25 mg Sodium Chloride (0.9 % Sodium Chloride Flush 3 Ml Syringe) [facility] Last Admin: 04/19/24 09:14 Dose: 3 ml Home Medications ?Medication ?Instructions ?Recorded ?Confirmed ?Last Taken ?Type metformin 500 mg tablet 500 mg PO BID 10/31/22 04/18/24 04/18/24 History dapagliflozin propanediol 10 mg 10 mg PO DAILY 05/11/23 04/18/24 04/18/24 History tablet (Farxiga) allopurinol 100 mg tablet 100 mg PO BEDTIME 06/20/23 04/18/24 04/18/24 History atorvastatin 20 mg tablet 20 mg PO BEDTIME 06/20/23 04/18/24 04/18/24 History metoprolol succinate 100 mg 100 mg PO DAILY 06/20/23 04/18/24 04/18/24 History tablet,extended release 24 hr quetiapine 25 mg tablet 25 mg PO BEDTIME 06/20/23 04/18/24 04/17/24 History ferrous sulfate 325 mg (65 mg 325 mg PO MOWEFR 07/22/23 04/18/24 Unknown History iron) tablet lisinopril 5 mg tablet 5 mg PO DAILY 07/22/23 04/18/24 04/18/24 History clopidogrel 75 mg tablet (Plavix) 75 mg PO DAILY 02/23/24 04/18/24 04/18/24 History calcium carbonate 600 mg-vitamin 1 tab PO DAILY 04/18/24 04/18/24 04/18/24 History D3 20 mcg (800 unit) tablet Exam Height,Weight and Vital Signs: Height 5 ft 1 in Weight 50.7 kg Last Vital Signs Temp 97.6 F 04/19/24 12:51 Pulse 90 04/19/24 12:51 Resp 14 04/19/24 12:51 BP 102/72 04/19/24 12:51 Pulse Ox 96 04/19/24 12:51 O2 Del Method Room Air 04/19/24 12:51 Pertinent Lab Results Pertinent Lab Results: Laboratory Tests 04/18/24 04/18/24 04/18/24 13:15 13:22 13:39 WBC 6.3 RBC 1.77 L D Hgb 4.8 L* D Hct 16.6 L* D MCV 93.8 MCH 27.1 MCHC 28.9 L RDW 17.9 H Plt Count 273 MPV 8.9 L Immature Gran % (Auto) 0.5 H Neut % (Auto) 75.6 H Lymph % (Auto) 14.4 L [place] % (Auto) 6.5 Eos % (Auto) 2.4 Baso % (Auto) 0.6 Lymph # (Auto) 0.9 L [place] # (Auto) 0.4 Eos # (Auto) 0.2 Baso # (Auto) 0.0 Abs Immat Gran (auto) 0.03 Absolute Neuts (auto) 4.8 Absolute Nucleated RBC 0.000 Nucleated RBC % (auto) 0.0 Smear Path Review SEE NOTE PT 17.6 H INR 1.5 H Sodium 141 Potassium 3.8 Chloride 105 Carbon Dioxide 20 L Anion Gap 20 BUN 75 H Creatinine 1.68 H Estim Creat Clear Calc 19.5 Estimated GFR 29 POC Glucose Random Glucose 88 Fasting Glucose Calcium 10.2 D Magnesium Iron 12 L TIBC 311 % Saturation 4 L Unsat Iron Binding 299 Ferritin 35 Total Bilirubin 0.4 Direct Bilirubin AST 24 ALT 7 Alkaline Phosphatase 62 Troponin I High Sens 18.3 H D B-Natriuretic Peptide 323 H Total Protein 6.2 L Albumin 3.7 Urine Color Urine Appearance Urine pH Ur Specific [place] Urine Protein Urine Glucose (UA) Urine Ketones Urine Blood Urine Nitrite Ur Leukocyte Esterase Urine RBC Urine WBC Ur Squamous Epith Cells Urine Bacteria Hyaline Casts Stool Occult Blood POSITIVE Blood Type Antibody Screen Crossmatch 04/18/24 04/18/24 04/18/24 13:43 16:36 20:45 WBC RBC Hgb Hct MCV MCH MCHC RDW Plt Count MPV Immature Gran % (Auto) Neut % (Auto) Lymph % (Auto) [place] % (Auto) Eos % (Auto) Baso % (Auto) Lymph # (Auto) [place] # (Auto) Eos # (Auto) Baso # (Auto) Abs Immat Gran (auto) Absolute Neuts (auto) Absolute Nucleated RBC Nucleated RBC % (auto) Smear Path Review PT INR Sodium Potassium Chloride Carbon Dioxide Anion Gap BUN Creatinine Estim Creat Clear Calc Estimated GFR POC Glucose 79 98 Random Glucose Fasting Glucose Calcium Magnesium Iron TIBC % Saturation Unsat Iron Binding Ferritin Total Bilirubin Direct Bilirubin AST ALT Alkaline Phosphatase Troponin I High Sens B-Natriuretic Peptide Total Protein Albumin Urine Color Urine Appearance Urine pH Ur Specific [place] Urine Protein Urine Glucose (UA) Urine Ketones Urine Blood Urine Nitrite Ur Leukocyte Esterase Urine RBC Urine WBC Ur Squamous Epith Cells Urine Bacteria Hyaline Casts Stool Occult Blood Blood Type B Positive Antibody Screen NEGATIVE Crossmatch See Detail 04/19/24 04/19/24 04/19/24 02:23 06:42 07:33 WBC 6.2 RBC 2.65 L D Hgb 7.6 L D Hct 23.8 L D MCV 89.8 MCH 28.7 MCHC 31.9 RDW 16.3 H Plt Count 238 MPV 9.3 L Immature Gran % (Auto) Neut % (Auto) Lymph % (Auto) [place] % (Auto) Eos % (Auto) Baso % (Auto) Lymph # (Auto) [place] # (Auto) Eos # (Auto) Baso # (Auto) Abs Immat Gran (auto) Absolute Neuts (auto) Absolute Nucleated RBC 0.020 H Nucleated RBC % (auto) 0.3 H Smear Path Review PT INR Sodium 142 Potassium 3.7 Chloride 113 H Carbon Dioxide 19 L Anion Gap 14 BUN 56 H Creatinine 1.30 Estim Creat Clear Calc 25.2 Estimated GFR 39 POC Glucose 105 Random Glucose Fasting Glucose 108 H Calcium 8.5 D Magnesium 2.0 Iron TIBC % Saturation Unsat Iron Binding Ferritin Total Bilirubin 1.4 H Direct Bilirubin 0.4 AST 28 ALT 6 Alkaline Phosphatase 61 Troponin I High Sens B-Natriuretic Peptide Total Protein 6.0 L Albumin 3.6 Urine Color Yellow Urine Appearance Clear Urine pH 5.5 Ur Specific [place] 1.015 Urine Protein Negative Urine Glucose (UA) 100 H Urine Ketones Negative Urine Blood Negative Urine Nitrite Positive H Ur Leukocyte Esterase Large (3+) H Urine RBC 0-2 Urine WBC >50 H Ur Squamous Epith Cells 0-2 Urine Bacteria 4+ Hyaline Casts 0-2 Stool Occult Blood Blood Type Antibody Screen Crossmatch 04/19/24 11:27 WBC RBC Hgb Hct MCV MCH MCHC RDW Plt Count MPV Immature Gran % (Auto) Neut % (Auto) Lymph % (Auto) [place] % (Auto) Eos % (Auto) Baso % (Auto) Lymph # (Auto) [place] # (Auto) Eos # (Auto) Baso # (Auto) Abs Immat Gran (auto) Absolute Neuts (auto) Absolute Nucleated RBC Nucleated RBC % (auto) Smear Path Review PT INR Sodium Potassium Chloride Carbon Dioxide Anion Gap BUN Creatinine Estim Creat Clear Calc Estimated GFR POC Glucose 106 Random Glucose Fasting Glucose Calcium Magnesium Iron TIBC % Saturation Unsat Iron Binding Ferritin Total Bilirubin Direct Bilirubin AST ALT Alkaline Phosphatase Troponin I High Sens B-Natriuretic Peptide Total Protein Albumin Urine Color Urine Appearance Urine pH Ur Specific [place] Urine Protein Urine Glucose (UA) Urine Ketones Urine Blood Urine Nitrite Ur Leukocyte Esterase Urine RBC Urine WBC Ur Squamous Epith Cells Urine Bacteria Hyaline Casts Stool Occult Blood Blood Type Antibody Screen Crossmatch Airway Mallampati Class: II TM Dist: >3cm Neck ROM: Full Heart: RRR Lungs: CTA Assessment and Plan Assessment Anesthesia Assessment: Anesthesia Plan Discussed and Chart Reviewed Final Anesthetic Review Family History of Problems with Anesthesia: No History of Problems with Anesthesia: No NPO: Yes ASA Class: IV and Emergency Final Preanesthetic Review: Meds/Allgs Chart Reviewed, Consent Obtained/Reviewed and Anes Risks/Benef Reviewed Patient Risk: High Procedure Risk: Low Anesthetic Plan Anesthetic Plan: MAC: Disposition: Standard PACU
--- NOTE | 2024-04-19 13:56 | P.BOP_ITS ---
Brief Operative Note Date of Service: 04/19/24 Pre-op diagnosis: anemia heme positive stools Post-op diagnosis: same Procedure: EGD Surgeon: Ramy Geiger MD Anesthesia: MAC Was an Scale Reclamation Tender used for this Procedure?: No Estimated blood loss (mL): 0 Pathology: none sent Condition: stable Disposition: PACU
--- NOTE | 2024-04-19 13:57 | PM.EVENT ---
Event Note Date of Service: 04/20/24 Event Note: EGD dictated no bleeding small hiatal hernia rec: continue ppi follow hct colonoscopyy done at [facility] in May 2023, neg for malignancy, repeat not needed at this time. Can f/u at [facility] where she is established. Time Spent With Patient Time: Total time managing care of this patient today ____ minutes.
--- NOTE | 2024-04-19 14:07 | HO.POSTANES ---
Post Anesthesia Evaluation Post Anesthesia Evaluation Date of Service: 04/19/24 Vital Signs: Vital Signs Temp Pulse Resp BP Pulse Ox O2 Del Method 04/19/24 13:59 97.6 F 94 16 85/63 L 96 Room Air 04/19/24 12:51 97.6 F 90 14 102/72 96 Room Air 04/19/24 12:00 98.5 F 93 18 90/70 96 Room Air 04/19/24 07:32 97.6 F 80 14 82/60 L 95 Room Air 04/19/24 04:00 97.9 F 83 20 148/74 H 98 Room Air Anesthesia: Monitored Mental Status: Awake Pain Control: Satisfactory Nausea/Vomiting: None Hydration: Adequate Anesthesia-Related Issues: No Anes. Related Issues
[2024-04-19 16:29] LABS: Glucose, Whole Blood 107 mg/dL (60-115)
[2024-04-19] MEDS: Lactated Ringers 1,000 ML 999 ML IV (19:30)
[2024-04-19 19:54] LABS: MANUAL DIFF FLAG NO
[2024-04-19 19:57] LABS: Basophils Absolute Auto 0.1 X10*3/uL (0.0-0.2); Basophils Percent Auto 0.6 % (0-2); Eosinophils Absolute Auto 0.1 X10*3/uL (0.0-0.4); Eosinophils Percent Auto 0.7 % (0-4); Hemoglobin 8.9 g/dl (12.0-16.0); Imm Gran Abs Auto 0.12 X10*3/uL (0.00-0.03); Imm Gran Pct Auto 0.6 % (0.0-0.4); Lymphocytes Absolute Auto 2.7 X10*3/uL (1.2-4.9); Lymphocytes Percent Auto 12.7 % (20-40); Mean Corpuscular HGB Conc 30.7 g/dl (31.0-35.0); Mean Corpuscular Hemoglobin 28.6 pg (27.0-33.0); Mean Corpuscular Volume 93.2 fL (80.0-98.0); Mean Platelet Volume 9.3 fL (9.4-12.3); Monocytes Absolute Auto 0.8 X10*3/uL (0.1-1.2); Monocytes Percent Auto 3.6 % (2-11); NRBC Pct Auto 0.4 /100WBC (0.0-0.2); Neutrophils Absolute Auto 17.1 x10*3/uL (2.0-8.3); Neutrophils Percent Auto 81.8 % (45-73); Platelet Count 417 X10*3/uL (160-400); Red Blood Count 3.11 X10*6/uL (4.20-5.50); White Blood Count 20.9 X10*3/uL (4.8-10.8)
[2024-04-19 19:57] LABS: VBG Base Excess -12.2 mmol/L; VBG HCO3 13 mmol/L (22-26); VBG pCO2 30 mmHg; VBG pH 7.25 (7.32-7.43); VBG pO2 62 mmHg
[2024-04-19 20:06] LABS: Venous Blood Gas Refer to POC result
[2024-04-19 20:15] LABS: Alanine Aminotransferase 10 U/L (0-31); Albumin Level 3.8 g/dL (3.5-5.0); Alkaline Phosphatase 76 U/L (39-117); Anion Gap 15 (12-20); Aspartate Amino Transferase 29 U/L (5-31); Bilirubin Total 1.5 mg/dL (0.0-1.0); Blood Urea Nitrogen 44 mg/dL (9-16); Calcium 8.2 mg/dL (8.4-10.2); Carbon Dioxide 16 mmol/L (22-29); Chloride 115 mmol/L (96-108); Creatinine Clr Calc Pharmacy 27.7; Estimated Glomerular Filt Rate 44; Glucose Random 271 mg/dL (60-115); Potassium 3.8 mmol/L (3.3-5.1); Sodium 142 mmol/L (135-145); Total Protein 6.5 g/dL (6.5-8.0)
[2024-04-19 20:25] LABS: B Type Natriuretic Peptide 1271 pg/mL (<100)
--- NOTE | 2024-04-19 20:35 | PM.EVENT ---
Event Note Date of Service: 04/19/24 Event Note: Nurse reported hypotension, tachycardia, tachypnea. Obtained labs with elevated WBC, metabolic acidosis, elevated lactic acid, elevated troponin. Reviewed previous UA with UTI. Patient with severe sepsis due to acute UTI. Ordered crystalloid bolus, empiric IV abx, blood culture, bicarb fluids. Closely monitor. Elevated troponin, likely type 2 in the setting of increased demand. Anticoagulation contraindicated in the setting of GI bleed. Obtaining EKG Time Spent With Patient Time: Total time managing care of this patient today ____ minutes.
[2024-04-19 21:06] LABS: Glucose, Whole Blood 236 mg/dL (60-115)
--- NOTE | 2024-04-19 21:18 | PM.EVENT ---
Event Note Date of Service: 04/19/24 Event Note: Pamela cruz was called overhead at 20:42. As per the nurse, patient was in asystole on property assessment monitor. Resuscitation began as per ACLS protocol (refer to code sheet for details). Patient was given multiple amps of epinephrine, bicarb and calcium throughout resuscitation. POC 236. She was intubated by ER provider, Dr. Armenta. Concern for aspiration as per ER provider. ROSC eventually achieved, discussed with ICU provider and patient to be transferred to intensive care unit. Spoke to Morgan, patient's son and updated about patient's condition. Answered questions. Time Spent With Patient Time: Total time managing care of this patient today ____ minutes.
[2024-04-19] MEDS: propofoL 1,000 MG/100 ML VIAL 3.04 MG IVCONT (21:23)
[2024-04-19 21:49] LABS: Reflex Lactate? Lactic Acid Added
[2024-04-19] MEDS: Norepinephrine Bitartrate/D5W 8 MG/250 ML PLAST..BAG 47.53 MG IVCONT (21:51)
[2024-04-19 22:10] LABS: Hematocrit 25.7 % (37.0-47.0); Hemoglobin 7.9 g/dl (12.0-16.0); Mean Corpuscular HGB Conc 30.7 g/dl (31.0-35.0); Mean Corpuscular Hemoglobin 29.7 pg (27.0-33.0); Mean Corpuscular Volume 96.6 fL (80.0-98.0); Mean Platelet Volume 8.9 fL (9.4-12.3); NRBC Pct Auto 3.4 /100WBC (0.0-0.2); Platelet Count 289 X10*3/uL (160-400); Red Blood Count 2.66 X10*6/uL (4.20-5.50); Red Cell Distribution Width 17.2 % (11.0-16.0); White Blood Count 20.6 X10*3/uL (4.8-10.8)
[2024-04-19 22:11] LABS: VBG Base Excess -14.6 mmol/L; VBG HCO3 15 mmol/L (22-26); VBG pCO2 53 mmHg; VBG pH 7.05 (7.32-7.43); VBG pO2 77 mmHg
[2024-04-19 22:24] LABS: Venous Blood Gas Refer to POC result
--- NOTE | 2024-04-19 22:26 | PM.CCN ---
Critical Care Event Note Summary Date of Service: 04/19/24 Code activated: Yes Narrative: This case had a high probability of a clinically significant, sudden, or life threatening deterioration of this patient's condition which required my full and direct attention, intervention and personal management. Critical Care Time (minutes): 30 Comment: The patient is a 83-year-old female with a past medical history congestive heart failure, coronary artery disease, paroxysmal atrial fibrillation, AAA, diabetes mellitus, lung cancer ( not being worked up)? who presented to the emergency department on 04/18/2024 with lightheadedness,? hemoglobin noted to be 4.8.? She was admitted to Hospital Medicine for acute on chronic blood loss anemia,? iron-deficiency anemia, and hypotension.? Eliquis was held.?? She received 2 units of blood,? EGD was performed today,? with no active bleed in the small hiatal hernia noted.? GI recommended continue PPI and follow hematocrit.? Today around 19:00,? floor nurse reported? hypotension, tachycardia, and tachypnea lab work,? she had? slight metabolic acidosis,? VBG was 7.25///,? noted to have a UTI,? lactic was 5, trop elevated to 594 and was given 1 L bolus by hospitalist and started on ceftriaxone.? ?At approximately 20:42,? alex cruz was called overhead,? PEA cardiac arrest,? she received approximately 8 amps of epi, 2 bicarb and 1 g Calcium chloride.? ROSC was achieved eventually.?? ?On arrival to the ICU,? patient requiring emergent? TLC,? do to multiple peripheral IV lines infiltrating.? Labs obtained.? ?Family arrived to ICU,? and requested? for patient to? be transitioned to comfort measures only,? I personally spoke with Son Morgan (HCP), daughter Alise and son in law Orlando,? I informed them labs were pending,? 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 as ? She did not want to suffer any more?.? ? Comfort measures ordered per family request. Patient terminally extubated. At 2324 patient asystole on monitor. On my assessment, the patient had absent peripheral pulses.? Pupils fixed and dilated.? Absent heart sounds? and no spontaneous breathing.? TOD 2324.? Family at bedside at TOD. Not a medical exam candidate.? Organ donation was notified by nursing.? Attending Dr Leonard notified?
[2024-04-19 22:28] LABS: Alanine Aminotransferase 63 U/L (0-31); Albumin Level 2.9 g/dL (3.5-5.0); Alkaline Phosphatase 88 U/L (39-117); Anion Gap 24 (12-20); Aspartate Amino Transferase 109 U/L (5-31); Bilirubin Total 1.1 mg/dL (0.0-1.0); Blood Urea Nitrogen 44 mg/dL (9-16); Calcium 9.5 mg/dL (8.4-10.2); Carbon Dioxide 15 mmol/L (22-29); Chloride 114 mmol/L (96-108); Creatinine Clr Calc Pharmacy 20.8; Estimated Glomerular Filt Rate 32; Glucose Random 245 mg/dL (60-115); Magnesium 2.3 mg/dL (1.6-2.6); Phosphorus 8.6 mg/dL (2.7-4.5); Potassium 3.5 mmol/L (3.3-5.1); Sodium 149 mmol/L (135-145)
[2024-04-19] MEDS: fentaNYL citrate/NS 1,000 MCG/100 ML PLAST..BAG 2.5 MCG IVCONT (22:30)
[2024-04-19 22:32] LABS: B Type Natriuretic Peptide 1320 pg/mL (<100)
--- NOTE | 2024-04-19 22:46 | HO.HCP ---
Health Care Proxy Invocation Health Care Proxy Health Care Proxy Invocation Form: Patient is post code, intubated. Declaration: I, , on the date cited below, have determined that, , lacks the capacity to make or communicate, informed health care decision. This determination is made in accordance with accepted standards of medical judgment and pursuant to [place] 201[place], the [facility] Care Proxy Law. The cause, nature, extent and probable duration of the patient's inapacity are described below: Cause: pos cardiac arrest Nature: Extent: Probable Duration of Patient's Incapacity:
[2024-04-19 23:03] LABS: Lactic Acid 13.1 mmol/L (0.5-2.0)
[2024-04-19 23:22] LABS: Lymphocytes Absolute Manual 2.9 X10*3/uL (1.2-4.9); Lymphocytes Percent Manual 14 % (20-40); Monocytes Absolute Manual 1.2 X10*3/uL (0.1-1.2); Monocytes Percent Manual 6 % (2-11); Neutrophils Percent Manual 80 % (45-73); Nucleated Red Blood Cells 9 /100WBC (0-0); Ovalocytes 1+ (5-14) /OIF
[2024-04-19 23:23] LABS: Platelet Estimate NORMAL (NORMAL); Platelet Morphology Comment NORMAL; RBC Morphology NOTED
--- NOTE | 2024-04-19 23:34 | W.PM.CCHP ---
Procedures Date of Service Date of Service: 04/19/24 Central Line Placement Right IJ: Central Line Comments: Patient with no peripheral access, requiring emergent central line for pressors. Right internal jugular triple lumen central venous catheter placed in usual sterile conditions under ultrasound guidance for approprite vascular access without immediate complications. Central line position verified with Chest XRAY. Consent for Procedure: Emergent-no informed consent obtained Time out performed: Yes Sterile Technique Used: Yes Patient placed on monitor/pulse ox: Yes MD prep: mask, gown and gloves Central line prep: Chlorhexidine scrub Local anesthesia used: other anesthetic (on prop for vent) Ultrasound used for placement: Yes Central line lumen inserted: triple Post procedure: sutured in place, good blood return, all ports aspirated, flushed, capped and sterile dressing applied Post procedure x-ray: tip of catheter in good position Patient tolerated procedure: well and no complications Complications: none
--- NOTE | 2024-04-19 23:36 | PM.DDS ---
Discharge Sum: Prov Provider Primary care physician: Jewell Ng NP Admitting clinician: Carlos Joel Attending physician on admission: Carlos Joel Consults: 04/18/24 13:55 Consult to Gastroenterology Stat Consulting Provider: Clinton Gibbs Reason for consultation: GI bleeding Pronouncing clinician: Geoff Banuelos Discharge Sum: Diag PCOD Cause of : Cardiac arrest Contributing Factors (1) Cardiomyopathy: (2) Pulmonary edema: (3) Aspiration into airway: (4) Lung cancer: (5) Acute hypotension: (6) Anemia: (7) PAF (paroxysmal atrial fibrillation): (8) Acute systolic (congestive) heart failure: (9) Acute blood loss anemia: Discharge Sum: Summary Date and Time Date of admission: 04/18/24 15:51 Date of : 04/19/24 Time of : 23:24 Summary Details: The patient is a 83-year-old female with a past medical history congestive heart failure, coronary artery disease, paroxysmal atrial fibrillation, AAA, diabetes mellitus, lung cancer ( not being worked up)? who presented to the emergency department on 04/18/2024 with lightheadedness,? hemoglobin noted to be 4.8.? She was admitted to Hospital Medicine for acute on chronic blood loss anemia,? iron-deficiency anemia, and hypotension.? Eliquis was held.?? She received 2 units of blood,? EGD was performed today,? with no active bleed in the small hiatal hernia noted.? GI recommended continue PPI and follow hematocrit.? Today around 19:00,? floor nurse reported? hypotension, tachycardia, and tachypnea lab work,? she had? slight metabolic acidosis,? VBG was 7.25/30/62/13,? noted to have a UTI,? lactic was 5, trop elevated to 594 and was given 1 L bolus by hospitalist and started on ceftriaxone.? ?At approximately 20:42,? alex cruz was called overhead,? PEA cardiac arrest,? she received approximately 8 amps of epi, 2 bicarb and 1 g Calcium chloride.? ROSC was achieved eventually.?? ?On arrival to the ICU,? patient requiring emergent? TLC,? do to multiple peripheral IV lines infiltrating.? Labs obtained.? ?Family arrived to ICU,? and requested? for patient to? be transitioned to comfort measures only,? I personally spoke with Son Morgan (HCP), daughter Alise and son in law [place],? I informed them labs were pending,? 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 as ? She did not want to suffer any more?.? ? Comfort measures ordered per family request. Patient terminally extubated. At 2324 patient asystole on monitor. On my assessment, the patient had absent peripheral pulses.? Pupils fixed and dilated.? Absent heart sounds? and no spontaneous breathing.? TOD 2324.? Family at bedside at TOD. Not a medical exam candidate.? Organ donation was notified by nursing.? Attending Dr Leonard notified? Additional Data Attending physician: Dean Leonard MD
[2024-04-20 00:02] LABS: Reflex Lactate? Lactic Acid Added
--- NOTE | 2024-04-20 00:11 | OP_ITS ---
DATE OF SERVICE: 04/19/2024 SURGEON: Ramy Geiger MD INDICATIONS: Anemia and Hemoccult-positive stools. PREOPERATIVE DIAGNOSIS: POSTOPERATIVE DIAGNOSIS: PROCEDURE PERFORMED: Upper endoscopy. ESTIMATED BLOOD LOSS: COMPLICATIONS: ANESTHESIA: Monitored anesthesia care. ASSISTANTS: SPECIMENS: DESCRIPTION OF PROCEDURE: A history and physical was performed. The risks and benefits of the procedure were explained to the patient. Informed consent was obtained. The patient was placed in the left lateral decubitus position. The Olympus video gastroscope was introduced into the esophagus, stomach, and duodenum. Examination was performed. The scope was removed. She tolerated the procedure well and was returned to the recovery area in stable condition. FINDINGS: Esophagus: The esophagus was normal. There was an irregular EG junction and a small hiatal hernia. There was no esophagitis. Stomach: The stomach showed no evidence of masses, ulcers, or polyps. Duodenum: The bulb and second portion were normal. IMPRESSION: Hiatal hernia. RECOMMENDATION: 1. Advance diet. 2. Follow hematocrit. 3. She can follow up in the [facility] where she has been seen previously for consideration of outpatient capsule endoscopy if necessary. MD ZAY Balbuena/PHILLYL / [phone]
--- NOTE | 2024-04-20 00:53 | PC.NURSE ---
Assumed care of pt @ 1900. Received in bedside report that patient had gotten up to commode and was having difficulty recovering even after placing back in bed. Priority messaged Dr. Santo @ 1900 to report manual TRADE CLERK of 84/[address] patient in trendelenburg to increased BP to 102/83, HR sustaining 130s, diaphoretic, SOB now on 2L O2 satting 93% when pt was previously on RA. Dr. Santo came to bedside to observe patient, placed orders in for labs, CXR, Bolus and IV Antibiotics. Bolus initiated and patient denied any discomfort and was actively taking deep breaths into her nose and blow out of her mouth to help relax. Continued to monitor pt. This nurse was in front of the air sampling and monitoring and observed the alarm for Low Heart Rate and noted it was in the 40s as this nurse was going to verify the accuracy of the telemetry pack the air sampling and monitoring recorded Asystole. At 20:39 this nurse ran into the room to verify pt was pulseless and unresponsive and initiated CPR and called for a Code Blue. Code Blue was initiated, medications were administered and documented via Code Blue Sheet. Pt intubated to maintain airway and O2, ROSC obtained @ 21:05. Pt transferred to ICU. Report given to JONEL Chavez.
--- NOTE | 2024-04-20 03:00 | PC.NURSE ---
Patient arrived to ICU post PEA cardiac arrest.Upon initial assessment pt was intubated, tachypneic, tachycardic, hypotensive, RASS?+1, in nonbehavioral?bilateral wrist restraints, and IVs present on arrival were leaking/infiltrated.? ETT 7.5, 20 at the lip. ACVC settings. FiO2 100%, spO2 >90%. Lungs sound coarse throughout. New 22g IV placed to right wrist. Propofol gtt started per AUG. Afib RVR on tele, HR 130-140s. MAP<65, Levophed gtt started per AUG.? Unable to obtained additional IV access due to difficult stick. FOOTWEAR SALES COORDINATOR placed emergent TLC to the right IJ. OGT placed. XR obtained to confirm lines. Labs obtained- see AUG.? Family arrived to the ICU, decision was made to make patient comfort measures only.? Fentanyl gtt ordered and started per AUG.? Patient terminally extubated at 2255. Time of 2324. Family at bedside.? Family took patients belongings home. No home chosen as of yet.? This RN called [facility] at 0010 and spoke with Trudy, patient was declined. Case# [id number]
== END 2024-04-19 23:24 | disposition expired | DRG 811 ==
LOC: HO.ED 15:24 → HO.EDOVER 15:51 → HO.IMC 04-19 00:22 → HO.ICU 04-19 21:21
PROVIDERS: Internal Medicine Gastroenterology; Registered Nurse Community Health; Student in an Organized Health Care Education/Training Program; Admitting Provider Internal Medicine; Emergency Provider Emergency Medicine; PCP Nurse Practitioner Family; Visit Provider Internal Medicine Pulmonary Disease
PROC: 0DJ08ZZ Inspection of Upper Intestinal Tract, Via Natural or Artificial Opening Endoscopic (ICD-10-PCS; principal; 2024-04-19 12:30)
DX: D62 Acute posthemorrhagic anemia (principal); A41.9 Sepsis, unspecified organism; I50.23 Acute on chronic systolic (congestive) heart failure; R65.20 Severe sepsis without septic shock; C34.31 Malignant neoplasm of lower lobe, right bronchus or lung; N39.0 Urinary tract infection, site not specified; I42.9 Cardiomyopathy, unspecified; K92.2 Gastrointestinal hemorrhage, unspecified; Z51.5 Encounter for palliative care; E11.9 Type 2 diabetes mellitus without complications; I25.10 Atherosclerotic heart disease of native coronary artery without angina pectoris; K44.9 Diaphragmatic hernia without obstruction or gangrene; I11.0 Hypertensive heart disease with heart failure; I48.0 Paroxysmal atrial fibrillation; Z87.891 Personal history of nicotine dependence; Z79.01 Long term (current) use of anticoagulants; Z79.02 Long term (current) use of antithrombotics/antiplatelets; Z79.84 Long term (current) use of oral hypoglycemic drugs; Z79.899 Other long term (current) drug therapy
CPT/HCPCS: 36415; 71045; 74176; 80048; 80053; 80076; 81001; 82272; 82728; 82803; 82947; 83540; 83605; 83735; 83880; 84100; 84484; 85007; 85025; 85027; 85610; 86850; 86900; 86901; 86920; 86923; 87040; 87086; 87088; 87186; 93005; 94002; 94799; 99285; J0171; J2003; J2470; J2704; J3010; J7120; P9016

== ENCOUNTER → 2024-04-18 12:58 | Outpatient (BNV) | payer MEDICARE, SELFPAY | PROVIDERS: Emergency Provider Emergency Medicine; Visit Provider Radiology Diagnostic Radiology | DX: R06.00 Dyspnea, unspecified (principal) | CPT/HCPCS: 71045 ==

== ENCOUNTER 2024-04-18 15:51 | Outpatient (BNV) | payer MEDICARE, SELFPAY | END 2024-04-19 21:07 | PROVIDERS: Admitting Provider Internal Medicine; Emergency Provider Emergency Medicine; PCP Nurse Practitioner Family; Visit Provider Internal Medicine Cardiovascular Disease | DX: R94.31 Abnormal electrocardiogram [ECG] [EKG] (principal) | CPT/HCPCS: 93010 ==

== ENCOUNTER → 2024-04-18 15:51 | Outpatient (BNV) | payer MEDICARE, SELFPAY | PROVIDERS: Admitting Provider Internal Medicine; Emergency Provider Emergency Medicine; PCP Nurse Practitioner Family; Visit Provider Registered Nurse Community Health | DX: I42.9 Cardiomyopathy, unspecified (principal); C34.90 Malignant neoplasm of unspecified part of unspecified bronchus or lung; J81.1 Chronic pulmonary edema; T17.908A Unspecified foreign body in respiratory tract, part unspecified causing other injury, initial encounter | CPT/HCPCS: 36556; 99238; 99291 ==

== ENCOUNTER → 2024-04-18 15:51 | Outpatient (BNV) | payer MEDICARE, SELFPAY | PROVIDERS: Admitting Provider Internal Medicine; Emergency Provider Emergency Medicine; Visit Provider Internal Medicine | DX: I42.9 Cardiomyopathy, unspecified (principal) | CPT/HCPCS: 99223; 99233; 99499 ==